=== PATIENT | female | born 1970 | race Caucasian/White ===

== ENCOUNTER 2018-10-05 09:52 | Emergency (ER) | payer MEDICARE, SELFPAY ==
[2018-10-05 10:01] VITALS: BP 143/82; PULSE 90; RESP 14; TEMP 37; O2SAT 95
--- NOTE | 2018-10-05 10:06 | W.ED.GENAD ---
Discharge Plan Disposition Patient Disposition: HOME Condition: Improving Discharge Details Chief Complaint: RespSymp Clinical Impression: Pneumonia Primary Care Provider: Wendy Fall ED Provider: Greg Meyers Home Meds and New Rx's Prescriptions: New amoxicillin-pot clavulanate 875-125 mg tablet 1 tab PO BID 10 Days Qty: 20 RF: 0 guaifenesin [Mucinex] 600 mg tablet extended release 12hr 600 mg PO Q12H PRNQty: 10 RF: 0 Continue cyanocobalamin (vitamin B-12) [Vitamin B-12] 1,000 MCG tablet 1,000 mcg PO DAILY Qty: 1 RF: 0 oxycodone 10 MG tablet 10 mg PO 8H PRN PRNRF: 0 atenolol 25 MG tablet 25 mg PO DAILY RF: 0 ipratropium-albuterol [Combivent] 200 PUFF aerosol 2 puff Inhalation QID PRN PRNRF: 0 multivitamin [Multiple Vitamins] 1 TAB tablet 1 tab PO DAILY Qty: 30 RF: 3 Discharge Instructions Instructions: Pneumonia (ED) Additional Instructions: Home to rest. Small, frequent sips of fluids to maintain hydration. Ibuprofen 800 mg every 8 hours as needed for aches, pains, fever. Albuterol inhaler as directed, as needed for shortness of breath Return to the emergency department for any acute concern. Medical Decision Making 39-year-old female smoker presents from home with days of worsening cough and congestion. She is afebrile and oxygenating normally. Diagnosis includes bronchitis, pneumonia. Patient given DuoNeb updraft and referred for chest X ray. I question retrocardiac infiltrate. Will treat with a course of Augmentin as well as patient to be provided albuterol inhaler to use during times of illness. She will continue efforts to decrease smoking. Return precautions to the ER were discussed with the patient. HPI General Mode of arrival: ambulatory. Date/Time Provider Initiated Documentation: 10/05/18 10:00. Limitations to Documentation: no limitations. Information obtained by: patient. History of Present Illness 47 year old F presents to the emergency department with the chief complaint of Cough and congestion over days time, described as moderate, Quality is described as aching, and is localized to the chest. Patient started experiencing this day(s) and it has been constant. No relieving factors improve symptom(s), No exacerbating factors reported . Patient notes cough, loss of appetite, malaise and weakness. Patient did receive the following treatments prior to arrival, none HPI Narrative: 39-year-old female presents from home with days of progressive cough, congestion, mild discomfort while coughing. She has had subjective fever and chills. No vomiting Related Data Home Medications Medication Instructions Recorded Confirmed atenolol 25 mg PO DAILY 03/28/13 10/05/18 cyanocobalamin (vitamin B-12) 1,000 mcg PO DAILY #1 04/10/14 10/05/18 [Vitamin B-12] oxycodone 10 mg PO 8H PRN PRN 04/09/16 10/05/18 multivitamin [Multiple Vitamins] 1 tab PO DAILY #30 tab 07/11/17 10/05/18 ipratropium-albuterol [Combivent] 2 puff INHALATION QID PRN PRN 06/05/18 10/05/18 amoxicillin-pot clavulanate 1 tab PO BID 10 Days #20 tab 10/05/18 guaifenesin [Mucinex] 600 mg PO Q12H PRN #10 tab 10/05/18 Previous Rx's Medication Instructions Recorded multivitamin [Multiple Vitamins] 1 tab PO DAILY #30 tab 07/11/17 amoxicillin-pot clavulanate 1 tab PO BID 10 Days #20 tab 10/05/18 guaifenesin [Mucinex] 600 mg PO Q12H PRN #10 tab 10/05/18 Allergies Allergy/AdvReac Type Severity Reaction Status Date / Time acetaminophen [From Tylenol] AdvReac Unverified 06/05/18 09:09 General Stated Complaint: RespSymp SHEA: 3 Review of Systems Review of Systems 8 systems reviewed and otherwise neg [facility] Medical History Seizure Tachycardia Social History Smoking/Tobacco Use Status: Current every day Surgical History Collapsed lung 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 Pleasant, well groomed, interactive. HEAD: Normocephalic, atraumatic ENT: Mucous membranes moist, oropharynx unremarkable, External ear exam unremarkable EYES: PERRL, EOMI NECK: Full ROM, no CAMELIA, no menigismus CHEST/RESP: Nontender, bilateral rhonchi left greater than right CARDIOVASCULAR: RRR, no murmur, rub amy. 2+ Rad pulse bilateral ABDOMEN: Soft, nontender, no mass. +Bowel sounds EXT: Full ROM, no edema, no rash Neuro: Grossly normal neurologic exam, conversant, interactive. Psych: Speech fluent, thoughts congruent, affect normal Course Vital Signs Temperature 37 C 10/05/18 10:01 Pulse 90 10/05/18 10:01 Respiratory Rate 14 10/05/18 10:01 Blood Pressure 143/82 H 10/05/18 10:01 Pulse Oximetry 95 10/05/18 10:01 Temperature 37 C 10/05/18 10:01 Temperature Source Temporal Artery Scan 10/05/18 10:01 Pulse 90 10/05/18 10:01 Respiratory Rate 14 10/05/18 10:01 Respiratory Effort 10/05/18 10:03 Blood Pressure 143/82 H 10/05/18 10:01 Blood Pressure Position Sitting 10/05/18 10:01 Pulse Oximetry 95 10/05/18 10:01 Oxygen Delivery Method Room Air 10/05/18 10:01 Oxygen Flow Rate 0 10/05/18 10:01 Pain Level 8 10/05/18 10:01
--- NOTE | 2018-10-05 10:09 | ED.GENADUL_ITS ---
Discharge Plan Disposition Patient Disposition: HOME Condition: Improving Discharge Details Chief Complaint: RespSymp Clinical Impression: Pneumonia Primary Care Provider: Wendy Fall ED Provider: Greg Meyers Home Meds and New Rx's Prescriptions: New amoxicillin-pot clavulanate 875-125 mg tablet 1 tab PO BID 10 Days Qty: 20 RF: 0 guaifenesin [Mucinex] 600 mg tablet extended release 12hr 600 mg PO Q12H PRNQty: 10 RF: 0 Continue cyanocobalamin (vitamin B-12) [Vitamin B-12] 1,000 MCG tablet 1,000 mcg PO DAILY Qty: 1 RF: 0 oxycodone 10 MG tablet 10 mg PO 8H PRN PRNRF: 0 atenolol 25 MG tablet 25 mg PO DAILY RF: 0 ipratropium-albuterol [Combivent] 200 PUFF aerosol 2 puff Inhalation QID PRN PRNRF: 0 multivitamin [Multiple Vitamins] 1 TAB tablet 1 tab PO DAILY Qty: 30 RF: 3 Discharge Instructions Instructions: Pneumonia (ED) Additional Instructions: Home to rest. Small, frequent sips of fluids to maintain hydration. Ibuprofen 800 mg every 8 hours as needed for aches, pains, fever. Albuterol inhaler as directed, as needed for shortness of breath Return to the emergency department for any acute concern. Medical Decision Making 39-year-old female smoker presents from home with days of worsening cough and congestion. She is afebrile and oxygenating normally. Diagnosis includes bronchitis, pneumonia. Patient given DuoNeb updraft and referred for chest X ray. I question retrocardiac infiltrate. Will treat with a course of Augmentin as well as patient to be provided albuterol inhaler to use during times of illness. She will continue efforts to decrease smoking. Return precautions to the ER were discussed with the patient. HPI General Mode of arrival: ambulatory . Date/Time Provider Initiated Documentation: 10/05/18 10:00 . Limitations to Documentation: no limitations . Information obtained by: patient . History of Present Illness 47 year old F presents to the emergency department with the chief complaint of Cough and congestion over days time, described as moderate, Quality is described as aching, and is localized to the chest. Patient started experiencing this day(s) and it has been constant. No relieving factors improve symptom(s), No exacerbating factors reported . Patient notes cough, loss of appetite, malaise and weakness. Patient did receive the following treatments prior to arrival, none HPI Narrative: 39-year-old female presents from home with days of progressive cough, congestion, mild discomfort while coughing. She has had subjective fever and chills. No vomiting Related Data Home Medications Medication Instructions Recorded Confirmed atenolol 25 mg PO DAILY 03/28/13 10/05/18 cyanocobalamin (vitamin B-12) 1,000 mcg PO DAILY #1 04/10/14 10/05/18 [Vitamin B-12] oxycodone 10 mg PO 8H PRN PRN 04/09/16 10/05/18 multivitamin [Multiple Vitamins] 1 tab PO DAILY #30 tab 07/11/17 10/05/18 ipratropium-albuterol [Combivent] 2 puff INHALATION QID PRN PRN 06/05/18 amoxicillin-pot clavulanate 1 tab PO BID 10 Days #20 tab 10/05/18 guaifenesin [Mucinex] 600 mg PO Q12H PRN #10 tab 10/05/18 Previous Rx's Medication Instructions Recorded multivitamin [Multiple Vitamins] 1 tab PO DAILY #30 tab 07/11/17 amoxicillin-pot clavulanate 1 tab PO BID 10 Days #20 tab 10/05/18 guaifenesin [Mucinex] 600 mg PO Q12H PRN #10 tab 10/05/18 Allergies Allergy/AdvReac Type Severity Reaction Status Date / Time acetaminophen [From Tylenol] AdvReac Unverified 06/05/18 09:09 General Stated Complaint: RespSymp SHEA: 3 Review of Systems Review of Systems 8 systems reviewed and otherwise neg [facility] Medical History Seizure Tachycardia Social History Smoking/Tobacco Use Status: Current every day Surgical History Collapsed lung 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 Pleasant, well groomed, interactive. HEAD: Normocephalic, atraumatic ENT: Mucous membranes moist, oropharynx unremarkable, External ear exam unremarkable EYES: PERRL, EOMI NECK: Full ROM, no CAMELIA, no menigismus CHEST/RESP: Nontender, bilateral rhonchi left greater than right CARDIOVASCULAR: RRR, no murmur, rub amy. 2+ Rad pulse bilateral ABDOMEN: Soft, nontender, no mass. +Bowel sounds EXT: Full ROM, no edema, no rash Neuro: Grossly normal neurologic exam, conversant, interactive. Psych: Speech fluent, thoughts congruent, affect normal Course Vital Signs Temperature 37 C 10/05/18 10:01 Pulse 90 10/05/18 10:01 Respiratory Rate 14 10/05/18 10:01 Blood Pressure 143/82 H 10/05/18 10:01 Pulse Oximetry 95 10/05/18 10:01 Temperature 37 C 10/05/18 10:01 Temperature Source Temporal Artery Scan 10/05/18 10:01 Pulse 90 10/05/18 10:01 Respiratory Rate 14 10/05/18 10:01 Respiratory Effort 10/05/18 10:03 Blood Pressure 143/82 H 10/05/18 10:01 Blood Pressure Position Sitting 10/05/18 10:01 Pulse Oximetry 95 10/05/18 10:01 Oxygen Delivery Method Room Air 10/05/18 10:01 Oxygen Flow Rate 0 10/05/18 10:01 Pain Level 8 10/05/18 10:01
[2018-10-05 10:26] VITALS: RESP 1; RESP 3
[2018-10-05] MEDS: Albuterol/Ipratropium 3 ML UPD VIAL UPD (10:26)
[2018-10-05] MEDS: Ibuprofen 800 MG TAB PO (10:26)
--- NOTE | 2018-10-05 10:50 | DI.RAD_ITS ---
SYMPTOMS/DIAGNOSIS: COUGH AND CONGESTION PA AND LATERAL CHEST: The heart is not enlarged. There is marked pulmonary hyperinflation and there appear to be diffuse changes of pulmonary scarring. No pleural effusions seen. In comparison with the previous examination of 06/05/2018, there appears to be increased streaky radiodensity in the retrocardiac portion of the left lower lobe, consistent with acute pneumonia. No other significant change seen. CONCLUSION: Findings consistent with left lower lobe pneumonia.
[2018-10-05 11:30] VITALS: BP 109/76; PULSE 92; RESP 17; TEMP 37
[2018-10-05] MEDS: Albuterol HFA 8 GM 60 PUFF INH IH (11:39)
== END 2018-10-05 11:35 | disposition home or self-care (01) ==
PROVIDERS: Emergency Provider Emergency Medicine; PCP Nurse Practitioner Family
DX: J18.9 Pneumonia, unspecified organism (principal); R07.89 Other chest pain; F17.210 Nicotine dependence, cigarettes, uncomplicated
CPT/HCPCS: 94640; 99283; 71046; J7620

== ENCOUNTER 2018-10-12 21:29 | Emergency (ER) | payer MEDICARE, SELFPAY ==
[2018-10-12 21:38] VITALS: BP 130/72; PULSE 78; RESP 18; TEMP 36.6; O2SAT 100
[2018-10-12] MEDS: Normal Saline 1,000 ML 1000 ML IV (23:20)
--- NOTE | 2018-10-12 23:30 | DI.RAD_ITS ---
SYMPTOMS/DIAGNOSIS: EPIGASTRIC PAIN, COUGH PA AND LATERAL CHEST: Pulmonary hyperinflation is demonstrated. There is an ill-defined density projected over the left lower lobe which is unchanged when compared with previous images and likely represents a region of scarring. The lungs are otherwise clear. The heart is not enlarged. The cardiovascular structures appear intact. SUMMARY: No evidence of acute cardiopulmonary disease.
--- NOTE | 2018-10-12 23:35 | DI.RAD_ITS ---
SYMPTOM/DIAGNOSIS: EPIGASTRIC PAIN FLAT AND UPRIGHT VIEWS OF THE ABDOMEN: No free air is identified. There is gas seen scattered throughout small and large bowel without evidence of obstruction. No organomegaly is seen. There is a left hip prosthesis. IMPRESSION: No acute abnormality.
[2018-10-13 00:01] LABS: Abs Immature Grans 0.03 k/cumm (0.0-0.09); Absolute Basophil Count 0.03 k/cumm (0.0-0.2); Absolute Eosinophil Count 0.01 k/cumm (0.0-0.7); Absolute Lymphocyte Count 2.18 k/cumm (1.2-3.4); Absolute Monocyte Count 0.63 k/cumm (0.11-0.7); Absolute Neutrophil Count 9.94 k/cumm (1.2-6.7); Basophils % 0.2; Eosinophils % 0.1; HCT 43.7 % (36.0-46.0); HGB 15.2 g/dL (12.0-15.5); Immature Grans % 0.2; Mean Corp. HGB Concentration 34.8 g/dL (32.0-36.0); Mean Corpuscular Volume 86.2 fL (80-95); Monocytes % 4.9; Neutrophils % 77.6; Platelet Count 145 x1000/uL (130-400); RBC 5.07 m/cumm (4.00-5.20); RBC Distribution Width 13.1 % (11.7-14.6); White Blood Cell Count 12.81 k/cumm (4.4-10.8)
--- NOTE | 2018-10-13 00:01 | W.ED.GENAD ---
Discharge Plan Disposition Patient Disposition: HOME Condition: Improving Discharge Details Chief Complaint: Abd Prob Clinical Impression: Epigastric pain, Hypomagnesemia, Diarrhea, Dehydration, Hyponatremia Primary Care Provider: Wendy Fall ED Provider: Ashok Strong Home Meds and New Rx's Prescriptions: New famotidine [Pepcid] 40 mg tablet 40 mg PO BID Qty: 10 RF: 0 Continue cyanocobalamin (vitamin B-12) [Vitamin B-12] 1,000 MCG tablet 1,000 mcg PO DAILY Qty: 1 RF: 0 oxycodone 10 MG tablet 10 mg PO 8H PRN PRNRF: 0 atenolol 25 MG tablet 25 mg PO DAILY RF: 0 ipratropium-albuterol [Combivent] 200 PUFF aerosol 2 puff Inhalation QID PRN PRNRF: 0 amoxicillin-pot clavulanate 875-125 mg tablet 1 tab PO BID 10 Days Qty: 20 RF: 0 guaifenesin [Mucinex] 600 mg tablet extended release 12hr 600 mg PO Q12H PRNQty: 10 RF: 0 multivitamin [Multiple Vitamins] 1 TAB tablet 1 tab PO DAILY Qty: 30 RF: 3 Discharge Instructions Instructions: Dehydration (ED), Acute Diarrhea (ED), Epigastric Pain (ED) Additional Instructions: Please drink plenty of fluids including Gatorade type drinks. You should be taking your magnesium. Finish your antibiotic. Pepcid to help with the epigastric discomfort. Imodium if needed for diarrhea. Avoid nonsteroidals, caffeine, alcohol. Follow-up with primary care next week as planned. Return to ED if fever, vomiting, worsening abdominal pain, bloody diarrhea, increased difficulty breathing. Referrals: Wendy Fall [Primary Care Provider] - Discharge Data Discharge Date/Time-TO BE ENTERED AT DEPARTURE: 10/13/18 01:06 Medical Decision Making <Manuel Jerez NP - Last Filed: 10/13/18 16:40> Patient presenting to the emergency department with chief complaint of abdominal discomfort. Patient also states some chest pain with cough that has been improving. Patient was seen in the emergency department approximately 1 week ago and placed on antibiotics for diagnosis of pneumonia. Patient states overall pneumonia chest discomfort are improving but over the past 2 days she has had significant abdominal discomfort, loss of appetite, and low fluid intake. Patient states that she has had diarrhea almost since beginning the antibiotic therapy it is not resolved. Patient states that this is not bloody or mucousy and does not have a foul odor but just is watery and persistent. She does state that she has taken some Imodium to try to help her symptoms. Patient denies any fever. Physical exam does show significant epigastric tenderness, along with fine crackles in the left lower lobe. Otherwise physical exam is unremarkable. Patient did state that she had an additional 24 hours of antibiotic therapy still to take but she stopped it to see if this would help with her symptoms. She does state that she has been taking 800 mg of ibuprofen to control her discomfort. I am highly suspicious of gastritis being the cause of epigastric discomfort due to antibiotic therapy along with NSAID use without food intake along with these medications. Plan to give GI cocktail along with check patient's labs for any significant electrolyte abnormalities and repeat chest x-ray to ensure improvement of pneumonia symptoms. HPI <Manuel Jerez NP - Last Filed: 10/13/18 16:40> General Mode of arrival: ambulatory. Date/Time Provider Initiated Documentation: 10/12/18 21:58. Limitations to Documentation: no limitations. Information obtained by: patient, RN notes reviewed and old records reviewed. History of Present Illness 47 year old F presents to the emergency department with the chief complaint of Abdominal Pain, described as moderate, with intensity rated at 9. Quality is described as sharp, and is localized to the abdomen. Patient reports no radiation. Patient started experiencing this day(s) (2) and it has been constant. No relieving factors improve symptom(s), Eating worsens symptoms . Patient notes no other symptoms.. Related Data Home Medications Medication Instructions Recorded Confirmed atenolol 25 mg PO DAILY 03/28/13 10/12/18 cyanocobalamin (vitamin B-12) 1,000 mcg PO DAILY #1 04/10/14 10/12/18 [Vitamin B-12] oxycodone 10 mg PO 8H PRN PRN 04/09/16 10/12/18 multivitamin [Multiple Vitamins] 1 tab PO DAILY #30 tab 07/11/17 10/12/18 ipratropium-albuterol [Combivent] 2 puff INHALATION QID PRN PRN 06/05/18 10/12/18 amoxicillin-pot clavulanate 1 tab PO BID 10 Days #20 tab 11/14/18 11/21/18 guaifenesin [Mucinex] 600 mg PO Q12H PRN #10 tab 10/05/18 10/12/18 famotidine [Pepcid] 40 mg PO BID #10 tab 10/13/18 Previous Rx's Medication Instructions Recorded multivitamin [Multiple Vitamins] 1 tab PO DAILY #30 tab 07/11/17 amoxicillin-pot clavulanate 1 tab PO BID 10 Days #20 tab 10/05/18 guaifenesin [Mucinex] 600 mg PO Q12H PRN #10 tab 10/05/18 famotidine [Pepcid] 40 mg PO BID #10 tab 10/13/18 Allergies Allergy/AdvReac Type Severity Reaction Status Date / Time acetaminophen [From Tylenol] AdvReac Unverified 10/12/18 21:42 General Stated Complaint: Abd Prob SHEA: 3 Review of Systems <Manuel Jerez NP - Last Filed: 10/13/18 16:40> Constitutional Denies chills, Denies fever(s), Denies headache(s), Reports malaise and Reports poor appetite ENT Denies headache(s) Cardiovascular Denies rapid heart rate, Denies irregular heart rhythm and Denies dyspnea Respiratory Reports chest congestion, Reports pain with cough and Denies dyspnea Gastrointestinal Reports as per HPI, Reports abdominal pain, Denies melena, Denies change in bowel habits, Denies constipation, Reports diarrhea, Reports loose stools, Reports nausea and Denies vomiting Genitourinary Denies hematuria, Denies urinary incontinence, Denies urinary hesitancy and Denies urinary urgency Integumentary/Breasts Denies rash Neurologic Denies headache(s) and Denies seizure-like activity Exam <Manuel Jerez NP - Last Filed: 10/13/18 16:40> Const General: cooperative Orientation: alert, awake and oriented x3 Resp Effort & Inspection: normal respiratory effort and able to speak in complete sentences Auscultation: crackles (fine) on the left in the lower lung rasmussen Cardio Rate: regular rate Rhythm: regular rhythm Heart Sounds: S1 normal and S2 normal GI Palpation: soft, no hepatosplenomegaly, not firm, no guarding, no masses, no pulsatile masses, not rigid, no splenomegaly and tender in the epigastrum; not at McBurney's point, not periumbilically, Cordova's sign negative and Rovsing's sign negative Auscultation: normal bowel sounds Back/Spine/Pelvis Back: no CVA tenderness Neuro General: alert, awake, oriented x3, gait normal and moves all extremities Course <Manuel Jerez NP - Last Filed: 10/13/18 16:40> Vital Signs Temperature 36.6 C 10/12/18 21:38 Pulse 78 10/12/18 21:38 Respiratory Rate 18 10/12/18 21:38 Blood Pressure 130/72 10/12/18 21:38 Pulse Oximetry 100 10/12/18 21:38 Temperature 36.6 C 10/12/18 21:38 Temperature Source Skin 10/12/18 21:38 Pulse 78 10/12/18 21:38 Respiratory Rate 18 10/12/18 21:38 Respiratory Effort Non-Labored 10/12/18 21:40 Blood Pressure 130/72 10/12/18 21:38 Pulse Oximetry 100 10/12/18 21:38 Oxygen Delivery Method Room Air 10/12/18 21:38 Oxygen Flow Rate 0 10/12/18 21:38 Pain Level 9 10/12/18 21:38 Sign Out <Manuel Jerez NP - Last Filed: 10/13/18 16:40> Sign Out Data: Sign Out Comment: Patient signed out to Dr. Strong pending radiology results and lab results, treatment and stabilization as needed, and disposition. Last updated by Manuel Jerez NP at 10/13/18 00:14 Post-Handoff Eval: Patient does report that she is feeling better. She wants to go home because she needs to get ready for Thanksgiving. She has received a liter of saline and a GI cocktail. Laboratory studies significant for white count of 13. Chemistries significant for a sodium of 129, chloride 94, magnesium 1.5. Potassium is okay at 3.5. Liver function and lipase are normal. Chest x-ray shows resolving pneumonia. Abdominal x-ray is unremarkable I went in to speak to the patient regarding giving her a another liter of fluids as well as some magnesium. She states that she does not wish to stay for that. She promises to start taking her magnesium which she has at home as well as drinking fluids. She has not having vomiting just diarrhea. I do believe the epigastric discomfort and pain is likely related to the Motrin and possibly the Augmentin. GI cocktail made that better. We will put her on Pepcid for a few days. She has follow-up with her primary care next week. Return to ED if worse.
--- NOTE | 2018-10-13 00:11 | DI.VRAD_ITS ---
EXAM: XR Chest, 2 Views EXAM DATE/TIME: 10/12/2018 10:34 PM CLINICAL HISTORY: 47 years old, female; Pain and signs and symptoms; Cough; Chest pain; Type not specified; Patient HX: Chest pain with cough, recent left lower lobe pneumonia TECHNIQUE: XR of the chest, 2 views. COMPARISON: CR XR CHEST 2V PA LATERAL 10/05/2018 10:44 AM FINDINGS: Lungs: There is increased density retrocardiac on the left which could represent a left lower lobe infiltrate. Clinical correlation is recommended. There is again elevation of the right hemidiaphragm. Pleural space: There is blunting of the costophrenic angles posteriorly on the lateral film which are suspicious for pleural effusions. Heart/Mediastinum: Unremarkable. No cardiomegaly. Bones/joints: Unremarkable. IMPRESSION: Question left lower lobe infiltrate. Clinical correlation is recommended. Suspect bilateral pleural effusions as above. Elevation of the right hemidiaphragm. Dictated and Authenticated by: Anmol Dhaliwal MD. Ordering:DEBBIE MORALES MD
--- NOTE | 2018-10-13 00:13 | DI.VRAD_ITS ---
EXAM: XR Abdomen, 2 Views EXAM DATE/TIME: 10/12/2018 10:34 PM CLINICAL HISTORY: 47 years old, female; Pain; Abdominal pain; Epigastric; Prior surgery; Surgery date: 6+ months; Surgery type: L hip; Patient HX: Epigastric pain and diarrhea for 7 days. TECHNIQUE: Frontal view of the abdomen/pelvis with upright view of the abdomen. COMPARISON: No relevant prior studies available. FINDINGS: Gastrointestinal tract: There is a nonspecific bowel gas pattern. There is small and large bowel gas. There is no free air or air-fluid levels. Intraperitoneal space: Normal. No free air. Bones/joints: The patient is status post total left hip replacement. IMPRESSION: Nonspecific bowel gas pattern. Status post total left hip replacement. Dictated and Authenticated by: Anmol Dhaliwal MD. Ordering:DEBBIE MORALES MD
[2018-10-13 00:14] LABS: Lipase 117 U/L (73-393)
[2018-10-13 00:17] LABS: ALT 22 U/L (12-78); AST 25 U/L (15-37); Albumin 2.8 g/dL (3.4-5.0); Alkaline Phosphatase 101 U/L (46-116); Anion Gap 11.8 mmol/L (3-11); BUN 1 mg/dL (7-18); Bilirubin, Total 0.4 mg/dL (0.2-1.0); CO2 23.2 mmol/L (21.0-32.0); CREATININE 0.34 mg/dL (0.55-1.02); Calcium 8.2 mg/dL (8.5-10.1); Chloride 94 mmol/L (98-107); Glucose 91 mg/dL (70-100); Magnesium 1.5 mg/dL (1.8-2.4); Potassium 3.5 mmol/L (3.5-5.1); Sodium 129 mmol/L (136-145); Total Protein 7.1 g/dL (6.4-8.2)
[2018-10-13] MEDS: Famotidine 20 MG TAB 40 MG PO (01:03)
== END 2018-10-13 01:06 | disposition home or self-care (01) ==
PROVIDERS: Nurse Practitioner Family; Emergency Provider Emergency Medicine; PCP Nurse Practitioner Family
DX: R10.13 Epigastric pain (principal); E83.42 Hypomagnesemia; R19.7 Diarrhea, unspecified; E86.0 Dehydration; E87.1 Hypo-osmolality and hyponatremia; J18.9 Pneumonia, unspecified organism
CPT/HCPCS: 36415; 80053; 83690; 96360; 99283; 71046; 74019; 83735; 85025

== ENCOUNTER 2019-03-21 20:57 | Emergency (ER) | payer MEDICARE, SELFPAY ==
[2019-03-21] VITALS (13 sets, daily range): BP systolic 108–134; BP diastolic 59–85; PULSE 103–121; RESP 22–27; TEMP 37.2–38.4; O2SAT 91–99
--- NOTE | 2019-03-21 21:03 | ED.GENADUL_ITS ---
Discharge Plan Disposition Patient Disposition: HOME Condition: Improving Discharge Details Chief Complaint: Seizure Clinical Impression: Seizure disorder, Alcohol dependence Primary Care Provider: Bria Lorenzo ED Provider: Greg Meyers Home Meds and New Rx's Prescriptions: New ondansetron HCl [Zofran] 4 mg tablet 4 mg PO QID PRN (Reason: nausea and vomiting) Qty: 10 RF: 0 guaifenesin [Mucinex] 600 mg tablet extended release 12hr 600 mg PO Q12H PRNQty: 10 RF: 0 Continued cyanocobalamin (vitamin B-12) [Vitamin B-12] 1,000 MCG tablet 1,000 mcg PO DAILY Qty: 1 RF: 0 oxycodone 10 MG tablet 10 mg PO 8H PRN PRNRF: 0 atenolol 25 MG tablet 25 mg PO DAILY RF: 0 Combivent 200 PUFF aerosol 2 puff Inhalation QID PRN PRNRF: 0 guaifenesin [Mucinex] 600 mg tablet extended release 12hr 600 mg PO Q12H PRNQty: 10 RF: 0 multivitamin [Multiple Vitamins] 1 TAB tablet 1 tab PO DAILY Qty: 30 RF: 3 Discharge Instructions Instructions: Recurrent Seizures in Adults (ED) Additional Instructions: Please consider a decreasing her daily use of alcohol. May use the provided Zofran as needed for nausea. Home to rest this evening with small, frequent sips of fluids to maintain hydration. You may liberalize the use of salt in the diet. Please follow-up Bria Lorenzo in clinic for recheck. Return if you develop a headache, persistent vomiting, or any other acute concern Medical Decision Making 48-year-old female with a history of seizure disorder, that she states frequently occurs when drinking alcohol and admits to a few beers today. She had generalized tremulous seizure while seated in her recliner at home. There is no cessation of breathing. No tongue biting. No incontinence. She has had previous head CT imaging at the onset of her seizure disorder and states that is unchanged. She has had 1 day of low-grade fever with nausea, intermittent vomiting and loose watery stools. No known sick contacts. She likely drinks more and on a daily basis then she is willing to admit. 2-3 beers today per her report. She arrives with a low-grade fever of 38.4. Unremarkable neurologic exam. She is given fluids, ketorolac. She admits to seizures related to her alcohol consumption.She endorse a cough as well and CXR obtained; nofocal infiltrate. Laboratory with mild hyponatremia, mild hypomagnesemia. Supplemented in the ED. Discussed with her that this is in part beer potomania as well as likely mild alcohol withdrawal. She is improved clinically and requests discharge home. Will offer small number of Zofran. She will follow-up with Bria Lorenzo for recheck. Lab Data Lab results reviewed: Yes I reviewed the patient's lab results. Laboratory Results - last 24 hr 03/21/19 03/21/19 21:02 21:02 WBC 18.66 H RBC 4.79 Hgb 15.2 Hct 45.3 MCV 94.6 MCH 31.7 MCHC 33.6 RDW 12.5 Plt Count 139 MPV 11.0 Immature Gran % 0.3 Neutrophils % 89.7 Lymphocytes % 5.1 Monocytes % 4.7 Eosinophils % 0.0 Basophils % 0.2 Absolute Neutrophils 16.74 H Absolute Lymphocytes 0.95 L Absolute Monocytes 0.88 H Absolute Eosinophils 0.00 Absolute Basophils 0.04 Sodium 131 L Potassium 3.7 Chloride 92 L Carbon Dioxide 19.5 L Anion Gap 19.5 H BUN 6 L Creatinine 0.75 Estimated GFR/1.73 m2 >= 60.00 Glucose 152 H Calcium 9.0 Magnesium 1.5 L Total Bilirubin 0.7 AST 44 H ALT 40 Alkaline Phosphatase 128 H Total Protein 8.7 H Albumin 3.6 Ethyl Alcohol 3.9 HPI General Mode of arrival: EMS . Date/Time Provider Initiated Documentation: 03/21/19 21:03 . Limitations to Documentation: no limitations . Information obtained by: EMS . History of Present Illness 48 year old F presents to the emergency department with the chief complaint of Seizure, similar to previous, no injury or tongue biting, described as similar to prior episodes, Patient started experiencing this minute(s) and it has been now resolved. No relieving factors improve symptom(s), No exacerbating factors reported . Patient notes no other symptoms.; denies fever/chills and headaches. Patient did receive the following treatments prior to arrival, none Related Data Home Medications Medication Instructions Recorded Confirmed atenolol 25 mg PO DAILY 03/28/13 03/21/19 cyanocobalamin (vitamin B-12) 1,000 mcg PO DAILY #1 04/10/14 03/21/19 [Vitamin B-12] oxycodone 10 mg PO 8H PRN PRN 04/09/16 03/21/19 multivitamin [Multiple Vitamins] 1 tab PO DAILY #30 tab 07/11/17 03/21/19 Combivent 2 puff INHALATION QID PRN PRN 06/05/18 03/21/19 guaifenesin [Mucinex] 600 mg PO Q12H PRN #10 tab 10/05/18 03/21/19 guaifenesin [Mucinex] 600 mg PO Q12H PRN #10 tab 03/21/19 ondansetron HCl [Zofran] 4 mg PO QID PRN #10 tab 03/21/19 Previous Rx's Medication Instructions Recorded multivitamin [Multiple Vitamins] 1 tab PO DAILY #30 tab 07/11/17 guaifenesin [Mucinex] 600 mg PO Q12H PRN #10 tab 10/05/18 guaifenesin [Mucinex] 600 mg PO Q12H PRN #10 tab 03/21/19 ondansetron HCl [Zofran] 4 mg PO QID PRN #10 tab 03/21/19 Allergies Allergy/AdvReac Type Severity Reaction Status Date / Time acetaminophen [From Tylenol] AdvReac Unverified 03/21/19 21:02 General SHEA: 3 Review of Systems Review of Systems 8 systems reviewed and otherwise negative. Denies headache, no change to bowel or bladder habits. No incontinence. No tongue biting. No fall or injury. Today with nausea, intermittent vomiting, loose stool. 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 Pleasant, well groomed, interactive. HEAD: Normocephalic, atraumatic ENT: Mucous membranes moist, oropharynx unremarkable, External ear exam unremarkable EYES: PERRL, EOMI NECK: Full ROM, no CAMELIA, no menigismus CHEST/RESP: Nontender, clear to auscultation bilateral, no wheeze/rhonchi/rales CARDIOVASCULAR: Borderline tachycardia, no murmur, rub amy. 2+ Rad pulse bilateral ABDOMEN: Soft, nontender, no mass. +Bowel sounds EXT: Full ROM, no edema, no rash Neuro: Grossly normal neurologic exam, conversant, interactive. Cranial nerves II through XII intact. Speech fluent. [id number] intact Psych: Speech fluent, thoughts congruent, affect normal
[2019-03-21] MEDS: Normal Saline 1,000 ML 1000 ML IV (21:05)
[2019-03-21] MEDS: Ketorolac 30 MG/ML VIAL IVP (21:09)
[2019-03-21 21:12] LABS: Abs Immature Grans 0.05 k/cumm (0.0-0.09); Absolute Lymphocyte Count 0.95 k/cumm (1.2-3.4); Basophils % 0.2; HCT 45.3 % (36.0-46.0); HGB 15.2 g/dL (12.0-15.5); Immature Grans % 0.3; Lymphocytes % 5.1; Mean Corp. HGB Concentration 33.6 g/dL (32.0-36.0); Mean Corpuscular Hemoglobin 31.7 pg (27.0-33.0); Mean Corpuscular Volume 94.6 fL (80-95); Monocytes % 4.7; Neutrophils % 89.7; Platelet Count 139 x1000/uL (130-400); RBC 4.79 m/cumm (4.00-5.20); RBC Distribution Width 12.5 % (11.7-14.6); White Blood Cell Count 18.66 k/cumm (4.4-10.8)
[2019-03-21 21:13] LABS: Absolute Basophil Count 0.04 k/cumm (0.0-0.2); Absolute Monocyte Count 0.88 k/cumm (0.11-0.7); Absolute Neutrophil Count 16.74 k/cumm (1.2-6.7)
[2019-03-21 21:20] LABS: ALT 40 U/L (12-78); AST 44 U/L (15-37); Albumin 3.6 g/dL (3.4-5.0); Alkaline Phosphatase 128 U/L (46-116); Anion Gap 19.5 mmol/L (3-11); BUN 6 mg/dL (7-18); Bilirubin, Total 0.7 mg/dL (0.2-1.0); CO2 19.5 mmol/L (21.0-32.0); CREATININE 0.75 mg/dL (0.55-1.02); Chloride 92 mmol/L (98-107); ETHANOL BLOOD 3.9 mg/dL (<3); Glucose 152 mg/dL (70-100); Magnesium 1.5 mg/dL (1.8-2.4); Potassium 3.7 mmol/L (3.5-5.1); Sodium 131 mmol/L (136-145); Total Protein 8.7 g/dL (6.4-8.2)
[2019-03-21] MEDS: MAGNESIUM SULFATE 1 GM/100 ML BAG IVPB (21:31)
[2019-03-21] MEDS: LORazepam 2 MG/ML VIAL 1 MG IVP (21:32)
[2019-03-21] MEDS: Ondansetron O.D.T. 4 MG TABEF PO (22:07)
--- NOTE | 2019-03-21 22:23 | DI.RAD_ITS ---
SYMPTOM/DIAGNOSIS: COUGH, FEVER AP AND LATERAL CHEST: Comparison is made with 10/12/18. Heart size and pulmonary vasculature are within normal limits. No focal consolidating infiltrates, effusions or pneumothoraces are identified. The lungs appear hyperinflated with flattened diaphragms suggesting underlying COPD. Degenerative changes are seen in the spine. IMPRESSION: No definite acute pulmonary process.
--- NOTE | 2019-03-21 22:46 | DI.VRAD_ITS ---
EXAM: XR Chest, 2 Views EXAM DATE/TIME: 03/21/2019 10:23 PM CLINICAL HISTORY: 48 years old, female; Signs and symptoms; Cough and fever; Prior surgery; Surgery date: 6+ months; Patient HX: HX of collapsed lung TECHNIQUE: Imaging protocol: XR of the chest, 2 views. COMPARISON: SC XR CHEST 2V PA LATERAL 10/12/2018 11:21 PM FINDINGS: Lungs: Unremarkable. No consolidation. Pleural space: Unremarkable. No evidence of pneumothorax. Heart/Mediastinum: Unremarkable. Heart size within normal limits for technique. Bones/joints: Unremarkable. IMPRESSION: No acute findings. Dictated and Authenticated by: Armando Salcedo MD. Ordering:SERGIO Garza MD
== END 2019-03-21 22:48 | disposition home or self-care (01) ==
PROVIDERS: Emergency Provider Emergency Medicine; PCP Nurse Practitioner Family
DX: R56.9 Unspecified convulsions (principal); F10.10 Alcohol abuse, uncomplicated; E83.42 Hypomagnesemia; E87.1 Hypo-osmolality and hyponatremia
CPT/HCPCS: 36415; 80053; 96361; 96365; 96375; 99284; 71046; 80320; 83735; 85025; J1885; J2060; J3475

== ENCOUNTER 2019-05-28 22:50 | Emergency (ER) | payer MEDICARE, SELFPAY ==
--- NOTE | 2019-05-28 00:05 | DI.CT_ITS ---
SYMPTOM/DIAGNOSIS: ALCOHOL, SEIZURE CRANIAL CT: 05/28 There is moderate generalized cerebral atrophy. There is no evidence of acute intracranial hemorrhage, mass effect or midline shift. Orbital and temporal bone structures appear intact. Mastoid air cells are well aerated. Mucoperiosteal thickening noted in right ethmoid air cells, otherwise visualized paranasal sinuses are clear. CONCLUSION: No evidence of acute intracranial process.
--- NOTE | 2019-05-28 00:05 | DI.RAD_ITS ---
SYMPTOM/DIAGNOSIS; COUGH, SPUTUM PA AND LATERAL CHEST: The heart is not enlarged. The lungs are grossly clear with some peribronchial thickening and mild chronic reticular intrapulmonary radiodensities. No focal consolidation. No pleural effusion or pneumothorax CONCLUSION: No evidence of acute disease
[2019-05-28 23:00] VITALS: BP 134/74; PULSE 96; RESP 22; TEMP 37.5; O2SAT 96
[2019-05-28 23:08] VITALS: RESP 22
--- NOTE | 2019-05-28 23:15 | W.ED.GENAD ---
Discharge Plan Disposition Patient Disposition: HOME Condition: Improving Discharge Details Chief Complaint: GenMedical Clinical Impression: Acute bronchitis, Acute ethmoidal sinusitis Primary Care Provider: Bria Lorenzo ED Provider: Greg Meyers Home Meds and New Rx's Prescriptions: New amoxicillin-pot clavulanate 875-125 mg tablet 1 tab PO BID 10 Days Qty: 20 RF: 0 Continued cyanocobalamin (vitamin B-12) [Vitamin B-12] 1,000 MCG tablet 1,000 mcg PO DAILY Qty: 1 RF: 0 oxycodone 10 MG tablet 10 mg PO 8H PRN PRNRF: 0 atenolol 25 MG tablet 25 mg PO DAILY RF: 0 Combivent 200 PUFF aerosol 2 puff Inhalation QID PRN PRNRF: 0 guaifenesin [Mucinex] 600 mg tablet extended release 12hr 600 mg PO Q12H PRNQty: 10 RF: 0 ondansetron HCl [Zofran] 4 mg tablet 4 mg PO QID PRN (Reason: nausea and vomiting) Qty: 10 RF: 0 guaifenesin [Mucinex] 600 mg tablet extended release 12hr 600 mg PO Q12H PRNQty: 10 RF: 0 multivitamin [Multiple Vitamins] 1 TAB tablet 1 tab PO DAILY Qty: 30 RF: 3 Discharge Instructions Instructions: Acute Bronchitis (ED), Sinusitis (ED) Additional Instructions: Take antibiotics as prescribed. Follow-up with Ramon Dye in clinic as planned. Continue your efforts to decrease alcohol use. Return to the emergency department for any acute concern Medical Decision Making 48-year-old female alcoholic presents from home with her . She has had a day and a half of nausea, vomiting, loose watery stool. Her states that she attempted to get out of a chair this evening, sank to the ground without harming herself and had a brief 1 to 2-minute generalized, tonic-clonic seizure. He gave her rectal Diastat with improvement. And patient was brought to the ER. She arrives afebrile, pulse in the 90s, blood pressure 134/74. IV access established, patient given fluids, antiemetic, anxiolytic. Referred for CT scan of the head, chest x-ray, laboratory testing. CT reveals question posterior right ethmoid sinusitis, no other acute intracranial findings. Chest x-ray with question bronchitis, see formal report Laboratory reveals hypomagnesemia of 1.2 which is supplemented in the emergency department. Labs otherwise note his white count of 9, hematocrit 41, platelets 82. Sodium 128, potassium 3.4, chloride 93, bicarb 25, BUN 5, creatinine 0.5. AST 50, ALT 22, total bili 1.2. Following fluids, electrolyte supplementation, parenteral medications, the patient is improving. As above, she has evidence of both acute bronchitis and sinusitis which I will treat with a course of antibiotics. She is stable, improved, appropriate for discharge to home. She voices that she will continue to work on cutting down her alcohol use. She is stable for discharge to home Lab Data Lab results reviewed: Yes I reviewed the patient's lab results. Laboratory Results - last 24 hr 05/28/19 05/28/19 23:35 23:35 WBC 9.96 RBC 4.40 Hgb 14.2 Hct 41.4 MCV 94.1 MCH 32.3 MCHC 34.3 RDW 12.8 Plt Count 82 L MPV 12.5 H Immature Gran % 0.2 Neutrophils % 88.5 Lymphocytes % 4.3 Monocytes % 6.9 Eosinophils % 0.0 Basophils % 0.1 Absolute Neutrophils 8.81 H Absolute Lymphocytes 0.43 L Absolute Monocytes 0.69 Absolute Eosinophils 0.00 Absolute Basophils 0.01 Differential Comment Plt morph reviewed RBC Morphology Normal Sodium 128 L Potassium 3.4 L Chloride 93 L Carbon Dioxide 25.2 Anion Gap 9.8 BUN 5 L Creatinine 0.58 Estimated GFR/1.73 m2 >= 60.00 Glucose 114 H Calcium 8.9 Magnesium 1.2 L Total Bilirubin 1.2 H AST 50 H ALT 22 Alkaline Phosphatase 132 H Total Protein 7.7 Albumin 3.1 L Ethyl Alcohol < 3.0 HPI General Mode of arrival: ambulatory. Date/Time Provider Initiated Documentation: 05/28/19 22:51. Limitations to Documentation: no limitations. Information obtained by: patient and family. History of Present Illness 48 year old F presents to the emergency department with the chief complaint of Nausea and vomiting. Brief seizure at home. Similar to previous, described as similar to prior episodes, Quality is described as dull, and is localized to the abdomen. Patient reports no radiation. and it has been intermittent. No relieving factors improve symptom(s), No exacerbating factors reported . Patient notes cough, fever/chills, headaches, loss of appetite and nausea/vomiting. Patient did receive the following treatments prior to arrival, other (Rectal Diastat 2.5 mg) Related Data Home Medications Medication Instructions Recorded Confirmed atenolol 25 mg PO DAILY 03/28/13 05/28/19 cyanocobalamin (vitamin B-12) 1,000 mcg PO DAILY #1 04/10/14 05/28/19 [Vitamin B-12] oxycodone 10 mg PO 8H PRN PRN 04/09/16 05/28/19 multivitamin [Multiple Vitamins] 1 tab PO DAILY #30 tab 07/11/17 05/28/19 Combivent 2 puff INHALATION QID PRN PRN 06/05/18 05/28/19 guaifenesin [Mucinex] 600 mg PO Q12H PRN #10 tab 10/05/18 05/28/19 guaifenesin [Mucinex] 600 mg PO Q12H PRN #10 tab 03/21/19 05/28/19 ondansetron HCl [Zofran] 4 mg PO QID PRN #10 tab 03/21/19 05/28/19 amoxicillin-pot clavulanate 1 tab PO BID 10 Days #20 tab 05/29/19 Previous Rx's Medication Instructions Recorded multivitamin [Multiple Vitamins] 1 tab PO DAILY #30 tab 07/11/17 guaifenesin [Mucinex] 600 mg PO Q12H PRN #10 tab 10/05/18 guaifenesin [Mucinex] 600 mg PO Q12H PRN #10 tab 03/21/19 ondansetron HCl [Zofran] 4 mg PO QID PRN #10 tab 03/21/19 amoxicillin-pot clavulanate 1 tab PO BID 10 Days #20 tab 05/29/19 Allergies Allergy/AdvReac Type Severity Reaction Status Date / Time acetaminophen [From Tylenol] AdvReac Unverified 05/28/19 23:06 General Stated Complaint: GenMedical SHEA: 3 Review of Systems Review of Systems No fever. Denies injury. States she has had ongoing daily use of alcohol, none today. Minimal yesterday. 8 systems reviewed and otherwise - [facility] Social History Smoking/Tobacco Use Status: Current every day Tobacco Type: cigarettes Alcohol Intake: current Alcohol Intake frequency: 3 or more drinks per day Alcohol type: beer Drug use: Never Substance use type: does not use Do you feel safe at home: Yes Do you feel safe in your relationship?: Yes Exam Narrative Exam Narrative: GEN: awake, alert, oriented 3. Pleasant, poor groomed, interactive, tremor. HEAD: Normocephalic, atraumatic ENT: Mucous membranes dry, oropharynx unremarkable, External ear exam unremarkable EYES: PERRL, EOMI NECK: Full ROM, no CAMELIA, no menigismus CHEST/RESP: Nontender, clear to auscultation bilateral, no wheeze/rhonchi/rales CARDIOVASCULAR: RRR, no murmur, rub amy. 2+ Rad pulse bilateral ABDOMEN: Soft, nontender, no mass. +Bowel sounds EXT: Full ROM, no edema, no rash Neuro: Grossly normal neurologic exam, conversant, interactive, tremulous. Psych: Speech fluent, thoughts congruent, affect anxious Course Vital Signs Temperature 37.5 C 05/28/19 23:00 Pulse 96 H 05/28/19 23:00 Respiratory Rate 22 05/28/19 23:00 Blood Pressure 134/74 05/28/19 23:00 Pulse Oximetry 96 05/28/19 23:00 Temperature 37.5 C 05/28/19 23:00 Temperature Source Temporal Artery Scan 05/28/19 23:00 Pulse 96 H 05/28/19 23:00 Respiratory Rate 22 05/28/19 23:08 Respiratory Effort 05/28/19 23:08 Respiratory Depth Normal 05/28/19 23:08 Respiratory Pattern Normal 05/28/19 23:08 Blood Pressure 134/74 05/28/19 23:00 Blood Pressure Position Supine 05/28/19 23:00 Pulse Oximetry 96 05/28/19 23:00 Oxygen Delivery Method Room Air 05/28/19 23:00 Oxygen Flow Rate 0 05/28/19 23:00
[2019-05-28] MEDS: Normal Saline 1,000 ML 1000 ML IV (23:35)
[2019-05-28] MEDS: Ondansetron 4 MG/2 ML VIAL IVP (23:40)
[2019-05-28] MEDS: Ketorolac 30 MG/ML VIAL IVP (23:45)
[2019-05-28] MEDS: LORazepam 2 MG/ML VIAL 1 MG IVP (23:50)
[2019-05-29 00:19] LABS: Abs Immature Grans 0.02 k/cumm (0.0-0.09); Absolute Basophil Count 0.01 k/cumm (0.0-0.2); Absolute Lymphocyte Count 0.43 k/cumm (1.2-3.4); Absolute Monocyte Count 0.69 k/cumm (0.11-0.7); Absolute Neutrophil Count 8.81 k/cumm (1.2-6.7); Basophils % 0.1; HCT 41.4 % (36.0-46.0); HGB 14.2 g/dL (12.0-15.5); Immature Grans % 0.2; Lymphocytes % 4.3; Mean Corp. HGB Concentration 34.3 g/dL (32.0-36.0); Mean Corpuscular Hemoglobin 32.3 pg (27.0-33.0); Mean Corpuscular Volume 94.1 fL (80-95); Mean Platelet Volume 12.5 fL (8.0-11.0); Monocytes % 6.9; Neutrophils % 88.5; RBC Distribution Width 12.8 % (11.7-14.6); White Blood Cell Count 9.96 k/cumm (4.4-10.8)
--- NOTE | 2019-05-29 00:26 | DI.VRAD_ITS ---
EXAM: CT Head Without Contrast EXAM DATE/TIME: 05/28/2019 11:16 PM CLINICAL HISTORY: 48 years old, female; Pain; Other: Seizures; Headache not specified; Patient HX: Seizure, headache, cough, diarrhea TECHNIQUE: Imaging protocol: Axial computed tomography images of the head without contrast. Coronal and sagittal reformatted images were created and reviewed. Radiation optimization: All CT scans at this facility use at least one of these dose optimization techniques: automated exposure control; mA and/or kV adjustment per patient size (includes targeted exams where dose is matched to clinical indication); or iterative reconstruction. COMPARISON: CT HEAD WITHOUT CONTRAST 06/05/2018 11:08 AM FINDINGS: Brain: Mild volume loss No hemorrhage. Unremarkable white matter. No mass effect. Ventricles: Normal. No ventriculomegaly. Bones/joints: Unremarkable. No acute fracture. Sinuses: Air fluid level and mucosal thickening in the posterior right ethmoid air cells Mastoid air cells: Visualized mastoid air cells are well aerated. No mastoid effusion. Soft tissues: Unremarkable. IMPRESSION: No acute intracranial hemorrhage Question posterior right ethmoid sinusitis Dictated and Authenticated by: Rajiv Melendez MD. Ordering:SERGIO Garza MD
--- NOTE | 2019-05-29 00:30 | DI.VRAD_ITS ---
EXAM: XR Chest, 2 Views EXAM DATE/TIME: 05/28/2019 11:16 PM CLINICAL HISTORY: 48 years old, female; Patient HX: Cough, sputum, headache TECHNIQUE: Imaging protocol: XR of the chest, 2 views. COMPARISON: CR XR CHEST 2V PA LATERAL 03/21/2019 10:34 PM FINDINGS: Lungs: Mild chronic interstitial prominence and mild peribronchial thickening No consolidation. Pleural space: No pleural effusion. No pneumothorax. Heart/Mediastinum: No cardiomegaly. Bones/joints: Unremarkable. IMPRESSION: Question mild peribronchial thickening. Mild bronchitis not excluded No radiographic evidence for pneumonia Dictated and Authenticated by: Rajiv Melendez MD. Ordering:SERGIO Garza MD
[2019-05-29 00:35] LABS: Diff Comment PLT Morph Reviewed; Platelet Count 82 x1000/uL (130-400); RBC Morphology Normal
[2019-05-29 00:37] LABS: ALT 22 U/L (12-78); AST 50 U/L (15-37); Albumin 3.1 g/dL (3.4-5.0); Alkaline Phosphatase 132 U/L (46-116); Anion Gap 9.8 mmol/L (3-11); BUN 5 mg/dL (7-18); Bilirubin, Total 1.2 mg/dL (0.2-1.0); CO2 25.2 mmol/L (21.0-32.0); CREATININE 0.58 mg/dL (0.55-1.02); Calcium 8.9 mg/dL (8.5-10.1); Chloride 93 mmol/L (98-107); Glucose 114 mg/dL (70-100); Magnesium 1.2 mg/dL (1.8-2.4); Potassium 3.4 mmol/L (3.5-5.1); Sodium 128 mmol/L (136-145); Total Protein 7.7 g/dL (6.4-8.2)
[2019-05-29 00:48] LABS: ETHANOL BLOOD < 3.0 mg/dL (<3)
[2019-05-29] MEDS: Magnesium Oxide 400 MG TAB 800 MG PO (00:58)
[2019-05-29] MEDS: MAGNESIUM SULFATE 1 GM/100 ML BAG IVPB (00:58)
[2019-05-29] MEDS: Amoxicillin 875/Clav. 125 TAB PO (01:31)
[2019-05-29 02:28] VITALS: BP 130/70; PULSE 90; RESP 20; O2SAT 96
== END 2019-05-29 02:10 | disposition home or self-care (01) ==
LOC: ER 05-29 02:08
PROVIDERS: Emergency Provider Emergency Medicine; PCP Nurse Practitioner Family
DX: J20.9 Acute bronchitis, unspecified (principal); J01.20 Acute ethmoidal sinusitis, unspecified; E83.42 Hypomagnesemia; R11.2 Nausea with vomiting, unspecified; R19.7 Diarrhea, unspecified; F17.210 Nicotine dependence, cigarettes, uncomplicated; F10.10 Alcohol abuse, uncomplicated
CPT/HCPCS: 36415; 80053; 96361; 96365; 96375; 99284; 70450; 71046; 80320; 83735; 85025; J1885; J2060; J2405; J3475

== ENCOUNTER 2019-06-20 15:34 | Emergency (ER) | payer MEDICARE, SELFPAY ==
[2019-06-20 15:50] VITALS: BP 118/73; PULSE 77; RESP 16; TEMP 36.8; O2SAT 95
--- NOTE | 2019-06-20 15:57 | DI.RAD_ITS ---
SYMPTOMS/DIAGNOSIS: LATERAL ANKLE PAIN AND SWELLING, LATERAL FOOT PAIN AND SWELLING, S/P FALL 2 WEEKS AGO RIGHT ANKLE: Soft tissue swelling is noted over the lateral malleolus. There appears to be a tiny cortical avulsion fracture of the tip of the distal fibula. The examination is otherwise unremarkable. RIGHT FOOT: No bony or joint abnormality is demonstrated. There is no evidence of a fracture or dislocation.
--- NOTE | 2019-06-20 16:41 | DI.VRAD_ITS ---
EXAM: XR Right Foot Complete EXAM DATE/TIME: 06/20/2019 4:25 PM CLINICAL HISTORY: 48 years old, female; Other: Lateral foot pain TECHNIQUE: Imaging protocol: XR Right foot. Views: 3 or more views. COMPARISON: CR RIGHT ANKLE COMPLETE 06/18/2016 11:00 AM FINDINGS: Bones/joints: Normal. Soft tissues: Normal. IMPRESSION: No acute findings. Dictated and Authenticated by: Ke Gonsalez MD. Ordering:DEBBIE Jackson MD
--- NOTE | 2019-06-20 16:41 | DI.VRAD_ITS ---
EXAM: XR Right Ankle EXAM DATE/TIME: 06/20/2019 3:58 PM CLINICAL HISTORY: 48 years old, female; Other: Lateral ankle pain TECHNIQUE: Imaging protocol: XR Right ankle. Views: 3 or more views. COMPARISON: CR RIGHT ANKLE COMPLETE 06/18/2016 11:00 AM FINDINGS: Bones/joints: Probable small avulsion fracture inferiorly at the lateral malleolus. Intact ankle mortise. Normal talar dome. Soft tissues: Soft tissue edema overlying the lateral malleolus. IMPRESSION: 1. Probable small avulsion fracture inferiorly at the lateral malleolus. 2. Soft tissue edema overlying the lateral malleolus. Dictated and Authenticated by: Ke Gonsalez MD. Ordering:DEBBIE Jackson MD
--- NOTE | 2019-06-20 16:47 | ED.GENADUL_ITS ---
Discharge Plan Disposition Patient Disposition: HOME Condition: Stable Discharge Details Chief Complaint: Orthopedic Clinical Impression: Avulsion fracture of lateral malleolus of right fibula Primary Care Provider: Bria Lorenzo ED Provider: Manuel Jerez Home Meds and New Rx's Prescriptions: Continued cyanocobalamin (vitamin B-12) [Vitamin B-12] 1,000 MCG tablet 1,000 mcg PO DAILY Qty: 1 RF: 0 oxycodone 10 MG tablet 10 mg PO 8H PRN PRNRF: 0 atenolol 25 MG tablet 25 mg PO DAILY RF: 0 Combivent 200 PUFF aerosol 2 puff Inhalation QID PRN PRNRF: 0 guaifenesin [Mucinex] 600 mg tablet extended release 12hr 600 mg PO Q12H PRNQty: 10 RF: 0 ondansetron HCl [Zofran] 4 mg tablet 4 mg PO QID PRN (Reason: nausea and vomiting) Qty: 10 RF: 0 guaifenesin [Mucinex] 600 mg tablet extended release 12hr 600 mg PO Q12H PRNQty: 10 RF: 0 multivitamin [Multiple Vitamins] 1 TAB tablet 1 tab PO DAILY Qty: 30 RF: 3 Discharge Instructions Instructions: Leg Fracture (ED) Additional Instructions: He may continue to take [id number] pain medication as needed for discomfort, he may continue to ice and elevate as needed. Wear walking boot at all times and until cleared by orthopedist. Referrals: Paul Roque MD [ [facility] STAFF PHYSICIAN] - (Please call the orthopedic office for arrangement of follow-up appointment in the next couple weeks ) Discharge Data Discharge Date/Time-TO BE ENTERED AT DEPARTURE: 06/20/19 17:05 Medical Decision Making Lateral malleolus swelling and tenderness after fall 10 days ago that is not improving. Physical exam does show tenderness to the lateral malleolus with significant swelling. Patient also does have tenderness to palpation of the lateral foot with ecchymosis to both. Patient is able to bear some weight but very painful gait. Patient denies any other injury or trauma. Patient denies any need for pain medication pending radiological imaging. Review of radiological imaging shows a avulsion fracture to the lateral malleolus otherwise unremarkable. Patient placed in walking boot and on orthopedic list for follow-up HPI General Mode of arrival: ambulatory . Date/Time Provider Initiated Documentation: 06/20/19 15:39 . Limitations to Documentation: no limitations . Information obtained by: patient and family . History of Present Illness 48 year old F presents to the emergency department with the chief complaint of Right ankle injury, described as moderate, Quality is described as sharp, Patient started experiencing this day(s) (10) and it has been constant. Patient notes no other symptoms.. Patient did receive the following treatments prior to arrival, cold therapy Related Data Home Medications Medication Instructions Recorded Confirmed atenolol 25 mg PO DAILY 03/28/13 05/28/19 cyanocobalamin (vitamin B-12) 1,000 mcg PO DAILY #1 04/10/14 05/28/19 [Vitamin B-12] oxycodone 10 mg PO 8H PRN PRN 04/09/16 05/28/19 multivitamin [Multiple Vitamins] 1 tab PO DAILY #30 tab 07/11/17 05/28/19 Combivent 2 puff INHALATION QID PRN PRN 06/05/18 05/28/19 guaifenesin [Mucinex] 600 mg PO Q12H PRN #10 tab 10/05/18 05/28/19 guaifenesin [Mucinex] 600 mg PO Q12H PRN #10 tab 03/21/19 05/28/19 ondansetron HCl [Zofran] 4 mg PO QID PRN #10 tab 03/21/19 05/28/19 Previous Rx's Medication Instructions Recorded multivitamin [Multiple Vitamins] 1 tab PO DAILY #30 tab 07/11/17 guaifenesin [Mucinex] 600 mg PO Q12H PRN #10 tab 10/05/18 guaifenesin [Mucinex] 600 mg PO Q12H PRN #10 tab 03/21/19 ondansetron HCl [Zofran] 4 mg PO QID PRN #10 tab 03/21/19 Allergies Allergy/AdvReac Type Severity Reaction Status Date / Time acetaminophen [From Tylenol] AdvReac Unverified 06/20/19 15:54 General Stated Complaint: Orthopedic SHEA: 4 Review of Systems Cardiovascular Denies syncope Musculoskeletal Reports as per HPI, Denies numbness and Denies tingling Integumentary/Breasts Denies rash, Denies sores and Denies wounds Neurologic Denies syncope, Denies numbness and Denies tingling PFSH Medical History Seizure Tachycardia Surgical History Collapsed lung Total replacement of hip (04/10/13) Social History Smoking/Tobacco Use Status: Current every day Tobacco Type: cigarettes Alcohol Intake: current Alcohol Intake frequency: 3 or more drinks per day Alcohol type: beer Drug use: Never Substance use type: does not use Do you feel safe at home: Yes Do you feel safe in your relationship?: Yes Exam Const General: cooperative and no acute distress Orientation: alert, awake and oriented x3 Resp Effort & Inspection: normal respiratory effort and able to speak in complete sentences Cardio Rate: regular rate Rhythm: regular rhythm Extrem Right lower extremity: ankle Details: tenderness Location: of the lateral malleolus, swelling Details: laterally, abnormal ROM Details: pain with active ROM Details: with inversion and with eversion and ecchymosis lateral and foot Details: normal capillary refill, tenderness Location: of the lateral foot, toes with normal ROM, no edema, ecchymosis dorsal lateral proximal , vascular exam Details: dorsalis pedis pulse present, posterior tibial pulse present and normal capillary refill and motor-sensory exam Details: two point discrimination normal and light-touch normal Course Vital Signs Temperature 36.8 C 06/20/19 15:50 Pulse 77 06/20/19 15:50 Respiratory Rate 16 06/20/19 15:50 Blood Pressure 118/73 06/20/19 15:50 Pulse Oximetry 95 06/20/19 15:50 Temperature 36.8 C 06/20/19 15:50 Temperature Source Temporal Artery Scan 06/20/19 15:50 Pulse 77 06/20/19 15:50 Respiratory Rate 16 06/20/19 15:50 Respiratory Effort Non-Labored 06/20/19 15:52 Blood Pressure 118/73 06/20/19 15:50 Blood Pressure Position Sitting 06/20/19 15:50 Pulse Oximetry 95 06/20/19 15:50 Oxygen Delivery Method Room Air 06/20/19 15:50 Oxygen Flow Rate 0 06/20/19 15:50 Pain Level 7 06/20/19 15:53
== END 2019-06-20 17:05 | disposition home or self-care (01) ==
PROVIDERS: Emergency Provider Nurse Practitioner Family; PCP Nurse Practitioner Family
DX: S82.61XA Displaced fracture of lateral malleolus of right fibula, initial encounter for closed fracture (principal); W01.0XXA Fall on same level from slipping, tripping and stumbling without subsequent striking against object, initial encounter
CPT/HCPCS: 27786; 73610; 73630; L4361

== ENCOUNTER 2019-07-05 11:18 | Outpatient (CLI) | payer MEDICARE, SELFPAY ==
--- NOTE | 2019-07-05 10:30 | DI.RAD_ITS ---
SYMPTOMS/DIAGNOSIS: F/U FRACTURE RIGHT ANKLE: Comparison is made with May,. There has been no change in the fracture at the tip of the lateral malleolus. The distal tibia and ankle mortise appear intact.
== END 2019-07-05 11:38 ==
PROVIDERS: PCP Nurse Practitioner Family; Referring Provider Nurse Practitioner Family; Visit Provider Student in an Organized Health Care Education/Training Program
DX: S82.64XA Nondisplaced fracture of lateral malleolus of right fibula, initial encounter for closed fracture (principal); X50.9XXA Other and unspecified overexertion or strenuous movements or postures, initial encounter
CPT/HCPCS: 99203; 99214; 73610

== ENCOUNTER 2019-07-13 13:45 | Outpatient (CLI) | payer MEDICARE, SELFPAY ==
[2019-07-13 17:16] LABS: Vitamin B12 1378 pg/mL (193-986)
[2019-07-18 08:46] LABS: Methylmalonic Acid 0.05 nmol/mL (<=0.40)
== END 2019-07-13 14:05 ==
PROVIDERS: PCP Nurse Practitioner Family; Visit Provider Psychiatry & Neurology Neurology
DX: G24.3 Spasmodic torticollis (principal)
CPT/HCPCS: 36415; 80186; 82607

== ENCOUNTER 2019-07-22 15:48 | Emergency (ER) | payer MEDICARE, SELFPAY ==
[2019-07-22] VITALS (29 sets, daily range): BP systolic 116–129; BP diastolic 65–88; PULSE 69–97; RESP 16–26; TEMP 36.8; O2SAT 97
[2019-07-22 16:42] LABS: Abs Immature Grans 0.02 k/cumm (0.0-0.09); Absolute Basophil Count 0.03 k/cumm (0.0-0.2); Absolute Eosinophil Count 0.03 k/cumm (0.0-0.7); Absolute Monocyte Count 0.52 k/cumm (0.11-0.7); Absolute Neutrophil Count 5.75 k/cumm (1.2-6.7); Basophils % 0.4; Eosinophils % 0.4; HCT 51.2 % (36.0-46.0); HGB 17.2 g/dL (12.0-15.5); Immature Grans % 0.3; Lymphocytes % 12.4; Mean Corp. HGB Concentration 33.6 g/dL (32.0-36.0); Mean Corpuscular Hemoglobin 32.8 pg (27.0-33.0); Mean Corpuscular Volume 97.5 fL (80-95); Mean Platelet Volume 10.7 fL (8.0-11.0); Monocytes % 7.2; Neutrophils % 79.3; Platelet Count 154 x1000/uL (130-400); RBC 5.25 m/cumm (4.00-5.20); RBC Distribution Width 13.2 % (11.7-14.6); White Blood Cell Count 7.25 k/cumm (4.4-10.8)
[2019-07-22] MEDS: THIAMINE 100 MG in Normal Saline 100 ML 200 MG IVPB (16:47)
[2019-07-22 17:07] LABS: ALT 42 U/L (14-59); AST 93 U/L (15-37); Albumin 3.9 g/dL (3.4-5.0); Alkaline Phosphatase 138 U/L (46-116); Anion Gap 13.5 mmol/L (3-11); BUN 2 mg/dL (7-18); Bilirubin, Total 0.9 mg/dL (0.2-1.0); CO2 27.5 mmol/L (21.0-32.0); Calcium 9.4 mg/dL (8.5-10.1); Chloride 95 mmol/L (98-107); Glucose 104 mg/dL (70-100); Magnesium 1.7 mg/dL (1.8-2.4); Potassium 3.8 mmol/L (3.5-5.1); Sodium 136 mmol/L (136-145); TSH (W/Ref FT4) 4.02 uIU/mL (0.36-3.74); Total Protein 9.4 g/dL (6.4-8.2)
[2019-07-22 17:16] LABS: ETHANOL BLOOD < 3.0 mg/dL (<3)
[2019-07-22 17:33] LABS: FREE T4 1.01 ng/dL (0.76-1.46)
--- NOTE | 2019-07-22 17:53 | NUR.NOTE ---
Nursing Note: pt resting in stretcher, no signs of distress. facial expression and body language relaxed. requesting update. MD mariscal notified.
--- NOTE | 2019-07-22 18:11 | W.ED.GENAD ---
Discharge Plan Disposition Patient Disposition: HOME Condition: Serious Discharge Details Chief Complaint: Seizure Clinical Impression: Seizure Primary Care Provider: Ramon Dye ED Provider: Carlos Murcia Home Meds and New Rx's Prescriptions: New levetiracetam [Keppra] 500 mg tablet 500 mg PO BID Qty: 60 RF: 0 thiamine HCl (vitamin B1) 100 mg tablet 100 mg PO DAILY Qty: 60 RF: 0 Continued cyanocobalamin (vitamin B-12) [Vitamin B-12] 1,000 MCG tablet 1,000 mcg PO DAILY Qty: 1 RF: 0 oxycodone 10 MG tablet 10 mg PO 8H PRN PRNRF: 0 atenolol 25 MG tablet 25 mg PO DAILY RF: 0 Combivent 200 PUFF aerosol 2 puff Inhalation QID PRN PRNRF: 0 guaifenesin [Mucinex] 600 mg tablet extended release 12hr 600 mg PO Q12H PRNQty: 10 RF: 0 multivitamin [Multiple Vitamins] 1 TAB tablet 1 tab PO DAILY Qty: 30 RF: 3 Discharge Instructions Instructions: Recurrent Seizures in Adults (ED) Additional Instructions: Taper alcohol use slowly. DO not stop abruply. NO DRIVING OR OPERATING HEAVY MACHINERY UNTIL CLEARED BY YOUR PROVIDER. Please start taking Keppra. Follow-up with a neurologist as soon as possible. Please contact your primary care physician to arrange follow-up. Return to the ER for any worsening or new concerning symptoms. Referrals: Ramon Dye NP [Primary Care Provider] - Elisa Lees MD [ [facility] STAFF PHYSICIAN] - Discharge Data Discharge Date/Time-TO BE ENTERED AT DEPARTURE: 07/22/19 18:46 Medical Decision Making 48yo f with history of alcohol dependence and abuse, alcohol-related seizures, here after generalized tonic-clonic seizure. I reviewed past medical record. Patient had a CT of the head on 05/28/19 interpreted by radiology: There is moderate generalized cerebral atrophy. There is no evidence of acute intracranial hemorrhage, mass effect or midline shift. Orbital and temporal bone structures appear intact. Mastoid air cells are well aerated. Mucoperiosteal thickening noted in right ethmoid air cells, otherwise visualized paranasal sinuses are clear. CONCLUSION: No evidence of acute intracranial process. Patient reassessed: she is now neurologically intact and without altered mentation. I suggested admission for further treatment - reviewed potential benefits of admission versus potential risk of delayed treatment as outpatient. Patient provided informed refusal of admission. She plans to see here PCP and will contact neurology for follow-up. She understands the importance of timely followup and that she may return return to the ER at any time for further treatment. She was agreeable to initiating anti-epileptic - plan to start keppra. She was instructed to not drive or operate heavy machinery until cleared to do so. The patient was stable and requested discharge. Prior to discharge, my usual and customary return precautions regarding seizure disorder and alcoholism were reviewed with the patient - this included follow-up instructions and reason to return to the emergency department if condition worsens, does not improve as expected, or other new concerns arise. HPI General Mode of arrival: ambulatory. Date/Time Provider Initiated Documentation: 07/22/19 16:03. Limitations to Documentation: no limitations. Information obtained by: patient and family. HPI Narrative: 48-year-old female with history of alcoholism, seizure disorder, presents with chief complaint of seizure. Patient notes she had a generalized tonic-clonic seizure prior to arrival. Seizure lasted a few minutes and resolved. notes that she has had some odd behavior today prior to seizure activity with intermittent confusion. She attributes this to lack of sleep and notes that she had trouble sleeping the past few nights. Patient notes that she is trying to wean herself off alcohol. She still consuming about 5 beers a day and did have a beer earlier today. Seizure occurred today while she was seated in a chair. No head injury. Related Data Home Medications Medication Instructions Recorded Confirmed atenolol 25 mg PO DAILY 03/28/13 07/22/19 cyanocobalamin (vitamin B-12) 1,000 mcg PO DAILY #1 04/10/14 07/22/19 [Vitamin B-12] oxycodone 10 mg PO 8H PRN PRN 04/09/16 07/22/19 multivitamin [Multiple Vitamins] 1 tab PO DAILY #30 tab 07/11/17 07/22/19 Combivent 2 puff INHALATION QID PRN PRN 06/05/18 07/22/19 guaifenesin [Mucinex] 600 mg PO Q12H PRN #10 tab 10/05/18 07/22/19 levetiracetam [Keppra] 500 mg PO BID #60 tab 07/22/19 thiamine HCl (vitamin B1) 100 mg PO DAILY #60 tab 07/22/19 Previous Rx's Medication Instructions Recorded multivitamin [Multiple Vitamins] 1 tab PO DAILY #30 tab 07/11/17 guaifenesin [Mucinex] 600 mg PO Q12H PRN #10 tab 10/05/18 levetiracetam [Keppra] 500 mg PO BID #60 tab 07/22/19 thiamine HCl (vitamin B1) 100 mg PO DAILY #60 tab 07/22/19 Allergies Allergy/AdvReac Type Severity Reaction Status Date / Time acetaminophen [From Tylenol] AdvReac Unverified 07/05/19 10:17 General Stated Complaint: Seizure SHEA: 2 Review of Systems Review of Systems All systems reviewed & are unremarkable except as noted in HPI and below Constitutional Denies headache(s) Eyes Denies blurry vision and Denies loss of vision ENT Denies dizziness and Denies headache(s) Cardiovascular Denies syncope Musculoskeletal Denies numbness Neurologic Reports as per HPI, Reports confusion, Denies dizziness, Denies syncope, Denies headache(s), Denies loss of vision, Denies numbness and Reports seizure-like activity Psychiatric Reports confusion PFSH Social History Smoking/Tobacco Use Status: Current every day Tobacco Type: cigarettes Alcohol Intake: current Alcohol Intake frequency: 3 or more drinks per day Alcohol type: beer Drug use: Never Substance use type: does not use Do you feel safe at home: Yes Do you feel safe in your relationship?: Yes Exam Const General: cooperative and no acute distress [facility] Head: normocephalic and atraumatic Mouth: moist mucous membranes Eyes Conjunctivae: normal conjunctivae Sclera: normal sclerae EOM: EOM intact bilaterally and nystagmus (lateral nystagmus) Neck Neck: trachea midline and supple Resp Auscultation: clear to auscultation bilaterally, no rales, no rhonchi and no wheezes Cardio Jugular venous pressure: no JVD Rate: regular rate and not tachycardic Rhythm: regular rhythm GI Palpation: soft, not firm, no guarding, no masses, not rigid and nontender Skin General skin exam: no rashes or lesions noted Neuro General: alert, awake, oriented x3 and tone normal Cranial Nerves: CN's II-XI intact bilaterally and nystagmus (lateral nystagmus) Cognition: normal cognition Speech: speech normal Motor: muscle tone normal throughout and strength 5/5 throughout Sensory Exam: no sensory deficits noted Coordination: [id number] test normal Extrem General: no edema Psych Appearance: grossly normal Mental Status: mental status grossly normal Speech and Movement: speech and movement normal Course Vital Signs Respiratory Rate 24 07/22/19 15:50 Temperature 36.8 C 07/22/19 15:57 Temperature Source Skin 07/22/19 15:57 Pulse 78 07/22/19 17:30 Pulse 81 07/22/19 17:40 Respiratory Rate 22 07/22/19 17:40 Respiratory Effort Non-Labored 07/22/19 16:30 Blood Pressure 122/78 07/22/19 17:30 Blood Pressure Mean 88 07/22/19 17:30 Blood Pressure Position Supine 07/22/19 15:57 Pulse Oximetry 97 07/22/19 15:57 Oxygen Delivery Method Room Air 07/22/19 15:57 Oxygen Flow Rate 0 07/22/19 15:57 Lab/Test Results Lab/Test Results: Laboratory Tests Range/Units 07/22/19 07/22/19 16:20 16:20 WBC (4.4-10.8) k/cumm 7.25 RBC (4.00-5.20) m/cumm 5.25 H Hgb (12.0-15.5) g/dL 17.2 H Hct (36.0-46.0) % 51.2 H MCV (80-95) fL 97.5 H MCH (27.0-33.0) pg 32.8 MCHC (32.0-36.0) g/dL 33.6 RDW (11.7-14.6) % 13.2 Plt Count (130-400) x1000/uL 154 MPV (8.0-11.0) fL 10.7 Immature Gran % 0.3 Neutrophils % 79.3 Lymphocytes % 12.4 Monocytes % 7.2 Eosinophils % 0.4 Basophils % 0.4 Absolute Neutrophils (1.2-6.7) k/cumm 5.75 Absolute Lymphocytes (1.2-3.4) k/cumm 0.90 L Absolute Monocytes (0.11-0.7) k/cumm 0.52 Absolute Eosinophils (0.0-0.7) k/cumm 0.03 Absolute Basophils (0.0-0.2) k/cumm 0.03 Sodium (136-145) mmol/L 136 Potassium (3.5-5.1) mmol/L 3.8 Chloride (98-107) mmol/L 95 L Carbon Dioxide (21.0-32.0) mmol/L 27.5 Anion Gap (3-11) mmol/L 13.5 H BUN (7-18) mg/dL 2 L Creatinine (0.55-1.02) mg/dL 0.70 Estimated GFR/1.73 m2 (mL/min/1.73m2) >= 60.00 Glucose (70-100) mg/dL 104 H Calcium (8.5-10.1) mg/dL 9.4 Magnesium (1.8-2.4) mg/dL 1.7 L Total Bilirubin (0.2-1.0) mg/dL 0.9 AST (15-37) U/L 93 H ALT (14-59) U/L 42 Alkaline Phosphatase (46-116) U/L 138 H Total Protein (6.4-8.2) g/dL 9.4 H Albumin (3.4-5.0) g/dL 3.9 TSH (0.36-3.74) uIU/mL 4.02 H Free T4 (0.76-1.46) ng/dL 1.01 Ethyl Alcohol (<3) mg/dL < 3.0
[2019-07-22] MEDS: levETIRAcetam 250 MG TAB 500 MG PO (18:40)
--- NOTE | 2019-07-22 18:40 | NUR.NOTE ---
Nursing Note: patient c/o nausea prior to discharge. Zofran given per MD Murcia
[2019-07-22] MEDS: Ondansetron O.D.T. 4 MG TABEF (18:45)
== END 2019-07-22 18:46 | disposition home or self-care (01) ==
PROVIDERS: Emergency Provider Student in an Organized Health Care Education/Training Program; PCP Nurse Practitioner Family
DX: G40.909 Epilepsy, unspecified, not intractable, without status epilepticus (principal); F10.239 Alcohol dependence with withdrawal, unspecified; G40.509 Epileptic seizures related to external causes, not intractable, without status epilepticus; J44.9 Chronic obstructive pulmonary disease, unspecified; F17.210 Nicotine dependence, cigarettes, uncomplicated; I10 Essential (primary) hypertension
CPT/HCPCS: 36415; 80053; 93005; 96365; 99284; 80320; 83735; 84439; 84443; 85025; 93010; 99285

== ENCOUNTER 2020-02-01 15:15 | Emergency (ER) | payer MEDICARE, SELFPAY ==
[2020-02-01 15:11] VITALS: BP 140/93; PULSE 90; RESP 16; TEMP 37.4; O2SAT 98
--- NOTE | 2020-02-01 15:24 | ED.GENADUL_ITS ---
Discharge Plan Disposition Patient Disposition: HOME Condition: Improving Discharge Details Chief Complaint: Seizure Clinical Impression: Seizure disorder Primary Care Provider: Ramon Dye ED Provider: Greg Meyers Home Meds and New Rx's Prescriptions: Continued cyanocobalamin (vitamin B-12) [Vitamin B-12] 1,000 MCG tablet 1,000 mcg PO DAILY Qty: 1 RF: 0 oxycodone 10 MG tablet 10 mg PO 8H PRN PRNRF: 0 atenolol 25 MG tablet 25 mg PO DAILY RF: 0 Combivent 200 PUFF aerosol 2 puff Inhalation QID PRN PRNRF: 0 guaifenesin [Mucinex] 600 mg tablet extended release 12hr 600 mg PO Q12H PRNQty: 10 RF: 0 levetiracetam [Keppra] 500 mg tablet 500 mg PO BID Qty: 60 RF: 0 multivitamin [Multiple Vitamins] 1 TAB tablet 1 tab PO DAILY Qty: 30 RF: 3 No Action thiamine HCl (vitamin B1) 100 mg tablet 100 mg PO DAILY Qty: 60 RF: 0 gabapentin 300 mg Capsule 300 mg TID RF: 0 Discharge Instructions Instructions: Recurrent Seizures in Adults (ED) Additional Instructions: You deferred work-up in the ER today. Return at any time for reevaluation Continue your prescribed medications. Please follow-up with Ramon Dye in clinic next week for recheck. Medical Decision Making 49-year-old female states she was sitting recliner when she was noted to have some seizure type activity, similar to previous. She denies significant injury. She denied of a headache. She denies neck/chest/back pain. States she has recently been well. She continues to drink most days a few beers. She arrives to the emergency department via EMS with a blood pressure 140/93, pulse 90, respirations 16, afebrile with normal oxygenation. Her exam is reassuring and without deficits. She is engaged and interactive. Discussed with patient further work-up which she declines at this time. She is clinically sober and do not feel there is any indication to keep her in the ED against her wishes. She is to continue her regular medications. HPI General Mode of arrival: EMS . Limitations to Documentation: no limitations . Information obtained by: patient and EMS . History of Present Illness 49 year old F presents to the emergency department with the chief complaint of Seizure, recurrent, now improved, no complaints, described as mild, and it has been now resolved. No relieving factors improve symptom(s), No exacerbating factors reported . Patient notes no other symptoms.; denies chest pain, cough, fever/chills and headaches. Patient did receive the following treatments prior to arrival, none Related Data Home Medications Medication Instructions Recorded Confirmed atenolol 25 mg PO DAILY 03/28/13 02/01/20 cyanocobalamin (vitamin B-12) 1,000 mcg PO DAILY #1 04/10/14 02/01/20 [Vitamin B-12] oxycodone 10 mg PO 8H PRN PRN 04/09/16 02/01/20 multivitamin [Multiple Vitamins] 1 tab PO DAILY #30 tab 07/11/17 02/01/20 Combivent 2 puff INHALATION QID PRN PRN 06/05/18 02/01/20 guaifenesin [Mucinex] 600 mg PO Q12H PRN #10 tab 10/05/18 02/01/20 levetiracetam [Keppra] 500 mg PO BID #60 tab 07/22/19 thiamine HCl (vitamin B1) 100 mg PO DAILY #60 tab 07/22/19 02/01/20 gabapentin 300 mg TID 02/01/20 02/01/20 Previous Rx's Medication Instructions Recorded multivitamin [Multiple Vitamins] 1 tab PO DAILY #30 tab 07/11/17 guaifenesin [Mucinex] 600 mg PO Q12H PRN #10 tab 10/05/18 levetiracetam [Keppra] 500 mg PO BID #60 tab 07/22/19 thiamine HCl (vitamin B1) 100 mg PO DAILY #60 tab 07/22/19 Allergies Allergy/AdvReac Type Severity Reaction Status Date / Time acetaminophen [From Tylenol] AdvReac Unverified 02/01/20 15:23 General Stated Complaint: Seizure SHEA: 3 Review of Systems Narrative: States she drinks most days, denies any concern at this time. No headache. No chest pain. No neck pain, no back pain. Declines further evaluation. [facility] Medical History Alcohol abuse (Chronic 11/06/14) a. has been drinking since teenage years until now approxmately 750 cc every 4-5 days of rum mixed with coke Alcohol related seizure (Acute 02/07/15) COPD (chronic obstructive pulmonary disease) (Chronic) Hypertension (Chronic) Seizure Tachycardia Social History Smoking/Tobacco Use Status: Current every day Tobacco Type: cigarettes Alcohol Intake: current Alcohol Intake frequency: 3 or more drinks per day Alcohol type: beer Drug use: Never Substance use type: does not use Do you feel safe at home: Yes Do you feel safe in your relationship?: Yes Exam Narrative Exam Narrative: GEN: awake, alert, oriented 3. Pleasant, well groomed, interactive. HEAD: Normocephalic, atraumatic ENT: Superficial abrasion left cheek. mucous membranes moist, oropharynx unremarkable, External ear exam unremarkable EYES: PERRL, EOMI NECK: Full ROM, no CAMELIA, no menigismus CHEST/RESP: Nontender, clear to auscultation bilateral, no wheeze/rhonchi/rales CARDIOVASCULAR: RRR, no murmur, rub amy. 2+ Rad pulse bilateral ABDOMEN: Soft, nontender, no mass. +Bowel sounds EXT: Full ROM, no edema, no rash Neuro: Grossly normal neurologic exam, conversant, interactive. Psych: Speech fluent, thoughts congruent, affect normal Course Vital Signs Vital signs: Vital Signs Temperature 37.4 C 02/01/20 15:11 Pulse 90 02/01/20 15:11 Respiratory Rate 16 02/01/20 15:11 Blood Pressure 140/93 H 02/01/20 15:11 Pulse Oximetry 98 02/01/20 15:11 Temperature 37.4 C 02/01/20 15:11 Temperature Source Tympanic 02/01/20 15:11 Pulse 90 02/01/20 15:11 Respiratory Rate 16 02/01/20 15:11 Respiratory Effort Non-Labored 02/01/20 15:21 Blood Pressure 140/93 H 02/01/20 15:11 Pulse Oximetry 98 02/01/20 15:11 Oxygen Delivery Method Room Air 02/01/20 15:11 Oxygen Flow Rate 0 02/01/20 15:11 Pain Level 0 02/01/20 15:11
[2020-02-01 15:52] VITALS: BP 130/81; PULSE 79; RESP 16; TEMP 36.8; O2SAT 97
== END 2020-02-01 16:00 | disposition home or self-care (01) ==
LOC: ER 16:10
PROVIDERS: Emergency Provider Emergency Medicine; PCP Nurse Practitioner Family
DX: G40.89 Other seizures (principal); F10.10 Alcohol abuse, uncomplicated; I10 Essential (primary) hypertension; J44.9 Chronic obstructive pulmonary disease, unspecified; F17.210 Nicotine dependence, cigarettes, uncomplicated
CPT/HCPCS: 99283

== ENCOUNTER 2020-03-29 11:00 | Outpatient (CLI) | payer MEDICARE, SELFPAY ==
--- NOTE | 2020-03-29 11:20 | DI.RAD_ITS ---
EXAM: XR HIP LT COMPLETE AP PELVIS INDICATION: LT HIP JOINT LINE PAIN, M25.552,TROUBLE WALKING. TECHNIQUE: 2D digital imaging was performed. Standing views were performed. FINDINGS: There has been no change in the left total hip prosthesis or surrounding bone. The right hip joint space is well maintained. There appears to be a mild leg length discrepancy with the right iliac cre st projecting higher than the left. The SI joints are unremarkable. IMPRESSION: Stable appearance of left hip prosthesis. DATA REPOSITORY: RADIATION DOSE DELIVERED:
== END 2020-03-29 11:20 ==
PROVIDERS: PCP Nurse Practitioner Family; Visit Provider Nurse Practitioner Family
DX: M25.552 Pain in left hip (principal); Z96.642 Presence of left artificial hip joint; R26.2 Difficulty in walking, not elsewhere classified; M21.70 Unequal limb length (acquired), unspecified site
CPT/HCPCS: 73502

== ENCOUNTER 2020-04-12 01:50 | Inpatient (IN) | payer MEDICARE, SELFPAY ==
[2020-04-12] VITALS (55 sets, daily range): BP systolic 89–132; BP diastolic 71–90; PULSE 67–108; RESP 14–34; TEMP 36.7–38.8; O2SAT 94–99
--- NOTE | 2020-04-12 02:04 | ED.GENADUL_ITS ---
Discharge Plan Disposition Patient Disposition: [facility] INPATIENT Condition: Poor Discharge Details Chief Complaint: Seizure Clinical Impression: Alcohol withdrawal delirium, Alcohol withdrawal seizure Primary Care Provider: Ramon Dye ED Provider: Ashok Strong [place] Meds and New Rx's Prescriptions: No Action cyanocobalamin (vitamin B-12) [Vitamin B-12] 1,000 MCG tablet 1,000 mcg PO DAILY Qty: 1 RF: 0 oxycodone 10 MG tablet 10 mg PO 8H PRN PRNRF: 0 atenolol 25 MG tablet 25 mg PO DAILY RF: 0 guaifenesin [Mucinex] 600 mg tablet extended release 12hr 600 mg PO Q12H PRNQty: 10 RF: 0 thiamine HCl (vitamin B1) 100 mg tablet 100 mg PO DAILY Qty: 60 RF: 0 gabapentin 300 mg Capsule 300 mg TID RF: 0 multivitamin [Multiple Vitamins] 1 TAB tablet 1 tab PO DAILY Qty: 30 RF: 3 magnesium 250 mg Tablet 250 mg PO DAILY RF: 0 mirtazapine 15 mg Tablet 15 mg PO QHS RF: 0 cholecalciferol (vitamin D3) [Vitamin D3] 25 mcg (1,000 unit) Capsule 50 mcg PO DAILY RF: 0 budesonide-formoterol [Symbicort] 160-4.5 mcg/actuation Hfa Aerosol Inhaler 2 puff INHALATION BID RF: 0 Medical Decision Making Patient brought in with report of 3 seizures today. She is tremulous, tachycardic, mildly confused with history of alcohol withdrawal and alcohol withdrawal seizures. While she has been drinking it is reportedly less than normal. Is quite likely this is alcohol withdrawal. She did receive Diastat at home. IV established. Ativan and LR given. Laboratory studies and EKG obtained. 03:15 - I spoke to the directly over the phone. He reports that his wi fe had her first seizure this morning at about 10:30. She had a second seizure about 5:30 in the afternoon and he found her behind the couch when he came home from getting dinner. Third seizure was around 1 AM and was prolonged which is why he gave her the Diastat. He reports that prior to onset of seizure she was not acting right and hallucinating. He reports that she has not been sleeping for the last couple of weeks. She has also not been eating very much. She has has not been herself. Laboratory studies show that her alcohol level is 0. Platelets are low at 77. Hemoglobin normal. Sodium is a little low at 130. Potassium normal. Magnesium 1.5. Liver function is okay. Given patient being found by on the second seizure I am going to scan her head. Vital signs are better with fluids and Ativan. Case discussed with hospitalist. Patient will be admitted to the ICU for alcohol withdrawal delirium and alcohol withdrawal seizures. Medical Records Medical records reviewed: Yes I reviewed the patient's medical records. Lab Data Lab results reviewed: Yes I reviewed the patient's lab results. ECG Data Attestation: I personally reviewed and interpreted this ECG (s) as follows: Prior ECG tracings: not available for review Interpretation: Sinus tachycardia at 101. Normal axis and intervals. No acute ST changes. HPI General Mode of arrival: wheelchair . Date/Time Provider Initiated Documentation: 04/12/20 02:03 . Limitations to Documentation: altered mental status . Information obtained by: patient, family, RN notes reviewed and old records reviewed . HPI Narrative: Patient brought in by for evaluation of frequent seizures. She apparently has history of seizures as well as alcohol withdrawal seizures. She has now had 3 seizures in the last 24 hours. Most recent one was about 1 hour ago. gave her Diastat at that time. By report she has been drinking but not as much as usual. He also feels that she is not acting normal. He does not describe it as being postictal but describes it as being delusional. This was all reported to me by the nurse, who had gone out to get the patient and received the history from the . Patient herself has no complaints of. She does admit to the seizures. She does appear to be mildly confused. She denies having pain anywhere. She denies any fever or cough. She denies injury with seizures. Related Data Home Medications Medication Instructions Recorded Confirmed atenolol 25 mg PO DAILY 03/28/13 04/12/20 cyanocobalamin (vitamin B-12) 1,000 mcg PO DAILY #1 04/10/14 04/12/20 [Vitamin B-12] oxycodone 10 mg PO 8H PRN PRN 04/09/16 02/01/20 multivitamin [Multiple Vitamins] 1 tab PO DAILY #30 tab 07/11/17 04/12/20 guaifenesin [Mucinex] 600 mg PO Q12H PRN #10 tab 10/05/18 04/12/20 thiamine HCl (vitamin B1) 100 mg PO DAILY #60 tab 07/22/19 04/12/20 gabapentin 300 mg TID 02/01/20 04/12/20 budesonide-formoterol [Symbicort] 2 puff INHALATION BID 04/12/20 04/12/20 cholecalciferol (vitamin D3) 50 mcg PO DAILY 04/12/20 04/12/20 [Vitamin D3] magnesium 250 mg PO DAILY 04/12/20 04/12/20 mirtazapine 15 mg PO QHS 04/12/20 04/12/20 Previous Rx's Medication Instructions Recorded multivitamin [Multiple Vitamins] 1 tab PO DAILY #30 tab 07/11/17 guaifenesin [Mucinex] 600 mg PO Q12H PRN #10 tab 10/05/18 thiamine HCl (vitamin B1) 100 mg PO DAILY #60 tab 07/22/19 Allergies Allergy/AdvReac Type Severity Reaction Status Date / Time acetaminophen [From Tylenol] AdvReac Unverified 04/12/20 02:33 General SHEA: 3 Review of Systems Narrative: Review of systems not obtained as patient seems unreliable and somewhat confused. [facility] Medical History Alcohol abuse (Chronic 11/06/14) a. 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 Decreased intake from usual on 04/11/20. Strong hx of ETOH withdrawal seizures. Do you feel safe at home: Yes Do you feel safe in your relationship?: Yes Exam Narrative Exam Narrative: Vitals: Afebrile. Tachycardic. Normal blood pressure and normal room air saturations. Const: WDWN female in NAD. HEENT: NC/AT. Normal facial exam. Superficial lateral tongue laceration /bruising. Eyes: Normal conjunctiva and sclera. Neck: Supple. Trachea midline. Lungs: Normal respiratory effort. Cor: Good radial pulses. GI: Soft. NT/ND. No guarding or rebound. Neuro: Alert and oriented. Does seem mildly confused. Normal speech. Cranial nerves II - XII grossly intact. No gross motor or sensory deficit. Ext: No C/C/E. Skin: Warm and dry without rash. Critical Care Time Critical Care Time Critical Care Time: Yes Total Critical Care Time: 45 Attestation: Upon my evaluation, this patient had a high probability of imminent or life- threatening deterioration, which required my direct attention, intervention, and personal management. I have personally provided minutes of critical care time exclusive of time spent on separately billable procedures. Time includes review of laboratory data, radiology results, discussion with consultants, and monitoring for potential decompensation.
[2020-04-12 02:35] LABS: ETHANOL BLOOD < 3.0 mg/dL (<3); Lipase 100 U/L (73-393)
[2020-04-12 02:40] LABS: ALT 44 U/L (14-59); AST 67 U/L (15-37); Albumin 3.8 g/dL (3.4-5.0); Alkaline Phosphatase 117 U/L (46-116); Anion Gap 13.2 mmol/L (3-11); BUN 3 mg/dL (7-18); Bilirubin, Total 1.2 mg/dL (0.2-1.0); CO2 24.8 mmol/L (21.0-32.0); CREATININE 0.89 mg/dL (0.55-1.02); Calcium 9.3 mg/dL (8.5-10.1); Chloride 92 mmol/L (98-107); Glucose 129 mg/dL (74-106); Magnesium 1.5 mg/dL (1.8-2.4); Potassium 3.5 mmol/L (3.5-5.1); Sodium 130 mmol/L (136-145); Total Protein 8.8 g/dL (6.4-8.2)
[2020-04-12] MEDS: Lactated Ringers 1,000 ML 1000 ML IV (02:41)
[2020-04-12] MEDS: LORazepam 2 MG/ML VIAL 1 MG IVP (02:41)
[2020-04-12 02:45] LABS: Abs Immature Grans 0.01 k/cumm (0.0-0.09); Absolute Basophil Count 0.02 k/cumm (0.0-0.2); Absolute Eosinophil Count 0.01 k/cumm (0.0-0.7); Absolute Lymphocyte Count 1.53 k/cumm (1.2-3.4); Absolute Monocyte Count 0.68 k/cumm (0.11-0.7); Absolute Neutrophil Count 5.63 k/cumm (1.2-6.7); Basophils % 0.3; Eosinophils % 0.1; HCT 43.3 % (36.0-46.0); Immature Grans % 0.1 %; Lymphocytes % 19.4; Mean Corp. HGB Concentration 34.6 g/dL (32.0-36.0); Mean Corpuscular Hemoglobin 32.9 pg (27.0-33.0); Mean Platelet Volume 12.6 fL (8.0-11.0); Monocytes % 8.6; Neutrophils % 71.5; RBC 4.56 m/cumm (4.00-5.20); RBC Distribution Width 12.6 % (11.7-14.6); White Blood Cell Count 7.88 k/cumm (4.4-10.8)
[2020-04-12 02:55] LABS: Platelet Count 77 x1000/uL (130-400)
[2020-04-12 02:57] LABS: Diff Comment Diff Reviewed; RBC Morphology Normal
[2020-04-12] MEDS: MAGNESIUM SULFATE 2 GM/50 ML BAG IVPB ×2 (02:59→05:44)
--- NOTE | 2020-04-12 03:24 | DI.CT_ITS ---
EXAM: CT HEAD WO CLINICAL HISTORY: three seizures today. TECHNIQUE: Imaging Protocol: Axial computed tomography images with coronal and sagittal reformatted images were created and reviewed COMPARISON: CT CT HEAD WO from 05/28/2019 FINDINGS: Ventricles and Extra axial spaces: There is unchanged mild prominence of the ventricles and sulci. T his is consistent with mild cerebral atrophy. Hemorrhage: None. Cerebral parenchyma: Normal. No acute territorial infarct is noted. Midline shift: None. Brainstem/Cerebellum: Normal. Calvarium: Normal. Visualized Paranasal sinuses/Mastoids: Clear. Soft Tissues: Unremarkable. IMPRESSION: No acute intracranial process. RADIATION DOSE DELIVERED: 693.18mGy.cm Total DLP DATA REPOSITORY: All CT scans at this facility are submitted to the National Radiology Data Registry (NRDR) Dose Index Registry (DIR) with the [employer] (A[employer]). RADIATION OPTIMIZATION: All CT scans at this facility use at least one of these dose optimization te chniques: automated exposure control; mA and/or kV adjustment per patient size (includes targeted exa ms where dose is matched to clinical indication); or iterative reconstruction.
--- NOTE | 2020-04-12 03:44 | DI.VRAD_ITS ---
PROCEDURE INFORMATION: Exam: CT Head Without Contrast Exam date and time: 04/12/2020 3:24 AM Age: 49 years old Clinical indication: Other: Seizures; Additional info: 3 seizures today TECHNIQUE: Imaging protocol: Computed tomography of the head without contrast. Radiation optimization: All CT scans at this facility use at least one of these dose optimization techniques: automated exposure control; mA and/or kV adjustment per patient size (includes targeted exams where dose is matched to clinical indication); or iterative reconstruction. COMPARISON: CT HEAD WO 05/28/2019 11:44 PM FINDINGS: Brain: There is no evidence of acute intracranial hemorrhage demonstrated on the examination. No evidence of acute cerebral ischemia. Normal camilo-white matter differentiation. Mild parenchymal cerebral and cerebellar tissue loss. The cortical sulci and subarachnoid cisterns are somewhat prominent. Overall appearance is unchanged. Ventricles: Ventricles somewhat prominent. Bones/joints: Unremarkable. No acute calvarial fracture. Sinuses: Visualized sinuses are unremarkable. No fluid levels. Mastoid air cells: Visualized mastoid air cells are well aerated. Soft tissues: Unremarkable. IMPRESSION: 1. No acute intracranial hemorrhage or ischemia. 2. Mild parenchymal atrophy. Dictated and Authenticated by: Dagoberto Carmen MD. Ordering:JAMIN Pulido MD
--- NOTE | 2020-04-12 04:19 | HPE_ITS ---
Date of service: 04/12/20 Time of Service: 04:19 Assessment and Plan Assessment and plan (1) Alcohol withdrawal seizure: Status: Acute Assessment and plan: Seizure most likely due to alcohol withdrawal. This has occurred in the past. She is not on any chronic anticonvulsant (gabapentin for neuropathy). Brain imaging does not show large ischemic stroke or bleed. Metabolic problems mild and not likely to cause a seizure. Nonfocal neurologic exam. No history of recent trauma or infection. History points towards alcohol withdrawal seizure as the most likely cause. I am placing her on scheduled oxazepam with PRN lorazepam based on withdrawal symptoms. Monitor for recurrent seizure. (2) Alcohol withdrawal delirium: Status: Acute Assessment and plan: History from by secondhand report suggest that she has already entered some alcohol withdrawal delirium with hallucination s. She does not endorse this although history is not reliable at this time. Management as above with scheduled and PRN benzodiazepine. Vitamin supplements. (3) Hypertension: Status: Chronic Assessment and plan: Outpatient blood pressures low normal historically. May have some elevated blood pressures because of alcohol withdrawal. Continue outpatient dose of atenolol with low threshold to discontinue this if blood pressure is low. (4) COPD (chronic obstructive pulmonary disease): Status: Chronic Assessment and plan: Still smoking, does not endorse any desire to quit. Benign exam now. We will offered nicotine patch and continue with Symbicort scheduled. PRN albuterol. (5) Alcohol abuse: Status: Chronic Assessment and plan: Chronic. Does not express any desire to be involved in any form of individual or group counseling. Expresses a little bit of intere st in possible medication assisted therapy after discharge. I briefly discussed with her naltrexone and acamprosate as possible options. (6) Hypomagnesemia: Status: Chronic Assessment and plan: Likely related to her alcohol use plus minus poor nutrition. We will supplement IV and recheck magnesium level. Oral magnesium on hold temporarily. (7) Hyponatremia: Status: Chronic Assessment and plan: Mild and not likely to be causing symptoms. IV fluids and monitor sodium level. (8) Tobacco dependence syndrome: Status: Chronic Assessment and plan: Offer nicotine replacement. (9) Neuropathy: Status: Chronic Assessment and plan: Continue outpatient gabapentin dose. (10) Anorexia: Status: Acute Assessment and plan: Cause not clear. May have some alcohol induced gastritis? Biochemically no indication of pancreatitis or significant liver injury. Unclear if mood disorder playing a role. Monitor oral intake. 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 Intermittently she has had low platelet counts in the past. Does not show other abnormalities of other cell lines. Monitor platelet count. History of Present Illness History of Present Illness Chief Complaint: Seizures x3, delirium Narrative: 49-year-old woman with chronic alcohol abuse and past history of alcohol withdrawal seizures brought to the emergency room by her because of hallucinations, confusion and her third seizure in less than 24 hours. Last drink uncertain?according to a few days ago, according to patient yesterday morning. Her gave her Diastat at home after the third seizure and received lorazepam in the emergency room because of tremulousness but not because of another seizure. She reports feeling generally unwell for the past several days with poor appetite but no fever cough or congestion. Denies nausea or vomiting. Denies seeing blood in stool or coffee-ground emesis. Denies any recent head trauma or falls. Had been drinking up to 12 beers a day, less so in the past 24 hours. On presentation to the ER she was a little lethargic from the Diastat given at home but did not have any focal neurologic findings. She had some moderate tremor. CT scan of the head without contrast showed atrophy atypical for age but no bleed or large stroke. Alcohol level below the level of detection. Metabolic work-up with a sodium of 130, blood sugar slightly high at 129 and magnesium 1.5 with minimal elevation of AST and alk phos. Lipase was normal. Hemoglobin and hematocrit normal, white count normal but platelet count low at 77,000. She is being admitted for treatment of alcohol withdrawal, recurrent alcohol withdrawal seizures and monitoring for other complications related to her chronic alcohol abuse. She has had no recent travel. She has COPD for which she is using a Symbicort inhaler daily and denies any increased shortness of breath. She has had no known exposure to anyone with COVID-19 or other respiratory illnesses. She had COVID-19 testing performed out of abundance of caution. Review of Systems Narrative: As per HPI. No double vision. No trouble swallowing. Does not feel short of breath now. No chest or abdominal pain. No dysuria. Has not seen any blood in stool. No diarrhea. Has chronic paresthesias in the lower extremities. No bruises or bleeding. [facility] Medical History Alcohol abuse (Chronic 11/06/14) a. 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 Decreased intake from usual on 04/11/20. Strong hx of ETOH withdrawal seizures. Do you feel safe at home: Yes Do you feel safe in your relationship?: Yes Meds Home Medications and Allergies Home Medications Medication Instructions Recorded Confirmed Type atenolol 25 mg PO DAILY 03/28/13 04/12/20 History cyanocobalamin (vitamin B-12) 1,000 mcg PO DAILY #1 04/10/14 04/12/20 History [Vitamin B-12] oxycodone 10 mg PO 8H PRN PRN 04/09/16 02/01/20 History multivitamin [Multiple Vitamins] 1 tab PO DAILY #30 tab 07/11/17 04/12/20 Rx guaifenesin [Mucinex] 600 mg PO Q12H PRN #10 tab 10/05/18 04/12/20 Rx thiamine HCl (vitamin B1) 100 mg PO DAILY #60 tab 07/22/19 04/12/20 Rx gabapentin 300 mg TID 02/01/20 04/12/20 History budesonide-formoterol [Symbicort] 2 puff INHALATION BID 04/12/20 04/12/20 History cholecalciferol (vitamin D3) 50 mcg PO DAILY 04/12/20 04/12/20 History [Vitamin D3] magnesium 250 mg PO DAILY 04/12/20 04/12/20 History mirtazapine 15 mg PO QHS 04/12/20 04/12/20 History Allergies Allergy/AdvReac Type Severity Reaction Status Date / Time acetaminophen [From Tylenol] AdvReac Unverified 04/12/20 02:33 Exam Narrative Exam Narrative: Initially sedated but then arousable, alert, knows she is in the hospital and why. Knows the date. Looks at the clock for the time. No facial asymmetry. Pupils 2 mm equal and reactive. No nystagmus. Sclera clear. No tongue laceration or fasciculations. Pharynx clear. No JVD cervical adenopathy or bruits. Initially some coarse expiratory wheezing in the upper lung rasmussen but then sitting upright with deep breaths lungs clear throughout. Regular heart rhythm without S3-S4 or murmur. Bowel sounds quite active. Abdomen is not distended, no tenderness to palpation. I do not appreciate liver edge. Rectal and pelvic exams were not done. Extremities warm with 1-2+ pulses at the feet 2+ at the wrists. She has some mild tremor (exam performed after she received lorazepam). Symmetric movement of all extremities with antigravity power present throughout. Reflexes a little bit brisk at the knees, normal at the elbows. No bruising seen on extremities face or scalp. Results Noncontrast head CT without evidence of mass bleed or large ischemic stroke Labs Result diagrams: 04/12/20 02:18 04/12/20 02:18 Labs: Laboratory Results - last 24 hr 04/12/20 04/12/20 04/12/20 02:18 02:18 02:18 WBC 7.88 RBC 4.56 Hgb 15.0 Hct 43.3 MCV 95.0 MCH 32.9 MCHC 34.6 RDW 12.6 Plt Count 77 L MPV 12.6 H Immature Gran % 0.1 Neutrophils % 71.5 Lymphocytes % 19.4 Monocytes % 8.6 Eosinophils % 0.1 Basophils % 0.3 Absolute Neutrophils 5.63 Absolute Lymphocytes 1.53 Absolute Monocytes 0.68 Absolute Eosinophils 0.01 Absolute Basophils 0.02 Differential Comment Diff reviewed RBC Morphology Normal Sodium 130 L Potassium 3.5 Chloride 92 L Carbon Dioxide 24.8 Anion Gap 13.2 H BUN 3 L Creatinine 0.89 Estimated GFR/1.73 m2 >= 60.00 Glucose 129 H Calcium 9.3 Magnesium 1.5 L Total Bilirubin 1.2 H AST 67 H ALT 44 Alkaline Phosphatase 117 H Total Protein 8.8 H Albumin 3.8 Lipase 100 Ethyl Alcohol < 3.0 Last Vital Signs Temp 37.6 C H 04/12/20 02:03 Pulse 86 04/12/20 03:01 Resp 23 04/12/20 03:01 BP 132/80 04/12/20 03:01 Pulse Ox 99 04/12/20 03:01 COVID-19 Screening In the past 14 days, have you traveled outside of [place] or [place]?: NO Had IN PERSON contact w/suspected or confirmed C-19 person: No
[2020-04-12] MEDS: Thiamine 100 MG TAB PO (05:44)
[2020-04-12] MEDS: DEXTROSE 5%-LACTATED RINGERS 1,000 ML 100 ML IV (06:05)
[2020-04-12] MEDS: LORazepam 1 MG TAB PO/SL (06:19)
--- NOTE | 2020-04-12 06:46 | DI.RAD_ITS ---
EXAM: XR PORTABLE CHEST AP CLINICAL HISTORY: Febrile TECHNIQUE: 2D digital imaging was performed. COMPARISON: No exams were available for comparison FINDINGS: MEDIASTINUM: Normal. HEART: Normal. PULMONARY VASCULATURE: Normal. LUNGS: Clear. PLEURAL SPACE: No pleural effusion or pneumothorax. BONE:Normal. OTHER FINDINGS:Normal. IMPRESSION: No acute pulmonary findings. DATA REPOSITORY: RADIATION DOSE DELIVERED:
--- NOTE | 2020-04-12 07:15 | DI.VRAD_ITS ---
PROCEDURE INFORMATION: Exam: XR Chest, 1 View Exam date and time: 04/12/2020 6:46 AM Age: 49 years old Clinical indication: Fever TECHNIQUE: Imaging protocol: XR of the chest Views: 1 view. COMPARISON: CR XR CHEST 2V PA LATERAL 05/29/2019 12:13 AM FINDINGS: Lungs: Unremarkable. No consolidation. Pleural space: Unremarkable. No pleural effusion. No pneumothorax. Heart/Mediastinum: Unremarkable. No cardiomegaly. Bones/joints: Unremarkable. IMPRESSION: No acute findings. Dictated and Authenticated by: Saad Aguilera MD. Ordering:EDNA Roberts MD
[2020-04-12 08:01] LABS: Bilirubin Negative (Negative); Blood Small (Negative); Clarity Sl Cloudy (Clear); Glucose Negative (Negative); Ketones Negative (Negative); Leukocyte Esterase Negative (Negative); Nitrite Positive (Negative); Specific Gravity 1.015 (1.005-1.025); Urobilinogen 0.2 EU/dL (Up TO 0.2); pH 7.5 (5-8)
[2020-04-12 08:13] LABS: Bacteria Many HPF (Negative); Casts Negative LPF (Negative); Crystals Negative HPF (Negative); Epithelial Cells Few HPF (Negative); Mucus Negative (Negative); RBC 0-2 HPF (0-2)
[2020-04-12 08:15] LABS: C & S Indicated? Yes
--- NOTE | 2020-04-12 08:38 | PGE_ITS ---
Date of Service Date of service: 04/12/20 Time of Service: 08:38 Assessment and Plan Assessment and plan (1) Alcohol withdrawal seizure: Status: Acute Assessment and plan: Program doses of Serax 10 mg every 6 hours while awake has been ordered. This will be withheld while she is somnolent. But given her severity of her acute alcohol withdrawal which is been complicated by seizures and delirium I think program doses of benzodiazepines would be appropriate as long as she is awake enough to tolerate this. Otherwise we will continue giving her short acting parenteral benzodiazepines on a as needed basis according to her CIWA scores. We will continue with IV fluid hydration vitamin replacement clean thiamine and folic acid. For now she will receive a banana bag since she is too somnolent to take pills. I do not think she needs antiepileptic drugs at this point. Once she is gotten through the acute withdrawal stages will offer her a maintenance program to prevent recidivism. Qualifiers: Complication of substance-induced condition: with delirium Qualified Code(s): F10.231 - Alcohol dependence with withdrawal delirium (2) Alcohol withdrawal delirium: Status: Acute Assessment and plan: As above (3) Hypokalemia: Status: Acute Assessment and plan: Continue parenteral replacement. I have ordered an increase in her IV fluids to D5 LR and have added potassium supplementation of 20 mEq IV x2 doses. Patient is already received 4 g of magnesium. I recheck her electrolytes this afternoon and treat her appropriately. (4) Hypomagnesemia: Status: Chronic Assessment and plan: As above Subjective Subjective Interval history since last seen: No further seizures since admission. Patient has been medicated with a total of 3 mg of Ativan including 1 mg IV given while in the emergency room around 2:40 AM and another 2 mg IV given at 6:19 AM. I was asked by nursing staff to evaluate her because of her somnolence. She reportedly was non-arousable. However I was able to arouse her with sternal rub. Patient open her eyes and cursed at me. She has no focal neurologic deficits other than being somnolent. She did spike a fever this morning of 38.8 at 5:[address] Trinh, segmental paving supervisor, was notified and ordered chest x-ray and blood cultures and urine for urinalysis and culture. Chest x-ray showed no acute pulmonary abnormalities. Blood cultures are pending at this time but have been drawn. Urinalysis was finally obtained as the patient voided on her own and appears to be suspicious for UTI as a UA is positive for nitrite small amount of blood and many bacteria although interestingly the leukocyte Estrace w as negative. She has no flank pain on exam and no abdominal pain. Her lungs are clear. I started on Rocephin 1 g IV every 24 hours pending the blood culture results. I have ordered a blood lactate and procalcitonin level. She is tachycardic in sinus rhythm in the low 100s BP is stable and oxygenation is stable. Exam Narrative Exam Narrative: Thin middle-aged female lying in bed in semi-almazan position who is asleep but is easily awakened and becomes very irritable cursing at me. She is not really oriented to place time or circumstance. She had to be told that she is in the hospital. She is asked that I leave her alone. HEENT is remarkable for dry mucous membranes no exudate in her mouth. Neck is supple without JVD no meningeal signs. Lungs are clear to auscultation although diminished. No wheezes rales or rhonchi. Heart is tachycardic but regular without appreciable murmur rub or gallop. Abdomen is soft and nontender nondistended. Costovertebral angle is without tenderness to palpation. Extremities no peripheral edema or cyanosis. Right great toe there is a bruise at the inner phalangeal joint. Objective Objective Clinical Data: Abnormal lab results 04/12/20 04/12/20 04/12/20 Range/Units 02:18 02:18 07:40 Plt Count 77 L (130-400) x1000/uL MPV 12.6 H (8.0-11.0) fL Sodium 130 L (136-145) mmol/L Chloride 92 L (98-107) mmol/L Anion Gap 13.2 H (3-11) mmol/L BUN 3 L (7-18) mg/dL Glucose 129 H (74-106) mg/dL Magnesium 1.5 L (1.8-2.4) mg/dL Total Bilirubin 1.2 H (0.2-1.0) mg/dL AST 67 H (15-37) U/L Alkaline Phosphatase 117 H (46-116) U/L Total Protein 8.8 H (6.4-8.2) g/dL Urine Blood Small H (Negative) Urine Nitrite Positive H (Negative) Vital Signs Temperature 38.7 C H 04/12/20 08:15 Temperature Source Temporal Artery Scan 04/12/20 08:15 Pulse 90 04/12/20 07:00 Pulse 90 04/12/20 07:00 Respiratory Rate 19 04/12/20 07:00 Respiratory Effort Non-Labored 04/12/20 05:10 Respiratory Depth Normal 04/12/20 05:10 Respiratory Pattern Normal 04/12/20 05:10 Blood Pressure 123/75 04/12/20 07:00 Blood Pressure Mean 86 04/12/20 07:00 Blood Pressure Position Supine 04/12/20 02:03 Pulse Oximetry 95 04/12/20 07:00 Oxygen Delivery Method Room Air 04/12/20 05:10 Oxygen Flow Rate 0 04/12/20 05:10 Pain Level 0 04/12/20 05:11 Intake & Output 04/11/20 04/11/20 04/12/20 11:59 23:59 11:59 Intake Total 1060 / 1060 Output Total 700 / 700 Balance 360 / 360 Weight 56.9 kg Intake: IV 1000 / 1000 Oral 60 / 60 Output: Urine 700 / 700 Other: Urine Color Yellow Light Romina Urine Appearance Clear Urine Odor Normal Comment Will send a urine sample sent to the lab for U/A at this time. Voiding Methods Bedside Commode Laboratory Results WBC 7.88 k/cumm (4.4-10.8) 04/12/20 02:18 RBC 4.56 m/cumm (4.00-5.20) 04/12/20 02:18 Hgb 15.0 g/dL (12.0-15.5) 04/12/20 02:18 Hct 43.3 % (36.0-46.0) 04/12/20 02:18 MCV 95.0 fL (80-95) 04/12/20 02:18 MCH 32.9 pg (27.0-33.0) 04/12/20 02:18 MCHC 34.6 g/dL (32.0-36.0) 04/12/20 02:18 RDW 12.6 % (11.7-14.6) 04/12/20 02:18 Plt Count 77 x1000/uL (130-400) L 04/12/20 02:18 MPV 12.6 fL (8.0-11.0) H 04/12/20 02:18 Immature Gran % 0.1 % 04/12/20 02:18 Neutrophils % 71.5 04/12/20 02:18 Lymphocytes % 19.4 04/12/20 02:18 Monocytes % 8.6 04/12/20 02:18 Eosinophils % 0.1 04/12/20 02:18 Basophils % 0.3 04/12/20 02:18 Absolute Neutrophils 5.63 k/cumm (1.2-6.7) 04/12/20 02:18 Absolute Lymphocytes 1.53 k/cumm (1.2-3.4) 04/12/20 02:18 Absolute Monocytes 0.68 k/cumm (0.11-0.7) 04/12/20 02:18 Absolute Eosinophils 0.01 k/cumm (0.0-0.7) 04/12/20 02:18 Absolute Basophils 0.02 k/cumm (0.0-0.2) 04/12/20 02:18 Differential Comment Diff reviewed 04/12/20 02:18 RBC Morphology Normal 04/12/20 02:18 Sodium 130 mmol/L (136-145) L 04/12/20 02:18 Potassium 3.5 mmol/L (3.5-5.1) 04/12/20 02:18 Chloride 92 mmol/L (98-107) L 04/12/20 02:18 Carbon Dioxide 24.8 mmol/L (21.0-32.0) 04/12/20 02:18 Anion Gap 13.2 mmol/L (3-11) H 04/12/20 02:18 BUN 3 mg/dL (7-18) L 04/12/20 02:18 Creatinine 0.89 mg/dL (0.55-1.02) 04/12/20 02:18 Estimated GFR/1.73 m2 >= 60.00 (mL/min/1.73m2) 04/12/20 02:18 Glucose 129 mg/dL (74-106) H 04/12/20 02:18 Lactate 1.0 mmol/L (0.6-1.4) 04/12/20 08:14 Calcium 9.3 mg/dL (8.5-10.1) 04/12/20 02:18 Magnesium 1.5 mg/dL (1.8-2.4) L 04/12/20 02:18 Total Bilirubin 1.2 mg/dL (0.2-1.0) H 04/12/20 02:18 AST 67 U/L (15-37) H 04/12/20 02:18 ALT 44 U/L (14-59) 04/12/20 02:18 Alkaline Phosphatase 117 U/L (46-116) H 04/12/20 02:18 Total Protein 8.8 g/dL (6.4-8.2) H 04/12/20 02:18 Albumin 3.8 g/dL (3.4-5.0) 04/12/20 02:18 Lipase 100 U/L (73-393) 04/12/20 02:18 Urine Color Yellow (Yellow) 04/12/20 07:40 Urine Clarity Sl cloudy (Clear) 04/12/20 07:40 Urine pH 7.5 (5-8) 04/12/20 07:40 Ur Specific [place] 1.015 (1.005-1.025) 04/12/20 07:40 Urine Protein Negative mg/dL (Negative) 04/12/20 07:40 Urine Ketones Negative mg/dL (Negative) 04/12/20 07:40 Urine Blood Small (Negative) H 04/12/20 07:40 Urine Nitrite Positive (Negative) H 04/12/20 07:40 Urine Bilirubin Negative (Negative) 04/12/20 07:40 Urine Urobilinogen 0.2 EU/dL (Up TO 0.2) 04/12/20 07:40 Ur Leukocyte Esterase Negative (Negative) 04/12/20 07:40 Urine RBC 0-2 HPF (0-2) 04/12/20 07:40 Urine WBC 3-5 HPF (0-5) 04/12/20 07:40 Ur Epithelial Cells Few HPF (Negative) 04/12/20 07:40 Urine Crystals Negative HPF (Negative) 04/12/20 07:40 Urine Bacteria Many HPF (Negative) 04/12/20 07:40 Urine Casts Negative LPF (Negative) 04/12/20 07:40 Urine Mucus Negative (Negative) 04/12/20 07:40 Ur Culture Indicated? Yes 04/12/20 07:40 Urine Glucose Negative mg/dL (Negative) 04/12/20 07:40 Ethyl Alcohol < 3.0 mg/dL (<3) 04/12/20 02:18
[2020-04-12 08:45] LABS: BUN 3 mg/dL (7-18); CREATININE 0.44 mg/dL (0.55-1.02); Calcium 8.5 mg/dL (8.5-10.1); Chloride 97 mmol/L (98-107); Glucose 115 mg/dL (74-106); Sodium 133 mmol/L (136-145)
[2020-04-12 08:50] LABS: Potassium 2.8 mmol/L (3.5-5.1)
[2020-04-12] MEDS: POTASSIUM CHLORIDE 20 MEQ/100 ML BAG 50 MEQ IVPB ×2 (09:40→12:01)
--- NOTE | 2020-04-12 09:57 | INITIAL_ITS ---
- If Service Date Differs Date of service: 04/12/20 Time of Service: 09:58 Care Management Initial Assess REASON FOR HOSPITALIZATION:: Alcohol withdrawal seizure PAST MEDICAL HISTORY/PAST SURGICAL HISTORY:: Medical History: Alcohol abuse (Chronic 11/06/14). a. has been drinking since teenage years until now approxmately 750 cc every 4-5 days of rum mixed with coke. Alcohol related seizure (Acute 02/07/15). COPD (chronic obstructive pulmonary disease) (Chronic). Hypertension (Chronic). Seizure. Tachycardia. Surgical History: Collapsed lung. Total replacement of hip (04/10/13) PREVIOUS FUNCTIONAL STATUS/SOCIAL/FAMILY SUPPORTS:: Sharri lives in a single family home in [facility] with her , Sumit. She has two adult children from a previous relationship who live locally. She also has a 4 year old granddaughter that she is close to. Sharri worked at varying jobs over her lifetime, but is now deisabled . She is independent with ADLs and transportation. CURRENT FUNCTIONAL STATUS:: Sharri was lying in bed when CM met with her. She was groggy but was agreeable to a brief conversation. 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 ADVANCE DIRECTIVES:: None on file Has patient been provided with information about the portal?: Yes Did the patient sign up for the portal?: No CODE STATUS:: Full Code INSURANCE COVERAGE / FINANCIAL ISSUES:: Medicare. Financial Assist 100 CURRENT HOME/COMMUNITY SERVICES/EQUIPMENT:: patient states she does not have any services PRIMARY CARE PHYSICIAN:: Ramon Dye POTENTIAL DISCHARGE NEEDS:: Follow up with PCP and discharge plan of care PATIENT/FAMILY EDUCATION NEEDS:: Discharge plan, limitations, follow up plan, Ask me Three. TRANSPORTATION:: via private vehicle with family PLAN:: Sharri will likely be discharged home with no new services.She will follow up with her PCP and discharge plan of care. CM will continue to provide support to patient, family and discharge planning concerns.
[2020-04-12] MEDS: cefTRIAXone 1 GM/50 ML BAG IVPB (10:07)
--- NOTE | 2020-04-12 10:12 | PHA.REVIEW ---
Pharmacy Admission Review - Admission Clinical Review (Last Reviewed 04/12/20 @ 02:05 by Ashok Strong MD) Hypokalemia (Acute) Anorexia (Acute) Alcohol withdrawal delirium (Acute) Alcohol withdrawal seizure (Acute) acetaminophen [From Tylenol] Adverse Reaction (Unverified 04/12/20 02:33) Height 5 ft 9 in Weight 56.9 kg - Comments Comments/Follow Ups: Patient had alcoholic seizure in ER, On Oxazepam now, Fevet/UTI - on Rocphin awaiting pending blood and Urine cultures. COVID-19 test pending: currently has no respiratory symptoms - Renal Dosing Renal Dosing: BUN 3 mg/dL (7-18) L 04/12/20 08:14 Creatinine 0.44 mg/dL (0.55-1.02) L D 04/12/20 08:14 Medications needing adjustments: Reviewed (est CrCl~ 75.5 mL/min,, Meds -OK) - Anticoagulation Anticoagulation: Hgb 15.0 g/dL (12.0-15.5) 04/12/20 02:18 Hct 43.3 % (36.0-46.0) 04/12/20 02:18 Plt Count 77 x1000/uL (130-400) L 04/12/20 02:18 Creatinine 0.44 mg/dL (0.55-1.02) L D 04/12/20 08:14 DVT Prohphylaxis: Reviewed (no DVT Proph at this time as patient is Thrombocytopenic, (Plts-77)) - Opiate Usage Evaluate Pain Scale/Pains Meds: N/A Scheduled Bowel Reg ordered if on Opiates?: No - Relevant Labs Sodium 133 mmol/L (136-145) L 04/12/20 08:14 Potassium 2.8 mmol/L (3.5-5.1) L* 04/12/20 08:14 Chloride 97 mmol/L (98-107) L 04/12/20 08:14 Magnesium 1.5 mg/dL (1.8-2.4) L 04/12/20 02:18 Electrolytes, C-Reactive P, ESR: Reviewed (Has Banana Bag with Magnesium, bolus doses of Potassium Chloride) - DM Control DM Control: Glucose 115 mg/dL (74-106) H 04/12/20 08:14 Insulin Dosing: N/A - Heart Failure/LA EF%, GUERRERO's, B-Blockers, Diuretics: Reviewed (On Atenolol) - BP Control BP Control: Blood Pressure 117/76 Blood Pressure 125/83 Blood Pressure 123/75 Blood Pressure 117/72 Blood Pressure 128/73 Blood Pressure 125/72 Blood Pressure 119/75 Blood Pressure 119/73 Blood Pressure 119/73 Blood Pressure 115/90 Blood Pressure 130/75 Blood Pressure 132/80 Blood Pressure 115/84 Blood Pressure 129/74 Blood Pressure 120/81 Blood Pressure 121/77 Blood Pressure 121/77 If elevated: Reviewed (Low dose Atenolol 25mg daily) - Qtc Review If Elevated: Reviewed (QTc-461 (on Mirtazapine-home med)) - IV to PO Switch IV Medications: Reviewed (Ceftriaxone IV statrted 04/12) - Home Meds Home Med List reviewed: Reviewed (Oxyodone and Mucinx not ordered) - Current meds Current Medication Order Review: Reviewed (Meds-OK)
[2020-04-12] MEDS: MAGNESIUM SULFATE 8.12 MEQ, MULTIVITAMIN 10 ML, THIAMINE 100 MG, FOLIC ACID 1 MG in Nor... 168.867 MG IV (10:59)
[2020-04-12] MEDS: Oxazepam 10 MG CAP PO ×2 (12:33→19:25)
[2020-04-12] MEDS: Gabapentin 300 MG CAP PO ×2 (13:36→19:25)
[2020-04-12] MEDS: Ibuprofen 400 MG TAB PO (13:36)
--- NOTE | 2020-04-12 14:33 | W.NUTCONSULT ---
Date of service: 04/12/20 Time of Service: 14:36 Nutritional Consult ASSESSMENT: 49 year old female admitted to ICU with UTI, hypokalemia, hypomagnesiumemia, alcohol withdrawl, delerium. Hx of ETOH abuse, tobacco abuse, HTN. BMI indicates underweight status, however weight has been stable per medical chart x 12 months. Meds include MVI, thiamin, folic acid, IV hydration. Currently not eating due to unresponsive. At high nutritional risk on for nutritional decline. Appears to have moderate malnutrition due to chronic ETOH abuse, inadequate PO intake. Estimated Needs: 1680 kcal, 67 g protein, 1700 ml. NUTRITIONAL DIAGNOSIS: Moderate malnutrition due to chronic alcohol abuse, inadequate po intake INTERVENTION: advance diet as able, supplement with ensure clear as accepted MONITORING AND EVALUATION: weight, po intake, labs Time Spent in Nutritional Counseling and Treatment: 0 time face to face
[2020-04-12 18:17] LABS: Anion Gap 7.9 mmol/L (3-11); BUN 2 mg/dL (7-18); CO2 26.1 mmol/L (21.0-32.0); CREATININE 0.47 mg/dL (0.55-1.02); Calcium 8.2 mg/dL (8.5-10.1); Chloride 106 mmol/L (98-107); Glucose 101 mg/dL (74-106); Magnesium 2.3 mg/dL (1.8-2.4); Sodium 140 mmol/L (136-145)
[2020-04-12 18:22] LABS: Potassium 2.9 mmol/L (3.5-5.1)
[2020-04-12] MEDS: Potassium Chloride 20 MEQ TABCR PO (19:25)
[2020-04-12] MEDS: Magnesium Oxide 400 MG TAB PO (19:25)
[2020-04-12] MEDS: Budesonide/Formoterol 160/4.5 6 GM 60 PUFF INH IH (19:26)
[2020-04-12 20:12] LABS: COVID-19 RT-PCR UVMMC Result Negative (Negative)
[2020-04-12] MEDS: POTASSIUM CHLORIDE 10 MEQ/100 ML BAG 100 MEQ IVPB (20:45)
[2020-04-12] MEDS: POTASSIUM CHLORIDE/0.9% NACL 1,000 ML 100 MEQ IV (20:46)
[2020-04-12] MEDS: Mirtazapine 15 MG TAB PO (22:00)
[2020-04-12] MEDS: oxyCODONE 5 MG TAB PO (23:42)
[2020-04-13] VITALS (34 sets, daily range): BP systolic 105–151; BP diastolic 62–89; PULSE 64–104; RESP 13–34; TEMP 36.6–36.8; O2SAT 93–98
--- NOTE | 2020-04-13 | DI.RAD_ITS ---
EXAM: XR FOOT RT COMPLETE CLINICAL HISTORY: R great toe trauma TECHNIQUE: 2D digital imaging was performed. COMPARISON: CR XR foot RT complete from 06/20/2019 FINDINGS: There is a fracture of the distal aspect of the proximal phalanx of the great toe. There is dorsal d isplacement. The fracture appears to extend to the articular surface. No additional fractures are s een. There are mild degenerative changes of 1st MTP joint. IMPRESSION: Intra-articular fracture of the distal aspect of the proximal phalanx of the great toe.
[2020-04-13] MEDS: Oxazepam 10 MG CAP PO ×4 (01:13→17:11)
[2020-04-13] MEDS: LORazepam 1 MG TAB PO/SL ×8 (03:33→21:10)
[2020-04-13] MEDS: Normal Saline Flush 10 ML SYR IVP ×10 (05:35→23:56)
[2020-04-13] MEDS: Ibuprofen 400 MG TAB PO ×2 (06:29→10:57)
[2020-04-13] MEDS: oxyCODONE 5 MG TAB PO (07:23)
[2020-04-13 07:28] LABS: HCT 39.9 % (36.0-46.0); HGB 13.2 g/dL (12.0-15.5); Mean Corp. HGB Concentration 33.1 g/dL (32.0-36.0); Mean Corpuscular Hemoglobin 32.8 pg (27.0-33.0); Mean Corpuscular Volume 99.3 fL (80-95); RBC 4.02 m/cumm (4.00-5.20); RBC Distribution Width 12.8 % (11.7-14.6); White Blood Cell Count 7.14 k/cumm (4.4-10.8)
[2020-04-13 07:38] LABS: Anion Gap 8.1 mmol/L (3-11); BUN 3 mg/dL (7-18); CO2 23.9 mmol/L (21.0-32.0); CREATININE 0.48 mg/dL (0.55-1.02); Calcium 8.3 mg/dL (8.5-10.1); Chloride 104 mmol/L (98-107); Glucose 84 mg/dL (74-106); Potassium 4.1 mmol/L (3.5-5.1); Sodium 136 mmol/L (136-145)
[2020-04-13] MEDS: Budesonide/Formoterol 160/4.5 6 GM 60 PUFF INH IH ×2 (07:46→21:11)
--- NOTE | 2020-04-13 08:17 | W.PM.PROGNOT ---
Date of Service Date of service: 04/13/20 Time of Service: 11:03 Assessment and Plan Assessment and plan (1) Sepsis: Status: Acute Assessment and plan: Due to UTI, POA. Urine C&S with GNR>100,000 CFU. Blood cultrures still pending. Given the super elevated procalcitonin, I think that discharging the patient home at this time would be a bad idea. Continue to await blood culture, urine C&S results. Continue empiric ceftriaxone. I do not think she requires any more IVF at this time. (2) UTI (urinary tract infection): Status: Acute Assessment and plan: Present on admission, due to GNR>100,000 CFU. As above. Continue empiric ceftriaxone. (3) Alcohol withdrawal seizure: Status: Acute Assessment and plan: No recurrences. Would continue to monitor in the ICU with CIWA, serax, prn ativan, scheduled gabapentin. Keep in ICU Qualifiers: Complication of substance-induced condition: with delirium Qualified Code(s): F10.231 - Alcohol dependence with withdrawal delirium (4) Alcohol withdrawal delirium: Status: Acute Assessment and plan: As above (5) Hypokalemia: Status: Resolved Assessment and plan: Resolved - recheck in am (6) Hypomagnesemia: Status: Resolved Assessment and plan: Resolved - recheck in am (7) Thrombocytopenia: Status: Chronic Assessment and plan: Chronic, in setting of alcohol abuse. Would benefit from outpatient ultrasound of the abdomen looking at the liver/spleen - cirrhosis/splenomegaly? Would not pack changer at this point. Monitor for bleeding. 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 Chemical DVT ppx contraindicated due to thrombocytopenia (11) Discharge planning issues: Status: Acute Assessment and plan: Full code. Keep in ICU Subjective Subjective Interval history since last seen: Afebrile. Awake, A&Ox3 today. Didn't sleep all night. Requests something for sleep. Requests something to help for nicotine withdrawal since she cannot go outside to smoke. Complains of neck pain - just like what she gets with her regular neck pain - she missed an appointment with [facility] neurology for botox injection yesterday for her chronic cervical dystonia. Chronic pain meds are not touching it, per nursing. The patient is able to touch chin to chest, able to turn her head to the right and to the left. She denies headache this morning, though reports it for the past 2 weeks at home. She denies photophobia and phonophobia. CIWA of 5 - serax, ativan given. About to receive valium. Asks to go home, verbalizes understanding of why she can't. Had diarrhea. Heme neg. Drinking lots of water. COVID-19 negative. Per nursing, R great toe is bruised. Exam Narrative Exam Narrative: General: Tremulous pleasant middle aged female, A&Ox3, mildly anxious HEENT: EOMI, MMM, excellent cervical ROM, no meningismus Heart: RRR, no m/r/g Lungs: CTAB Abdomen: nondistended Extremities: no edema BLE's Objective Objective Clinical Data: Abnormal lab results 04/12/20 04/12/20 04/13/20 Range/Units 08:14 17:58 06:45 MCV (80-95) fL Sodium 133 L (136-145) mmol/L Potassium 2.8 L* 2.9 L* (3.5-5.1) mmol/L Chloride 97 L (98-107) mmol/L BUN 3 L 2 L 3 L (7-18) mg/dL Creatinine 0.44 L D 0.47 L 0.48 L (0.55-1.02) mg/dL Glucose 115 H (74-106) mg/dL Calcium 8.2 L 8.3 L (8.5-10.1) mg/dL 04/13/20 Range/Units 06:45 MCV 99.3 H (80-95) fL Sodium (136-145) mmol/L Potassium (3.5-5.1) mmol/L Chloride (98-107) mmol/L BUN (7-18) mg/dL Creatinine (0.55-1.02) mg/dL Glucose (74-106) mg/dL Calcium (8.5-10.1) mg/dL Vital Signs Temperature 36.6 C 04/13/20 03:30 Temperature Source Temporal Artery Scan 04/13/20 03:30 Pulse 81 04/13/20 05:01 Pulse 82 04/13/20 05:01 Respiratory Rate 31 H 04/13/20 05:01 Respiratory Effort 04/13/20 03:30 Respiratory Depth Shallow 04/13/20 03:30 Respiratory Pattern Normal 04/13/20 03:30 Blood Pressure 128/75 04/13/20 05:01 Blood Pressure Mean 89 04/13/20 05:01 Blood Pressure Position Supine 04/12/20 02:03 Pulse Oximetry 98 04/13/20 05:01 Oxygen Delivery Method Room Air 04/13/20 03:30 Oxygen Flow Rate 0 04/13/20 03:30 Pain Level 5 04/13/20 03:30 Intake & Output 04/12/20 04/12/20 04/13/20 11:59 23:59 11:59 Intake Total 1600 / 4193.033 2593.033 / 4193.033 2260 / 2260 Output Total 2350 / 5550 3200 / 5550 1200 / 1200 Balance -750 / -1356.967 -606.967 / -6346.383 2709 / 1060 Weight 56.9 kg 59.3 kg Intake: IV 1540 / 3309.033 1769.033 / 3309.033 Oral 60 / 884 824 / 884 2260 / 2260 Output: Urine 2350 / 5550 3200 / 5550 950 / 950 Stool 250 / 250 Other: Urine Color Yellow Yellow Pale [place] Urine Appearance Clear Clear Clear Urine Odor Normal Normal None Comment Will send a urine sample sent to the lab for U/A at this time. mixed with diarrhea voids to commode Stool Occult Blood Negative Stool Size Small Small Stool Characteristics Brown Liquid Voiding Methods Bedside Commode Bedside Commode Bedside Commode Laboratory Results WBC 7.14 k/cumm (4.4-10.8) 04/13/20 06:45 RBC 4.02 m/cumm (4.00-5.20) 04/13/20 06:45 Hgb 13.2 g/dL (12.0-15.5) 04/13/20 06:45 Hct 39.9 % (36.0-46.0) 04/13/20 06:45 MCV 99.3 fL (80-95) H 04/13/20 06:45 MCH 32.8 pg (27.0-33.0) 04/13/20 06:45 MCHC 33.1 g/dL (32.0-36.0) 04/13/20 06:45 RDW 12.8 % (11.7-14.6) 04/13/20 06:45 Plt Count x1000/uL (130-400) 04/13/20 06:45 MPV fL (8.0-11.0) 04/13/20 06:45 Immature Gran % 0.1 % 04/12/20 02:18 Neutrophils % 71.5 04/12/20 02:18 Lymphocytes % 19.4 04/12/20 02:18 Monocytes % 8.6 04/12/20 02:18 Eosinophils % 0.1 04/12/20 02:18 Basophils % 0.3 04/12/20 02:18 Absolute Neutrophils 5.63 k/cumm (1.2-6.7) 04/12/20 02:18 Absolute Lymphocytes 1.53 k/cumm (1.2-3.4) 04/12/20 02:18 Absolute Monocytes 0.68 k/cumm (0.11-0.7) 04/12/20 02:18 Absolute Eosinophils 0.01 k/cumm (0.0-0.7) 04/12/20 02:18 Absolute Basophils 0.02 k/cumm (0.0-0.2) 04/12/20 02:18 Differential Comment Diff reviewed 04/12/20 02:18 RBC Morphology Normal 04/12/20 02:18 Sodium 136 mmol/L (136-145) 04/13/20 06:45 Potassium 4.1 mmol/L (3.5-5.1) D 04/13/20 06:45 Chloride 104 mmol/L (98-107) 04/13/20 06:45 Carbon Dioxide 23.9 mmol/L (21.0-32.0) 04/13/20 06:45 Anion Gap 8.1 mmol/L (3-11) 04/13/20 06:45 BUN 3 mg/dL (7-18) L 04/13/20 06:45 Creatinine 0.48 mg/dL (0.55-1.02) L 04/13/20 06:45 Estimated GFR/1.73 m2 >= 60.00 (mL/min/1.73m2) 04/13/20 06:45 Glucose 84 mg/dL (74-106) 04/13/20 06:45 Lactate 1.0 mmol/L (0.6-1.4) 04/12/20 08:14 Calcium 8.3 mg/dL (8.5-10.1) L 04/13/20 06:45 Phosphorus 3.0 mg/dL (2.6-4.7) 04/13/20 06:45 Magnesium 2.0 mg/dL (1.8-2.4) 04/13/20 06:45 Total Bilirubin 1.2 mg/dL (0.2-1.0) H 04/12/20 02:18 AST 67 U/L (15-37) H 04/12/20 02:18 ALT 44 U/L (14-59) 04/12/20 02:18 Alkaline Phosphatase 117 U/L (46-116) H 04/12/20 02:18 Total Protein 8.8 g/dL (6.4-8.2) H 04/12/20 02:18 Albumin 3.8 g/dL (3.4-5.0) 04/12/20 02:18 Lipase 100 U/L (73-393) 04/12/20 02:18 Procalcitonin 18.0 ng/mL 04/12/20 08:14 Urine Color Yellow (Yellow) 04/12/20 07:40 Urine Clarity Sl cloudy (Clear) 04/12/20 07:40 Urine pH 7.5 (5-8) 04/12/20 07:40 Ur Specific [place] 1.015 (1.005-1.025) 04/12/20 07:40 Urine Protein Negative mg/dL (Negative) 04/12/20 07:40 Urine Ketones Negative mg/dL (Negative) 04/12/20 07:40 Urine Blood Small (Negative) H 04/12/20 07:40 Urine Nitrite Positive (Negative) H 04/12/20 07:40 Urine Bilirubin Negative (Negative) 04/12/20 07:40 Urine Urobilinogen 0.2 EU/dL (Up TO 0.2) 04/12/20 07:40 Ur Leukocyte Esterase Negative (Negative) 04/12/20 07:40 Urine RBC 0-2 HPF (0-2) 04/12/20 07:40 Urine WBC 3-5 HPF (0-5) 04/12/20 07:40 Ur Epithelial Cells Few HPF (Negative) 04/12/20 07:40 Urine Crystals Negative HPF (Negative) 04/12/20 07:40 Urine Bacteria Many HPF (Negative) 04/12/20 07:40 Urine Casts Negative LPF (Negative) 04/12/20 07:40 Urine Mucus Negative (Negative) 04/12/20 07:40 Ur Culture Indicated? Yes 04/12/20 07:40 Urine Glucose Negative mg/dL (Negative) 04/12/20 07:40 Ethyl Alcohol < 3.0 mg/dL (<3) 04/12/20 02:18 COVID-19 PCR Negative (Negative) 04/12/20 03:07 Nasopharyn COVID-19 PCR Not Applicable 04/12/20 03:07 Ref Test [facility] 04/12/20 03:07
[2020-04-13 08:41] LABS: Abs Immature Grans 0.01 k/cumm (0.0-0.09); Absolute Basophil Count 0.02 k/cumm (0.0-0.2); Absolute Eosinophil Count 0.17 k/cumm (0.0-0.7); Absolute Lymphocyte Count 2.18 k/cumm (1.2-3.4); Absolute Monocyte Count 0.64 k/cumm (0.11-0.7); Absolute Neutrophil Count 5.51 k/cumm (1.2-6.7); Basophils % 0.2; HCT 43.2 % (36.0-46.0); HGB 14.1 g/dL (12.0-15.5); Immature Grans % 0.1 %; Lymphocytes % 25.6; Mean Corp. HGB Concentration 32.6 g/dL (32.0-36.0); Mean Corpuscular Hemoglobin 32.2 pg (27.0-33.0); Mean Corpuscular Volume 98.6 fL (80-95); Mean Platelet Volume 12.8 fL (8.0-11.0); Monocytes % 7.5; Neutrophils % 64.6; RBC 4.38 m/cumm (4.00-5.20); RBC Distribution Width 12.9 % (11.7-14.6); White Blood Cell Count 8.53 k/cumm (4.4-10.8)
[2020-04-13] MEDS: Atenolol 25 MG TAB PO (08:49)
[2020-04-13] MEDS: Folic Acid 1 MG TAB PO (08:49)
[2020-04-13] MEDS: Gabapentin 300 MG CAP PO ×2 (08:49→14:01)
[2020-04-13] MEDS: Magnesium Oxide 400 MG TAB PO ×2 (08:49→21:09)
[2020-04-13] MEDS: Thiamine 100 MG TAB PO (08:49)
[2020-04-13] MEDS: Cholecalciferol (Vitamin D3) 1,000 UNIT TAB 2000 UNITS PO (08:49)
[2020-04-13] MEDS: Multivitamin TAB 1 TAB PO (08:49)
[2020-04-13] MEDS: Cyanocobalamin 500 MCG TAB 1000 MCG PO (08:49)
[2020-04-13 08:52] LABS: Diff Comment Diff Reviewed; Platelet Count 67 x1000/uL (130-400); RBC Morphology Normal
[2020-04-13] MEDS: cefTRIAXone 1 GM/50 ML BAG IVPB ×2 (10:59→15:56)
--- NOTE | 2020-04-13 13:26 | DI.VRAD_ITS ---
PROCEDURE INFORMATION: Exam: XR Right Foot Complete Exam date and time: 04/13/2020 12:58 PM Age: 49 years old Clinical indication: Injury or trauma; Injury history: Unknown trauma; Initial encounter; Blunt trauma; Toes; Right TECHNIQUE: Imaging protocol: XR Right foot. Views: 3 or more views. COMPARISON: CR XR foot RT complete 06/20/2019 4:19 PM FINDINGS: Bones/joints: Sclerosis and lucency and contour abnormality in the distal aspect of the proximal phalanx of the great toe consistent with acute or subacute fracture. Soft tissues: Soft tissue swelling of the great toe IMPRESSION: Sclerosis and lucency and contour abnormality in the distal aspect of the proximal phalanx of the great toe consistent with acute or subacute fracture. Dictated and Authenticated by: Ida Villela MD. Ordering:GUY Monaco MD
--- NOTE | 2020-04-13 13:35 | CMPROGNOTE_ITS ---
- If Service Date Differs Date of service: 04/13/20 Time of Service: 13:35 Care Management Progress Note S/O: CM met with Sharri at the bedside, she continues to receive care in the ICU and close monitoring. She is receiving treatment for acute alcohol withdrawal. Sharri is not interested in substance abuse services, CM reviewed [facility], [facility], and polo coach she declines. She states that she has tried to stop drinking alcohol in the past however she states her spouse and daughter will encourage her to drink a beer so that she does not withdrawal and have a seizure. Sharri has been able to keep in touch with her spouse Sumit over the phone and keep him updated. She is not ready for discharge today, continue to monitor her in the ICU. A: Sharri is a 49 year old women with a long history of alcohol dependency, admitted for alcohol withdrawal related delirium. P: Sharri will be discharged home when medically ready, she declines any additional services at time of discharge. CM will continue to assess for services and provide support throughout hospitalization. Spouse will transport home at time of discharge.
[2020-04-13] MEDS: oxyCODONE 5 MG TAB 10 MG PO ×2 (14:54→15:07)
[2020-04-13] MEDS: LORazepam 1 MG TAB PO (15:04)
[2020-04-13] MEDS: diazePAM 10 MG/2 ML SYR IVP ×14 (17:14→23:54)
[2020-04-13] MEDS: LORazepam 2 MG/ML VIAL 1 MG IVP ×3 (17:30→19:05)
[2020-04-13] MEDS: chlordiazePOXIDE 25 MG CAP 50 MG PO (18:15)
[2020-04-13] MEDS: LORazepam 2 MG/ML VIAL IVP ×7 (18:32→21:34)
[2020-04-13] MEDS: LORazepam 2 MG/ML VIAL 4 MG IVP (18:55)
[2020-04-13] MEDS: Gabapentin 300 MG CAP 600 MG PO (21:09)
[2020-04-13] MEDS: Melatonin 3 MG TAB PO (21:10)
[2020-04-13] MEDS: Mirtazapine 15 MG TAB PO (21:10)
[2020-04-14] VITALS (25 sets, daily range): BP systolic 100–148; BP diastolic 61–89; PULSE 20–129; RESP 11–27; TEMP 36–36.8; O2SAT 87–99
[2020-04-14] MEDS: diazePAM 10 MG/2 ML SYR IVP ×8 (00:48→18:59)
[2020-04-14] MEDS: LORazepam 1 MG TAB PO/SL (00:49)
[2020-04-14] MEDS: LORazepam 2 MG/ML VIAL IVP ×10 (02:03→20:05)
[2020-04-14 05:43] LABS: Abs Immature Grans 0.01 k/cumm (0.0-0.09); Absolute Basophil Count 0.03 k/cumm (0.0-0.2); Absolute Eosinophil Count 0.23 k/cumm (0.0-0.7); Absolute Lymphocyte Count 1.43 k/cumm (1.2-3.4); Absolute Monocyte Count 0.67 k/cumm (0.11-0.7); Absolute Neutrophil Count 4.04 k/cumm (1.2-6.7); Basophils % 0.5; Eosinophils % 3.6; HCT 41.5 % (36.0-46.0); HGB 13.6 g/dL (12.0-15.5); Immature Grans % 0.2 %; Lymphocytes % 22.3; Mean Corp. HGB Concentration 32.8 g/dL (32.0-36.0); Mean Corpuscular Hemoglobin 32.3 pg (27.0-33.0); Mean Corpuscular Volume 98.6 fL (80-95); Mean Platelet Volume 12.8 fL (8.0-11.0); Monocytes % 10.5; Neutrophils % 62.9; RBC 4.21 m/cumm (4.00-5.20); RBC Distribution Width 12.7 % (11.7-14.6); White Blood Cell Count 6.41 k/cumm (4.4-10.8)
[2020-04-14 05:56] LABS: Anion Gap 9.8 mmol/L (3-11); BUN 4 mg/dL (7-18); C-Reactive Protein 1.38 mg/dL (0.0-0.3); CO2 25.2 mmol/L (21.0-32.0); CREATININE 0.68 mg/dL (0.55-1.02); Calcium 8.8 mg/dL (8.5-10.1); Chloride 107 mmol/L (98-107); Glucose 97 mg/dL (74-106); Magnesium 1.9 mg/dL (1.8-2.4); Potassium 3.5 mmol/L (3.5-5.1); Sodium 142 mmol/L (136-145)
[2020-04-14] MEDS: chlordiazePOXIDE 25 MG CAP 50 MG PO (05:58)
[2020-04-14 06:03] LABS: Diff Comment PLT Morph Reviewed; Platelet Count 80 x1000/uL (130-400)
[2020-04-14] MEDS: Pantoprazole 40 MG TABCR PO (07:58)
[2020-04-14] MEDS: Folic Acid 1 MG TAB PO (07:59)
[2020-04-14] MEDS: Atenolol 25 MG TAB PO (07:59)
[2020-04-14] MEDS: Ibuprofen 400 MG TAB PO (07:59)
[2020-04-14] MEDS: Magnesium Oxide 400 MG TAB PO ×2 (07:59→19:06)
[2020-04-14] MEDS: Gabapentin 300 MG CAP 600 MG PO ×3 (07:59→19:06)
[2020-04-14] MEDS: Cyanocobalamin 500 MCG TAB 1000 MCG PO (07:59)
[2020-04-14] MEDS: Cholecalciferol (Vitamin D3) 1,000 UNIT TAB 2000 UNITS PO (08:00)
[2020-04-14] MEDS: Multivitamin TAB 1 TAB PO (08:00)
[2020-04-14] MEDS: Thiamine 100 MG TAB PO (08:00)
[2020-04-14] MEDS: oxyCODONE 5 MG TAB 10 MG PO ×2 (08:01→20:03)
[2020-04-14] MEDS: Normal Saline Flush 10 ML SYR 20 ML IVP ×2 (08:01→19:07)
[2020-04-14] MEDS: Budesonide/Formoterol 160/4.5 6 GM 60 PUFF INH IH ×2 (08:20→20:12)
[2020-04-14 08:40] LABS: Procalcitonin 9.6 ng/mL
[2020-04-14] MEDS: Normal Saline Flush 10 ML SYR IVP ×2 (09:33→20:04)
[2020-04-14] MEDS: Normal Saline 500 ML 15 ML IV (10:30)
--- NOTE | 2020-04-14 11:45 | PDOC.CMPRO ---
- If Service Date Differs Date of service: 04/14/20 Time of Service: 11:45 Care Management Progress Note S/O: Sharri remains ICU level of care. She continues to withdrawal from alcohol and now requiring an ativan drip to manage her symptoms, as well as a one on one. Sharri has not been welcoming of substance abuse services, CM will continue to assess and offer resources while she remains in the hospital. A: Sharri is a 49 year old women with a long history of alcohol dependency, admitted for alcohol withdrawal related delirium. P: Sharri will be discharged home when medically ready, she declines any additional services at time of discharge. CM will continue to assess for services and provide support throughout hospitalization. Spouse will transport home at time of discharge.
--- NOTE | 2020-04-14 12:02 | PGE_ITS ---
Date of Service Date of service: 04/14/20 Time of Service: 12:02 Assessment and Plan Assessment and plan (1) Alcohol withdrawal delirium: Status: Acute Assessment and plan: Worse today, though thankfully no recurrences of seizure. Will increase scheduled librium and titrate ativan drip to effect. I do not feel the patient warrants intubation at this time, but close monitoring is indicated. (2) Alcohol withdrawal seizure: Status: Acute Assessment and plan: As above Qualifiers: Complication of substance-induced condition: with delirium Qualified Code(s): F10.231 - Alcohol dependence with withdrawal delirium (3) Sepsis: Status: Acute Assessment and plan: Due to E. coli UTI, POA. Sensitive to ceftriaxone (day 3) - will continue. Technically, no longer meeting sepsis criteria. Blood cultures NGTD. Procalcitonin better. (4) UTI (urinary tract infection): Status: Acute Assessment and plan: As above (5) Hypokalemia: Status: Resolved Assessment and plan: Resolved - recheck in am (6) Hypomagnesemia: Status: Resolved Assessment and plan: Resolved - recheck in am (7) Thrombocytopenia: Status: Chronic Assessment and plan: Chronic, stable, in setting of alcohol abuse. Would benefit from outpatient ultrasound of the abdomen looking at the liver/spleen - cirrhosis/splenomegaly? Would not change release manager at this point. Monitor for bleeding. (8) Fracture of right great toe: Status: Acute Assessment and plan: Circumstances of this are mysterious. Consulting podiatry. 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 Chemical DVT ppx contraindicated due to thrombocytopenia (11) Discharge planning issues: Status: Acute Assessment and plan: Full code. Keep in ICU Total Critical Care Time 45 minutes. Subjective Subjective Interval history since last seen: Ms Snyder required 190 mg of valium overnight as well as 22 mg of IV ativan. She was transitioned to ativan drip this am and is peacefully resting now without any evidence of respiratory depression. Right now her ativan drip rate is 1 mg/hr (she had received 10 mg of valium in the preceding hour, however). She is not able to answer questions at the time of my exam due to being sedated. Nursing notes that the patient voided 1050 cc and has had multiple episodes of incontinence. Exam Narrative Exam Narrative: General: middle-aged female, peacefully resting. HEENT: eyes closed, MMM Heart: RRR, no m/r/g Lungs: CTAB, no evidence of depressed respiratory drive Abdomen: soft, nontender, nondistended Extremities: no e/c/c BLE's Objective Objective Clinical Data: Abnormal lab results 04/12/20 04/14/20 04/14/20 Range/Units 07:40 05:30 05:30 MCV 98.6 H (80-95) fL Plt Count 80 L (130-400) x1000/uL MPV 12.8 H (8.0-11.0) fL BUN 4 L (7-18) mg/dL C-Reactive Protein 1.38 H (0.0-0.3) mg/dL Urine Blood Small H (Negative) Urine Nitrite Positive H (Negative) Vital Signs Temperature 36.6 C 04/14/20 08:24 Temperature Source Temporal Artery Scan 04/14/20 08:24 Pulse 67 04/14/20 10:36 Pulse 68 04/14/20 10:36 Respiratory Rate 16 04/14/20 10:36 Respiratory Effort 04/14/20 08:24 Respiratory Depth Normal 04/14/20 08:24 Respiratory Pattern Normal 04/14/20 08:24 Blood Pressure 111/70 04/14/20 10:36 Blood Pressure Mean 80 04/14/20 10:36 Blood Pressure Position Sitting 04/14/20 08:24 Pulse Oximetry 96 04/14/20 10:36 Oxygen Delivery Method Room Air 04/14/20 08:25 Oxygen Flow Rate 0 04/14/20 08:25 Pain Level 7 04/14/20 08:24 Intake & Output 04/13/20 04/14/20 04/14/20 23:59 11:59 23:59 Intake Total 1500 / 5010 230 / 230 Output Total 1650 / 3250 1025 / 1025 Balance -150 / 1760 -795 / -795 Intake: IV 350 / 1360 30 / 30 Oral 1150 / 3650 200 / 200 Output: Urine 1650 / 3000 1025 / 1025 Other: Urine Color Yellow Yellow Urine Appearance Clear Clear Urine Odor Normal Strong Comment mixed with stool large incontinence of urine prior void 1050ml Stool Occult Blood Negative Stool Size Smear Stool Characteristics Liquid Voiding Methods Bedside Commode Bedside Commode Laboratory Results WBC 6.41 k/cumm (4.4-10.8) 04/14/20 05:30 RBC 4.21 m/cumm (4.00-5.20) 04/14/20 05:30 Hgb 13.6 g/dL (12.0-15.5) 04/14/20 05:30 Hct 41.5 % (36.0-46.0) 04/14/20 05:30 MCV 98.6 fL (80-95) H 04/14/20 05:30 MCH 32.3 pg (27.0-33.0) 04/14/20 05:30 MCHC 32.8 g/dL (32.0-36.0) 04/14/20 05:30 RDW 12.7 % (11.7-14.6) 04/14/20 05:30 Plt Count 80 x1000/uL (130-400) L 04/14/20 05:30 MPV 12.8 fL (8.0-11.0) H 04/14/20 05:30 Immature Gran % 0.2 % 04/14/20 05:30 Neutrophils % 62.9 04/14/20 05:30 Lymphocytes % 22.3 04/14/20 05:30 Monocytes % 10.5 04/14/20 05:30 Eosinophils % 3.6 04/14/20 05:30 Basophils % 0.5 04/14/20 05:30 Absolute Neutrophils 4.04 k/cumm (1.2-6.7) 04/14/20 05:30 Absolute Lymphocytes 1.43 k/cumm (1.2-3.4) 04/14/20 05:30 Absolute Monocytes 0.67 k/cumm (0.11-0.7) 04/14/20 05:30 Absolute Eosinophils 0.23 k/cumm (0.0-0.7) 04/14/20 05:30 Absolute Basophils 0.03 k/cumm (0.0-0.2) 04/14/20 05:30 Differential Comment Plt morph reviewed 04/14/20 05:30 RBC Morphology Normal 04/13/20 08:30 Sodium 142 mmol/L (136-145) 04/14/20 05:30 Potassium 3.5 mmol/L (3.5-5.1) 04/14/20 05:30 Chloride 107 mmol/L (98-107) 04/14/20 05:30 Carbon Dioxide 25.2 mmol/L (21.0-32.0) 04/14/20 05:30 Anion Gap 9.8 mmol/L (3-11) 04/14/20 05:30 BUN 4 mg/dL (7-18) L 04/14/20 05:30 Creatinine 0.68 mg/dL (0.55-1.02) 04/14/20 05:30 Estimated GFR/1.73 m2 >= 60.00 (mL/min/1.73m2) 04/14/20 05:30 Glucose 97 mg/dL (74-106) 04/14/20 05:30 Lactate 1.0 mmol/L (0.6-1.4) 04/12/20 08:14 Calcium 8.8 mg/dL (8.5-10.1) 04/14/20 05:30 Phosphorus 3.0 mg/dL (2.6-4.7) 04/13/20 06:45 Magnesium 1.9 mg/dL (1.8-2.4) 04/14/20 05:30 Total Bilirubin 1.2 mg/dL (0.2-1.0) H 04/12/20 02:18 AST 67 U/L (15-37) H 04/12/20 02:18 ALT 44 U/L (14-59) 04/12/20 02:18 Alkaline Phosphatase 117 U/L (46-116) H 04/12/20 02:18 C-Reactive Protein 1.38 mg/dL (0.0-0.3) H 04/14/20 05:30 Total Protein 8.8 g/dL (6.4-8.2) H 04/12/20 02:18 Albumin 3.8 g/dL (3.4-5.0) 04/12/20 02:18 Lipase 100 U/L (73-393) 04/12/20 02:18 Procalcitonin 9.6 ng/mL 04/14/20 05:30 Urine Color Yellow (Yellow) 04/12/20 07:40 Urine Clarity Sl cloudy (Clear) 04/12/20 07:40 Urine pH 7.5 (5-8) 04/12/20 07:40 Ur Specific [place] 1.015 (1.005-1.025) 04/12/20 07:40 Urine Protein Negative mg/dL (Negative) 04/12/20 07:40 Urine Ketones Negative mg/dL (Negative) 04/12/20 07:40 Urine Blood Small (Negative) H 04/12/20 07:40 Urine Nitrite Positive (Negative) H 04/12/20 07:40 Urine Bilirubin Negative (Negative) 04/12/20 07:40 Urine Urobilinogen 0.2 EU/dL (Up TO 0.2) 04/12/20 07:40 Ur Leukocyte Esterase Negative (Negative) 04/12/20 07:40 Urine RBC 0-2 HPF (0-2) 04/12/20 07:40 Urine WBC 3-5 HPF (0-5) 04/12/20 07:40 Ur Epithelial Cells Few HPF (Negative) 04/12/20 07:40 Urine Crystals Negative HPF (Negative) 04/12/20 07:40 Urine Bacteria Many HPF (Negative) 04/12/20 07:40 Urine Casts Negative LPF (Negative) 04/12/20 07:40 Urine Mucus Negative (Negative) 04/12/20 07:40 Ur Culture Indicated? Yes 04/12/20 07:40 Urine Glucose Negative mg/dL (Negative) 04/12/20 07:40 Ethyl Alcohol < 3.0 mg/dL (<3) 04/12/20 02:18 COVID-19 PCR Negative (Negative) 04/12/20 03:07 Nasopharyn COVID-19 PCR Not Applicable 04/12/20 03:07 Ref Test Perform Site [facility] lab 04/12/20 03:07
[2020-04-14] MEDS: chlordiazePOXIDE 25 MG CAP 75 MG PO ×3 (12:34→23:15)
[2020-04-14] MEDS: cefTRIAXone 1 GM/50 ML BAG IVPB (17:11)
[2020-04-14] MEDS: Melatonin 3 MG TAB PO (20:04)
[2020-04-14] MEDS: Mirtazapine 15 MG TAB PO (20:04)
[2020-04-15] VITALS (45 sets, daily range): BP systolic 88–154; BP diastolic 59–104; PULSE 66–97; RESP 13–49; TEMP 36.4–38.7; O2SAT 94–100
[2020-04-15] MEDS: diazePAM 10 MG/2 ML SYR IVP ×13 (00:29→06:03)
[2020-04-15] MEDS: LORazepam 2 MG/ML VIAL IVP ×6 (02:12→18:56)
[2020-04-15] MEDS: oxyCODONE 5 MG TAB 10 MG PO ×2 (03:16→21:15)
[2020-04-15] MEDS: Normal Saline Flush 10 ML SYR IVP ×2 (04:12→20:11)
[2020-04-15] MEDS: chlordiazePOXIDE 25 MG CAP 75 MG PO ×3 (05:40→17:43)
--- NOTE | 2020-04-15 05:55 | NUR.NOTE ---
Nursing Note: pt continues to hallucinate and remained agitated, unresponsive to medications PRN at this time, will continue to administer until intended effect is achieved.
[2020-04-15] MEDS: Magnesium Oxide 400 MG TAB PO ×2 (07:26→20:09)
[2020-04-15] MEDS: Cholecalciferol (Vitamin D3) 1,000 UNIT TAB 2000 UNITS PO (07:27)
[2020-04-15] MEDS: Pantoprazole 40 MG TABCR PO (07:28)
[2020-04-15] MEDS: Gabapentin 300 MG CAP 600 MG PO ×2 (07:28→20:10)
[2020-04-15] MEDS: Folic Acid 1 MG TAB PO (07:28)
[2020-04-15] MEDS: Cyanocobalamin 500 MCG TAB 1000 MCG PO (07:28)
[2020-04-15] MEDS: Atenolol 25 MG TAB PO (07:29)
[2020-04-15] MEDS: Multivitamin TAB 1 TAB PO (07:29)
[2020-04-15] MEDS: Thiamine 100 MG TAB PO (07:29)
[2020-04-15 07:47] LABS: Abs Immature Grans 0.01 k/cumm (0.0-0.09); Absolute Basophil Count 0.02 k/cumm (0.0-0.2); Absolute Eosinophil Count 0.31 k/cumm (0.0-0.7); Absolute Lymphocyte Count 2.06 k/cumm (1.2-3.4); Absolute Monocyte Count 0.92 k/cumm (0.11-0.7); Absolute Neutrophil Count 3.36 k/cumm (1.2-6.7); Basophils % 0.3; Eosinophils % 4.6; HCT 41.8 % (36.0-46.0); HGB 13.5 g/dL (12.0-15.5); Immature Grans % 0.1 %; Lymphocytes % 30.8; Mean Corp. HGB Concentration 32.3 g/dL (32.0-36.0); Mean Corpuscular Hemoglobin 32.5 pg (27.0-33.0); Mean Corpuscular Volume 100.5 fL (80-95); Mean Platelet Volume 12.8 fL (8.0-11.0); Monocytes % 13.8; Neutrophils % 50.4; Platelet Count 101 x1000/uL (130-400); RBC 4.16 m/cumm (4.00-5.20); RBC Distribution Width 12.9 % (11.7-14.6); White Blood Cell Count 6.68 k/cumm (4.4-10.8)
[2020-04-15 07:58] LABS: BUN 4 mg/dL (7-18); C-Reactive Protein 1.16 mg/dL (0.0-0.3); CREATININE 0.75 mg/dL (0.55-1.02); Calcium 8.5 mg/dL (8.5-10.1); Chloride 108 mmol/L (98-107); Glucose 81 mg/dL (74-106); Magnesium 1.9 mg/dL (1.8-2.4); Potassium 3.4 mmol/L (3.5-5.1); Sodium 143 mmol/L (136-145)
[2020-04-15] MEDS: Budesonide/Formoterol 160/4.5 6 GM 60 PUFF INH IH (08:08)
[2020-04-15] MEDS: Normal Saline 500 ML 15 ML IV (09:03)
--- NOTE | 2020-04-15 09:16 | CMPROGNOTE_ITS ---
- If Service Date Differs Date of service: 04/15/20 Time of Service: 09:16 Care Management Progress Note S/O: Sharri was reviewed at interdisciplinary rounds. Per provider, she is requiring 10mg Ativan IV to manage her symptoms. She continues to score 10/11 CIWA. She continues to be closely monitored at ICU level of care. Per provider, intubation is not required at this time, but close monitoring is indicated. She did have hallucinations today, per report. CM will continue to follow. A: Sharri is a 49 year old women with a long history of alcohol dependency, admitted for alcohol withdrawal related delirium. P: Sharri will be discharged home when medically ready, she declines any additiona l services at time of discharge. CM will continue to assess for services and provide support throughout hospitalization. Spouse will transport home at time of discharge.
[2020-04-15] MEDS: Nicotine 14 MG/24 HR PATCH TD (09:26)
--- NOTE | 2020-04-15 10:26 | POCOE_ITS ---
Date of service: 04/15/20 Time of Service: 10:26 History of Present Illness History of Present Illness Chief Complaint: Fractured right great toe Narrative: 49-year-old white female seen in the ICU who is being managed for acute alcohol withdrawal delirium, alcohol withdrawal seizure, UTI who has a contusion of her right great toe with radiologic evidence of fracture. The injury is not recalled by Sharri the timing is unclear. FORMERLY [facility], [facility] Medical History Alcohol abuse (Chronic 11/06/14) a. 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 Decreased intake from usual on 04/11/20. Strong hx of ETOH withdrawal seizures. Do you feel safe at home: Yes Do you feel safe in your relationship?: Yes Exam Narrative Exam Narrative: 49-year-old white female seen in the ICU at bedside looking much older than her stated age. She is communicative but she is unable to relate the timing or injury that occurred to her right foot. Objective: Peripheral pulses are manually palpable at the ankles 2/4 bilaterally. CFT is under 3 seconds to all toes. LEVAR hose are on. Ecchymosis is noted affecting the right great toe extending into the distal foot and spreading laterally to the third intermetatarsal space. A dry scab is noted dorsally over the IPJ of the hallux without active signs of infection. Muscle groups appeared to be 5/5 bilaterally although deconditioned with decreased bulk. Skeletal exam is remarkable for a transverse fracture of the neck proximal phalanx of the right great toe. Mild dorsal displacement is appreciated of the fracture fragment radiologically. On exam, the hallux appears rectus, and I was able to plantar and dorsiflex the digit slightly with minimal discomfort. Remainder skeletal exam on the right foot was otherwise grossly benign. 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 I do recommend ambulation and a surgical shoe which will facilitate more comfortable weightbearing and allow the fracture fragment to consolidate. I will be happy to follow her up after discharge for fracture care. Thank you for this consultation. Results Last Vital Signs Temp 36.4 C L 04/15/20 07:45 Pulse 93 H 04/15/20 08:58 Resp 17 04/15/20 08:58 BP 101/81 04/15/20 08:58 Pulse Ox 96 04/15/20 06:17 Labs Result diagrams: 04/15/20 06:20 04/15/20 06:20 Labs: Laboratory Results - last 24 hr 04/15/20 04/15/20 06:20 06:20 WBC 6.68 RBC 4.16 Hgb 13.5 Hct 41.8 MCV 100.5 H MCH 32.5 MCHC 32.3 RDW 12.9 Plt Count 101 L MPV 12.8 H Immature Gran % 0.1 Neutrophils % 50.4 Lymphocytes % 30.8 Monocytes % 13.8 Eosinophils % 4.6 Basophils % 0.3 Absolute Neutrophils 3.36 Absolute Lymphocytes 2.06 Absolute Monocytes 0.92 H Absolute Eosinophils 0.31 Absolute Basophils 0.02 Sodium 143 Potassium 3.4 L Chloride 108 H Carbon Dioxide 25.0 Anion Gap 10.0 BUN 4 L Creatinine 0.75 Estimated GFR/1.73 m2 >= 60.00 Glucose 81 Calcium 8.5 Magnesium 1.9 C-Reactive Protein 1.16 H
--- NOTE | 2020-04-15 11:08 | PGE_ITS ---
Date of Service Date of service: 04/15/20 Time of Service: 11:08 Assessment and Plan Assessment and plan (1) Alcohol withdrawal delirium: Status: Acute Assessment and plan: Stable on high dose ativan gtt, not requiring intubation. No recurrences of seizure. Continue ativan gtt, scheduled librium at current dose, scheduled gabapentin, with prn ativan per CIWA. I do not feel the patient warrants intubation at this time, but close monitoring is indicated. (2) Alcohol withdrawal seizure: Status: Acute Assessment and plan: As above Qualifiers: Complication of substance-induced condition: with delirium Qualified Code(s): F10.231 - Alcohol dependence with withdrawal delirium (3) Sepsis: Status: Acute Assessment and plan: Due to E. coli UTI, POA. Sensitive to ceftriaxone (day 4) - continue. Technically, no longer meeting sepsis criteria. Ensure no urinary retention. Blood cultures NGTD. (4) UTI (urinary tract infection): Status: Acute Assessment and plan: As above (5) Hypokalemia: Status: Resolved Assessment and plan: Resolved - recheck in am (6) Hypomagnesemia: Status: Resolved Assessment and plan: Resolved - recheck in am (7) Thrombocytopenia: Status: Chronic Assessment and plan: Chronic, stable, in setting of alcohol abuse. Would benefit from outpatient ultrasound of the abdomen looking at the liver/spleen - cirrhosis/splenomegaly? Would not change control manager at this point. Monitor for bleeding. (8) Fracture of right great toe: Status: Acute Assessment and plan: Circumstances of this are mysterious. No surgical intervention indicated, per podiatry - will procure boot. 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 Chemical DVT ppx contraindicated due to thrombocytopenia (11) Discharge planning issues: Status: Acute Assessment and plan: Full code. Keep in ICU Total Critical Care Time 30 minutes. Subjective Subjective Interval history since last seen: Ms Snyder remains on ativan gtt (9 mg/hr), scheduled librium, still requiring prn ativan and diazepam (received 130 mg of valium overnight). She is awake, no signs of resp. depression. She started to hallucinate again, ordering lunch for a friend in her room. She denies headache, dizziness, chest pain, shortness of breath, nausea. She was evaluated by Dr Lema - no surgical intervention necessary for her R great toe fracture, but will require a boot. Exam Narrative Exam Narrative: General: middle-aged female, Awake, A&Ox2, sitting up at the edge of the bed, no signs of resp. depression HEENT: eyes closed, MMM Heart: RRR, no m/r/g Lungs: diminished breath sounds B, nonlabored breathing, no apnea Abdomen: soft, nontender, nondistended Extremities: no edema BLE's, wearing TEDs Objective Objective Clinical Data: Abnormal lab results 04/15/20 04/15/20 Range/Units 06:20 06:20 MCV 100.5 H (80-95) fL Plt Count 101 L (130-400) x1000/uL MPV 12.8 H (8.0-11.0) fL Absolute Monocytes 0.92 H (0.11-0.7) k/cumm Potassium 3.4 L (3.5-5.1) mmol/L Chloride 108 H (98-107) mmol/L BUN 4 L (7-18) mg/dL C-Reactive Protein 1.16 H (0.0-0.3) mg/dL Vital Signs Temperature 36.4 C L 04/15/20 07:45 Temperature Source Temporal Artery Scan 04/15/20 07:45 Pulse 93 H 04/15/20 08:58 Pulse 89 04/15/20 08:58 Respiratory Rate 17 04/15/20 08:58 Respiratory Effort Non-Labored 04/15/20 07:45 Respiratory Depth Normal 04/15/20 07:45 Respiratory Pattern Normal 04/15/20 07:45 Blood Pressure 101/81 04/15/20 08:58 Blood Pressure Mean 86 04/15/20 08:58 Blood Pressure Position Supine 04/15/20 03:31 Pulse Oximetry 96 04/15/20 06:17 Oxygen Delivery Method Room Air 04/15/20 07:45 Oxygen Flow Rate 0 04/15/20 07:45 Pain Level 0 04/15/20 07:45 Intake & Output 04/14/20 04/14/20 04/15/20 11:59 23:59 11:59 Intake Total 240 / 1571.50 1331.50 / 1571.50 1082.100 / 1082.100 Output Total 1025 / 1450 425 / 1450 500 / 500 Balance -785 / 121.50 906.50 / 121.50 582.100 / 582.100 Intake: IV 40 / 381.50 341.50 / 381.50 652.100 / 652.100 Oral 200 / 1190 990 / 1190 430 / 430 Output: Urine 1025 / 1450 425 / 1450 500 / 500 Other: Urine Color Yellow Light Romina Light Romina Urine Appearance Clear Clear Clear Urine Odor Strong Strong Normal Comment large incontinence of urine voiding small amounts to commode. Independent Void 250cc in commode. Voiding Methods Bedside Commode Bedside Commode Bedside Commode Laboratory Results WBC 6.68 k/cumm (4.4-10.8) 04/15/20 06:20 RBC 4.16 m/cumm (4.00-5.20) 04/15/20 06:20 Hgb 13.5 g/dL (12.0-15.5) 04/15/20 06:20 Hct 41.8 % (36.0-46.0) 04/15/20 06:20 MCV 100.5 fL (80-95) H 04/15/20 06:20 MCH 32.5 pg (27.0-33.0) 04/15/20 06:20 MCHC 32.3 g/dL (32.0-36.0) 04/15/20 06:20 RDW 12.9 % (11.7-14.6) 04/15/20 06:20 Plt Count 101 x1000/uL (130-400) L 04/15/20 06:20 MPV 12.8 fL (8.0-11.0) H 04/15/20 06:20 Immature Gran % 0.1 % 04/15/20 06:20 Neutrophils % 50.4 04/15/20 06:20 Lymphocytes % 30.8 04/15/20 06:20 Monocytes % 13.8 04/15/20 06:20 Eosinophils % 4.6 04/15/20 06:20 Basophils % 0.3 04/15/20 06:20 Absolute Neutrophils 3.36 k/cumm (1.2-6.7) 04/15/20 06:20 Absolute Lymphocytes 2.06 k/cumm (1.2-3.4) 04/15/20 06:20 Absolute Monocytes 0.92 k/cumm (0.11-0.7) H 04/15/20 06:20 Absolute Eosinophils 0.31 k/cumm (0.0-0.7) 04/15/20 06:20 Absolute Basophils 0.02 k/cumm (0.0-0.2) 04/15/20 06:20 Differential Comment Plt morph reviewed 04/14/20 05:30 RBC Morphology Normal 04/13/20 08:30 Sodium 143 mmol/L (136-145) 04/15/20 06:20 Potassium 3.4 mmol/L (3.5-5.1) L 04/15/20 06:20 Chloride 108 mmol/L (98-107) H 04/15/20 06:20 Carbon Dioxide 25.0 mmol/L (21.0-32.0) 04/15/20 06:20 Anion Gap 10.0 mmol/L (3-11) 04/15/20 06:20 BUN 4 mg/dL (7-18) L 04/15/20 06:20 Creatinine 0.75 mg/dL (0.55-1.02) 04/15/20 06:20 Estimated GFR/1.73 m2 >= 60.00 (mL/min/1.73m2) 04/15/20 06:20 Glucose 81 mg/dL (74-106) 04/15/20 06:20 Lactate 1.0 mmol/L (0.6-1.4) 04/12/20 08:14 Calcium 8.5 mg/dL (8.5-10.1) 04/15/20 06:20 Phosphorus 3.0 mg/dL (2.6-4.7) 04/13/20 06:45 Magnesium 1.9 mg/dL (1.8-2.4) 04/15/20 06:20 Total Bilirubin 1.2 mg/dL (0.2-1.0) H 04/12/20 02:18 AST 67 U/L (15-37) H 04/12/20 02:18 ALT 44 U/L (14-59) 04/12/20 02:18 Alkaline Phosphatase 117 U/L (46-116) H 04/12/20 02:18 C-Reactive Protein 1.16 mg/dL (0.0-0.3) H 04/15/20 06:20 Total Protein 8.8 g/dL (6.4-8.2) H 04/12/20 02:18 Albumin 3.8 g/dL (3.4-5.0) 04/12/20 02:18 Lipase 100 U/L (73-393) 04/12/20 02:18 Procalcitonin 9.6 ng/mL 04/14/20 05:30 Urine Color Yellow (Yellow) 04/12/20 07:40 Urine Clarity Sl cloudy (Clear) 04/12/20 07:40 Urine pH 7.5 (5-8) 04/12/20 07:40 Ur Specific [place] 1.015 (1.005-1.025) 04/12/20 07:40 Urine Protein Negative mg/dL (Negative) 04/12/20 07:40 Urine Ketones Negative mg/dL (Negative) 04/12/20 07:40 Urine Blood Small (Negative) H 04/12/20 07:40 Urine Nitrite Positive (Negative) H 04/12/20 07:40 Urine Bilirubin Negative (Negative) 04/12/20 07:40 Urine Urobilinogen 0.2 EU/dL (Up TO 0.2) 04/12/20 07:40 Ur Leukocyte Esterase Negative (Negative) 04/12/20 07:40 Urine RBC 0-2 HPF (0-2) 04/12/20 07:40 Urine WBC 3-5 HPF (0-5) 04/12/20 07:40 Ur Epithelial Cells Few HPF (Negative) 04/12/20 07:40 Urine Crystals Negative HPF (Negative) 04/12/20 07:40 Urine Bacteria Many HPF (Negative) 04/12/20 07:40 Urine Casts Negative LPF (Negative) 04/12/20 07:40 Urine Mucus Negative (Negative) 04/12/20 07:40 Ur Culture Indicated? Yes 04/12/20 07:40 Urine Glucose Negative mg/dL (Negative) 04/12/20 07:40 Ethyl Alcohol < 3.0 mg/dL (<3) 04/12/20 02:18 COVID-19 PCR Negative (Negative) 04/12/20 03:07 Nasopharyn COVID-19 PCR Not Applicable 04/12/20 03:07 Ref Test Perform Site [facility] lab 04/12/20 03:07
[2020-04-15] MEDS: Potassium Chloride 20 MEQ TABCR 40 MEQ PO (12:14)
[2020-04-15] MEDS: cefTRIAXone 1 GM/50 ML BAG IVPB (16:13)
[2020-04-15] MEDS: Normal Saline Flush 10 ML SYR 20 ML IVP (18:55)
[2020-04-15] MEDS: Melatonin 3 MG TAB PO (21:16)
[2020-04-15] MEDS: Mirtazapine 15 MG TAB PO (21:16)
[2020-04-16] VITALS (63 sets, daily range): BP systolic 84–128; BP diastolic 58–84; PULSE 71–933; RESP 12–42; TEMP 36.1–36.8; O2SAT 92–99
--- NOTE | 2020-04-16 | DI.US_ITS ---
EXAM: US ABDOMEN CLINICAL HISTORY: EtOH abuse, question of cirrhosis, ?nephrolithiasi TECHNIQUE: Ultrasound performed using standard protocol. COMPARISON: CT CHEST WITH CONTRAST from 09/04/2013 US ABDOMEN ULTRASOUND (P) from 08/09/2017 CR XR abdomen flat upright from 10/12/2018 FINDINGS: Liver is mildly shows increased echogenicity, consistent with fatty infiltration. No focal masses a re seen. The common bile duct appears dilated for the patient's age, measuring 6 millimeters. No co mmon duct stone is seen. There is a 7 by 9 by 6 millimeter cyst with a peripheral calcification in t he head of the pancreas. This was not noted on previous exams. The gallbladder somewhat contracted but otherwise unremarkable, without evidence of stones or wall thickening. The kidneys, spleen and a john appear normal. There is no ascites. IMPRESSION: 1. 9 millimeter cyst with peripheral calcification in the head of the pancreas. A follow-up ultrasou nd could be considered in 6 months. 2. Mild dilatation of the common bile duct. Mild hepatic steat osis. 3. No ultrasound evidence of nephrolithiasis. DATA REPOSITORY:
--- NOTE | 2020-04-16 00:33 | NUR.NOTE ---
Nursing Note:PT is currently in bed, resting quietly. Ativan gtt @ 17mg/hr, no PRN medications required at this time. She is easy to arouse with voice and touch but quickly falls back to sleep. Vital signs stable at this time RR 20, o2 97%, Hr 81, BP 98/66, MAP 72. Pt seems to be resting very comfortably at the moment, this nurse will continue to monitor.
[2020-04-16] MEDS: chlordiazePOXIDE 25 MG CAP 75 MG PO ×2 (05:37→14:26)
[2020-04-16 06:58] LABS: Abs Immature Grans 0.02 k/cumm (0.0-0.09); Absolute Basophil Count 0.02 k/cumm (0.0-0.2); Absolute Eosinophil Count 0.23 k/cumm (0.0-0.7); Absolute Lymphocyte Count 2.49 k/cumm (1.2-3.4); Absolute Monocyte Count 1.16 k/cumm (0.11-0.7); Absolute Neutrophil Count 3.05 k/cumm (1.2-6.7); Basophils % 0.3; Eosinophils % 3.3; HCT 41.4 % (36.0-46.0); HGB 13.2 g/dL (12.0-15.5); Immature Grans % 0.3 %; Lymphocytes % 35.7; Mean Corp. HGB Concentration 31.9 g/dL (32.0-36.0); Mean Corpuscular Hemoglobin 32.3 pg (27.0-33.0); Mean Corpuscular Volume 101.2 fL (80-95); Monocytes % 16.6; Neutrophils % 43.8; Platelet Count 121 x1000/uL (130-400); RBC 4.09 m/cumm (4.00-5.20); White Blood Cell Count 6.97 k/cumm (4.4-10.8)
[2020-04-16 07:00] LABS: Anion Gap 9.2 mmol/L (3-11); BUN 4 mg/dL (7-18); C-Reactive Protein 1.15 mg/dL (0.0-0.3); CO2 25.8 mmol/L (21.0-32.0); CREATININE 0.72 mg/dL (0.55-1.02); Calcium 8.6 mg/dL (8.5-10.1); Chloride 106 mmol/L (98-107); Glucose 89 mg/dL (74-106); Magnesium 1.9 mg/dL (1.8-2.4); Potassium 3.6 mmol/L (3.5-5.1); Sodium 141 mmol/L (136-145)
[2020-04-16 07:26] LABS: Procalcitonin 2.6 ng/mL
[2020-04-16] MEDS: Budesonide/Formoterol 160/4.5 6 GM 60 PUFF INH IH ×2 (08:04→20:28)
[2020-04-16] MEDS: Atenolol 25 MG TAB PO (08:32)
[2020-04-16] MEDS: Gabapentin 300 MG CAP 600 MG PO ×3 (08:33→20:28)
[2020-04-16] MEDS: Folic Acid 1 MG TAB PO (08:33)
[2020-04-16] MEDS: Cholecalciferol (Vitamin D3) 1,000 UNIT TAB 2000 UNITS PO (08:33)
[2020-04-16] MEDS: Cyanocobalamin 500 MCG TAB 1000 MCG PO (08:33)
[2020-04-16] MEDS: Multivitamin TAB 1 TAB PO (08:34)
[2020-04-16] MEDS: Magnesium Oxide 400 MG TAB PO ×2 (08:34→20:28)
[2020-04-16] MEDS: Normal Saline Flush 10 ML SYR 20 ML IVP ×2 (08:34→20:29)
[2020-04-16] MEDS: Pantoprazole 40 MG TABCR PO (08:37)
[2020-04-16] MEDS: Thiamine 100 MG TAB PO (08:38)
[2020-04-16] MEDS: Nicotine 14 MG/24 HR PATCH TD (08:38)
--- NOTE | 2020-04-16 10:33 | PDOC.CMPRO ---
- If Service Date Differs Date of service: 04/16/20 Time of Service: 10:33 Care Management Progress Note S/O: Sharri was lying in bed when CM met with her. She was pleasant but very sleepy during the visit. During the night she was placed on an Ativan drip at 17 mg/hr for high CIWA scores. She is doing better today and the drip has been decreased to 8mg/hr. Sharri stated that she is feeling pretty good and does not foresee needing any services at this time. A: Sharri is a 49 year old women with a long history of alcohol dependency, admitted for alcohol withdrawal related delirium. P: Sharri will be discharged home when medically ready. She declinesthe need for any additional services at time of discharge. CM will continue to assess for services and provide support throughout hospitalization. Spouse will transport home at time of discharge.
--- NOTE | 2020-04-16 10:37 | PGE_ITS ---
Date of Service Date of service: 04/16/20 Time of Service: 10:37 Assessment and Plan Assessment and plan (1) Alcohol withdrawal delirium: Status: Acute Assessment and plan: I think Ms Snyder is turning the corner. We will cautiously wean ativan gtt while monitoring CIWA/for seizures. Not requiring intubation. No recurrences of seizure. Continue scheduled librium at current dose, scheduled gabapentin, vitamins. Continue to monitor respiratory status. (2) Alcohol withdrawal seizure: Status: Acute Assessment and plan: As above Qualifiers: Complication of substance-induced condition: with delirium Qualified Code(s): F10.231 - Alcohol dependence with withdrawal delirium (3) Sepsis: Status: Acute Assessment and plan: Due to E. coli UTI, POA. Sensitive to ceftriaxone (day 5) - continue. No longer meeting sepsis criteria. No urinary retention so far. Blood cultures NGTD. Check US kidneys to ensure no nephrolithiasis. (4) UTI (urinary tract infection): Status: Acute Assessment and plan: As above Check US abdomen/kidneys to ensure no nephrolithiasis. (5) Hypokalemia: Status: Resolved Assessment and plan: Resolved - recheck in am (6) Hypomagnesemia: Status: Resolved Assessment and plan: Resolved - recheck in am (7) Thrombocytopenia: Status: Chronic Assessment and plan: Chronic, stable, in setting of alcohol abuse. As required a US of kidneys today anyway, we will also obtain US of the remainder of the abdomen to check for cirrhosis/splenomegaly. (8) Fracture of right great toe: Status: Acute Assessment and plan: Circumstances of this are mysterious. No surgical intervention indicated, per podiatry - Continue boot. 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 Chemical DVT ppx contraindicated due to thrombocytopenia (11) Discharge planning issues: Status: Acute Assessment and plan: Full code. Keep in ICU Total Critical Care Time 30 minutes. Subjective Subjective Interval history since last seen: Ms Snyder was on 17 mg of ativan/hr overnight and not requiring any PRN medications. She is now weaned down to 8 mg of ativan/hr. She was hallucinating this morning, but is not now. Thirsty. BP's borderline (in the 90's). Denies dizziness, chest pain, shortness of breath, nausea. States neck hurts when turned a certain way in the exact same way that always hurts before she gets her botox injections. Was able to ambulate in the hallway. Had an episode of incontinence of stool. Exam Narrative Exam Narrative: General: middle-aged female, Awake, A&Ox2, sitting in a chair, slurring words mildly, otherwise interactive, appropriate HEENT: eyes closed, MMM Heart: RRR, no m/r/g Lungs: diminished breath sounds B, nonlabored breathing, no apnea Abdomen: soft, nontender, nondistended Extremities: no edema BLE's, wearing TEDs and a surgical boot on R foot Objective Objective Clinical Data: Abnormal lab results 04/16/20 04/16/20 Range/Units 06:03 06:03 MCV 101.2 H (80-95) fL MCHC 31.9 L (32.0-36.0) g/dL Plt Count 121 L (130-400) x1000/uL MPV 12.0 H (8.0-11.0) fL Absolute Monocytes 1.16 H (0.11-0.7) k/cumm BUN 4 L (7-18) mg/dL C-Reactive Protein 1.15 H (0.0-0.3) mg/dL Vital Signs Temperature 36.4 C L 04/16/20 09:25 Temperature Source Temporal Artery Scan 04/16/20 09:25 Pulse 93 H 04/16/20 09:25 Pulse 96 H 04/16/20 09:20 Respiratory Rate 18 04/16/20 09:25 Respiratory Effort Non-Labored 04/16/20 07:52 Respiratory Depth Normal 04/16/20 07:52 Respiratory Pattern Normal 04/16/20 07:52 Blood Pressure 96/71 L 04/16/20 09:25 Blood Pressure Mean 76 04/16/20 09:20 Blood Pressure Position Sitting 04/16/20 07:52 Pulse Oximetry 97 04/16/20 09:25 Oxygen Delivery Method Room Air 04/16/20 09:25 Oxygen Flow Rate 0 04/16/20 09:25 Pain Level 4 04/16/20 09:25 Intake & Output 04/15/20 04/15/20 04/16/20 11:59 23:59 11:59 Intake Total 1086.100 / 2341.233 1255.133 / 2341.233 261.65 / 261.65 Output Total 500 / 3850 3350 / 3850 500 / 500 Balance 586.100 / -1508.767 -2094.867 / -1508.767 -238.35 / -238.35 Intake: IV 656.100 / 851.233 195.133 / 851.233 141.65 / 141.65 Oral 430 / 1490 1060 / 1490 120 / 120 Output: Urine 500 / 3850 3350 / 3850 500 / 500 Other: Urine Color Light Romina Yellow Yellow Urine Appearance Clear Clear Cloudy Urine Odor Normal Strong None Comment Independent Void 250cc in commode. Independent void 550cc on commode. Stool Occult Blood Negative Stool Size Moderate Stool Characteristics Soft Formed Brown Voiding Methods Bedside Commode Bedside Commode Toilet Laboratory Results WBC 6.97 k/cumm (4.4-10.8) 04/16/20 06:03 RBC 4.09 m/cumm (4.00-5.20) 04/16/20 06:03 Hgb 13.2 g/dL (12.0-15.5) 04/16/20 06:03 Hct 41.4 % (36.0-46.0) 04/16/20 06:03 MCV 101.2 fL (80-95) H 04/16/20 06:03 MCH 32.3 pg (27.0-33.0) 04/16/20 06:03 MCHC 31.9 g/dL (32.0-36.0) L 04/16/20 06:03 RDW 13.0 % (11.7-14.6) 04/16/20 06:03 Plt Count 121 x1000/uL (130-400) L 04/16/20 06:03 MPV 12.0 fL (8.0-11.0) H 04/16/20 06:03 Immature Gran % 0.3 % 04/16/20 06:03 Neutrophils % 43.8 04/16/20 06:03 Lymphocytes % 35.7 04/16/20 06:03 Monocytes % 16.6 04/16/20 06:03 Eosinophils % 3.3 04/16/20 06:03 Basophils % 0.3 04/16/20 06:03 Absolute Neutrophils 3.05 k/cumm (1.2-6.7) 04/16/20 06:03 Absolute Lymphocytes 2.49 k/cumm (1.2-3.4) 04/16/20 06:03 Absolute Monocytes 1.16 k/cumm (0.11-0.7) H 04/16/20 06:03 Absolute Eosinophils 0.23 k/cumm (0.0-0.7) 04/16/20 06:03 Absolute Basophils 0.02 k/cumm (0.0-0.2) 04/16/20 06:03 Differential Comment Plt morph reviewed 04/14/20 05:30 RBC Morphology Normal 04/13/20 08:30 Sodium 141 mmol/L (136-145) 04/16/20 06:03 Potassium 3.6 mmol/L (3.5-5.1) 04/16/20 06:03 Chloride 106 mmol/L (98-107) 04/16/20 06:03 Carbon Dioxide 25.8 mmol/L (21.0-32.0) 04/16/20 06:03 Anion Gap 9.2 mmol/L (3-11) 04/16/20 06:03 BUN 4 mg/dL (7-18) L 04/16/20 06:03 Creatinine 0.72 mg/dL (0.55-1.02) 04/16/20 06:03 Estimated GFR/1.73 m2 >= 60.00 (mL/min/1.73m2) 04/16/20 06:03 Glucose 89 mg/dL (74-106) 04/16/20 06:03 Lactate 1.0 mmol/L (0.6-1.4) 04/12/20 08:14 Calcium 8.6 mg/dL (8.5-10.1) 04/16/20 06:03 Phosphorus 3.0 mg/dL (2.6-4.7) 04/13/20 06:45 Magnesium 1.9 mg/dL (1.8-2.4) 04/16/20 06:03 Total Bilirubin 1.2 mg/dL (0.2-1.0) H 04/12/20 02:18 AST 67 U/L (15-37) H 04/12/20 02:18 ALT 44 U/L (14-59) 04/12/20 02:18 Alkaline Phosphatase 117 U/L (46-116) H 04/12/20 02:18 C-Reactive Protein 1.15 mg/dL (0.0-0.3) H 04/16/20 06:03 Total Protein 8.8 g/dL (6.4-8.2) H 04/12/20 02:18 Albumin 3.8 g/dL (3.4-5.0) 04/12/20 02:18 Lipase 100 U/L (73-393) 04/12/20 02:18 Procalcitonin 2.6 ng/mL 04/16/20 06:03 Urine Color Yellow (Yellow) 04/12/20 07:40 Urine Clarity Sl cloudy (Clear) 04/12/20 07:40 Urine pH 7.5 (5-8) 04/12/20 07:40 Ur Specific [place] 1.015 (1.005-1.025) 04/12/20 07:40 Urine Protein Negative mg/dL (Negative) 04/12/20 07:40 Urine Ketones Negative mg/dL (Negative) 04/12/20 07:40 Urine Blood Small (Negative) H 04/12/20 07:40 Urine Nitrite Positive (Negative) H 04/12/20 07:40 Urine Bilirubin Negative (Negative) 04/12/20 07:40 Urine Urobilinogen 0.2 EU/dL (Up TO 0.2) 04/12/20 07:40 Ur Leukocyte Esterase Negative (Negative) 04/12/20 07:40 Urine RBC 0-2 HPF (0-2) 04/12/20 07:40 Urine WBC 3-5 HPF (0-5) 04/12/20 07:40 Ur Epithelial Cells Few HPF (Negative) 04/12/20 07:40 Urine Crystals Negative HPF (Negative) 04/12/20 07:40 Urine Bacteria Many HPF (Negative) 04/12/20 07:40 Urine Casts Negative LPF (Negative) 04/12/20 07:40 Urine Mucus Negative (Negative) 04/12/20 07:40 Ur Culture Indicated? Yes 04/12/20 07:40 Urine Glucose Negative mg/dL (Negative) 04/12/20 07:40 Ethyl Alcohol < 3.0 mg/dL (<3) 04/12/20 02:18 COVID-19 PCR Negative (Negative) 04/12/20 03:07 Nasopharyn COVID-19 PCR Not Applicable 04/12/20 03:07 Ref Test Perform Site [facility] lab 04/12/20 03:07
[2020-04-16] MEDS: Normal Saline 1,000 ML 100 ML IV ×2 (10:46→20:37)
--- NOTE | 2020-04-16 13:32 | W.NUTRFU ---
Date of service: 04/16/20 Time of Service: 13:32 Nutritional Follow up NOTE: Sharri has been advanced to regular diet over weekend with approx. 50% intake of meal. Estimated needs: 1680 kcal, 67 g protein. Currently meeting 50% of calorie/protein needs. Nursing reports she enjoys glucerna, will provide glucerna or ensure BID. At high risk for nutritional decline in view of low BMI, hx of poor intake, long standing history of ETOH abuse. Meds include remerson, MVI, thiamin and folic acid. Awaiting updated weight. Will monitor po intake, labs and weight daily and make warranted recommendations. Time Spent in Nutritional Counseling and Treatment: 0 time spent face to face, sleeping at time of visit
[2020-04-16] MEDS: cefTRIAXone 1 GM/50 ML BAG IVPB (16:13)
[2020-04-16] MEDS: chlordiazePOXIDE 25 MG CAP 50 MG PO (20:28)
[2020-04-16] MEDS: oxyCODONE 5 MG TAB 10 MG PO (20:41)
[2020-04-16] MEDS: Mirtazapine 15 MG TAB PO (21:22)
[2020-04-16] MEDS: Melatonin 3 MG TAB PO (21:22)
[2020-04-17] VITALS (48 sets, daily range): BP systolic 97–134; BP diastolic 59–88; PULSE 74–102; RESP 13–211; TEMP 36.1–36.9; O2SAT 94–99
[2020-04-17] MEDS: Ibuprofen 400 MG TAB PO ×2 (02:36→09:00)
[2020-04-17] MEDS: chlordiazePOXIDE 25 MG CAP 50 MG PO ×3 (02:36→16:14)
[2020-04-17 07:37] LABS: Anion Gap 5.4 mmol/L (3-11); BUN 9 mg/dL (7-18); C-Reactive Protein 0.95 mg/dL (0.0-0.3); CO2 29.6 mmol/L (21.0-32.0); CREATININE 0.74 mg/dL (0.55-1.02); Chloride 107 mmol/L (98-107); Glucose 87 mg/dL (74-106); Magnesium 1.9 mg/dL (1.8-2.4); Sodium 142 mmol/L (136-145)
[2020-04-17] MEDS: Atenolol 25 MG TAB PO (08:58)
[2020-04-17] MEDS: Cholecalciferol (Vitamin D3) 1,000 UNIT TAB 2000 UNITS PO (08:59)
[2020-04-17] MEDS: Folic Acid 1 MG TAB PO (09:00)
[2020-04-17] MEDS: Cyanocobalamin 500 MCG TAB 1000 MCG PO (09:00)
[2020-04-17] MEDS: Gabapentin 300 MG CAP 600 MG PO (09:00)
[2020-04-17] MEDS: Multivitamin TAB 1 TAB PO (09:01)
[2020-04-17] MEDS: Magnesium Oxide 400 MG TAB PO ×2 (09:01→19:45)
[2020-04-17] MEDS: Normal Saline Flush 10 ML SYR 20 ML IVP ×2 (09:02→19:46)
[2020-04-17] MEDS: Pantoprazole 40 MG TABCR PO (09:02)
[2020-04-17] MEDS: Thiamine 100 MG TAB PO (09:04)
[2020-04-17] MEDS: Budesonide/Formoterol 160/4.5 6 GM 60 PUFF INH IH (09:13)
--- NOTE | 2020-04-17 10:21 | CMPROGNOTE_ITS ---
- If Service Date Differs Date of service: 04/17/20 Time of Service: 10:21 Care Management Progress Note S/O: Sharri was sitting up in bed when CM met with her. She was much more awake and engaged than yesterday. Sharri talked a bit about her children and 4 year old twin grandchildren. She shared that her father was an alcoholic and that all 6 of her siblings drink as well. Sharri was very clear that she does not want to go to rehab or to be in a formal program but is willing to work with a Career And Technology Education Teacher. [facility] and made a referral for Sharri. A: Sharri is a 49 year old women with a long history of alcohol dependency, admitted for alcohol withdrawal related delirium. P: Sharri will be discharged home when medically ready. She declines the need for any additional services at time of discharge, however has agreed to speak with a Career And Technology Education Teacher. The referral was made by CM today. CM will continue to assess for services and provide support throughout hospitalization. Spouse will transport home at time of discharge.
[2020-04-17] MEDS: LORazepam 1 MG TAB PO (11:32)
[2020-04-17] MEDS: Normal Saline 1,000 ML 100 ML IV (11:56)
[2020-04-17] MEDS: oxyCODONE 5 MG TAB 10 MG PO (12:32)
[2020-04-17] MEDS: LORazepam 2 MG/ML VIAL IVP (13:37)
[2020-04-17] MEDS: Gabapentin 400 MG CAP PO ×2 (13:43→19:46)
--- NOTE | 2020-04-17 13:49 | W.PM.PROGNOT ---
Date of Service Date of service: 04/17/20 Time of Service: 13:49 Assessment and Plan Assessment and plan (1) Alcohol withdrawal delirium: Status: Acute Assessment and plan: Better. Off ativan gtt, tapering librium today. No more seizures since hospital day 1. Continue to monitor in the ICU with prn PO/IV ativan, decreased dose of scheduled gabapentin. (2) Alcohol withdrawal seizure: Status: Acute Assessment and plan: As above Qualifiers: Complication of substance-induced condition: with delirium Qualified Code(s): F10.231 - Alcohol dependence with withdrawal delirium (3) Sepsis: Status: Acute Assessment and plan: Due to E. coli UTI, POA. Sensitive to ceftriaxone (day 6) - continue, recheck procalcitonin tomorrow. No longer meeting sepsis criteria. No urinary retention so far. Blood cultures NGTD. No nephrolithiasis seen on US. (4) UTI (urinary tract infection): Status: Acute Assessment and plan: As above (5) Hypokalemia: Status: Resolved Assessment and plan: Resolved - recheck in am (6) Hypomagnesemia: Status: Resolved Assessment and plan: Resolved - recheck in am (7) Thrombocytopenia: Status: Chronic Assessment and plan: Chronic, stable, in setting of alcohol abuse. Fatty infiltration of the liver seen on US, and spleen appears normal. Likely due to EtOH. (8) Fracture of right great toe: Status: Acute Assessment and plan: Circumstances of this are mysterious. No surgical intervention indicated, per podiatry - Continue boot. 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 Chemical DVT ppx contraindicated due to thrombocytopenia (11) Discharge planning issues: Status: Acute Assessment and plan: Full code. Keep in ICU Total Critical Care Time 30 minutes. Subjective Subjective Interval history since last seen: Ms Snyder is off ativan gtt since yesterday afternoon. CIWA 2 this am. Able to ambulate this am. No hallucinations reported. Anxious, asking when she can go home. Endorses feeling dizzy while sitting down. Denies chest pain, shortness of breath, nausea, vomiting. No acute events overnight. Exam Narrative Exam Narrative: General: middle-aged female, Awake, A&Ox3, sitting in a chair, looks more alert than yesterday and makes more sense than yesterday. HEENT: EOMI, MMM Heart: RRR, no m/r/g Lungs: diminished breath sounds B Abdomen: soft, nontender, nondistended Extremities: no edema BLE's, wearing TEDs and a surgical boot on R foot Objective Objective Clinical Data: Abnormal lab results 04/17/20 Range/Units 07:15 C-Reactive Protein 0.95 H (0.0-0.3) mg/dL Vital Signs Temperature 36.1 C L 04/17/20 13:37 Temperature Source Temporal Artery Scan 04/17/20 10:49 Pulse 85 04/17/20 10:49 Pulse 89 04/17/20 04:01 Respiratory Rate 23 04/17/20 10:49 Respiratory Effort 04/17/20 07:30 Respiratory Depth Normal 04/17/20 07:30 Respiratory Pattern Normal 04/17/20 07:30 Blood Pressure 101/82 04/17/20 10:49 Blood Pressure Mean 76 04/17/20 07:30 Blood Pressure Position Sitting 04/17/20 07:30 Pulse Oximetry 96 04/17/20 10:49 Oxygen Delivery Method Room Air 04/17/20 07:30 Oxygen Flow Rate 0 04/17/20 07:30 Pain Level 2 04/17/20 13:37 Comment 04/17/20 10:49 Intake & Output 04/16/20 04/17/20 04/17/20 23:59 11:59 23:59 Intake Total 2017.983 / 0.633 2105 / 2105 Output Total 550 / 1050 1400 / 1400 Balance 1468.983 / 1290.633 705 / 705 Intake: IV 2017.983 / 2220.633 1984 Oral 0 / 120 120 / 120 Output: Urine 550 / 1050 1400 / 1400 Other: Urine Color Yellow Dark Stefani Urine Appearance Clear Cloudy Urine Odor Strong Strong Comment Strong odorous medium stefani urine. Voided overnight in large portion. Voiding Methods Bedside Commode Bedside Commode Laboratory Results WBC 6.97 k/cumm (4.4-10.8) 04/16/20 06:03 RBC 4.09 m/cumm (4.00-5.20) 04/16/20 06:03 Hgb 13.2 g/dL (12.0-15.5) 04/16/20 06:03 Hct 41.4 % (36.0-46.0) 04/16/20 06:03 MCV 101.2 fL (80-95) H 04/16/20 06:03 MCH 32.3 pg (27.0-33.0) 04/16/20 06:03 MCHC 31.9 g/dL (32.0-36.0) L 04/16/20 06:03 RDW 13.0 % (11.7-14.6) 04/16/20 06:03 Plt Count 121 x1000/uL (130-400) L 04/16/20 06:03 MPV 12.0 fL (8.0-11.0) H 04/16/20 06:03 Immature Gran % 0.3 % 04/16/20 06:03 Neutrophils % 43.8 04/16/20 06:03 Lymphocytes % 35.7 04/16/20 06:03 Monocytes % 16.6 04/16/20 06:03 Eosinophils % 3.3 04/16/20 06:03 Basophils % 0.3 04/16/20 06:03 Absolute Neutrophils 3.05 k/cumm (1.2-6.7) 04/16/20 06:03 Absolute Lymphocytes 2.49 k/cumm (1.2-3.4) 04/16/20 06:03 Absolute Monocytes 1.16 k/cumm (0.11-0.7) H 04/16/20 06:03 Absolute Eosinophils 0.23 k/cumm (0.0-0.7) 04/16/20 06:03 Absolute Basophils 0.02 k/cumm (0.0-0.2) 04/16/20 06:03 Differential Comment Plt morph reviewed 04/14/20 05:30 RBC Morphology Normal 04/13/20 08:30 Sodium 142 mmol/L (136-145) 04/17/20 07:15 Potassium 4.0 mmol/L (3.5-5.1) 04/17/20 07:15 Chloride 107 mmol/L (98-107) 04/17/20 07:15 Carbon Dioxide 29.6 mmol/L (21.0-32.0) 04/17/20 07:15 Anion Gap 5.4 mmol/L (3-11) 04/17/20 07:15 BUN 9 mg/dL (7-18) 04/17/20 07:15 Creatinine 0.74 mg/dL (0.55-1.02) 04/17/20 07:15 Estimated GFR/1.73 m2 >= 60.00 (mL/min/1.73m2) 04/17/20 07:15 Glucose 87 mg/dL (74-106) 04/17/20 07:15 Lactate 1.0 mmol/L (0.6-1.4) 04/12/20 08:14 Calcium 9.0 mg/dL (8.5-10.1) 04/17/20 07:15 Phosphorus 3.0 mg/dL (2.6-4.7) 04/13/20 06:45 Magnesium 1.9 mg/dL (1.8-2.4) 04/17/20 07:15 Total Bilirubin 1.2 mg/dL (0.2-1.0) H 04/12/20 02:18 AST 67 U/L (15-37) H 04/12/20 02:18 ALT 44 U/L (14-59) 04/12/20 02:18 Alkaline Phosphatase 117 U/L (46-116) H 04/12/20 02:18 C-Reactive Protein 0.95 mg/dL (0.0-0.3) H 04/17/20 07:15 Total Protein 8.8 g/dL (6.4-8.2) H 04/12/20 02:18 Albumin 3.8 g/dL (3.4-5.0) 04/12/20 02:18 Lipase 100 U/L (73-393) 04/12/20 02:18 Procalcitonin 2.6 ng/mL 04/16/20 06:03 Urine Color Yellow (Yellow) 04/12/20 07:40 Urine Clarity Sl cloudy (Clear) 04/12/20 07:40 Urine pH 7.5 (5-8) 04/12/20 07:40 Ur Specific [place] 1.015 (1.005-1.025) 04/12/20 07:40 Urine Protein Negative mg/dL (Negative) 04/12/20 07:40 Urine Ketones Negative mg/dL (Negative) 04/12/20 07:40 Urine Blood Small (Negative) H 04/12/20 07:40 Urine Nitrite Positive (Negative) H 04/12/20 07:40 Urine Bilirubin Negative (Negative) 04/12/20 07:40 Urine Urobilinogen 0.2 EU/dL (Up TO 0.2) 04/12/20 07:40 Ur Leukocyte Esterase Negative (Negative) 04/12/20 07:40 Urine RBC 0-2 HPF (0-2) 04/12/20 07:40 Urine WBC 3-5 HPF (0-5) 04/12/20 07:40 Ur Epithelial Cells Few HPF (Negative) 04/12/20 07:40 Urine Crystals Negative HPF (Negative) 04/12/20 07:40 Urine Bacteria Many HPF (Negative) 04/12/20 07:40 Urine Casts Negative LPF (Negative) 04/12/20 07:40 Urine Mucus Negative (Negative) 04/12/20 07:40 Ur Culture Indicated? Yes 04/12/20 07:40 Urine Glucose Negative mg/dL (Negative) 04/12/20 07:40 Ethyl Alcohol < 3.0 mg/dL (<3) 04/12/20 02:18 COVID-19 PCR Negative (Negative) 04/12/20 03:07 Nasopharyn COVID-19 PCR Not Applicable 04/12/20 03:07 [facility] 03:07 US abdomen: 1. 9 millimeter cyst with peripheral calcification in the head of the pancreas. A follow-up ultrasound could be considered in 6 months. 2. Mild dilatation of the common bile duct. Mild hepatic steatosis. 3. No ultrasound evidence of nephrolithiasis.
[2020-04-17] MEDS: cefTRIAXone 1 GM/50 ML BAG IVPB (16:13)
[2020-04-17] MEDS: LORazepam 1 MG TAB PO/SL (19:46)
[2020-04-17] MEDS: Mirtazapine 15 MG TAB PO (21:12)
[2020-04-17] MEDS: Melatonin 3 MG TAB PO (21:12)
[2020-04-18] VITALS (20 sets, daily range): BP systolic 106–139; BP diastolic 69–92; PULSE 67–96; RESP 16–33; TEMP 36–36.9; O2SAT 98
[2020-04-18] MEDS: Normal Saline 1,000 ML 100 ML IV (03:32)
[2020-04-18] MEDS: LORazepam 1 MG TAB PO/SL ×3 (05:40→16:11)
[2020-04-18] MEDS: Normal Saline Flush 10 ML SYR IVP ×3 (06:46→15:38)
[2020-04-18 07:14] LABS: Abs Immature Grans 0.02 k/cumm (0.0-0.09); Absolute Basophil Count 0.02 k/cumm (0.0-0.2); Absolute Eosinophil Count 0.19 k/cumm (0.0-0.7); Absolute Lymphocyte Count 1.63 k/cumm (1.2-3.4); Absolute Neutrophil Count 5.71 k/cumm (1.2-6.7); Basophils % 0.2; Eosinophils % 2.1; HCT 40.2 % (36.0-46.0); HGB 12.8 g/dL (12.0-15.5); Immature Grans % 0.2 %; Lymphocytes % 18.2; Mean Corp. HGB Concentration 31.8 g/dL (32.0-36.0); Mean Corpuscular Hemoglobin 32.1 pg (27.0-33.0); Mean Corpuscular Volume 100.8 fL (80-95); Mean Platelet Volume 11.7 fL (8.0-11.0); Monocytes % 15.6; Neutrophils % 63.7; Platelet Count 189 x1000/uL (130-400); RBC 3.99 m/cumm (4.00-5.20); RBC Distribution Width 12.8 % (11.7-14.6); White Blood Cell Count 8.97 k/cumm (4.4-10.8)
[2020-04-18 07:31] LABS: Anion Gap 7.1 mmol/L (3-11); BUN 6 mg/dL (7-18); CO2 28.9 mmol/L (21.0-32.0); Calcium 9.1 mg/dL (8.5-10.1); Chloride 107 mmol/L (98-107); Glucose 101 mg/dL (74-106); Potassium 3.7 mmol/L (3.5-5.1); Sodium 143 mmol/L (136-145)
[2020-04-18] MEDS: Budesonide/Formoterol 160/4.5 6 GM 60 PUFF INH IH ×2 (08:24→21:12)
[2020-04-18] MEDS: Gabapentin 400 MG CAP PO ×3 (08:31→21:15)
[2020-04-18] MEDS: chlordiazePOXIDE 25 MG CAP 50 MG PO ×2 (08:31→21:14)
[2020-04-18] MEDS: Cholecalciferol (Vitamin D3) 1,000 UNIT TAB 2000 UNITS PO (08:31)
[2020-04-18] MEDS: Pantoprazole 40 MG TABCR PO (08:31)
[2020-04-18] MEDS: Magnesium Oxide 400 MG TAB PO ×2 (08:31→21:14)
[2020-04-18] MEDS: Folic Acid 1 MG TAB PO (08:32)
[2020-04-18] MEDS: Multivitamin TAB 1 TAB PO (08:32)
[2020-04-18] MEDS: Thiamine 100 MG TAB PO (08:32)
[2020-04-18] MEDS: Atenolol 25 MG TAB PO (08:32)
[2020-04-18] MEDS: Ibuprofen 400 MG TAB PO ×2 (08:33→15:37)
[2020-04-18] MEDS: Normal Saline Flush 10 ML SYR 20 ML IVP ×2 (08:40→21:15)
[2020-04-18] MEDS: Cyanocobalamin 500 MCG TAB 1000 MCG PO (08:42)
--- NOTE | 2020-04-18 11:59 | W.PM.PROGNOT ---
Date of Service Date of service: 04/18/20 Time of Service: 11:59 Assessment and Plan Assessment and plan (1) Alcohol withdrawal delirium: Status: Acute Assessment and plan: Better. Off ativan gtt, not requiring prn IV/PO ativan overnight. Will trial weaning librium further. Continue to monitor on CIWA PO/SL, but d/c IV ativan and transfer to [facility] floor. No more seizures since hospital day 1. (2) Alcohol withdrawal seizure: Status: Acute Assessment and plan: As above Qualifiers: Complication of substance-induced condition: with delirium Qualified Code(s): F10.231 - Alcohol dependence with withdrawal delirium (3) Sepsis: Status: Acute Assessment and plan: Due to E. coli UTI, POA. Sensitive to ceftriaxone (day 05/28) - recheck procalcitonin - may be able to d/c. No longer meeting sepsis criteria. No urinary retention so far. Blood cultures NGTD. No nephrolithiasis seen on US. (4) UTI (urinary tract infection): Status: Acute Assessment and plan: As above (5) Hypokalemia: Status: Resolved Assessment and plan: Resolved - recheck in am (6) Hypomagnesemia: Status: Resolved Assessment and plan: Resolved - recheck in am (7) Thrombocytopenia: Status: Chronic Assessment and plan: Chronic, stable, in setting of alcohol abuse. Fatty infiltration of the liver seen on US, and spleen appears normal. Likely due to EtOH. (8) Fracture of right great toe: Status: Acute Assessment and plan: Circumstances of this are mysterious. No surgical intervention indicated, per podiatry - Continue boot. 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 Chemical DVT ppx contraindicated due to thrombocytopenia (11) Discharge planning issues: Status: Acute Assessment and plan: Full code. Transfer out of ICU to [facility] with tele. Subjective Subjective Interval history since last seen: Ms Snyder did not require any additional ativan last night and is scoring 7 on CIWA. Denies dizziness, chest pain, shortness of breath, nausea, vomiting. States she is interested in talking to a track coach. States she would be compliant with librium taper at home and would not drink on it. Exam Narrative Exam Narrative: General: middle-aged female, Awake, A&Ox3, sitting at the edge of the bed, looks much better, more alert and interactive, not tremulous HEENT: EOMI, MMM Heart: RRR, no m/r/g Lungs: diminished breath sounds B Abdomen: soft, nontender, nondistended Extremities: no edema BLE's, wearing TEDs and a surgical boot on R foot Objective Objective Clinical Data: Abnormal lab results 04/18/20 04/18/20 Range/Units 06:52 06:52 RBC 3.99 L (4.00-5.20) m/cumm MCV 100.8 H (80-95) fL MCHC 31.8 L (32.0-36.0) g/dL MPV 11.7 H (8.0-11.0) fL Absolute Monocytes 1.40 H (0.11-0.7) k/cumm BUN 6 L (7-18) mg/dL Vital Signs Temperature 36.9 C 04/18/20 05:03 Temperature Source Temporal Artery Scan 04/18/20 05:03 Pulse 96 H 04/18/20 10:01 Pulse 84 04/18/20 09:00 Respiratory Rate 18 04/18/20 09:00 Respiratory Effort Non-Labored 04/18/20 05:03 Respiratory Depth Normal 04/18/20 05:03 Respiratory Pattern Normal 04/18/20 05:03 Blood Pressure 116/69 04/18/20 10:01 Blood Pressure Mean 82 04/18/20 10:01 Blood Pressure Position Supine 04/18/20 05:03 Pulse Oximetry 98 04/18/20 05:03 Oxygen Delivery Method Room Air 04/18/20 05:03 Oxygen Flow Rate 0 04/18/20 05:03 Pain Level 3 04/18/20 08:33 Comment 04/17/20 10:49 Intake & Output 04/17/20 04/17/20 04/18/20 11:59 23:59 11:59 Intake Total 2105 / 3321.667 1216.667 / 3321.667 1343.333 / 1343.333 Output Total 1550 / 2740 1190 / 2740 Balance 555 / 581.667 26.667 / 661.873 2918.333 / 1343.333 Intake: IV 1984 2641.667 656.667 / 2641.667 1343.333 / 1343.333 Oral 120 / 680 560 / 680 Output: Urine 1550 / 2740 1190 / 2740 Other: Urine Color Yellow Yellow Urine Appearance Clear Clear Urine Odor Normal Normal Comment Voided overnight in large portion. Voiding Methods Bedside Commode Bedside Commode Laboratory Results WBC 8.97 k/cumm (4.4-10.8) 04/18/20 06:52 RBC 3.99 m/cumm (4.00-5.20) L 04/18/20 06:52 Hgb 12.8 g/dL (12.0-15.5) 04/18/20 06:52 Hct 40.2 % (36.0-46.0) 04/18/20 06:52 MCV 100.8 fL (80-95) H 04/18/20 06:52 MCH 32.1 pg (27.0-33.0) 04/18/20 06:52 MCHC 31.8 g/dL (32.0-36.0) L 04/18/20 06:52 RDW 12.8 % (11.7-14.6) 04/18/20 06:52 Plt Count 189 x1000/uL (130-400) 04/18/20 06:52 MPV 11.7 fL (8.0-11.0) H 04/18/20 06:52 Immature Gran % 0.2 % 04/18/20 06:52 Neutrophils % 63.7 04/18/20 06:52 Lymphocytes % 18.2 04/18/20 06:52 Monocytes % 15.6 04/18/20 06:52 Eosinophils % 2.1 04/18/20 06:52 Basophils % 0.2 04/18/20 06:52 Absolute Neutrophils 5.71 k/cumm (1.2-6.7) 04/18/20 06:52 Absolute Lymphocytes 1.63 k/cumm (1.2-3.4) 04/18/20 06:52 Absolute Monocytes 1.40 k/cumm (0.11-0.7) H 04/18/20 06:52 Absolute Eosinophils 0.19 k/cumm (0.0-0.7) 04/18/20 06:52 Absolute Basophils 0.02 k/cumm (0.0-0.2) 04/18/20 06:52 Differential Comment Plt morph reviewed 04/14/20 05:30 RBC Morphology Normal 04/13/20 08:30 Sodium 143 mmol/L (136-145) 04/18/20 06:52 Potassium 3.7 mmol/L (3.5-5.1) 04/18/20 06:52 Chloride 107 mmol/L (98-107) 04/18/20 06:52 Carbon Dioxide 28.9 mmol/L (21.0-32.0) 04/18/20 06:52 Anion Gap 7.1 mmol/L (3-11) 04/18/20 06:52 BUN 6 mg/dL (7-18) L 04/18/20 06:52 Creatinine 0.60 mg/dL (0.55-1.02) 04/18/20 06:52 Estimated GFR/1.73 m2 >= 60.00 (mL/min/1.73m2) 04/18/20 06:52 Glucose 101 mg/dL (74-106) 04/18/20 06:52 Lactate 1.0 mmol/L (0.6-1.4) 04/12/20 08:14 Calcium 9.1 mg/dL (8.5-10.1) 04/18/20 06:52 Phosphorus 3.0 mg/dL (2.6-4.7) 04/13/20 06:45 Magnesium 2.0 mg/dL (1.8-2.4) 04/18/20 06:52 Total Bilirubin 1.2 mg/dL (0.2-1.0) H 04/12/20 02:18 AST 67 U/L (15-37) H 04/12/20 02:18 ALT 44 U/L (14-59) 04/12/20 02:18 Alkaline Phosphatase 117 U/L (46-116) H 04/12/20 02:18 C-Reactive Protein 0.95 mg/dL (0.0-0.3) H 04/17/20 07:15 Total Protein 8.8 g/dL (6.4-8.2) H 04/12/20 02:18 Albumin 3.8 g/dL (3.4-5.0) 04/12/20 02:18 Lipase 100 U/L (73-393) 04/12/20 02:18 Procalcitonin 2.6 ng/mL 04/16/20 06:03 Urine Color Yellow (Yellow) 04/12/20 07:40 Urine Clarity Sl cloudy (Clear) 04/12/20 07:40 Urine pH 7.5 (5-8) 04/12/20 07:40 Ur Specific [place] 1.015 (1.005-1.025) 04/12/20 07:40 Urine Protein Negative mg/dL (Negative) 04/12/20 07:40 Urine Ketones Negative mg/dL (Negative) 04/12/20 07:40 Urine Blood Small (Negative) H 04/12/20 07:40 Urine Nitrite Positive (Negative) H 04/12/20 07:40 Urine Bilirubin Negative (Negative) 04/12/20 07:40 Urine Urobilinogen 0.2 EU/dL (Up TO 0.2) 04/12/20 07:40 Ur Leukocyte Esterase Negative (Negative) 04/12/20 07:40 Urine RBC 0-2 HPF (0-2) 04/12/20 07:40 Urine WBC 3-5 HPF (0-5) 04/12/20 07:40 Ur Epithelial Cells Few HPF (Negative) 04/12/20 07:40 Urine Crystals Negative HPF (Negative) 04/12/20 07:40 Urine Bacteria Many HPF (Negative) 04/12/20 07:40 Urine Casts Negative LPF (Negative) 04/12/20 07:40 Urine Mucus Negative (Negative) 04/12/20 07:40 Ur Culture Indicated? Yes 04/12/20 07:40 Urine Glucose Negative mg/dL (Negative) 04/12/20 07:40 Ethyl Alcohol < 3.0 mg/dL (<3) 04/12/20 02:18 COVID-19 PCR Negative (Negative) 04/12/20 03:07 Nasopharyn COVID-19 PCR Not Applicable 04/12/20 03:07 Ref Test Perform Site [facility] lab 04/12/20 03:07
[2020-04-18 13:59] LABS: Procalcitonin 0.6 ng/mL
--- NOTE | 2020-04-18 14:14 | W.NUTRFU ---
Date of service: 04/18/20 Time of Service: 14:14 Nutritional Follow up NOTE: Met with Sharri today. She reports current weight typical for her and has had no recent weight loss. Medical record confirms this. PO Intake > 50% of meals, taking ensure daily. Currently meeting 100% nutrient/fluid needs at this time. Labs reviewed. Will continue to follow. Time Spent in Nutritional Counseling and Treatment: 10 min spent face to face
[2020-04-18] MEDS: cefTRIAXone 1 GM/50 ML BAG IVPB (15:37)
--- NOTE | 2020-04-18 16:59 | PDOC.CMPRO ---
- If Service Date Differs Date of service: 04/18/20 Time of Service: 16:59 Care Management Progress Note S/O: Sharri was sitting up in bed when CM met with her. She was pleasant and much more interactive today. Sharri states she is feeling pretty good. Her medications are being tapered down and she is less groggy. Sharri talked as bit about her drinking and stated that she really does want to stop. She shared that she has an appointment with a substance abuse counselor next week and that he is very good. She has worked with him in the past and is looking forward to working with him again.She is also expecting a call from the Director Of Cardiology Service Line this afternoon. Sharri status has been downgraded and she will transfer to Med-Surg when bed available. A: Sharri is a 49 year old women with a long history of alcohol dependency, admitted for alcohol withdrawal related delirium. P: Sharri will be discharged home when medically ready. She declines the need for any additional services at time of discharge, however has agreed to speak with a Director Of Cardiology Service Line. She also has an appointment scheduled with a substance abuse counselor next week.CM will continue to provide support throughout hospitalization. Spouse will transport home at time of discharge.
[2020-04-18] MEDS: Mirtazapine 15 MG TAB PO (21:16)
[2020-04-18] MEDS: Melatonin 3 MG TAB PO (21:16)
[2020-04-19] VITALS (18 sets, daily range): BP systolic 91–137; BP diastolic 62–94; PULSE 65–97; RESP 13–37; TEMP 36.3–36.7; O2SAT 96–99
[2020-04-19] MEDS: LORazepam 1 MG TAB PO/SL (00:04)
[2020-04-19] MEDS: oxyCODONE 5 MG TAB 10 MG PO ×2 (02:58→09:25)
[2020-04-19] MEDS: LORazepam 1 MG TAB PO (02:58)
[2020-04-19 07:25] LABS: Abs Immature Grans 0.02 k/cumm (0.0-0.09); Absolute Basophil Count 0.03 k/cumm (0.0-0.2); Absolute Eosinophil Count 0.18 k/cumm (0.0-0.7); Absolute Monocyte Count 1.26 k/cumm (0.11-0.7); Absolute Neutrophil Count 4.08 k/cumm (1.2-6.7); Basophils % 0.4; Eosinophils % 2.5; HCT 40.4 % (36.0-46.0); HGB 13.1 g/dL (12.0-15.5); Immature Grans % 0.3 %; Lymphocytes % 22.3; Mean Corp. HGB Concentration 32.4 g/dL (32.0-36.0); Mean Corpuscular Hemoglobin 32.7 pg (27.0-33.0); Mean Corpuscular Volume 100.7 fL (80-95); Mean Platelet Volume 11.5 fL (8.0-11.0); Monocytes % 17.6; Neutrophils % 56.9; Platelet Count 228 x1000/uL (130-400); RBC 4.01 m/cumm (4.00-5.20); RBC Distribution Width 12.5 % (11.7-14.6); White Blood Cell Count 7.17 k/cumm (4.4-10.8)
[2020-04-19] MEDS: Budesonide/Formoterol 160/4.5 6 GM 60 PUFF INH IH ×2 (07:48→20:31)
[2020-04-19 08:03] LABS: Anion Gap 3.7 mmol/L (3-11); BUN 7 mg/dL (7-18); CO2 30.3 mmol/L (21.0-32.0); CREATININE 0.68 mg/dL (0.55-1.02); Chloride 108 mmol/L (98-107); Folate 17.7 ng/mL (8.6-20.0); Glucose 95 mg/dL (74-106); Magnesium 2.1 mg/dL (1.8-2.4); Potassium 4.2 mmol/L (3.5-5.1); Sodium 142 mmol/L (136-145); Vitamin B12 945 pg/mL (193-986)
--- NOTE | 2020-04-19 08:34 | PDOC.CMPRO ---
- If Service Date Differs Date of service: 04/19/20 Time of Service: 08:34 Care Management Progress Note S/O: Sharri was sitting up in bed when CM met with her. She was pleasant and cooperative and stated that she is feeling ok. Sharri was concerned that she might have an appointment with her neurologist at [facility] today but when CM assisted her with tracking the appointment, learned that it had been for last Wednesday04/12/20. She shared that she gets botox injections monthly for a neck injury. Sharri also stated that she has not yet heard from the Celluloid Trimmer so CM made a second referral. A: Sharri is a 49 year old women with a long history of alcohol dependency, admitted for alcohol withdrawal related delirium. P: Sharri will be discharged home when medically ready. She declines the need for any additional services at time of discharge, however has agreed to speak with a Celluloid Trimmer. She also has an appointment scheduled with a substance abuse counselor next week.CM will continue to provide support throughout hospitalization. Spouse will transport home at time of discharge.
[2020-04-19] MEDS: Ibuprofen 400 MG TAB PO (09:08)
[2020-04-19] MEDS: Atenolol 25 MG TAB PO (09:08)
[2020-04-19] MEDS: Cholecalciferol (Vitamin D3) 1,000 UNIT TAB 2000 UNITS PO (09:09)
[2020-04-19] MEDS: Pantoprazole 40 MG TABCR PO (09:09)
[2020-04-19] MEDS: Magnesium Oxide 400 MG TAB PO ×2 (09:09→22:02)
[2020-04-19] MEDS: chlordiazePOXIDE 25 MG CAP 50 MG PO (09:09)
[2020-04-19] MEDS: Cyanocobalamin 500 MCG TAB 1000 MCG PO (09:09)
[2020-04-19] MEDS: Gabapentin 400 MG CAP PO ×3 (09:09→20:34)
[2020-04-19] MEDS: Normal Saline Flush 10 ML SYR 20 ML IVP ×2 (09:10→20:35)
[2020-04-19] MEDS: Cefpodoxime 200 MG TAB 400 MG PO ×2 (09:52→20:34)
--- NOTE | 2020-04-19 11:12 | PGE_ITS ---
Date of Service Date of service: 04/19/20 Time of Service: 11:12 Assessment and Plan Assessment and plan (1) Alcohol withdrawal delirium: Status: Acute Assessment and plan: Improving. Continue to taper librium. Gabapentin can be switched to home dose on discharge. Continue to monitor on CIWA PO/SL. Suspect the patient will be able to be discharged home over the weekend. No more seizures since hospital day 1. (2) Alcohol withdrawal seizure: Status: Acute Assessment and plan: As above Qualifiers: Complication of substance-induced condition: with delirium Qualified Code(s): F10.231 - Alcohol dependence with withdrawal delirium (3) Sepsis: Status: Acute Assessment and plan: Due to E. coli UTI, POA. No longer meeting sepsis criteria. S/p 7 days of ceftriaxone, but procalcitonin is still slightly elevated. Switch to PO cefpoxodime to complete a 2 week course of abx. No urinary retention. Blood cultures NGTD. No nephrolithiasis seen on US. (4) UTI (urinary tract infection): Status: Acute Assessment and plan: As above (5) Hypokalemia: Status: Resolved Assessment and plan: Resolved - recheck in am (6) Hypomagnesemia: Status: Resolved Assessment and plan: Resolved - recheck in am (7) Thrombocytopenia: Status: Chronic Assessment and plan: Chronic, stable, in setting of alcohol abuse. Fatty infiltration of the liver seen on US, and spleen appears normal. Likely due to EtOH. (8) Fracture of right great toe: Status: Acute Assessment and plan: Circumstances of this are mysterious. No surgical intervention indicated, per podiatry - Continue boot. 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 Chemical DVT ppx contraindicated due to thrombocytopenia (11) Discharge planning issues: Status: Acute Assessment and plan: Full code. PT consulted. Anticipate discharge home over the weekend. Subjective Subjective Interval history since last seen: Ms Snyder states she feels a little dizzy sitting in bed. Has been asking to see PT because she feels a little unsteady on her feet. States she has numbness and burning in her feet from neuropathy. Denies chest pain, shortness of breath, nausea. Exam Narrative Exam Narrative: General: middle-aged female, Awake, A&Ox3, sitting comfortably in bed HEENT: EOMI, MMM Heart: RRR, no m/r/g Lungs: diminished breath sounds B Abdomen: soft, nontender, nondistended Extremities: no edema BLE's, wearing TEDs and a surgical boot on R foot Objective Objective Clinical Data: Abnormal lab results 04/19/20 04/19/20 Range/Units 06:08 06:08 MCV 100.7 H (80-95) fL MPV 11.5 H (8.0-11.0) fL Absolute Monocytes 1.26 H (0.11-0.7) k/cumm Chloride 108 H (98-107) mmol/L Vital Signs Temperature 36.3 C L 04/19/20 09:15 Temperature Source Temporal Artery Scan 04/19/20 09:15 Pulse 97 H 04/19/20 09:01 Pulse Rhythm Regular 04/19/20 09:15 Pulse 75 04/19/20 09:01 Respiratory Rate 18 04/19/20 09:15 Respiratory Effort Non-Labored 04/19/20 09:15 Respiratory Depth Normal 04/19/20 09:15 Respiratory Pattern Normal 04/19/20 09:15 Blood Pressure 120/87 04/19/20 09:01 Blood Pressure Mean 95 04/19/20 09:01 Blood Pressure Position Supine 04/18/20 23:23 Pulse Oximetry 99 04/19/20 09:15 Oxygen Delivery Method Room Air 04/19/20 09:15 Oxygen Flow Rate 0 04/19/20 09:15 Pain Level 3 04/19/20 09:08 Comment 04/17/20 10:49 Intake & Output 04/18/20 04/18/20 04/19/20 11:59 23:59 11:59 Intake Total 2080.000 / 2490.000 410 / 2490.000 100 / 100 Output Total 1250 / 1250 450 / 450 Balance 2080.000 / 1240.000 -840 / 1240.000 -350 / -350 Intake: IV 1840.000 / 1890.000 50 / 1890.000 Oral 240 / 600 360 / 600 100 / 100 Output: Urine 1250 / 1250 450 / 450 Other: Urine Color Yellow Yellow Urine Appearance Clear Clear Urine Odor None Strong Comment mixed with stool Stool Size Small Stool Characteristics Soft Voiding Methods Bedside Commode Bedside Commode Laboratory Results WBC 7.17 k/cumm (4.4-10.8) 04/19/20 06:08 RBC 4.01 m/cumm (4.00-5.20) 04/19/20 06:08 Hgb 13.1 g/dL (12.0-15.5) 04/19/20 06:08 Hct 40.4 % (36.0-46.0) 04/19/20 06:08 MCV 100.7 fL (80-95) H 04/19/20 06:08 MCH 32.7 pg (27.0-33.0) 04/19/20 06:08 MCHC 32.4 g/dL (32.0-36.0) 04/19/20 06:08 RDW 12.5 % (11.7-14.6) 04/19/20 06:08 Plt Count 228 x1000/uL (130-400) 04/19/20 06:08 MPV 11.5 fL (8.0-11.0) H 04/19/20 06:08 Immature Gran % 0.3 % 04/19/20 06:08 Neutrophils % 56.9 04/19/20 06:08 Lymphocytes % 22.3 04/19/20 06:08 Monocytes % 17.6 04/19/20 06:08 Eosinophils % 2.5 04/19/20 06:08 Basophils % 0.4 04/19/20 06:08 Absolute Neutrophils 4.08 k/cumm (1.2-6.7) 04/19/20 06:08 Absolute Lymphocytes 1.60 k/cumm (1.2-3.4) 04/19/20 06:08 Absolute Monocytes 1.26 k/cumm (0.11-0.7) H 04/19/20 06:08 Absolute Eosinophils 0.18 k/cumm (0.0-0.7) 04/19/20 06:08 Absolute Basophils 0.03 k/cumm (0.0-0.2) 04/19/20 06:08 Differential Comment Plt morph reviewed 04/14/20 05:30 RBC Morphology Normal 04/13/20 08:30 Sodium 142 mmol/L (136-145) 04/19/20 06:08 Potassium 4.2 mmol/L (3.5-5.1) 04/19/20 06:08 Chloride 108 mmol/L (98-107) H 04/19/20 06:08 Carbon Dioxide 30.3 mmol/L (21.0-32.0) 04/19/20 06:08 Anion Gap 3.7 mmol/L (3-11) 04/19/20 06:08 BUN 7 mg/dL (7-18) 04/19/20 06:08 Creatinine 0.68 mg/dL (0.55-1.02) 04/19/20 06:08 Estimated GFR/1.73 m2 >= 60.00 (mL/min/1.73m2) 04/19/20 06:08 Glucose 95 mg/dL (74-106) 04/19/20 06:08 Lactate 1.0 mmol/L (0.6-1.4) 04/12/20 08:14 Calcium 9.0 mg/dL (8.5-10.1) 04/19/20 06:08 Phosphorus 3.0 mg/dL (2.6-4.7) 04/13/20 06:45 Magnesium 2.1 mg/dL (1.8-2.4) 04/19/20 06:08 Total Bilirubin 1.2 mg/dL (0.2-1.0) H 04/12/20 02:18 AST 67 U/L (15-37) H 04/12/20 02:18 ALT 44 U/L (14-59) 04/12/20 02:18 Alkaline Phosphatase 117 U/L (46-116) H 04/12/20 02:18 C-Reactive Protein 0.95 mg/dL (0.0-0.3) H 04/17/20 07:15 Total Protein 8.8 g/dL (6.4-8.2) H 04/12/20 02:18 Albumin 3.8 g/dL (3.4-5.0) 04/12/20 02:18 Lipase 100 U/L (73-393) 04/12/20 02:18 Vitamin B12 945 pg/mL (193-986) 04/19/20 06:08 Folate 17.7 ng/mL (8.6-20.0) 04/19/20 06:08 Procalcitonin 0.6 ng/mL 04/18/20 13:17 Urine Color Yellow (Yellow) 04/12/20 07:40 Urine Clarity Sl cloudy (Clear) 04/12/20 07:40 Urine pH 7.5 (5-8) 04/12/20 07:40 Ur Specific [place] 1.015 (1.005-1.025) 04/12/20 07:40 Urine Protein Negative mg/dL (Negative) 04/12/20 07:40 Urine Ketones Negative mg/dL (Negative) 04/12/20 07:40 Urine Blood Small (Negative) H 04/12/20 07:40 Urine Nitrite Positive (Negative) H 04/12/20 07:40 Urine Bilirubin Negative (Negative) 04/12/20 07:40 Urine Urobilinogen 0.2 EU/dL (Up TO 0.2) 04/12/20 07:40 Ur Leukocyte Esterase Negative (Negative) 04/12/20 07:40 Urine RBC 0-2 HPF (0-2) 04/12/20 07:40 Urine WBC 3-5 HPF (0-5) 04/12/20 07:40 Ur Epithelial Cells Few HPF (Negative) 04/12/20 07:40 Urine Crystals Negative HPF (Negative) 04/12/20 07:40 Urine Bacteria Many HPF (Negative) 04/12/20 07:40 Urine Casts Negative LPF (Negative) 04/12/20 07:40 Urine Mucus Negative (Negative) 04/12/20 07:40 Ur Culture Indicated? Yes 04/12/20 07:40 Urine Glucose Negative mg/dL (Negative) 04/12/20 07:40 Ethyl Alcohol < 3.0 mg/dL (<3) 04/12/20 02:18 COVID-19 PCR Negative (Negative) 04/12/20 03:07 Nasopharyn COVID-19 PCR Not Applicable 04/12/20 03:07 Ref Test Perform Site [facility] lab 04/12/20 03:07
--- NOTE | 2020-04-19 13:25 | IN_ITS ---
Date of service: 04/19/20 Time of Service: 13:25 PT Notes Visit Reasons: ALCOHOL WITHDRAWAL DELIRIUM;ALCOHOL WITHDRAWAL SZ Physical Therapy Inpatient Initial Evaluation Date: 04/19/2020 Referring Doctor: Jacinda Noe MD PT Orders: PT CONSULT: Limited ability Precautions: Fall. Standard. Seizure-prone. Activity as tolerated. Postop shoe on R foot when OOB. Patient Profile/Admitting Diagnosis: Sharri is a 49-year-old female who presented to the ED on 04/12/2020 with due to 3 previous seizures, tremulousness, and mild confusion. Patient is diagnosed to have alcohol withdrawal delirium, alcohol withdrawal with seizure, sepsis, urinary tract infection, and fracture of right great toe. Patient tested negative for COVID-19 as of 04/12/2020. Referral to physical therapy services was sent in today for recommendations for discharge planning scheduled tentatively to be over this weekend. PMHX: Medical History Alcohol abuse (Chronic 11/06/14) a. 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 They have another flight of steps to the second floor of the house with one rail. Patient states that she is independent with all mobility ADL performance without the need for an assistive ambulatory device nor an adaptive equipment although she emphasized that she used a front wheeled walker when she broke her left hip. She states that her is her main support. She indicates that she has had 5 falls in the past year including the recent 3 falls that she has had leading to this current hospital admission. 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 Equipment Owned/DME: Front wheeled walker Subjective: Sharri voices that she is tired and that she did not sleep well the previous night. She states that she likes to eat Zest crackers and wanted 6 more packets. She hopes to go back home as soon as she is safe to do so. She goes on to say that she has peripheral neuropathy on both her extremities which limit her ability to feel both feet and legs. Objective: General Observation: Telemetry monitoring in place. Asthenic. Postop shoe on the right foot, regular slipper on the left to balance leg height out. Increased tremors seen especially with movement. Mental Status: Patient is able to follow simple step commands and responds dhiraj ropriately to questions 90% of the time. Instructions needed to be repeated twice or 3 times so she could execute commands. Short-term memory loss from chronic alcoholism observed. Pain: None reported on right foot even with weight bearing ROM: Right Upper Extremity: Shoulder Flexion WFL. Shoulder abduction WFL. Elbow flexion WFL. Wrist flexion WFL. Opening and closing of hand WFL. Left Upper Extremity: Shoulder Flexion WFL. Shoulder abduction WFL. Elbow flexion WFL. Wrist flexion WFL. Opening and closing of hand WFL. Right Lower Extremity: Hip flexion WFL. Hip abduction WFL. Knee flexion WFL. Ankle dorsiflexion WFL. Ankle plantarflexion WFL. Left Lower Extremity: Hip flexion WFL. Hip abduction WFL. Knee flexion WFL. Ankle dorsiflexion WFL. Ankle plantarflexion WFL. Strength: Right Upper Extremity: Shoulder flexors 4/5. Shoulder abductors 4/5. Elbow flexors 4/5. Elbow extensors 4/5. Box Strapper strong. Left Upper Extremity:Shoulder flexors 4/5. Shoulder abductors 4/5. Elbow flexors 4/5. Elbow extensors 4/5. Box Strapper strong. Right Lower Extremity: Hip flexors 4-/5. Hip abductors 4-/5. Knee flexors 4-/5. Knee extensors 4-/5. Ankle dorsiflexors 4/5. Ankle plantarflexors 4/5. Left Lower Extremity: Hip flexors 4-/5. Hip abductors 4-/5. Knee flexors 4-/5. Knee extensors 4-/5. Ankle dorsiflexors 4/5. Ankle plantarflexors 4/5. Sensation: Intact as to pain and pressure on bilateral lower extremities. Bed Mobility/Transfers: Rolling contact-guard assist Supine to sit contact-guard assist with HOB at 30 degrees, verbal cueing needed for hand placement Sit to supine contact-guard assist with HOB at 30 degrees, verbal cueing needed for hand placement Sit to stand contact-guard assist with HOB at 30 degrees, verbal cueing needed for hand placement, requires use of front wheeled walker Stand to sit contact-guard assist with HOB at 30 degrees, verbal cueing needed for hand placement Bed to chair contact-guard assist with HOB at 30 degrees, verbal cueing needed for hand placement, requires use of front wheeled walker Chair to bed contact-guard assist with HOB at 30 degrees, verbal cueing needed for hand placement, requires use of front wheeled walker Gait: Patient tolerated short distance ambulation of 50 feet using front wheeled walker with full weight bearing needing contact-guard assist. Steps are unsteady. Step length decrease. Cues provided to manage front wheeled walker at Wednesday at a good distance from it. Patient reported being mildly dizzy. Balance: Static Sitting: Normal Dynamic Sitting: Good Static Standing: Fair Dynamic Standing: Poor Special Tests: Mobility Limitations Standardized Measure [facility]-P[facility] 6 clicks Basic Mobility Inpatient Short Form: Raw Score: 18 CMS Score: 47% deficit 4 stage balance test: Patient only was able to maintain feet together for 10 seconds but appeared significantly unsteady with semi-tandem and full-tandem positions. One- legged stance not attempted. Patient appears to be at high risk for falls at this time and may benefit from the use of a front wheeled walker for discharge to home Informed Consent/Education: Patient instructed in purpose of PT consult and plan of care. Assessment: Patient demonstrates need for front wheeled walker for all mobility ADL performance, at risk for falls, impairment in balance, and generalized weakness resulting from admitting diagnoses. Sharri is a 49-year-old female who presented to the ED on 04/12/2020 with due to 3 previous seizures, tremulousness, and mild confusion. Patient is diagnosed to have alcohol withdrawal delirium, alcohol withdrawal with seizure, sepsis, urinary tract infection, and fracture of right great toe. Patient tested negative for COVID- 19 as of 04/12/2020. Referral to physical therapy services was sent in today for recommendations for discharge planning scheduled tentatively to be over this weekend. Patient presents with clinical signs and symptoms consistent with current/admitting diagnoses that have resulted to mobility limitations, gait instability, generalized weakness, and impairment of motor control as demonstrated by the following impairment level findings: 1. Decreased strength to B LE major muscle groups 2. Impaired standing balance 3. Impaired activity tolerance 4. Fracture of great toe on the right Impairments are contributing to the following functional limitations: 1. Dependent bed mobility skills 2. Increased dependence with transfers 3. Inability to safely ambulate without assistive device and physical assistance 4. Increase completion time for mobility ADL performance 5. Increased fall risk 6. Inability to negotiate steps alone safely Patient is assessed as a 95052 moderate complexity based on the following: History: 49-year-old female with impairment level findings, functional limitations, and past medical history as listed above Examination: Demonstrable impairment in strength, balance, and mobility level with underlying impairments and functional limitations as documented above Presentation: Evolving Decision Makin moderate complexity Goals: Goals X3 days 1. Supine-Sit supervision 2. Sit-Supine supervision 3. Sit-Stand supervision 4. Stand-Sit supervision 5. Bed-Chair supervision 6. Chair-Bed supervision 7. Supervision gait on level surface with use of least restrictive device for at least 300 feet without report of pain nor dyspnea 8. Supervision stair negotiation while holding onto bilateral rails for at least 10 steps without report of pain nor dyspnea 9. Supervision with home exercise program 10. Good static and dynamic standing balance/tolerance Plan of Care/Treatment Plan: 1-2x/day, 7 days/week x 1 week. Plan of care has been reviewed with the GYMNASTICS COACH OR INSTRUCTOR providing the service under Physical Therapy direction. Initiate Physical Therapy intervention for strengthening, bed mobility, transfers, gait, stairs, balance training, use of assistive device. DISCHARGE RECOMMENDATIONS: Will need front wheeled walker to reduce fall risk at home. Patient will benefit from home health PT services in order to progress mobility level using least restrictive assistive ambulatory device, assess home safety, identify additional equipment needs, and establish a functional maintenance program that will increase ability of patient to remain at home. TREATMENT CODE/TIME: 31323 x 25 minutes, 21920 x 16 minutes beginning at 13:25 PM. Thank you very much for this referral. Abimbola Ball PT, DPT, CLT [facility] [place], [place]
[2020-04-19] MEDS: Heparin 5,000 UNITS/ML VIAL 5000 UNITS SC (14:57)
[2020-04-19] MEDS: chlordiazePOXIDE 25 MG CAP PO ×2 (14:58→20:34)
[2020-04-19] MEDS: Mirtazapine 15 MG TAB PO (22:02)
[2020-04-19] MEDS: Melatonin 3 MG TAB PO (22:02)
[2020-04-20] MEDS: Heparin 5,000 UNITS/ML VIAL 5000 UNITS SC ×2 (01:24→14:05)
[2020-04-20] MEDS: oxyCODONE 5 MG TAB 10 MG PO (02:44)
[2020-04-20 03:15] VITALS: BP 105/72; PULSE 84; RESP 17; TEMP 37.4; O2SAT 96
[2020-04-20 07:45] VITALS: BP 93/63; PULSE 96; RESP 18; TEMP 37; O2SAT 94
[2020-04-20] MEDS: Budesonide/Formoterol 160/4.5 6 GM 60 PUFF INH IH ×2 (07:56→20:05)
[2020-04-20 08:42] LABS: Anion Gap 7.5 mmol/L (3-11); BUN 8 mg/dL (7-18); CO2 27.5 mmol/L (21.0-32.0); CREATININE 0.59 mg/dL (0.55-1.02); Calcium 8.8 mg/dL (8.5-10.1); Chloride 107 mmol/L (98-107); Glucose 101 mg/dL (74-106); Magnesium 1.8 mg/dL (1.8-2.4); Potassium 3.5 mmol/L (3.5-5.1); Sodium 142 mmol/L (136-145)
[2020-04-20] MEDS: Cyanocobalamin 500 MCG TAB 1000 MCG PO (09:04)
[2020-04-20] MEDS: Atenolol 25 MG TAB PO (09:04)
[2020-04-20] MEDS: Cefpodoxime 200 MG TAB 400 MG PO ×2 (09:04→20:05)
[2020-04-20] MEDS: Pantoprazole 40 MG TABCR PO (09:04)
[2020-04-20] MEDS: Ibuprofen 400 MG TAB PO (09:05)
[2020-04-20] MEDS: Cholecalciferol (Vitamin D3) 1,000 UNIT TAB 2000 UNITS PO (09:05)
[2020-04-20] MEDS: Gabapentin 400 MG CAP PO ×3 (09:05→20:05)
[2020-04-20] MEDS: chlordiazePOXIDE 25 MG CAP PO ×2 (09:05→20:05)
[2020-04-20] MEDS: Normal Saline Flush 10 ML SYR 20 ML IVP ×2 (09:06→20:05)
--- NOTE | 2020-04-20 11:12 | PT.INTREAT ---
Date of service: 04/20/20 Time of Service: 10:40 PT Notes Visit Reasons: ALCOHOL WITHDRAWAL DELIRIUM;ALCOHOL WITHDRAWAL SZ Precautions: Fall. Standard. Seizure-prone. Activity as tolerated. Postop shoe on R foot when OOB. Subjective: Anxious to go home. I live with my who lives near alone all day. There is a 4-year-old running around. I doubt anyone is doing any of the housework while I am gone. I usually ambulate without a walker. Objective: Treatment time: 30 minutes, beginning at 10:40 AM Transfers: Contact-guard assist from sit to stand, and stand to sit Charge: 9753 0?1, 9711 0?1 Gait: Ambulates 200 feet with contact-guard assist, FWW. Ambulates 20 feet with contact-guard no FWW. She has a wheelchair follow throughout. Therapeutic procedures: See flow sheet, patient requiring contact-guard skill instruction throughout for proper performance of exercise. Exercises include standing hip abduction x20, standing static balance with eyes closed, standing static balance with perturbation, and standing alternate arm flexion for balance challenge. Assessment: Patient appears much more steady than she did yesterday, however she continues to require use of walker to maintain her stability with dynamic gait. She required a contact-guard throughout, particularly with change of direction. I do not feel that she is safe to ambulate or function independently, and is dependent on walker. She has not returned to her premorbid level of function. It does not sound like she has good family support, so return home may not be appropriate at this time. Plan: Continue 1-2 times per day, for gait training, therapeutic procedures, neuro rehab, and therapeutic activities. Documented with [employer] voice recognition software.
[2020-04-20 11:16] VITALS: BP 109/80; PULSE 83; RESP 18; TEMP 36.5; O2SAT 92
[2020-04-20] MEDS: Magnesium Oxide 400 MG TAB PO ×2 (12:16→20:05)
[2020-04-20] MEDS: Nicotine 14 MG/24 HR PATCH TD (14:05)
[2020-04-20] MEDS: LORazepam 1 MG TAB PO (14:05)
--- NOTE | 2020-04-20 14:27 | W.PM.PROGNOT ---
Date of Service Date of service: 04/20/20 Time of Service: 14:28 Assessment and Plan Assessment and plan (1) Alcohol withdrawal seizure: Status: Acute Assessment and plan: No seizures observed. Acute alcohol withdrawal appears to be resolved. She is having no hallucinations. We will taper her off her Librium. IV benzodiazepines have been discontinued. She still has a PRN dose of Ativan orally if needed for severe agitation. Plan will be to discharge her home tomorrow.. Qualifiers: Complication of substance-induced condition: with delirium Qualified Code(s): F10.231 - Alcohol dependence with withdrawal delirium (2) Alcohol withdrawal delirium: Status: Acute Assessment and plan: As above (3) Hypokalemia: Status: Resolved Assessment and plan: Resolved (4) Hypomagnesemia: Status: Resolved Assessment and plan: Resolved (5) UTI (urinary tract infection): Status: Acute Assessment and plan: E. coli UTI currently being treated with Cefpodoxime 4 mg p.o. twice daily. Currently on day 2 of a 5-day course. Qualifiers: Urinary tract infection type: acute cystitis (6) Discharge planning issues: Status: Acute Assessment and plan: Discharge home in the morning. Subjective Subjective Interval history since last seen: Patient continues to improve. She is no longer requiring IV Ativan. She is currently on Librium 25 mg p.o. 3 times daily. Again decrease her dose to twice a day. Unfortunately that nursing is still scoring according to CIWA protocol as high as a 6 secondary to agitation and complains of peripheral paresthesias. According to the patient she has chronic paresthesias in her feet due to neuropathy. Earlier this morning she was scoring as low as a 3 on her see was protocol. Highest level in the last 24 hours was a 9. At this point I think we can discontinue doing CIWA scoring she is now 8 days out from acute admission for alcohol withdrawal. We will watch her overnight and plan for discharge in the morning. Subjectively the patient complains of generalized weakness however she does ambulate with use of a walker and her nurse indicated that she would walk her couple more times this afternoon. Exam Narrative Exam Narrative: Middle-age female who is alert and oriented person place time and circumstance. She was able to state the correct month as well as year as well as the name of the hospital and she got the day of the month correct. Lungs are clear to auscultation Heart regular rate and rhythm Neurologic exam is grossly intact no focal motor deficits sensation is intact to light touch. She has no overt tremors and does not appear to be acutely agitated. Objective Objective Clinical Data: Vital Signs Temperature 36.5 C 04/20/20 11:16 Temperature Source Tympanic 04/20/20 11:16 Pulse 83 04/20/20 11:16 Pulse Rhythm Regular 04/19/20 23:50 Pulse 84 04/19/20 11:01 Respiratory Rate 18 04/20/20 11:16 Respiratory Effort 04/19/20 23:50 Respiratory Depth Normal 04/19/20 23:50 Respiratory Pattern Normal 04/19/20 23:50 Blood Pressure 109/80 04/20/20 11:16 Blood Pressure Mean 81 04/19/20 12:01 Blood Pressure Position Supine 04/18/20 23:23 Pulse Oximetry 92 L 04/20/20 11:16 Oxygen Delivery Method Room Air 04/20/20 11:16 Oxygen Flow Rate 0 04/20/20 11:16 Pain Level 3 04/20/20 03:15 Comment 04/17/20 10:49 Intake & Output 04/19/20 04/20/20 04/20/20 23:59 11:59 23:59 Intake Total 240 / 540 680 / 940 260 / 940 Output Total 1200 / 1650 Balance -960 / -1110 680 / 940 260 / 940 Intake: IV Oral 240 / 540 680 / 920 240 / 920 Output: Urine 1200 / 1650 Other: Urine Color Yellow Yellow Urine Appearance Clear Clear Urine Odor Normal Comment small amount Voiding Methods Toilet Toilet Laboratory Results WBC 7.17 k/cumm (4.4-10.8) 04/19/20 06:08 RBC 4.01 m/cumm (4.00-5.20) 04/19/20 06:08 Hgb 13.1 g/dL (12.0-15.5) 04/19/20 06:08 Hct 40.4 % (36.0-46.0) 04/19/20 06:08 MCV 100.7 fL (80-95) H 04/19/20 06:08 MCH 32.7 pg (27.0-33.0) 04/19/20 06:08 MCHC 32.4 g/dL (32.0-36.0) 04/19/20 06:08 RDW 12.5 % (11.7-14.6) 04/19/20 06:08 Plt Count 228 x1000/uL (130-400) 04/19/20 06:08 MPV 11.5 fL (8.0-11.0) H 04/19/20 06:08 Immature Gran % 0.3 % 04/19/20 06:08 Neutrophils % 56.9 04/19/20 06:08 Lymphocytes % 22.3 04/19/20 06:08 Monocytes % 17.6 04/19/20 06:08 Eosinophils % 2.5 04/19/20 06:08 Basophils % 0.4 04/19/20 06:08 Absolute Neutrophils 4.08 k/cumm (1.2-6.7) 04/19/20 06:08 Absolute Lymphocytes 1.60 k/cumm (1.2-3.4) 04/19/20 06:08 Absolute Monocytes 1.26 k/cumm (0.11-0.7) H 04/19/20 06:08 Absolute Eosinophils 0.18 k/cumm (0.0-0.7) 04/19/20 06:08 Absolute Basophils 0.03 k/cumm (0.0-0.2) 04/19/20 06:08 Differential Comment Plt morph reviewed 04/14/20 05:30 RBC Morphology Normal 04/13/20 08:30 Sodium 142 mmol/L (136-145) 04/20/20 07:42 Potassium 3.5 mmol/L (3.5-5.1) 04/20/20 07:42 Chloride 107 mmol/L (98-107) 04/20/20 07:42 Carbon Dioxide 27.5 mmol/L (21.0-32.0) 04/20/20 07:42 Anion Gap 7.5 mmol/L (3-11) 04/20/20 07:42 BUN 8 mg/dL (7-18) 04/20/20 07:42 Creatinine 0.59 mg/dL (0.55-1.02) 04/20/20 07:42 Estimated GFR/1.73 m2 >= 60.00 (mL/min/1.73m2) 04/20/20 07:42 Glucose 101 mg/dL (74-106) 04/20/20 07:42 Lactate 1.0 mmol/L (0.6-1.4) 04/12/20 08:14 Calcium 8.8 mg/dL (8.5-10.1) 04/20/20 07:42 Phosphorus 3.0 mg/dL (2.6-4.7) 04/13/20 06:45 Magnesium 1.8 mg/dL (1.8-2.4) 04/20/20 07:42 Total Bilirubin 1.2 mg/dL (0.2-1.0) H 04/12/20 02:18 AST 67 U/L (15-37) H 04/12/20 02:18 ALT 44 U/L (14-59) 04/12/20 02:18 Alkaline Phosphatase 117 U/L (46-116) H 04/12/20 02:18 C-Reactive Protein 0.95 mg/dL (0.0-0.3) H 04/17/20 07:15 Total Protein 8.8 g/dL (6.4-8.2) H 04/12/20 02:18 Albumin 3.8 g/dL (3.4-5.0) 04/12/20 02:18 Lipase 100 U/L (73-393) 04/12/20 02:18 Vitamin B12 945 pg/mL (193-986) 04/19/20 06:08 Folate 17.7 ng/mL (8.6-20.0) 04/19/20 06:08 Procalcitonin 0.6 ng/mL 04/18/20 13:17 Urine Color Yellow (Yellow) 04/12/20 07:40 Urine Clarity Sl cloudy (Clear) 04/12/20 07:40 Urine pH 7.5 (5-8) 04/12/20 07:40 Ur Specific [place] 1.015 (1.005-1.025) 04/12/20 07:40 Urine Protein Negative mg/dL (Negative) 04/12/20 07:40 Urine Ketones Negative mg/dL (Negative) 04/12/20 07:40 Urine Blood Small (Negative) H 04/12/20 07:40 Urine Nitrite Positive (Negative) H 04/12/20 07:40 Urine Bilirubin Negative (Negative) 04/12/20 07:40 Urine Urobilinogen 0.2 EU/dL (Up TO 0.2) 04/12/20 07:40 Ur Leukocyte Esterase Negative (Negative) 04/12/20 07:40 Urine RBC 0-2 HPF (0-2) 04/12/20 07:40 Urine WBC 3-5 HPF (0-5) 04/12/20 07:40 Ur Epithelial Cells Few HPF (Negative) 04/12/20 07:40 Urine Crystals Negative HPF (Negative) 04/12/20 07:40 Urine Bacteria Many HPF (Negative) 04/12/20 07:40 Urine Casts Negative LPF (Negative) 04/12/20 07:40 Urine Mucus Negative (Negative) 04/12/20 07:40 Ur Culture Indicated? Yes 04/12/20 07:40 Urine Glucose Negative mg/dL (Negative) 04/12/20 07:40 Ethyl Alcohol < 3.0 mg/dL (<3) 04/12/20 02:18 COVID-19 PCR Negative (Negative) 04/12/20 03:07 Nasopharyn COVID-19 PCR Not Applicable 04/12/20 03:07 Ref Test Perform Site [place] [facility] lab 04/12/20 03:07
[2020-04-20 15:19] VITALS: BP 133/91; PULSE 80; RESP 17; TEMP 36.9; O2SAT 95
[2020-04-20 16:29] VITALS: BP 133/91; PULSE 80; RESP 17; TEMP 36.9; O2SAT 95
--- NOTE | 2020-04-20 17:45 | PDOC.CMPRO ---
Care Management Progress Note S/O: Sharri continues to be closely monitored. Per MD, lithium dosages are being titrated, and Sharri is making gains toward discharge. CM continues to follow. A: Sharri is a 49 year old women with a long history of alcohol dependency, admitted for alcohol withdrawal related delirium. P: Sharri will be discharged home when medically ready. She declines the need for any additional services at time of discharge, however has agreed to speak with a Product Marketing Engineer. She also has an appointment scheduled with a substance use counselor next week. CM will continue to provide support throughout hospitalization. Spouse will transport home at time of discharge.
[2020-04-20] MEDS: Mirtazapine 15 MG TAB PO (20:04)
[2020-04-20] MEDS: Sertraline 25 MG TAB PO (21:32)
[2020-04-20] MEDS: Melatonin 3 MG TAB 9 MG PO (21:32)
[2020-04-20 23:50] VITALS: BP 106/71; PULSE 92; RESP 17; TEMP 36.9; O2SAT 96
[2020-04-21] MEDS: Heparin 5,000 UNITS/ML VIAL 5000 UNITS SC (02:09)
[2020-04-21 07:15] VITALS: BP 113/80; PULSE 78; RESP 17; TEMP 37.3; O2SAT 97
[2020-04-21] MEDS: Budesonide/Formoterol 160/4.5 6 GM 60 PUFF INH IH (08:01)
[2020-04-21] MEDS: Cefpodoxime 200 MG TAB 400 MG PO (08:18)
[2020-04-21] MEDS: Atenolol 25 MG TAB PO (08:18)
[2020-04-21] MEDS: chlordiazePOXIDE 25 MG CAP PO (08:19)
[2020-04-21] MEDS: Cyanocobalamin 500 MCG TAB 1000 MCG PO (08:19)
[2020-04-21] MEDS: Gabapentin 400 MG CAP PO (08:19)
[2020-04-21] MEDS: Ibuprofen 400 MG TAB PO (08:19)
[2020-04-21] MEDS: Pantoprazole 40 MG TABCR PO (08:19)
[2020-04-21] MEDS: Cholecalciferol (Vitamin D3) 1,000 UNIT TAB 2000 UNITS PO (08:20)
[2020-04-21] MEDS: Nicotine 14 MG/24 HR PATCH TD (08:20)
[2020-04-21] MEDS: Normal Saline Flush 10 ML SYR 20 ML IVP (08:20)
--- NOTE | 2020-04-21 09:44 | CMDISCH_ITS ---
LACE Index Scoring Tool - Questions: Length of Stay (in days): 7 - 13 Acuity (Admit via E.D.?): Yes Comorbidities: Chronic Pulmonary Disease E.D. Visits: 5 - Answers: Total Score: 14 Risk of Readmission: High Risk Care Management Discharge Reason for Hospitalization: Alcohol withdrawal seizure Discharge Plan: Sharri will be discharged home when medically ready. She declines the need for any additional services at time of discharge, however has agreed to speak with a Associate Technician, Leann. She also has an appointment scheduled with a substance use counselor, Carlos Manuel Leary next week. CM provided FWW at MD request. Sharri will transport home via private vehicle with her . Patient/Family Education Needs: Review discharge instructions, discuss [employer] Me [employer]. Reviewed community based supports, substance use counseling, online health and fitness coach. Services Needed at Discharge: DME Agency
[2020-04-21] MEDS: Magnesium Oxide 400 MG TAB PO (10:46)
[2020-04-21] MEDS: Bacitracin 1 PACKET (10:47)
--- NOTE | 2020-04-21 10:47 | W.PM.DS.N ---
Date of service: 04/21/20 Time of Service: 10:47 DS: Diagnosis Discharge Diagnosis (1) Alcohol withdrawal seizure: Status: Resolved Asessment and Plan: gabapentin dose was increased to 400 mg tid. patient needs to refrain from further alcohol use in order to avoid seizures. No further seizure occurred during this hospitalization. (2) Alcohol withdrawal delirium: Status: Resolved Asessment and Plan: her acute delirium resolved after aggressive treatment w/ both iv and po benzodiazepines including an Ativan drip to control her acute withdrawal. She did not require intubation during the time she was in the ICU on the lorazepam drip. (3) Sepsis: Status: Resolved Asessment and Plan: see plan under UTI (4) UTI (urinary tract infection): Status: Resolved Asessment and Plan: because she presented w/ sepsis, she was treated w/ Rocephin 1 gm iv daily for 7 days and then switched to Cefpodoxime 400 mg bid and will continue this for another 3 days post discharge. This will complete 11 days of therapy. Repeat UA is recommended upon completion of her antibiotics. (5) Hypokalemia: Status: Resolved Asessment and Plan: she required both iv and oral potassium supplementation. Her electrolytes have been corrected and remain within normal levels. (6) Hypomagnesemia: Status: Resolved Asessment and Plan: corrected w/ both iv and oral supplementation. (7) Fracture of right great toe: Status: Acute Asessment and Plan: patient to wear firm shoe or post op shoe for supportive care and use walker to offload the weight on her right great toe. Follow up with Dr. Lema as needed. (8) Discharge planning issues: Status: Resolved Asessment and Plan: patient is dc home. No home health care needs were identified. She should make and keep a follow up with her alcohol recovery counselor. She was dc home w/ a walker to help maintain her balance. Discharge Plan Disposition Patient Disposition: HOME Condition: Good Discharge Details Chief Complaint: Seizure Clinical Impression: Alcohol withdrawal delirium, Alcohol withdrawal seizure Reason For Visit: ALCOHOL WITHDRAWAL DELIRIUM;ALCOHOL WITHDRAWAL SZ Admit Date/Time: 04/12/20 03:04 Admit Provider: Armando Trinh Attending Provider: Armando Trinh Primary Care Provider: Ramon Dye ED Provider: Ashok Strong [facility] Hospital Course Hospital Course: 49-year-old female with history of chronic alcohol abuse and previous alcohol withdrawal seizures, essential hypertension, COPD present emergency department after having had her third seizure at home. reports he been having increased confusion and hallucinations. Patient was treated at home by her for the seizures w/ diazepam and she was also given ativan in the ER. She was admitted to ICU for treatment of acute alcohol withdrawal seizures. Initial workup included CT of her head which showed no acute intracranial process but mild atrophy and CXR that showed no acute pulmonary findings. Labs included CBC (unremarkable except for thrombocytopenia of 77,000). CMP remarkable for low sodium 130, potassium 3.5 which dropped to 2.8, mildly elevated transaminase AST 67 and alkaline phosphataes 117 and normal lipase. Magnesium was low at 1.5. Lactated was normal at 1. MARISSA <3.0 and UA +nitrites, many bacteria. Urine culture eventually grew E. coli. Procalcitonin was high at 18 suggestive of sepsis although the patient never became hypotensive. patient was intially treated w/ Rocephin and then changed to Cefpodoxime. Her procalcitonin levels declined progressively to 0.6 and her CRP which was 1.38 declined to 0.95. B12 and folate levels were checked and were normal. Initially the patient was fairly sedated during the first 24hr d/t her benzodiazepines and her post ictal state and sepsis. She was treated w/ iv fluids, Rocephin and put on CIWA monitoring w/ symptom triggered dosing of benzodiazepines however, on her 3rd hospital day she became more agitated and required ativan drip in place of her symptom triggered prn dosing of her lorazepam and she was placed on scheduled dosing of librium. Her hypokalemia and hypomagnesemia were corrected w/ oral and iv replacements. From the admission she was placed on parenteral vitamin replacement w/ folic acid, MVS and thiamine which was switched to oral supplements once she became alert enough to take oral meds. A contusion noted on her right great toe prompted an xray of her right foot and demonstrated intra-articular fracture of the distal aspect of her proximal phalanx of her right great toe. Dr. Lema was consulted who felt that treatment w/ post op shoe for comfort was adequate and no surgical intervention was needed. The patient's home dose of gabapentin 300 mg tid was increased to 400 mg tid. No further seziures occurred during her hospitalization. The lorazepam drip was weaned on 04/16 and her librium dose was started to wean on 04/17. She was transferred out of ICU to med/surg on 04/18. P.T. was consulted to evaluate and treat the patient for gait instability and generalized weakness. Her Rocephin was changed to Cefpodoxime 400 mg bid on 04/19. She continued to do well with her Librium taper and she continued to work w/ nursing and P.T. On the day of discharge she was ambulating w/ use of walker w/ only SBA and had no loss of balance. Referral for inpatient alcohol recovery was suggested to her but she declines to go to any inpatient treatment program. She prefers to follow up w/ her substance abuse counselor, Carlos Manuel Leary in [place], [place]. Home Meds and New Rx's Prescriptions: New cefpodoxime 200 mg Tablet 400 mg PO BID 3 Days Qty: 6 RF: 0 magnesium oxide 400 mg (241.3 mg magnesium) Tablet 400 mg PO BID@1000,2200 Qty: 60 RF: 0 sertraline 25 mg Tablet 25 mg PO HS 30 Days Qty: 30 RF: 0 thiamine HCl (vitamin B1) 100 mg tablet 100 mg PO DAILY Qty: 30 RF: 0 gabapentin [Neurontin] 400 mg Capsule 400 mg PO TID Qty: 90 RF: 0 Continued cyanocobalamin (vitamin B-12) [Vitamin B-12] 1,000 MCG tablet 1,000 mcg PO DAILY Qty: 1 RF: 0 oxycodone 10 MG tablet 10 mg PO 8H PRN PRNRF: 0 atenolol 25 MG tablet 25 mg PO DAILY RF: 0 guaifenesin [Mucinex] 600 mg tablet extended release 12hr 600 mg PO Q12H PRNQty: 10 RF: 0 thiamine HCl (vitamin B1) 100 mg tablet 100 mg PO DAILY Qty: 60 RF: 0 multivitamin [Multiple Vitamins] 1 TAB tablet 1 tab PO DAILY Qty: 30 RF: 3 magnesium 250 mg Tablet 250 mg PO DAILY RF: 0 mirtazapine 15 mg Tablet 15 mg PO QHS RF: 0 cholecalciferol (vitamin D3) [Vitamin D3] 25 mcg (1,000 unit) Capsule 50 mcg PO DAILY RF: 0 budesonide-formoterol [Symbicort] 160-4.5 mcg/actuation Hfa Aerosol Inhaler 2 puff INHALATION BID RF: 0 Discontinued gabapentin 300 mg Capsule 300 mg TID RF: 0 Discharge Instructions Instructions: Alcohol Withdrawal (DC), Alcohol Dependence (DC) Additional Instructions: follow up with your alcohol/addiction counselor, Carlos Manuel Leary, next week. [address] [place] [id number]; Stand Alone Forms: Nursing Discharge Form Referrals: Ramon Dye NP [Primary Care Provider] - (call the office tomorrow for follow up appointment) Naveed Lema DPM [[facility] STAFF PHYSICIAN] - (call Dr. Lema's office for follow up as needed regarding the fracture to your right great toe) Activity:: Activity as Tolerated Equipment/Supplies:: Walker Diet:: Normal Diet Discharge Orders Discharge Orders: Discharge Order (Routine); Ordered 04/21/20 Ordered By: Jeyson Ivy DS: Summary Status at Discharge Functional status at discharge: uses cane/walker Overall status at discharge: patient is progressing back to baseline Mental Status: mental status grossly normal Speech and Movement: speech and movement normal Mood: congruent mood Affect: normal affect Time Spent with Patient providing and/or coordinating discharge services: Greater than 30 minutes Exam Narrative Exam Narrative: Patient is seen this morning sitting up in a chair completing her breakfast. I provided standby assistance while she ambulated with the use of a front wheeled walker around the nursing station over to the ICU and back to the medical/surgical nursing station. She returned to her room under her own power with no loss of balance. She had no tremulousness with eating her breakfast or using her walker. From a mental and cognitive standpoint she seems to be back to her baseline. Lungs are clear to auscultation. Heart is regular rate and rhythm. Abdomen soft and nontender Extremities without peripheral cyanosis or edema Psych Mental Status: mental status grossly normal Speech and Movement: speech and movement normal Mood: congruent mood Affect: normal affect DS: Data Vitals/I&O Vitals and I&O: Vital Signs Temperature 37.3 C 04/21/20 07:15 Temperature Source Tympanic 04/21/20 07:15 Pulse 78 04/21/20 07:15 Pulse Rhythm Regular 04/21/20 09:55 Pulse 84 04/19/20 11:01 Respiratory Rate 17 04/21/20 07:15 Respiratory Effort Non-Labored 04/21/20 09:55 Respiratory Depth Normal 04/21/20 09:55 Respiratory Pattern Normal 04/21/20 09:55 Blood Pressure 113/80 04/21/20 07:15 Blood Pressure Mean 81 04/19/20 12:01 Blood Pressure Position Supine 04/18/20 23:23 Pulse Oximetry 97 04/21/20 07:15 Oxygen Delivery Method Room Air 04/21/20 07:15 Oxygen Flow Rate 0 04/21/20 07:15 Pain Level 5 04/21/20 08:19 Comment 04/17/20 10:49 Intake & Output 04/20/20 04/20/20 04/21/20 11:59 23:59 11:59 Intake Total 680 / 1340 660 / 1340 790 / 790 Balance 680 / 1340 660 / 1340 790 / 790 Weight 51.2 kg Intake: IV 40 / 40 Oral 680 / 1320 640 / 1320 750 / 750 Other: Urine Color Yellow Yellow Yellow Urine Appearance Clear Clear Clear Urine Odor Normal Normal Comment Unmeasured. Stool Size Moderate Stool Characteristics Soft Formed Brown Voiding Methods Toilet Toilet Toilet [facility] Medical History Alcohol abuse (Chronic 11/06/14) a. 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 Decreased intake from usual on 04/11/20. Strong hx of ETOH withdrawal seizures. Do you feel safe at home: Yes Do you feel safe in your relationship?: Yes
--- NOTE | 2020-04-22 08:27 | INDS_ITS ---
Date of service: 04/22/20 PT Notes Visit Reasons: ALCOHOL WITHDRAWAL DELIRIUM;ALCOHOL WITHDRAWAL SZ Inpatient Physical Therapy Discharge Summary Dates: 04/22/2020 Dates of Service: 04/19/2020 and 04/20/2020 This is a clinical summary of care provided on the duration of dates listed above. No charge was made in the completion of this documentation. Referring Doctor: Jacinda Noe MD PT Orders: PT CONSULT: Limited ability Precautions: Fall. Standard. Seizure-prone. Activity as tolerated. Postop shoe on R foot when OOB. Patient Profile/Admitting Diagnosis: Sharri is a 49-year-old female who presented to the ED on 04/12/2020 with due to 3 previous seizures, tremulousness, and mild confusion. Patient is diagnosed to have alcohol withdrawal delirium, alcohol withdrawal with seizure, sepsis, urinary tract infection, and fracture of right great toe. Patient tested negative for COVID-19 as of 04/12/2020. Referral to physical therapy services was sent in today for recommendations for discharge planning scheduled tentatively to be over this weekend. PMHX: Medical History Alcohol abuse (Chronic 11/06/14) a. 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 They have another flight of steps to the second floor of the house with one rail. Patient states that she is independent with all mobility ADL performance without the need for an assistive ambulatory device nor an adaptive equipment although she emphasized that she used a front wheeled walker when she broke her left hip. She states that her is her main support. She indicates that she has had 5 falls in the past year including the recent 3 falls that she has had leading to this current hospital admission. 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 Equipment Owned/DME: Front wheeled walker Subjective:NT Objective: General Observation: NT Mental Status: NT Pain: NT ROM: Right Upper Extremity: Shoulder Flexion WFL. Shoulder abduction WFL. Elbow flexion WFL. Wrist flexion WFL. Opening and closing of hand WFL. Left Upper Extremity: Shoulder Flexion WFL. Shoulder abduction WFL. Elbow flexion WFL. Wrist flexion WFL. Opening and closing of hand WFL. Right Lower Extremity: Hip flexion WFL. Hip abduction WFL. Knee flexion WFL. Ankle dorsiflexion WFL. Ankle plantarflexion WFL. Left Lower Extremity: Hip flexion WFL. Hip abduction WFL. Knee flexion WFL. Ankle dorsiflexion WFL. Ankle plantarflexion WFL. Strength: Right Upper Extremity: Shoulder flexors 4/5. Shoulder abductors 4/5. Elbow flexors 4/5. Elbow extensors 4/5. Data Communications Engineer strong. Left Upper Extremity:Shoulder flexors 4/5. Shoulder abductors 4/5. Elbow flexors 4/5. Elbow extensors 4/5. Data Communications Engineer strong. Right Lower Extremity: Hip flexors 4-/5. Hip abductors 4-/5. Knee flexors 4-/5. Knee extensors 4-/5. Ankle dorsiflexors 4/5. Ankle plantarflexors 4/5. Left Lower Extremity: Hip flexors 4-/5. Hip abductors 4-/5. Knee flexors 4-/5. Knee extensors 4-/5. Ankle dorsiflexors 4/5. Ankle plantarflexors 4/5. Sensation: Intact as to pain and pressure on bilateral lower extremities. Bed Mobility/Transfers: Rolling contact-guard assist Supine to sit contact-guard assist with HOB at 30 degrees, verbal cueing needed for hand placement Sit to supine contact-guard assist with HOB at 30 degrees, verbal cueing needed for hand placement Sit to stand contact-guard assist with HOB at 30 degrees, verbal cueing needed for hand placement, requires use of front wheeled walker Stand to sit contact-guard assist with HOB at 30 degrees, verbal cueing needed for hand placement Bed to chair contact-guard assist with HOB at 30 degrees, verbal cueing needed for hand placement, requires use of front wheeled walker Chair to bed contact-guard assist with HOB at 30 degrees, verbal cueing needed for hand placement, requires use of front wheeled walker Gait: Patient tolerated short distance ambulation of 200 feet using front wheeled walker and 20 feet with CGA without AD with full weight bearing needing contact-guard assist. Steps are unsteady. Step length decreased. Cues provided to manage front wheeled walker. Balance: Static Sitting: Normal Dynamic Sitting: Good Static Standing: Fair Dynamic Standing: Poor Assessment: Patient demonstrates need for front wheeled walker for all mobility ADL performance, at risk for falls, impairment in balance, and generalized weakness resulting from admitting diagnoses. Sharri is a 49-year-old female who presented to the ED on 04/12/2020 with due to 3 previous seizures, tremulousness, and mild confusion. Patient is diagnosed to have alcohol withdrawal delirium, alcohol withdrawal with seizure, sepsis, urinary tract infection, and fracture of right great toe. Patient tested negative for COVID- 19 as of 04/12/2020. Referral to physical therapy services was sent in today for recommendations for discharge planning scheduled tentatively to be over this weekend. Patient presents with clinical signs and symptoms consistent with current/admitting diagnoses that have resulted to mobility limitations, gait instability, generalized weakness, and impairment of motor control as demonstrated by the following impairment level findings: 1. Decreased strength to B LE major muscle groups 2. Impaired standing balance 3. Impaired activity tolerance 4. Fracture of great toe on the right Impairments are contributing to the following functional limitations: 1. Dependent bed mobility skills 2. Increased dependence with transfers 3. Inability to safely ambulate without assistive device and physical assistance 4. Increase completion time for mobility ADL performance 5. Increased fall risk 6. Inability to negotiate steps alone safely Goals: Goals X3 days 1. Supine-Sit supervision NOT MET 2. Sit-Supine supervision NOT MET 3. Sit-Stand supervision NOT MET 4. Stand-Sit supervision NOT MET 5. Bed-Chair supervision NOT MET 6. Chair-Bed supervision NOT MET 7. Supervision gait on level surface with use of least restrictive device for at least 300 feet without report of pain nor dyspnea NOT MET 8. Supervision stair negotiation while holding onto bilateral rails for at least 10 steps without report of pain nor dyspnea NOT MET 9. Supervision with home exercise program NOT MET 10. Good static and dynamic standing balance/tolerance NOT MET DISCHARGE RECOMMENDATIONS: Will need front wheeled walker to reduce fall risk at home. Patient will benefit from home health PT services in order to progress mobility level using least restrictive assistive ambulatory device, assess home safety, identify additional equipment needs, and establish a functional maintenance program that will increase ability of patient to remain at home. TREATMENT CODE/TIME: NC. Thank you very much for this referral. Abimbola Ball PT, DPT, CLT [facility] [place], [place]
== END 2020-04-21 11:20 | disposition home or self-care (01) | DRG 100 ==
LOC: ER 03:36 → ICU 04:53 → MS 04-19 13:49 → ICU 04-22 10:08 → MS 04-22 10:08
PROVIDERS: Internal Medicine; Admitting Provider Internal Medicine; Emergency Provider Emergency Medicine; PCP Nurse Practitioner Family; Visit Provider Internal Medicine
DX: G40.89 Other seizures (principal); A41.9 Sepsis, unspecified organism; F10.231 Alcohol dependence with withdrawal delirium; F10.239 Alcohol dependence with withdrawal, unspecified; N39.0 Urinary tract infection, site not specified; E87.1 Hypo-osmolality and hyponatremia; Z68.1 Body mass index [BMI] 19.9 or less, adult; Z16.23 Resistance to quinolones and fluoroquinolones; E87.6 Hypokalemia; E83.42 Hypomagnesemia; S92.411A Displaced fracture of proximal phalanx of right great toe, initial encounter for closed fracture; X58.XXXA Exposure to other specified factors, initial encounter; I10 Essential (primary) hypertension; J44.9 Chronic obstructive pulmonary disease, unspecified; B96.20 Unspecified Escherichia coli [E. coli] as the cause of diseases classified elsewhere; F17.210 Nicotine dependence, cigarettes, uncomplicated; G62.9 Polyneuropathy, unspecified; R63.0 Anorexia; D69.6 Thrombocytopenia, unspecified; Z03.818 Encounter for observation for suspected exposure to other biological agents ruled out; R40.0 Somnolence; R19.7 Diarrhea, unspecified
CPT/HCPCS: 36410; 36415; 80048; 80053; 83690; 84145; 85027; 87040; 87077; 93005; 94640; 96361; 96365; 96366; 96375; 97110; 97162; 97530; 99223; 99232; 99239; 99291; 99356; U0003; 70450; 71045; 73630; 76700; 80320; 81003; 81015; 82607; 82746; 83605; 83735; 84100; 85025; 86140; 87086; 87186; 93010; 99233; J0696; J1644; J2060; J3360; J3480; J3490

== ENCOUNTER 2020-09-05 16:53 | Inpatient (IN) | payer MEDICARE, SELFPAY ==
[2020-09-05] VITALS (87 sets, daily range): BP systolic 105–127; BP diastolic 73–89; PULSE 96–113; RESP 13–46; TEMP 36.6–36.8; O2SAT 93–98
--- NOTE | 2020-09-05 17:15 | RT.EKG_ITS ---
APPROVED REPORT Exam: Resting ECG Patient Location: E HR:100 bpm ECG Measurements Heart Rate 100 AXIS MI 183 P 71 QRSd 95 QRS 63 QT 356 T 41 QTc 460 Conclusion Sinus tachycardia...rate> 99 Probable left atrial enlargement...P >50mS, <-0.10mV V1
--- NOTE | 2020-09-05 18:08 | ED.GENADUL_ITS ---
Discharge Plan Disposition Patient Disposition: [facility] INPATIENT Condition: Serious Discharge Details Chief Complaint: ETOHWithdr Clinical Impression: Wernicke's encephalopathy, Acute hypokalemia, Hallucinations, Alcohol withdrawal seizure, Alcohol abuse Admit Date/Time: 09/05/20 19:28 Admit Provider: Montrell Ruiz Attending Provider: Montrell Ruiz Primary Care Provider: Ramon Dye ED Provider: Carlos Murcia Medical Decision Making 49-year-old female with history of chronic alcohol abuse, here with generalized weakness, fatigue, poor appetite and worsening mentation with intermittent hallucinations over the past 2 weeks, also with intermittent generalized tonic- clonic seizures. Patient has wide-based gait and ataxia. Screening ECG was reviewed and interpreted by me: Please see report, sinus tachycardia 100 bpm. Plan for acute electrolyte abnormalities. Labs reviewed and hypokalemia noted. We will give potassium IV 20 mEq as well as orally 40 mEq. Patient has no abdominal pain or tenderness but has had nausea. Her lipase is elevated at 1800. CT of the head was obtained to assess for acute intracranial hemorrhage or abnormality given recent seizure seizures and confusion. CT was interpreted by radiology: No evidence for acute transcortical infarct, acute intracranial hemorrhage, or mass-effect. I suspect patient has Warnicke Korsakoff syndrome. We will give thiamine 100 mg IV. I called and spoke with Dr. Ruiz who will admit the patient to the ICU. HPI General Mode of arrival: ambulatory . Date/Time Provider Initiated Documentation: 09/05/20 17:17 . Limitations to Documentation: no limitations . Information obtained by: patient and family . HPI Narrative: 49-year-old female with history of chronic alcohol abuse and prior alcohol withdrawal seizures presents with altered mental status. History limited secondary to altered mental status. Additional history obtained from patient who notes that over the past 2 weeks she has been feeling generally ill, not eating or drinking as much as usual, has also cut back on her alcohol intake. He notes that she has had multiple generalized seizures over the past week and has had intermittent episodes of hallucinations, sometimes severe. The other night she apparently attempted to jump out of the window as result of hallucination. No modifiers to symptoms. is concerned that she is currently unsafe to be at home and that he can control her behavior and ensure safety. Patient denies pain. Related Data Home Medications Medication Instructions Recorded Confirmed atenolol 25 mg PO DAILY 03/28/13 09/05/20 cyanocobalamin (vitamin B-12) 1,000 mcg PO DAILY #1 04/10/14 09/05/20 [Vitamin B-12] oxycodone 10 mg PO 8H PRN PRN 04/09/16 09/05/20 multivitamin [Multiple Vitamins] 1 tab PO DAILY #30 tab 07/11/17 09/05/20 guaifenesin [Mucinex] 600 mg PO Q12H PRN #10 tab 10/05/18 09/05/20 thiamine HCl (vitamin B1) 100 mg PO DAILY #60 tab 07/22/19 09/05/20 budesonide-formoterol [Symbicort] 2 puff INHALATION BID 04/12/20 09/05/20 cholecalciferol (vitamin D3) 50 mcg PO DAILY 04/12/20 09/05/20 [Vitamin D3] magnesium 250 mg PO DAILY 04/12/20 09/05/20 mirtazapine 15 mg PO QHS 04/12/20 09/05/20 gabapentin [Neurontin] 400 mg PO TID #90 cap 04/21/20 09/05/20 magnesium oxide 400 mg PO BID@1000,2200 #60 tab 04/21/20 09/05/20 thiamine HCl (vitamin B1) 100 mg PO DAILY #30 tab 04/21/20 09/05/20 Previous Rx's Medication Instructions Recorded multivitamin [Multiple Vitamins] 1 tab PO DAILY #30 tab 07/11/17 guaifenesin [Mucinex] 600 mg PO Q12H PRN #10 tab 10/05/18 thiamine HCl (vitamin B1) 100 mg PO DAILY #60 tab 07/22/19 gabapentin [Neurontin] 400 mg PO TID #90 cap 04/21/20 magnesium oxide 400 mg PO BID@1000,2200 #60 tab 04/21/20 thiamine HCl (vitamin B1) 100 mg PO DAILY #30 tab 04/21/20 Allergies Allergy/AdvReac Type Severity Reaction Status Date / Time acetaminophen [From Tylenol] AdvReac Unverified 09/05/20 17:17 General Stated Complaint: ETOHWithdr SHEA: 2 Review of Systems All systems reviewed & are unremarkable except as noted in HPI and below Constitutional Constitutional: Reports daytime sleepiness, Reports fatigue, Denies fever(s), Denies headache(s), Reports lethargy and Reports poor appetite ENT Ears, Nose, Mouth, and Throat: Denies headache(s) Gastrointestinal Gastrointestinal: Denies abdominal pain, Reports nausea and Denies vomiting Musculoskeletal Musculoskeletal: Reports abnormal gait Neurologic Neurologic: Reports as per HPI, Reports abnormal gait, Reports behavioral changes, Reports confusion and Denies headache(s) Psychiatric Psychiatric: Reports behavioral changes and Reports confusion Endocrine Endocrine: Reports fatigue [facility] Medical History (Updated 09/05/20 @ 20:35 by Carlos Murcia MD) Alcohol abuse (11/06/14) a. 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 Decreased intake from usual on 04/11/20. Strong hx of ETOH withdrawal seizures. Do you feel safe at home: Yes Do you feel safe in your relationship?: Yes Exam Const General: cooperative and no acute distress Nutritional Appearance: thin Orientation: alert and awake [facility] Head: normocephalic and atraumatic Mouth: moist mucous membranes Eyes Conjunctivae: normal conjunctivae Sclera: normal sclerae EOM: EOM intact bilaterally Neck Neck: trachea midline and supple Resp Auscultation: clear to auscultation bilaterally, no rales, no rhonchi and no wheezes Cardio Jugular venous pressure: no JVD Rhythm: regular rhythm GI Palpation: soft, not firm, no guarding, no masses, not rigid and nontender Skin General skin exam: no rashes or lesions noted Neuro General: patient alert, patient awake, oriented (Knows it is August but thinks it is 2021 and unclear of day of the week) Patient Orientation: Person, Place and Confused and tone normal Gait: ataxic and wide-based Motor: other (No focal deficits) Sensory Exam: no sensory deficits noted Other: No tremor Extrem General: no edema Psych Appearance: grossly normal Speech and Movement: slurred speech Other: Inappropriate laughing at times Course Vital Signs Vital signs: Vital Signs Temperature 36.6 C 09/05/20 17:05 Pulse 100 H 09/05/20 17:05 Blood Pressure 127/89 09/05/20 17:05 Pulse Oximetry 96 09/05/20 17:05 Temperature 36.6 C 09/05/20 17:05 Temperature Source Skin 09/05/20 17:05 Pulse 100 H 09/05/20 17:05 Respiratory Effort Non-Labored 09/05/20 17:11 Respiratory Pattern Tachypnea 09/05/20 17:42 Blood Pressure 127/89 09/05/20 17:05 Blood Pressure Position Supine 09/05/20 17:05 Pulse Oximetry 96 09/05/20 17:05 Oxygen Delivery Method Room Air 09/05/20 17:05 Oxygen Flow Rate 0 09/05/20 17:05
[2020-09-05 18:32] LABS: Abs Immature Grans 0.02 10^3/uL (0.0-0.06); Absolute Basophil Count 0.02 10^3/uL (0.0-0.2); Absolute Eosinophil Count 0.02 10^3/uL (0.0-0.7); Absolute Lymphocyte Count 2.42 10^3/uL (1.2-3.4); Absolute Monocyte Count 0.66 10^3/uL (0.1-0.8); Basophils % 0.3; Eosinophils % 0.3; HCT 47.5 % (36.0-46.0); HGB 16.5 g/dL (11.2-15.7); Immature Grans % 0.3; Lymphocytes % 31.7; MCH 31.3 pg (27.0-33.0); MCHC 34.7 % (32.0-36.0); MPV 11.2 fL (8.0-11.0); Monocytes % 8.6; Neutrophils % 58.8; Nucleated RBC 0 %; Platelet Count 96 10^3/uL (130-400); RBC 5.28 10^6/uL (3.93-5.22); RDW 13.4 % (11.7-14.6); RDW-SD 44.3 fL; WBC 7.64 10^3/uL (4.4-10.8)
[2020-09-05] MEDS: THIAMINE 100 MG in Normal Saline 100 ML 200 MG IVPB (18:39)
--- NOTE | 2020-09-05 18:40 | DI.CT_ITS ---
EXAM: CT HEAD WO CLINICAL HISTORY: seizure, altered mental status. TECHNIQUE: Imaging Protocol: Axial computed tomography images with coronal and sagittal reformatted images were created and reviewed COMPARISON: CT CT HEAD WO from 04/12/2020 FINDINGS: Ventricles and Extra axial spaces: Normal in size and morphology for the patient's age. Hemorrhage: None. Cerebral parenchyma: Normal. Midline shift: None. Brainstem/Cerebellum: Normal. Calvarium: Normal. Visualized Paranasal sinuses/Mastoids: Clear. Soft Tissues: Unremarkable. IMPRESSION: No acute intracranial process. RADIATION DOSE DELIVERED: 661.28mGy.cm Total DLP DATA REPOSITORY: All CT scans at this facility are submitted to the National Radiology Data Registry (NRDR) Dose Index Registry (DIR) with the [employer] (ACR). RADIATION OPTIMIZATION: All CT scans at this facility use at least one of these dose optimization te chniques: automated exposure control; mA and/or kV adjustment per patient size (includes targeted exa ms where dose is matched to clinical indication); or iterative reconstruction.
[2020-09-05 18:41] LABS: INR 1.1 (0.9-1.1); Prothrombin Time 11.3 sec (9.3-11.0)
--- NOTE | 2020-09-05 18:56 | DI.VRAD_ITS ---
PROCEDURE INFORMATION: Exam: CT Head Without Contrast Exam date and time: 09/05/2020 5:46 PM Age: 49 years old Clinical indication: Altered mental status/memory loss; Other: Hallucinations. TECHNIQUE: Imaging protocol: Computed tomography of the head without contrast. Radiation optimization: All CT scans at this facility use at least one of these dose optimization techniques: automated exposure control; mA and/or kV adjustment per patient size (includes targeted exams where dose is matched to clinical indication); or iterative reconstruction. COMPARISON: CT HEAD WO 04/12/2020 3:16 AM FINDINGS: Brain: No evidence for acute transcortical infarct. No mass effect or midline shift. No extra-axial collection. No acute intracranial hemorrhage. Basal cisterns are patent. Cerebral ventricles: No ventriculomegaly. Bones/joints: Unremarkable. No acute fracture. Paranasal sinuses: Visualized sinuses are unremarkable. No fluid levels. Mastoid air cells: Visualized mastoid air cells are well aerated. Soft tissues: Unremarkable. IMPRESSION: No evidence for acute transcortical infarct, acute intracranial hemorrhage, or mass effect. Dictated and Authenticated by: Vadim Hernandes MD. Ordering:ISAC Gonzalez MD
[2020-09-05 19:00] LABS: ALT 59 U/L (14-59); AST 138 U/L (15-37); Albumin 3.8 g/dL (3.4-5.0); Alkaline Phosphatase 153 U/L (46-116); Anion Gap 13.3 mmol/L (3-11); BUN 3 mg/dL (7-18); Bilirubin, Total 0.8 mg/dL (0.2-1.0); CO2 28.7 mmol/L (21.0-32.0); CREATININE 0.64 mg/dL (0.55-1.02); Calcium 8.4 mg/dL (8.5-10.1); Chloride 97 mmol/L (98-107); Glucose 102 mg/dL (74-106); Magnesium 1.9 mg/dL (1.8-2.4); Sodium 139 mmol/L (136-145); Total Protein 8.4 g/dL (6.4-8.2)
[2020-09-05 19:07] LABS: ETHANOL BLOOD > 300.0 mg/dL (<3); Lipase 1844 U/L (73-393)
[2020-09-05 19:08] LABS: Potassium 2.7 mmol/L (3.5-5.1)
[2020-09-05] MEDS: Potassium Chloride 20 MEQ TABCR 40 MEQ PO (20:05)
[2020-09-05] MEDS: POTASSIUM CHLORIDE 20 MEQ/100 ML BAG 50 MEQ IVPB (20:05)
--- NOTE | 2020-09-05 21:40 | W.PM.HP.N ---
Date of service: 09/05/20 Time of Service: 21:42 Assessment and Plan Assessment and plan (1) Wernicke's encephalopathy: Status: Acute Assessment and plan: Secondary to longstanding, significant alcohol abuse. High dose thiamine: 500mg IV Q8 hours for 6 doses then 500mg IV daily for 3 days. (2) Acute hypokalemia: Status: Acute Assessment and plan: IV and po K+ given in ED D5 .45% saline with 20 meq K+ at 75ml/hr. Recheck level in AM (3) Alcohol withdrawal seizure: Status: Acute Assessment and plan: Several seizures this past week per . She had a loss of appetite and nausea and was drinking less than her normal Etoh; however, her Etoh level on admission was > 300. Gave a dose of 260mg IV Phenobarbitol. PRN phenobarbitol for sign/symptoms of withdrawal. RASS monitoring. Pt is also on Gabapentine that should offer some protectio from a withdrawal seizure. Thiamine, folate and MVI supplementation. (4) Alcohol abuse: Status: Chronic Assessment and plan: She has been admitted as recently as March of this year for alcohol withdrawal. She has a counsellor she reports and states she would like to stop alcohol. (5) Thrombocytopenia: Status: Chronic Assessment and plan: Platelets of 96. Monitor SCD's for VTE prophylaxis rather than heparin/Lovenox. (6) COPD (chronic obstructive pulmonary disease): Status: Chronic Assessment and plan: No acute exacerbation. Cont her home Symbicort Duonebs TID PRN albuterol nebs. (7) Hypertension: Status: Chronic Assessment and plan: Is not on an antihypertensive. Monitor. Qualifiers: Hypertension type: essential hypertension Qualified Code(s): I10 - Essential (primary) hypertension (8) Tobacco dependence syndrome: Status: Chronic Assessment and plan: Offering prn nicoderm patch. History of Present Illness History of Present Illness Chief Complaint: confusion Narrative: This is a 49 yo female with a long history of alcohol abuse with withdrawal seizures, Wernicke's encephalopathy, HTN, COPD, tobacco abuse syndrome. History was obtained by ED staff from . endorsed that for appx 2 weeks the patient has not been feeling well; eating and drinking less and cutting back on her alcohol intake. + hallucinations. She has had several seizures over the last week. While hallucinating, she recently tried to jump out of a windown. She has c/o nausea w/o emesis. No F/C, respiratory distress/SOA/cough with sputum. CT head in the ED was negative for any acute findings. RA saturation of 96%. Normotensive and afebrile. WBC count 7.64, Hgb 16.5, platelets 96, INR 1.1, Bilirubin normal, AST 138, ALT 59, AP 153, Na 139, K+ 2.7, BUN 3, Cr 0.64, Mg 1.9. She was given IV and po K+ in the ED. Admitted to the ICU for alcohol withdrawal precautions, seizure precautions. Review of Systems All systems reviewed & are unremarkable except as noted in HPI and below [facility] Medical History (Updated 09/05/20 @ 22:02 by Montrell Ruiz MD) Alcohol abuse (11/06/14) a. 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 Decreased intake from usual on 04/11/20. Strong hx of ETOH withdrawal seizures. Do you feel safe at home: Yes Do you feel safe in your relationship?: Yes Meds Home Medications and Allergies Home Medications Medication Instructions Recorded Confirmed Type atenolol 25 mg PO DAILY 03/28/13 09/05/20 History cyanocobalamin (vitamin B-12) 1,000 mcg PO DAILY #1 04/10/14 09/05/20 History [Vitamin B-12] oxycodone 10 mg PO 8H PRN PRN 04/09/16 09/05/20 History multivitamin [Multiple Vitamins] 1 tab PO DAILY #30 tab 07/11/17 09/05/20 Rx guaifenesin [Mucinex] 600 mg PO Q12H PRN #10 tab 10/05/18 09/05/20 Rx thiamine HCl (vitamin B1) 100 mg PO DAILY #60 tab 07/22/19 09/05/20 Rx budesonide-formoterol [Symbicort] 2 puff INHALATION BID 04/12/20 09/05/20 History cholecalciferol (vitamin D3) 50 mcg PO DAILY 04/12/20 09/05/20 History [Vitamin D3] magnesium 250 mg PO DAILY 04/12/20 09/05/20 History mirtazapine 15 mg PO QHS 04/12/20 09/05/20 History gabapentin [Neurontin] 400 mg PO TID #90 cap 04/21/20 09/05/20 Rx magnesium oxide 400 mg PO BID@1000,2200 #60 tab 04/21/20 09/05/20 Rx thiamine HCl (vitamin B1) 100 mg PO DAILY #30 tab 04/21/20 09/05/20 Rx Allergies Allergy/AdvReac Type Severity Reaction Status Date / Time acetaminophen [From Tylenol] AdvReac Unverified 09/05/20 17:17 Exam Const General: cooperative and no acute distress Nutritional Appearance: underweight Orientation: alert, awake and oriented to person [facility] Head: normocephalic and atraumatic Eyes Sclera: sclerae normal Pupils: PERRL EOM: EOM intact bilaterally Neck Neck: normal visual inspection and tender (left posterior neck) Resp Effort & Inspection: normal respiratory effort Auscultation: clear to auscultation bilaterally Cardio Jugular venous pressure: no JVD Rate: tachycardic Rhythm: regular rhythm Heart Sounds: S1 normal and S2 normal GI Inspection: normal to inspection Palpation: soft and nontender Auscultation: normal bowel sounds Skin General skin exam: no rashes or lesions noted Neuro General: patient alert and patient awake Cranial Nerves: PERRL and tongue midline Speech: speech normal Motor: muscle tone normal throughout Extrem General: no pedal edema and no calf tenderness Psych Speech and Movement: speech and movement normal Affect: normal affect Attitude: cooperative Thought Process: impoverished Thought Content: no hallucinations, no homicidality and suicidality Insight: poor Results Labs Result diagrams: 09/05/20 18:24 09/05/20 18:24 Labs: Laboratory Results - last 24 hr 09/05/20 09/05/20 09/05/20 18:24 18:24 18:24 WBC 7.64 RBC 5.28 H Hgb 16.5 H Hct 47.5 H MCV 90.0 MCH 31.3 MCHC 34.7 RDW 13.4 Plt Count 96 L MPV 11.2 H Immature Gran % 0.3 Neutrophils % 58.8 Lymphocytes % 31.7 Monocytes % 8.6 Eosinophils % 0.3 Basophils % 0.3 Nucleated RBC % 0 Absolute Neutrophils 4.50 Absolute Lymphocytes 2.42 Absolute Monocytes 0.66 Absolute Eosinophils 0.02 Absolute Basophils 0.02 PT 11.3 H INR 1.1 Sodium 139 Potassium 2.7 L* Chloride 97 L Carbon Dioxide 28.7 Anion Gap 13.3 H BUN 3 L Creatinine 0.64 Estimated GFR/1.73 m2 >= 60.00 Glucose 102 Calcium 8.4 L Magnesium 1.9 Total Bilirubin 0.8 AST 138 H ALT 59 Alkaline Phosphatase 153 H Total Protein 8.4 H Albumin 3.8 Lipase 1844 H Ethyl Alcohol > 300.0 Last Vital Signs Temp 36.8 C 09/05/20 20:47 Pulse 107 H 09/05/20 20:15 Resp 25 H 09/05/20 21:15 BP 114/81 09/05/20 20:15 Pulse Ox 95 09/05/20 21:15 COVID-19 Screening Have you,or household,traveled outside [place] in last 14 days?: No Had IN PERSON contact w/suspected or confirmed C-19 person: No
[2020-09-05] MEDS: fentaNYL 100 MCG/2 ML VIAL IVP (22:21)
[2020-09-05] MEDS: PHENobarbital 130 MG/ML VIAL 260 MG IVP (22:23)
[2020-09-05] MEDS: Mirtazapine 15 MG TAB PO (22:24)
[2020-09-05] MEDS: Magnesium Oxide 400 MG TAB PO (22:24)
[2020-09-05] MEDS: THIAMINE 500 MG in Normal Saline 100 ML 200 MG IVPB (22:25)
[2020-09-05] MEDS: Pantoprazole 40 MG VIAL IVP (22:27)
[2020-09-05] MEDS: POTASSIUM CHLORIDE/D5-0.45NACL 1,000 ML 75 MEQ IV (22:47)
[2020-09-05] MEDS: Normal Saline Flush 10 ML SYR IVP (22:55)
[2020-09-06] VITALS (27 sets, daily range): BP systolic 109–131; BP diastolic 63–104; PULSE 78–107; RESP 5–31; TEMP 36.4–37.8; O2SAT 95–100
[2020-09-06] MEDS: fentaNYL 100 MCG/2 ML VIAL IVP ×2 (02:26→20:16)
[2020-09-06] MEDS: Nicotine 14 MG/24 HR PATCH TD (02:26)
[2020-09-06] MEDS: PHENobarbital 130 MG/ML VIAL IVP (02:26)
[2020-09-06 07:13] LABS: Abs Immature Grans 0.02 10^3/uL (0.0-0.06); Absolute Basophil Count 0.05 10^3/uL (0.0-0.2); Absolute Eosinophil Count 0.04 10^3/uL (0.0-0.7); Absolute Lymphocyte Count 2.17 10^3/uL (1.2-3.4); Absolute Monocyte Count 0.75 10^3/uL (0.1-0.8); Absolute Neutrophil Count 5.31 10^3/uL (1.2-6.7); Basophils % 0.6; Eosinophils % 0.5; HCT 42.1 % (36.0-46.0); HGB 14.6 g/dL (11.2-15.7); Immature Grans % 0.2; MCH 31.7 pg (27.0-33.0); MCHC 34.7 % (32.0-36.0); MCV 91.5 fL (80-95); MPV 11.6 fL (8.0-11.0); Neutrophils % 63.7; Nucleated RBC 0 %; RDW 13.7 % (11.7-14.6); RDW-SD 46.3 fL; WBC 8.34 10^3/uL (4.4-10.8)
[2020-09-06 07:28] LABS: ALT 50 U/L (14-59); AST 133 U/L (15-37); Albumin 3.1 g/dL (3.4-5.0); Alkaline Phosphatase 122 U/L (46-116); Anion Gap 11.8 mmol/L (3-11); BUN 3 mg/dL (7-18); CO2 26.2 mmol/L (21.0-32.0); CREATININE 0.61 mg/dL (0.55-1.02); Calcium 7.8 mg/dL (8.5-10.1); Chloride 104 mmol/L (98-107); Glucose 94 mg/dL (74-106); Magnesium 1.6 mg/dL (1.8-2.4); Sodium 142 mmol/L (136-145); Total Protein 7.2 g/dL (6.4-8.2)
[2020-09-06] MEDS: Budesonide/Formoterol 160/4.5 6 GM 60 PUFF INH IH ×2 (07:41→20:17)
[2020-09-06] MEDS: Albuterol/Ipratropium 3 ML UPD VIAL UPD ×2 (07:44→14:59)
[2020-09-06 07:47] LABS: Diff Comment PLT Morph Reviewed; Platelet Count 84 10^3/uL (130-400); Potassium 2.6 mmol/L (3.5-5.1); RBC Morphology Normal
[2020-09-06 07:48] LABS: Lipase 2335 U/L (73-393)
--- NOTE | 2020-09-06 08:15 | W.PM.PROGNOT ---
Date of Service Date of service: 09/06/20 Time of Service: 12:17 Assessment and Plan Assessment and plan (1) Alcohol withdrawal seizure: Status: Acute Assessment and plan: Alcohol withdrawal delirium appears to be responding very well to prn phenobarbital. I would like to keep the patient in the ICU. Continue Gabapentin. Continue IVF. Continue high dose Thiamine, continue folate and MVI supplementation. (2) Wernicke's encephalopathy: Status: Suspected Assessment and plan: Secondary to longstanding, significant alcohol abuse. Continue high dose thiamine. (3) Acute pancreatitis: Status: Resolved Assessment and plan: Seems to have resolved. Tolerated clears. Advance diet to bland/low fat. (4) Acute hypokalemia: Status: Acute Assessment and plan: I have written for 80 MEQ of potassium IV which should be finished infusing late this afternoon. Recheck BMP at 6 pm. (5) Hypomagnesemia: Status: Acute Assessment and plan: Replete, recheck in am (6) Alcohol abuse: Status: Chronic Assessment and plan: Care management is meeting with patient at this time to discuss goals on discharge. (7) Thrombocytopenia: Status: Chronic Assessment and plan: Platelets are 84 today. I am checking B12 level, but this is likely due to EtOH abuse + potential splenic sequestration. Continue to monitor. Agree with SCD's rather than chemical DVT ppx. (8) COPD (chronic obstructive pulmonary disease): Status: Chronic Assessment and plan: Not in acute exacerbation. Continue home regimen. (9) Hypertension: Status: Chronic Assessment and plan: Not requiring antihypertensives at this time. Continue to monitor. Qualifiers: Hypertension type: essential hypertension Qualified Code(s): I10 - Essential (primary) hypertension (10) Neuropathy: Status: Chronic Assessment and plan: Likely alcoholic. Check B12 level. (11) Tobacco dependence syndrome: Status: Chronic Assessment and plan: prn nicoderm patch. (12) DVT prophylaxis: Status: Acute Assessment and plan: SCDs. (13) Discharge planning issues: Status: Acute Assessment and plan: Full code. Keep in ICU. Total Critical Care Time 40 minutes. Subjective Subjective Interval history since last seen: A&Ox2 this am (does not know the year), CIWA score 4. Phenobarb x 2 overnight, last time at 2:30 this am. Highest CIWA 16 yesterday at around 9 pm. No phenobarb required today. The patient states she is doing well today. Denies dizziness, headache, chest pain, shortness of breath, nausea. No abdominal pain or nausea. Expressed interest in food. Tolerated clears so far today. SR, 120/80. HR 115 OOB, unsteady on feet. Afebrile. C/o B foot pain, but this got better with gabapentin. Exam Narrative Exam Narrative: General: pleasant, cooperative middle-aged female, A&Ox2, very minimal tremor noted in B hands HEENT: EOMI, MMM Heart: RRR, no m/r/g Lungs: CTAB Abdomen: soft, nontender, nondistended Extremities: no e/c/c BLEs Objective Last Vital Signs Temp 37.2 C 09/06/20 07:45 Pulse 103 H 09/06/20 08:09 Resp 15 09/06/20 08:09 BP 131/87 09/06/20 07:43 Pulse Ox 100 09/06/20 08:09 Laboratory Results - last 24 hr 09/05/20 09/05/20 09/05/20 18:24 18:24 18:24 WBC 7.64 RBC 5.28 H Hgb 16.5 H Hct 47.5 H MCV 90.0 MCH 31.3 MCHC 34.7 RDW 13.4 Plt Count 96 L MPV 11.2 H Immature Gran % 0.3 Neutrophils % 58.8 Lymphocytes % 31.7 Monocytes % 8.6 Eosinophils % 0.3 Basophils % 0.3 Nucleated RBC % 0 Absolute Neutrophils 4.50 Absolute Lymphocytes 2.42 Absolute Monocytes 0.66 Absolute Eosinophils 0.02 Absolute Basophils 0.02 RBC Morphology PT 11.3 H INR 1.1 Sodium 139 Potassium 2.7 L* Chloride 97 L Carbon Dioxide 28.7 Anion Gap 13.3 H BUN 3 L Creatinine 0.64 Estimated GFR/1.73 m2 >= 60.00 Glucose 102 Calcium 8.4 L Magnesium 1.9 Total Bilirubin 0.8 AST 138 H ALT 59 Alkaline Phosphatase 153 H Total Protein 8.4 H Albumin 3.8 Lipase 1844 H Ethyl Alcohol > 300.0 09/06/20 09/06/20 06:25 06:25 WBC 8.34 RBC 4.60 Hgb 14.6 Hct 42.1 MCV 91.5 MCH 31.7 MCHC 34.7 RDW 13.7 Plt Count 84 L MPV 11.6 H Immature Gran % 0.2 Neutrophils % 63.7 Lymphocytes % 26.0 Monocytes % 9.0 Eosinophils % 0.5 Basophils % 0.6 Nucleated RBC % 0 Absolute Neutrophils 5.31 Absolute Lymphocytes 2.17 Absolute Monocytes 0.75 Absolute Eosinophils 0.04 Absolute Basophils 0.05 RBC Morphology Normal PT INR Sodium 142 Potassium 2.6 L* Chloride 104 Carbon Dioxide 26.2 Anion Gap 11.8 H BUN 3 L Creatinine 0.61 Estimated GFR/1.73 m2 >= 60.00 Glucose 94 Calcium 7.8 L Magnesium 1.6 L Total Bilirubin 1.0 AST 133 H ALT 50 Alkaline Phosphatase 122 H Total Protein 7.2 Albumin 3.1 L Lipase 2335 H Ethyl Alcohol
[2020-09-06] MEDS: THIAMINE 500 MG in Normal Saline 100 ML 200 MG IVPB ×3 (08:33→21:25)
[2020-09-06] MEDS: Cholecalciferol (Vitamin D3) 1,000 UNIT TAB 2000 UNITS PO (08:34)
[2020-09-06] MEDS: Atenolol 25 MG TAB PO (08:34)
[2020-09-06] MEDS: Multivitamin TAB 1 TAB PO (08:34)
[2020-09-06] MEDS: Folic Acid 1 MG TAB PO (08:34)
[2020-09-06] MEDS: POTASSIUM CHLORIDE 20 MEQ/100 ML BAG 50 MEQ IVPB ×4 (08:34→15:49)
[2020-09-06] MEDS: Gabapentin 400 MG CAP PO ×3 (08:35→20:15)
[2020-09-06] MEDS: Cyanocobalamin 500 MCG TAB 1000 MCG PO (08:35)
[2020-09-06] MEDS: MAGNESIUM SULFATE 4 GM/100 ML BAG IVPB (08:41)
--- NOTE | 2020-09-06 08:50 | INITIAL_ITS ---
- If Service Date Differs Date of service: 09/06/20 Time of Service: 16:19 Care Management Initial Assess REASON FOR HOSPITALIZATION:: AMS; Hx of alcohol seizure PAST MEDICAL HISTORY/PAST SURGICAL HISTORY:: Medical History: Alcohol abuse (Chronic 11/06/14). a. has been drinking since teenage years until now approxmately 750 cc every 4-5 days of rum mixed with coke. Alcohol related seizure (Acute 02/07/15). COPD (chronic obstructive pulmonary disease) (Chronic). Hypertension (Chronic). Seizure. Tachycardia. Surgical History: Collapsed lung. 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 She has two adult children from a previous relationship who live locally. She also has a 4 year old granddaughter that she is close to. Sharri was employed at varying jobs over her lifetime, but is now disabled. She is independent with ADLs and transportation. CURRENT FUNCTIONAL STATUS:: Sharri is sleeping when CM attempts to meet with her. She is actively being treated for ETOH withdrawal. ADVANCE DIRECTIVES:: None on file Has patient been provided with info about the portal/API?: Yes Did the patient sign up for the portal?: No CODE STATUS:: Full Code INSURANCE COVERAGE / FINANCIAL ISSUES:: Medicare. Financial Assist 100 PRIMARY CARE PHYSICIAN:: Ramon Dye POTENTIAL DISCHARGE NEEDS:: Follow up with PCP and discharge plan of care. PATIENT/FAMILY EDUCATION NEEDS:: Discharge plan, limitations, follow up plan, Ask me Three. ANTICIPATED BARRIERS TO DISCHARGE:: Sharri has a history of acute alcohol withdrawal at [facility]. TRANSPORTATION:: Via private vehicle with family. PLAN:: Sharri will likely be discharged home with no new services. 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 She will follow up with her PCP and discharge plan of care.
[2020-09-06 10:09] LABS: Vitamin B12 1045 pg/mL (193-986)
[2020-09-06] MEDS: Magnesium Oxide 400 MG TAB PO ×2 (11:01→21:25)
[2020-09-06 13:21] LABS: COVID-19 RT-PCR UVMMC Result Negative (Negative)
--- NOTE | 2020-09-06 14:58 | W.NUTCONSULT ---
Date of service: 09/06/20 Time of Service: 14:58 Nutritional Consult ASSESSMENT: 49 year old female admitted with Wernicke's encephalopathy with acute hypokalemia. In ICU for detox. Medical chart indicates loss of 9 lbs in last 6 months (-9% wt loss). BMI 15.9, low BMI and weight loss indicating severe protein calorie malnutrition. Diet advanced to low fat bland. Poor po as yet. Estimated Needs: 1396-5815 kcal, 50-60 g protein, 1500 ml fluid. At high risk for nutritional decline. Will start ensure clear BID with meals to supplement po intake. Unable to meet with Sharri today, too sleepy. Will follow up and discuss when able. NUTRITIONAL DIAGNOSIS: severe malnutrition in context of chronic and acute illness and due to excessive intake of alcohol, inadequate nutrients. INTERVENTION: [place], low fat diet ensure clear BID encourage intake at meals MONITORING AND EVALUATION: weight, po intake and labs Time Spent in Nutritional Counseling and Treatment: 0 time spent face to face
[2020-09-06] MEDS: POTASSIUM CHLORIDE/D5-0.45NACL 1,000 ML 75 MEQ IV (16:12)
[2020-09-06 18:58] LABS: Anion Gap 7.2 mmol/L (3-11); BUN 4 mg/dL (7-18); CO2 24.8 mmol/L (21.0-32.0); CREATININE 0.65 mg/dL (0.55-1.02); Calcium 8.3 mg/dL (8.5-10.1); Chloride 102 mmol/L (98-107); Creatine Kinase 82 U/L (26-192); Glucose 134 mg/dL (74-106); Potassium 3.5 mmol/L (3.5-5.1); Sodium 134 mmol/L (136-145)
[2020-09-06] MEDS: Normal Saline Flush 10 ML SYR IVP ×2 (20:15→21:24)
[2020-09-06] MEDS: Pantoprazole 40 MG VIAL IVP (21:25)
[2020-09-06] MEDS: Mirtazapine 15 MG TAB PO (21:25)
[2020-09-06 22:54] LABS: C Diff PCR Positive (Negative)
[2020-09-07] VITALS (17 sets, daily range): BP systolic 111–146; BP diastolic 71–86; PULSE 76–106; RESP 1–27; TEMP 36.8–38.1; O2SAT 96–99
[2020-09-07] MEDS: metroNIDAZOLE 500 MG TAB 250 MG PO ×2 (00:22→06:02)
[2020-09-07] MEDS: Nicotine 14 MG/24 HR PATCH TD (04:16)
[2020-09-07] MEDS: fentaNYL 100 MCG/2 ML VIAL IVP (04:16)
[2020-09-07] MEDS: THIAMINE 500 MG in Normal Saline 100 ML 200 MG IVPB ×2 (06:03→14:10)
[2020-09-07 06:55] LABS: Abs Immature Grans 0.05 10^3/uL (0.0-0.06); Absolute Basophil Count 0.06 10^3/uL (0.0-0.2); Absolute Eosinophil Count 0.06 10^3/uL (0.0-0.7); Absolute Lymphocyte Count 1.55 10^3/uL (1.2-3.4); Absolute Monocyte Count 0.79 10^3/uL (0.1-0.8); Absolute Neutrophil Count 7.84 10^3/uL (1.2-6.7); Basophils % 0.6; Eosinophils % 0.6; HCT 43.1 % (36.0-46.0); HGB 14.3 g/dL (11.2-15.7); Immature Grans % 0.5; MCH 31.4 pg (27.0-33.0); MCHC 33.2 % (32.0-36.0); MCV 94.7 fL (80-95); MPV 11.6 fL (8.0-11.0); Monocytes % 7.6; Neutrophils % 75.7; Nucleated RBC 0 %; RBC 4.55 10^6/uL (3.93-5.22); RDW 14.5 % (11.7-14.6); RDW-SD 50.2 fL; WBC 10.35 10^3/uL (4.4-10.8)
[2020-09-07 07:10] LABS: ALT 34 U/L (14-59); AST 57 U/L (15-37); Albumin 2.8 g/dL (3.4-5.0); Alkaline Phosphatase 129 U/L (46-116); BUN 4 mg/dL (7-18); Bilirubin, Direct 0.42 mg/dL (0.00-0.20); Bilirubin, Total 1.4 mg/dL (0.2-1.0); CREATININE 0.58 mg/dL (0.55-1.02); Calcium 8.3 mg/dL (8.5-10.1); Chloride 103 mmol/L (98-107); Glucose 119 mg/dL (74-106); Magnesium 2.1 mg/dL (1.8-2.4); Potassium 3.7 mmol/L (3.5-5.1); Sodium 136 mmol/L (136-145); Total Protein 6.7 g/dL (6.4-8.2)
[2020-09-07 07:14] LABS: Lipase 1530 U/L (73-393)
[2020-09-07 07:27] LABS: Platelet Count 90 10^3/uL (130-400)
[2020-09-07 07:28] LABS: Diff Comment PLT Morph Reviewed; RBC Morphology Normal
[2020-09-07] MEDS: Albuterol/Ipratropium 3 ML UPD VIAL UPD (08:08)
[2020-09-07] MEDS: Budesonide/Formoterol 160/4.5 6 GM 60 PUFF INH IH ×2 (08:09→19:40)
--- NOTE | 2020-09-07 08:35 | PDOC.CMPRO ---
Care Management Progress Note S/O: Sharri continues to be closely monitored and treated for alcohol withdrawal, per MD she is improving and was transitioned to the M/S floor this evening. CM continues to follow. A: 49 year old female admitted to [facility] 09/07/20 for AMS P: Sharri will likely be discharged home with no new services. CM to discuss MICHELLE supports including aircraft launch and recovery technician options. She will follow up with her PCP and discharge plan of care.
[2020-09-07] MEDS: POTASSIUM CHLORIDE/D5-0.45NACL 1,000 ML 75 MEQ IV (08:38)
[2020-09-07] MEDS: Cholecalciferol (Vitamin D3) 1,000 UNIT TAB 2000 UNITS PO (08:38)
[2020-09-07] MEDS: Cyanocobalamin 500 MCG TAB 1000 MCG PO (08:38)
[2020-09-07] MEDS: Multivitamin TAB 1 TAB PO (08:38)
[2020-09-07] MEDS: Atenolol 25 MG TAB PO (08:39)
[2020-09-07] MEDS: Gabapentin 400 MG CAP PO ×3 (08:39→19:40)
[2020-09-07] MEDS: Folic Acid 1 MG TAB PO (08:39)
[2020-09-07] MEDS: Magnesium Oxide 400 MG TAB PO ×2 (10:30→21:16)
[2020-09-07] MEDS: metroNIDAZOLE 250 MG TAB PO (11:16)
--- NOTE | 2020-09-07 12:40 | W.PM.PROGNOT ---
Date of Service Date of service: 09/07/20 Time of Service: 12:41 Assessment and Plan Assessment and plan (1) Alcohol withdrawal seizure: Status: Acute Assessment and plan: Continue thiamine folic acid and multivitamin supplementation. Present time patient has not required IV phenobarbital in 36 hours. Patient to be transferred out to the medical/surgical floor and probably discharged home tomorrow. Qualifiers: Complication of substance-induced condition: uncomplicated Qualified Code(s): F10.230 - Alcohol dependence with withdrawal, uncomplicated; R56.9 - Unspecified convulsions (2) Wernicke's encephalopathy: Status: Suspected Assessment and plan: Secondary to longstanding, significant alcohol abuse. Continue high dose thiamine. (3) Acute pancreatitis: Status: Resolved Assessment and plan: Resolved. Continue low-fat bland diet. Qualifiers: Pancreatitis type: alcohol induced (4) Acute hypokalemia: Status: Acute Assessment and plan: Appears to resolved with IV and oral supplementation. Given that she is still having diarrhea I would keep her on some oral supplementation. Think we can DC her IV fluids at this time. (5) Hypomagnesemia: Status: Acute Assessment and plan: Resolved with IV and oral supplementation. Continue on oral supplementation (6) Alcohol abuse: Status: Chronic Assessment and plan: Care management is meeting with patient at this time to discuss goals on discharge. (7) Thrombocytopenia: Status: Chronic Assessment and plan: Platelets are 90,000 today. Normal B12 level but this is likely due to EtOH abuse + potential splenic sequestration. Continue to monitor. Agree with SCD's rather than chemical DVT ppx. (8) COPD (chronic obstructive pulmonary disease): Status: Chronic Assessment and plan: Not in acute exacerbation. Continue home regimen. (9) Hypertension: Status: Chronic Assessment and plan: Not requiring antihypertensives at this time. Continue to monitor. Qualifiers: Hypertension type: essential hypertension Qualified Code(s): I10 - Essential (primary) hypertension (10) Neuropathy: Status: Chronic Assessment and plan: Likely alcoholic. (11) Tobacco dependence syndrome: Status: Chronic Assessment and plan: prn nicoderm patch. (12) DVT prophylaxis: Status: Acute Assessment and plan: SCDs. (13) Discharge planning issues: Status: Acute Assessment and plan: Full code. Keep in ICU. Total Critical Care Time 40 minutes. Subjective Subjective Interval history since last seen: Patient remains calm she is alert and oriented person place time circumstance. She denies any hallucinations. Her CIWA score has been between 1 and 4. She does admit to some diarrhea. Her stools positive for C. difficile PCR. Dr. Ram started on Flagyl last night however given the fact that she is an alcoholic and came in with acute alcohol withdrawal seizures I do not feel that metronidazole is the best medication to treat her C. difficile diarrhea. I switch over to oral vancomycin. She is not required any medication to treat her withdrawal symptoms since 2 AM on September 06, 2020. At this point I think she can be transferred out to the medical/surgical floor and if she has no further withdrawal symptoms she can be discharged home tomorrow. She seems to be eating well with no nausea no vomiting and no abdominal pain. Patient remains on gabapentin I am not sure where this was prescribed because of the seizure or because of her peripheral neuropathy. I suspect the latter. Exam Narrative Exam Narrative: Middle-age female sitting up in the bed alert and oriented person place time circumstance. Skin is dry. No tremors in her hands. HEENT is unremarkable. Lungs are clear to auscultation Heart is regular rate and rhythm Abdomen soft and nontender NABS no palpable masses. Neurologic exam grossly intact no focal motor deficits. I did not test sensory exam in her feet. Hands are without tremors. Objective Last Vital Signs Temp 36.8 C 09/07/20 09:47 Pulse 99 H 09/07/20 09:47 Resp 21 09/07/20 09:47 BP 115/71 09/07/20 08:00 Pulse Ox 98 09/07/20 09:47 Laboratory Results - last 24 hr 09/05/20 09/06/20 09/06/20 20:19 18:31 20:47 WBC RBC Hgb Hct MCV MCH MCHC RDW Plt Count MPV Immature Gran % Neutrophils % Lymphocytes % Monocytes % Eosinophils % Basophils % Nucleated RBC % Absolute Neutrophils Absolute Lymphocytes Absolute Monocytes Absolute Eosinophils Absolute Basophils RBC Morphology Sodium 134 L Potassium 3.5 Chloride 102 Carbon Dioxide 24.8 Anion Gap 7.2 BUN 4 L Creatinine 0.65 Estimated GFR/1.73 m2 >= 60.00 Glucose 134 H Calcium 8.3 L Magnesium Total Bilirubin Conjugated Bilirubin AST ALT Alkaline Phosphatase Creatine Kinase 82 Total Protein Albumin Lipase Stl C.difficile Tox PCR Positive A COVID-19 PCR Negative Nasopharyn COVID-19 PCR Not Applicable Ref Test Perform Site [facility] 09/07/20 09/07/20 06:05 06:05 WBC 10.35 RBC 4.55 Hgb 14.3 Hct 43.1 MCV 94.7 D MCH 31.4 MCHC 33.2 RDW 14.5 Plt Count 90 L MPV 11.6 H Immature Gran % 0.5 Neutrophils % 75.7 Lymphocytes % 15.0 Monocytes % 7.6 Eosinophils % 0.6 Basophils % 0.6 Nucleated RBC % 0 Absolute Neutrophils 7.84 H Absolute Lymphocytes 1.55 Absolute Monocytes 0.79 Absolute Eosinophils 0.06 Absolute Basophils 0.06 RBC Morphology Normal Sodium 136 Potassium 3.7 Chloride 103 Carbon Dioxide 26.0 Anion Gap 7.0 BUN 4 L Creatinine 0.58 Estimated GFR/1.73 m2 >= 60.00 Glucose 119 H Calcium 8.3 L Magnesium 2.1 Total Bilirubin 1.4 H Conjugated Bilirubin 0.42 H AST 57 H ALT 34 Alkaline Phosphatase 129 H Creatine Kinase Total Protein 6.7 Albumin 2.8 L Lipase 1530 H Stl C.difficile Tox PCR COVID-19 PCR Nasopharyn COVID-19 PCR Ref Test Perform Site
--- NOTE | 2020-09-07 12:55 | PHA.REVIEW ---
Pharmacy Admission Review - Admission Clinical Review (Last Reviewed 09/05/20 @ 21:50 by Montrell Ruiz MD) Hypomagnesemia (Acute) Discharge planning issues (Acute) DVT prophylaxis (Acute) Acute hypokalemia (Acute) Hallucinations (Acute) Alcohol withdrawal seizure (Acute) acetaminophen [From Tylenol] Adverse Reaction (Unverified 09/05/20 17:17) Height 5 ft 10 in Weight 52.9 kg ALTERED MENTAL STATUS, SEIZURE, C.DIFF POSITIVE, ?Wernicke's encephalopathy - Comments Comments/Follow Ups: High dose IV Thiamine Q8h x 6 doses, then IV 500mg once daily, watch platelets. Will transfer to /S, Probiotic added, oral Vanco for C.Diff (Metronidazole dc'd), CIWA: 4 - Renal Dosing Renal Dosing: BUN 4 mg/dL (7-18) L 09/07/20 06:05 Creatinine 0.58 mg/dL (0.55-1.02) 09/07/20 06:05 Medications needing adjustments: Reviewed (CrCl~70ml/min) - Anticoagulation Anticoagulation: Hgb 14.3 g/dL (11.2-15.7) 09/07/20 06:05 Hct 43.1 % (36.0-46.0) 09/07/20 06:05 Plt Count 90 10^3/uL (130-400) L 09/07/20 06:05 INR 1.1 (0.9-1.1) 09/05/20 18:24 Creatinine 0.58 mg/dL (0.55-1.02) 09/07/20 06:05 DVT Prohphylaxis: Reviewed (only SCD's due to low Platelets) - Opiate Usage Evaluate Pain Scale/Pains Meds: Reviewed (Fentanyl IVP prn for pain 03/31) Scheduled Bowel Reg ordered if on Opiates?: No (liquid stools (C.Diff)) - Relevant Labs Sodium 136 mmol/L (136-145) 09/07/20 06:05 Potassium 3.7 mmol/L (3.5-5.1) 09/07/20 06:05 Chloride 103 mmol/L (98-107) 09/07/20 06:05 Magnesium 2.1 mg/dL (1.8-2.4) 09/07/20 06:05 Electrolytes, C-Reactive P, ESR: Reviewed (K+ in IVF's, oral MagOx, Platelets low <100, LFT's elevated) - DM Control DM Control: Glucose 119 mg/dL (74-106) H 09/07/20 06:05 Insulin Dosing: N/A - Heart Failure/LA EF%, GUERRERO's, B-Blockers, Diuretics: Reviewed (Atenolol) - BP Control BP Control: Blood Pressure 115/71 Blood Pressure 119/75 Blood Pressure 116/75 Blood Pressure 112/77 If elevated: N/A - Qtc Review If Elevated: Reviewed (QTC 460-is on Mirtazapine, Ondansetron) - IV to PO Switch IV Medications: Reviewed (IV Protonix, Fentanyl, Ondansetron, Thiamine) - Home Meds Home Med List reviewed: Reviewed (ordered) Antibiotic Activity - Pharmacy Antibiotic Review Pharmacy Antibiotic Activity: C/S review (C.Diff positive 09/06/20-oral Vanco) - Antibiotic Information Antibiotic Review Info: C.Diff positive 09/06/20-oral Vancomycin
[2020-09-07] MEDS: Lactobacillus Acidophilus CAP 1 CAP PO ×2 (13:31→19:40)
[2020-09-07] MEDS: Normal Saline Flush 10 ML SYR IVP ×3 (15:16→21:16)
[2020-09-07] MEDS: Vancomycin 125 MG CAP PO ×2 (15:16→19:40)
[2020-09-07] MEDS: Potassium Chloride 20 MEQ TABCR PO (15:16)
[2020-09-07] MEDS: Pantoprazole 40 MG VIAL IVP (21:16)
[2020-09-07] MEDS: Mirtazapine 15 MG TAB PO (21:17)
[2020-09-08 03:42] VITALS: BP 129/76; PULSE 90; RESP 18; TEMP 37; O2SAT 99
[2020-09-08 07:38] LABS: ALT 27 U/L (14-59); AST 29 U/L (15-37); Alkaline Phosphatase 154 U/L (46-116); Anion Gap 6.9 mmol/L (3-11); BUN 6 mg/dL (7-18); Bilirubin, Total 0.8 mg/dL (0.2-1.0); CO2 25.1 mmol/L (21.0-32.0); CREATININE 0.63 mg/dL (0.55-1.02); Calcium 8.6 mg/dL (8.5-10.1); Chloride 104 mmol/L (98-107); Glucose 121 mg/dL (74-106); Potassium 4.2 mmol/L (3.5-5.1); Sodium 136 mmol/L (136-145); Total Protein 7.2 g/dL (6.4-8.2)
[2020-09-08 07:44] VITALS: BP 112/76; PULSE 105; RESP 19; TEMP 37.5; O2SAT 98
[2020-09-08 07:48] LABS: Lipase 1898 U/L (73-393)
[2020-09-08] MEDS: Budesonide/Formoterol 160/4.5 6 GM 60 PUFF INH IH (08:29)
[2020-09-08] MEDS: THIAMINE 500 MG in Normal Saline 100 ML 200 MG IVPB (09:01)
[2020-09-08] MEDS: Multivitamin TAB 1 TAB PO (09:01)
[2020-09-08] MEDS: Vancomycin 125 MG CAP PO ×2 (09:01→12:26)
[2020-09-08] MEDS: Cyanocobalamin 500 MCG TAB 1000 MCG PO (09:01)
[2020-09-08] MEDS: Gabapentin 400 MG CAP PO (09:01)
[2020-09-08] MEDS: Folic Acid 1 MG TAB PO (09:01)
[2020-09-08] MEDS: Atenolol 25 MG TAB PO (09:01)
[2020-09-08] MEDS: Cholecalciferol (Vitamin D3) 1,000 UNIT TAB 2000 UNITS PO (09:02)
[2020-09-08] MEDS: Lactobacillus Acidophilus CAP 1 CAP PO (09:02)
[2020-09-08] MEDS: Potassium Chloride 20 MEQ TABCR PO (09:02)
[2020-09-08] MEDS: Magnesium Oxide 400 MG TAB PO (10:02)
[2020-09-08 10:43] LABS: *AMPHETAMINES SCREEN URINE Negative (Negative); *BARBITURATES SCREEN URINE POSITIVE (Negative); *BENZODIAZEPINES SCREEN URINE Negative (Negative); Cannabinoids THC Negative (Negative); Cocaine Screen,Urine Negative (Negative); METHADONE URINE SCREEN Negative (Negative); OPIATES URINE SCREEN Negative (Negative)
[2020-09-08 10:45] LABS: Tricyclic Antidepressants Negative (Negative)
[2020-09-08 11:28] VITALS: BP 124/81; PULSE 81; RESP 17; TEMP 36.5; O2SAT 100
--- NOTE | 2020-09-08 12:14 | DSE_ITS ---
Date of service: 09/08/20 Time of Service: 12:14 DS: Diagnosis Discharge Diagnosis (1) Alcohol withdrawal seizure: Start date: 09/08/20 Start time: 12:14 Status: Acute Asessment and Plan: Seizures prior to admission. This is normal for her when going through alcohol withdrawal. ETOH level on admission greater than 300 Her highest CIWA score was 16 on 09/05. She was admitted to ICU with IV thiamine, and phenobarbitol 260 mg. She was tx to m/s when stable, will continue thiamine, folic acid and multivitamin She is ready to go home and wants to follow up with her own therapist. She is not interested in a addictions recovery specialist. She has a long history of alcohol abuse. (2) Wernicke's encephalopathy: Start date: 09/08/20 Start time: 12:22 Status: Chronic Asessment and Plan: Chronic due to long standing alcohol abuse (3) Acute pancreatitis: Start date: 09/08/20 Start time: 12:22 Status: Resolved Asessment and Plan: Found on admission. Lipase corrected, abdominal pain improved and tolerating soft bland diet. (4) Acute hypokalemia: Start date: 09/08/20 Start time: 12:24 Status: Resolved Asessment and Plan: Repleted with po and IV potassium normalized at 4.2 today (5) Hypomagnesemia: Start date: 09/08/20 Start time: 12:25 Status: Resolved Asessment and Plan: Supplemented with IV mag. Normalized at 2.1 (6) Alcohol abuse: Start date: 09/08/20 Start time: 12:25 Status: Chronic Asessment and Plan: She has been drinking since she was a teenager, admittedly to 750 ml rum and coke in 4 days. (7) Thrombocytopenia: Start date: 09/08/20 Start time: 12:25 Status: Chronic Asessment and Plan: Alcohol abuse contributing factor. Stable at 90 (8) COPD (chronic obstructive pulmonary disease): Start date: 09/08/20 Start time: 12:28 Status: Chronic Asessment and Plan: Not exacerbated. (9) Hypertension: Start date: 09/08/20 Start time: 12:27 Status: Chronic Asessment and Plan: Did not require while in the hospital (10) Neuropathy: Start date: 09/08/20 Start time: 12:27 Status: Chronic Asessment and Plan: likely alcoholic (11) Clostridial infection: Start date: 09/08/20 Start time: 12:45 Status: Acute Asessment and Plan: Positive antigen. Will finish treatment with vancomycin po qid (12) Tobacco dependence syndrome: Start date: 09/08/20 Start time: 12:27 Status: Chronic Asessment and Plan: Continues to smoke without readiness to quit. Above case discussed with Dr. Ivy who is in agreement. Discharge Plan Disposition Patient Disposition: HOME Condition: Improving Discharge Details Reason For Visit: ALTERED MENTAL STATUS Admit Date/Time: 09/05/20 19:28 Admit Provider: Montrell Ruiz Attending Provider: Montrell Ruiz Primary Care Provider: Ramon Dye Hospital Course Hospital Course: 49 y.o female with PMH severe alcohol dependence, alcohol withdrawal, wenickes encephalopathy, COPD, Thrombocytopenia admitted to [facility] ICU after presenting to the ED with weeks of fatigue, nausea, vomiting and seizures. She was found to have hypokalemia, hypomagnesium, with confusion. She was placed in ICU on phenobarb IV for withdrawal. Electrolytes were repleted. Overnight of admission she was scoring 16 and remained in the ICU until she was stable. Upon stablization of her withdrawal she transferred to /s. On admission her lipase was 1844, peaking at 2335, however she is able to tolerate a soft diet without pain, nausea or vomiting. Today she is feeling well. She would like to be discharged home. When asked her plan she states her is her support and a therapist. At this time she declines a addictions recovery specialist and states she will follow up with her PCP and discuss further. Home Meds and New Rx's Prescriptions: New vancomycin 125 mg Capsule 125 mg PO QID Qty: 28 RF: 0 Continued cyanocobalamin (vitamin B-12) [Vitamin B-12] 1,000 MCG tablet 1,000 mcg PO DAILY Qty: 1 RF: 0 atenolol 25 MG tablet 25 mg PO DAILY RF: 0 guaifenesin [Mucinex] 600 mg tablet extended release 12hr 600 mg PO Q12H PRNQty: 10 RF: 0 thiamine HCl (vitamin B1) 100 mg tablet 100 mg PO DAILY Qty: 60 RF: 0 multivitamin [Multiple Vitamins] 1 TAB tablet 1 tab PO DAILY Qty: 30 RF: 3 magnesium 250 mg Tablet 250 mg PO DAILY RF: 0 mirtazapine 15 mg Tablet 15 mg PO QHS RF: 0 cholecalciferol (vitamin D3) [Vitamin D3] 25 mcg (1,000 unit) Capsule 50 mcg PO DAILY RF: 0 budesonide-formoterol [Symbicort] 160-4.5 mcg/actuation Hfa Aerosol Inhaler 2 puff INHALATION BID RF: 0 magnesium oxide 400 mg (241.3 mg magnesium) Tablet 400 mg PO BID@1000,2200 Qty: 60 RF: 0 gabapentin [Neurontin] 400 mg Capsule 400 mg PO TID Qty: 90 RF: 0 Discontinued oxycodone 10 MG tablet 10 mg PO 8H PRN PRNRF: 0 No Action thiamine HCl (vitamin B1) 100 mg tablet 100 mg PO DAILY Qty: 30 RF: 0 Discharge Instructions Instructions: Pancreatitis (JAD), Abuse of Alcohol (JAD), Acute Delirium (JAD) Referrals: Shelby Reyes MD, JAD [[facility]ICAL STAFF] - 09/12/20 9:20 am Activity:: Activity as Tolerated Equipment/Supplies:: No Equipment Needed Diet:: soft low fat Discharge Orders Discharge Orders: Discharge Order (Routine); Ordered 09/08/20 Ordered By: Cony Toledo DS: Summary Status at Discharge Functional status at discharge: independent ambulation Overall status at discharge: patient is progressing back to baseline Mental Status: mental status grossly normal Speech and Movement: speech and movement normal Mood: congruent mood Affect: normal affect Exam Narrative Exam Narrative: Middle-age female sitting up in the bed alert and oriented person place time circumstance. Skin is dry. No tremors in her hands. HEENT is unremarkable. Lungs are clear to auscultation Heart is regular rate and rhythm Abdomen soft and nontender NABS no palpable masses. Neurologic exam grossly intact no focal motor deficits. I did not test sensory exam in her feet. Hands are without tremors. Psych Mental Status: mental status grossly normal Speech and Movement: speech and movement normal Mood: congruent mood Affect: normal affect DS: Data Vitals/I&O Vitals and I&O: Vital Signs Temperature 36.5 C 09/08/20 11:28 Temperature Source Temporal Artery Scan 09/08/20 11:28 Pulse 81 09/08/20 11:28 Pulse Rhythm Regular 09/08/20 11:03 Pulse 95 H 09/07/20 15:29 Respiratory Rate 17 09/08/20 11:28 Respiratory Effort Non-Labored 09/08/20 11:03 Respiratory Depth Normal 09/08/20 11:03 Respiratory Pattern Normal 09/08/20 11:03 Blood Pressure 124/81 09/08/20 11:28 Blood Pressure Mean 97 09/07/20 15:28 Blood Pressure Position Supine 09/07/20 09:47 Pulse Oximetry 100 09/08/20 11:28 Oxygen Delivery Method Room Air 09/08/20 11:28 Oxygen Flow Rate 0 09/08/20 11:28 Pain Level 5 09/08/20 11:28 Intake & Output 09/07/20 09/08/20 09/08/20 23:59 11:59 23:59 Intake Total 1532.5 / 3377.5 Output Total 1250 / 3025 Balance 282.5 / 352.5 Weight 51.4 kg Intake: IV 632.5 / 1737.5 Oral 900 / 1640 Output: Urine 1250 / 3025 Other: Urine Color Pale Urine Appearance Clear Clear Urine Odor None Voiding Methods Toilet Data Completed and Pending Completed studies during hospitalization [Text1]: Exam(s) a CT:CT head wo EXAM: CT HEAD WO CLINICAL HISTORY: seizure, altered mental status. TECHNIQUE: Imaging Protocol: Axial computed tomography images with coronal and sagittal reformatted images were created and reviewed COMPARISON: CT CT HEAD WO from 04/12/2020 FINDINGS: Ventricles and Extra axial spaces: Normal in size and morphology for the patient's age. Hemorrhage: None. Cerebral parenchyma: Normal. Midline shift: None. Brainstem/Cerebellum: Normal. Calvarium: Normal. Visualized Paranasal sinuses/Mastoids: Clear. Soft Tissues: Unremarkable. IMPRESSION: No acute intracranial process. Labs on day of discharge: Labs from last 24 hours 09/08/20 09/08/20 09/06/20 10:15 06:45 18:50 Sodium 136 Potassium 4.2 Chloride 104 Carbon Dioxide 25.1 Anion Gap 6.9 BUN 6 L Creatinine 0.63 Estimated GFR/1.73 m2 >= 60.00 Glucose 121 H Calcium 8.6 Total Bilirubin 0.8 AST 29 ALT 27 Alkaline Phosphatase 154 H Total Protein 7.2 Albumin 3.0 L Lipase 1898 H Stl C.difficile Tox PCR Positive A Urine Opiates Screen Negative Urine Methadone Screen Negative Ur Barbiturates Screen Positive A Ur Tricyclics Screen Negative Ur Amphetamines Screen Negative U Benzodiazepines Scrn Negative Urine Cocaine Screen Negative Ur THC Screen Negative PFS Medical History (Updated 09/08/20 @ 12:45 by Cony Toledo NP) Alcohol abuse (11/06/14) a. 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 Decreased intake from usual on 04/11/20. Strong hx of ETOH withdrawal seizures. Do you feel safe at home: Yes Do you feel safe in your relationship?: Yes
--- NOTE | 2020-09-08 14:53 | PDOC.CMDIS ---
LACE Index Scoring Tool - Questions: Length of Stay (in days): 3 Acuity (Admit via E.D.?): Yes Comorbidities: Chronic Pulmonary Disease E.D. Visits: 3 - Answers: Total Score: 11 Risk of Readmission: High Risk Care Management Discharge Reason for Hospitalization: AMS; Hx of alcohol seizure Discharge Plan: Sharri will discharge home with no new services; she refused offer of tissue recovery technician stating her was her support and therapist. She will have new prescription for oral vancomycin to treat Cdiff infection. She will follow up with her PCP and discharge plan of care, and transport via private vehicle with her . Patient/Family Education Needs: Review of MICHELLE resources, discharge instructions, discuss Ask Me Three.
[2020-09-10 22:05] LABS: 25-Hydroxy D Total 58 ng/mL; 25-Hydroxy D2 <4.0 ng/mL; 25-Hydroxy D3 58 ng/mL
== END 2020-09-08 13:24 | disposition home or self-care (01) | DRG 896 ==
LOC: ER 19:52 → ICU 20:30 → MS 09-07 17:29
PROVIDERS: Internal Medicine; Admitting Provider Family Medicine; Emergency Provider Student in an Organized Health Care Education/Training Program; PCP Nurse Practitioner Family; Visit Provider Family Medicine
DX: F10.239 Alcohol dependence with withdrawal, unspecified (principal); K85.90 Acute pancreatitis without necrosis or infection, unspecified; E51.2 Wernicke's encephalopathy; A04.72 Enterocolitis due to Clostridium difficile, not specified as recurrent; Z68.1 Body mass index [BMI] 19.9 or less, adult; F10.229 Alcohol dependence with intoxication, unspecified; R56.9 Unspecified convulsions; E87.6 Hypokalemia; E83.42 Hypomagnesemia; D69.6 Thrombocytopenia, unspecified; J44.9 Chronic obstructive pulmonary disease, unspecified; I10 Essential (primary) hypertension; G62.1 Alcoholic polyneuropathy; F17.210 Nicotine dependence, cigarettes, uncomplicated; Y90.8 Blood alcohol level of 240 mg/100 ml or more; G89.29 Other chronic pain; M54.2 Cervicalgia; R63.6 Underweight
CPT/HCPCS: 36415; 80048; 80053; 80076; 80307; 82306; 82550; 83690; 87493; 90686; 93005; 94640; 96365; 96375; 99223; 99232; 99239; 99285; 99291; U0003; 70450; 80320; 82607; 83735; 85025; 85610; 93010; J2560; J3010; J3475; J3480; J7620

== ENCOUNTER 2020-12-02 16:25 | Outpatient (REF) | payer OTHER, SELFPAY ==
[2020-12-03 21:48] LABS: COVID-19 RT-PCR Result NEGATIVE (Negative)
== END 2020-12-02 16:45 ==
LOC: NCHCN 16:25
PROVIDERS: PCP Nurse Practitioner Family; Visit Provider Nurse Practitioner Family
DX: Z11.59 Encounter for screening for other viral diseases (principal)
CPT/HCPCS: U0003

== ENCOUNTER 2021-04-11 19:58 | Inpatient (IN) | payer OTHER, SELFPAY ==
[2021-04-11] VITALS (32 sets, daily range): BP systolic 83–110; BP diastolic 52–78; PULSE 74–93; RESP 14–23; TEMP 36.5; O2SAT 92–99
--- NOTE | 2021-04-11 20:19 | ED.GENADUL_ITS ---
Discharge Plan Disposition Patient Disposition: [facility] INPATIENT Condition: Stable Discharge Details Clinical Impression: Alcohol abuse, Vomiting Primary Care Provider: Floyd Feng ED Provider: Cristy Amaya Home Meds and New Rx's Prescriptions: No Action cyanocobalamin (vitamin B-12) [Vitamin B-12] 1,000 MCG tablet 1,000 mcg PO DAILY Qty: 1 RF: 0 atenolol 25 MG tablet 25 mg PO DAILY RF: 0 guaifenesin [Mucinex] 600 mg tablet extended release 12hr 600 mg PO Q12H PRNQty: 10 RF: 0 thiamine HCl (vitamin B1) 100 mg tablet 100 mg PO DAILY Qty: 60 RF: 0 multivitamin [Multiple Vitamins] 1 TAB tablet 1 tab PO DAILY Qty: 30 RF: 3 magnesium 250 mg Tablet 250 mg PO DAILY RF: 0 mirtazapine 15 mg Tablet 15 mg PO QHS RF: 0 cholecalciferol (vitamin D3) [Vitamin D3] 25 mcg (1,000 unit) Capsule 50 mcg PO DAILY RF: 0 budesonide-formoterol [Symbicort] 160-4.5 mcg/actuation Hfa Aerosol Inhaler 2 puff INHALATION BID RF: 0 magnesium oxide 400 mg (241.3 mg magnesium) Tablet 400 mg PO BID@1000,2200 Qty: 60 RF: 0 gabapentin [Neurontin] 400 mg Capsule 400 mg PO TID Qty: 90 RF: 0 Medical Decision Making 50-year-old female presents to the ER chief complaint of nausea vomiting diarrhea unable to keep any thing down on and off for the last 2 weeks. Patient is an alcoholic and has been trying to detox stop drinking at home. She does have a past medical history of Warnicke's encephalopathy, alcohol withdrawal seizures. She last drink some hard liquor prior to arrival. She has been unable to keep down her normal daily medications for the last 3 to 4 days. CBC is largely unremarkable, platelet count 116, PT 11.4 INR 1.1 sodium 141 potassium 2.9, chloride 100 CO2 is 32.1 anion gap 8.9, BUN is 3 creatinine 0.5 GFR greater than the magnesium is 1.7, AST 119 ALT 42 alk phos 133, albumin is 3.2 ethyl alcohol at this time is 355.5. Patient has not given us a urinalysis yet. Urine drug screen is pending at this time. At this time on patient reevaluation she is sleeping her blood pressure is somewhat soft remained in the 90s systolic she is side lying at this time however. She does awaken to verbal stimuli. She is currently having a banana bag infusing, Pepcid, potassium 10 mEq IV piggyback ordered. An additional normal saline 500 mg bolus ordered. 2303: Spoke with hospitalist on-call Dr. Meade regarding patient case and details he agrees to accept patient for admission for rehydration and alcoholism with withdrawal will place patient on a [facility] protocol. Call made to patient's to inform him of the plan of care, he verbalizes understanding at this time and is in agreement with the plan. Patient remained hemodynamically stable at the time of this dictation. Blood pressure is somewhat soft at 94/62 however due to body habitus this may be at baseline for patient. At this time patient is being monitored in the ER by staff attorney is awaiting transfer up to the floor and bed assignment and placement. HPI General Date/Time Provider Initiated Documentation: 04/11/21 20:00 . Limitations to Documentation: no limitations . Information obtained by: patient and family . HPI Narrative: 50-year-old female presents to the ER chief complaint of nausea vomiting diarrhea unable to keep any thing down on and off for the last 2 weeks. Patient is an alcoholic and has been trying to detox stop drinking at home. She does have a past medical history of Warnicke's encephalopathy, alcohol withdrawal seizures. She last drink some hard liquor prior to arrival. She has been unable to keep down her normal daily medications for the last 3 to 4 days. Related Data Home Medications Medication Instructions Recorded Confirmed atenolol 25 mg PO DAILY 03/28/13 04/11/21 cyanocobalamin (vitamin B-12) 1,000 mcg PO DAILY #1 04/10/14 04/11/21 [Vitamin B-12] multivitamin [Multiple Vitamins] 1 tab PO DAILY #30 tab 07/11/17 04/11/21 guaifenesin [Mucinex] 600 mg PO Q12H PRN #10 tab 10/05/18 09/05/20 thiamine HCl (vitamin B1) 100 mg PO DAILY #60 tab 07/22/19 04/11/21 budesonide-formoterol [Symbicort] 2 puff INHALATION BID 04/12/20 04/11/21 cholecalciferol (vitamin D3) 50 mcg PO DAILY 04/12/20 04/11/21 [Vitamin D3] magnesium 250 mg PO DAILY 04/12/20 09/05/20 mirtazapine 15 mg PO QHS 04/12/20 04/11/21 gabapentin [Neurontin] 400 mg PO TID #90 cap 04/21/20 04/11/21 magnesium oxide 400 mg PO BID@1000,2200 #60 tab 04/21/20 04/11/21 Previous Rx's Medication Instructions Recorded multivitamin [Multiple Vitamins] 1 tab PO DAILY #30 tab 07/11/17 guaifenesin [Mucinex] 600 mg PO Q12H PRN #10 tab 10/05/18 thiamine HCl (vitamin B1) 100 mg PO DAILY #60 tab 07/22/19 gabapentin [Neurontin] 400 mg PO TID #90 cap 04/21/20 magnesium oxide 400 mg PO BID@1000,2200 #60 tab 04/21/20 Allergies Allergy/AdvReac Type Severity Reaction Status Date / Time acetaminophen [From Tylenol] AdvReac Unverified 04/11/21 20:25 General SHEA: 2 Review of Systems Narrative: Constitutional: Positive weight loss, decreased appetite, positive generalized weakness, patient is very thin appearing, possibly intoxicated. HEENT: Denies recent trauma, nasal discharge, sore throat, trouble swallowing. Does endorse mild headaches none currently, denies seeing any floaters or having visual hallucinations Chest: Denies chest pain, palpitations, irregular rhythm, hypertension. Respiratory: Denies Shortness of breath, cough, hemoptysis. GI: Denies constipation. Positive nausea vomiting decreased urine output, unable to keep anything down for the last 3 to 4 days. : Denies dysuria, hematuria, flank pain, rectal bleeding. Does endorse decreased urinary output Neuro: Denies blurry vision, weakness, syncope, headache or facial numbness. Hematologic: Denies intolerance to heat or cold, hair loss. Patient review of systems and history is somewhat limited by patient condition peer most history is supplied by . [facility] Medical History (Updated 04/11/21 @ 23:21 by Sam Meade) Alcohol abuse (11/06/14) a. 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 Decreased intake from usual on 04/11/20. Strong hx of ETOH withdrawal seizures. Do you feel safe at home: Yes Do you feel safe in your relationship?: Yes Exam Narrative Exam Narrative: Constitutional: Alert and oriented. Appears stated age. Very thin body habitus. Head: Normocephalic, no trauma. Eyes: Pupils PERRLA, sluggish, Red reflex noted, EOM's intact. Positive nystagmus, eyelids symmetrical without lesions, discharge, or swelling. ENT: Bilateral TM's WNL, External ear normal to inspection, no mastoid TTP, swelling, or erythema, Nasal turbinates WNL, no nasal discharge. Normal dentiti on, Posterior pharynx WNL, no exudate. Chest: RRR, Normal S1, S2, distal pulses intact. Resp: Lungs clear to auscultation bilaterally, no wheezes, rales, or rhonchi. ABD: Soft, nontender to palpation. Musculoskeletal: Generalized weakness, mild tremor to upper extremities, none to lower. Skin: No suspicious rashes or lesions. Capillary refill less than 2 sec. Neurologic: Alert and oriented, patient appears intoxicated is not currently in active withdrawal other than the nausea vomiting positive nystagmus and headache. Patient is not hypertensive not tachycardic at this time Hematologic/Lymphatic: No ecchymosis, no lymphadenopathy.
[2021-04-11 21:11] LABS: Absolute Basophil Count 0.06 10^3/uL (0.0-0.2); Absolute Eosinophil Count 0.03 10^3/uL (0.0-0.7); Absolute Lymphocyte Count 2.02 10^3/uL (1.2-3.4); Absolute Monocyte Count 0.55 10^3/uL (0.1-0.8); Absolute Neutrophil Count 2.45 10^3/uL (1.2-6.7); Basophils % 1.2; Eosinophils % 0.6; HCT 42.7 % (36.0-46.0); HGB 14.7 g/dL (11.2-15.7); Lymphocytes % 39.5; MCH 32.5 pg (27.0-33.0); MCHC 34.4 % (32.0-36.0); MCV 94.3 fL (80-95); MPV 11.1 fL (8.0-11.0); Monocytes % 10.8; Neutrophils % 47.9; Nucleated RBC 0 %; Platelet Count 116 10^3/uL (130-400); RBC 4.53 10^6/uL (3.93-5.22); RDW-SD 41.6 fL; WBC 5.11 10^3/uL (4.4-10.8)
[2021-04-11 21:21] LABS: INR 1.1 (0.9-1.1); Prothrombin Time 11.4 sec (9.3-11.0)
[2021-04-11] MEDS: LORazepam 2 MG/ML VIAL 0.5 MG IVP (21:23)
[2021-04-11] MEDS: Ondansetron 4 MG/2 ML VIAL IVP (21:24)
[2021-04-11] MEDS: MAGNESIUM SULFATE 8.12 MEQ, MULTIVITAMIN 10 ML, THIAMINE 100 MG, FOLIC ACID 1 MG in Nor... 168.867 MG IV (21:25)
[2021-04-11] MEDS: FAMOTIDINE 20 MG/50 ML BAG 200 MG IVPB (21:25)
[2021-04-11 21:49] LABS: ALT 42 U/L (14-59); AST 119 U/L (15-37); Albumin 3.2 g/dL (3.4-5.0); Alkaline Phosphatase 133 U/L (46-116); Anion Gap 8.9 mmol/L (3-11); BUN 3 mg/dL (7-18); Bilirubin, Total 0.5 mg/dL (0.2-1.0); CO2 32.1 mmol/L (21.0-32.0); CREATININE 0.5 mg/dL (0.55-1.02); Calcium 8.6 mg/dL (8.5-10.1); Chloride 100 mmol/L (98-107); Glucose 98 mg/dL (74-106); Sodium 141 mmol/L (136-145); Total Protein 8.1 g/dL (6.4-8.2)
[2021-04-11 21:51] LABS: Magnesium 1.7 mg/dL (1.8-2.4)
[2021-04-11 21:51] LABS: Potassium 2.9 mmol/L (3.5-5.1)
[2021-04-11 21:55] LABS: ETHANOL BLOOD 355.5 mg/dL (<3)
[2021-04-11 23:00] LABS: Source Nasal/Nares
[2021-04-11] MEDS: Normal Saline 500 ML IV (23:02)
[2021-04-11] MEDS: POTASSIUM CHLORIDE 10 MEQ/100 ML BAG 100 MEQ IVPB (23:02)
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
[2021-04-12] VITALS (18 sets, daily range): BP systolic 90–132; BP diastolic 53–82; PULSE 66–97; RESP 16–24; TEMP 36.6–37.6; O2SAT 91–98
[2021-04-12 01:42] LABS: Bilirubin Negative (Negative); Blood Negative (Negative); Clarity Sl Cloudy (Clear); Glucose Negative (Negative); Ketones Negative (Negative); Leukocyte Esterase Trace (Negative); Nitrite Negative (Negative); Urobilinogen 0.2 EU/dL (Up TO 0.2)
[2021-04-12 01:45] LABS: Bacteria Rare HPF (Negative); C & S Indicated? No/Sq. Contamination; Casts Negative LPF (Negative); Crystals Negative HPF (Negative); Epithelial Cells Moderate HPF (Negative); Mucus Negative (Negative); RBC Negative HPF (0-2); WBC 0-2 HPF (0-5)
[2021-04-12 01:52] LABS: *AMPHETAMINES SCREEN URINE Negative (Negative); *BARBITURATES SCREEN URINE Negative (Negative); *BENZODIAZEPINES SCREEN URINE Negative (Negative); Cannabinoids THC Negative (Negative); Cocaine Screen,Urine Negative (Negative); METHADONE URINE SCREEN Negative (Negative); OPIATES URINE SCREEN Negative (Negative)
[2021-04-12 01:57] LABS: Tricyclic Antidepressants Negative (Negative)
[2021-04-12] MEDS: POTASSIUM CHLORIDE/0.9% NACL 1,000 ML 125 MEQ IV ×2 (02:30→10:44)
[2021-04-12] MEDS: LORazepam 1 MG TAB PO/SL ×2 (03:11→08:41)
[2021-04-12] MEDS: oxyCODONE 10 MG TAB PO ×2 (03:57→10:45)
[2021-04-12 06:05] LABS: Abs Immature Grans 0.01 10^3/uL (0.0-0.06); Absolute Basophil Count 0.03 10^3/uL (0.0-0.2); Absolute Eosinophil Count 0.05 10^3/uL (0.0-0.7); Absolute Lymphocyte Count 1.71 10^3/uL (1.2-3.4); Absolute Monocyte Count 0.37 10^3/uL (0.1-0.8); Basophils % 0.8; Eosinophils % 1.3; HCT 36.3 % (36.0-46.0); HGB 11.9 g/dL (11.2-15.7); Immature Grans % 0.3; MCH 31.7 pg (27.0-33.0); MCHC 32.8 % (32.0-36.0); MCV 96.8 fL (80-95); MPV 10.6 fL (8.0-11.0); Monocytes % 9.3; Neutrophils % 45.3; Nucleated RBC 0 %; RBC 3.75 10^6/uL (3.93-5.22); RDW 12.2 % (11.7-14.6); RDW-SD 43.5 fL; WBC 3.98 10^3/uL (4.4-10.8)
[2021-04-12 06:15] LABS: ALT 33 U/L (14-59); AST 91 U/L (15-37); Albumin 2.6 g/dL (3.4-5.0); Alkaline Phosphatase 105 U/L (46-116); Anion Gap 8.1 mmol/L (3-11); BUN 2 mg/dL (7-18); Bilirubin, Total 0.5 mg/dL (0.2-1.0); CO2 28.9 mmol/L (21.0-32.0); CREATININE 0.5 mg/dL (0.55-1.02); Calcium 7.3 mg/dL (8.5-10.1); Chloride 111 mmol/L (98-107); Glucose 86 mg/dL (74-106); Magnesium 1.8 mg/dL (1.8-2.4); Potassium 3.4 mmol/L (3.5-5.1); Sodium 148 mmol/L (136-145); Total Protein 6.4 g/dL (6.4-8.2)
[2021-04-12 06:18] LABS: ALT 34 U/L (14-59); AST 91 U/L (15-37); Albumin 2.6 g/dL (3.4-5.0); Alkaline Phosphatase 108 U/L (46-116); Bilirubin, Direct 0.2 mg/dL (0.0-0.2); Bilirubin, Total 0.5 mg/dL (0.2-1.0); Total Protein 6.2 g/dL (6.4-8.2)
[2021-04-12 06:21] LABS: Platelet Count 91 10^3/uL (130-400)
[2021-04-12 06:22] LABS: RBC Morphology Normal
[2021-04-12] MEDS: Gabapentin 400 MG CAP PO (07:48)
[2021-04-12 09:29] LABS: Lipase 812 U/L (73-393)
[2021-04-12] MEDS: Budesonide/Formoterol 160/4.5 6 GM 60 PUFF INH IH (09:46)
[2021-04-12] MEDS: Magnesium Oxide 400 MG TAB PO (10:45)
--- NOTE | 2021-04-12 10:56 | DSE_ITS ---
Date of service: 04/12/21 Time of Service: 11:05 DS: Diagnosis Discharge Diagnosis (1) Vomiting: Status: Acute (2) Acute alcohol intoxication: Status: Chronic (3) Acute hypokalemia: Status: Acute (4) Hypomagnesemia: Status: Chronic Discharge Plan Disposition Patient Disposition: HOME Condition: Stable Discharge Details Reason For Visit: ALCOHOL INTOXICATION, ELECTROLYTE ABNORMALITIES Admit Date/Time: 04/11/21 23:03 Admit Provider: Sam Meade Attending Provider: Sam Meade Primary Care Provider: Floyd Feng Hospital Course Hospital Course: This is a 50-year-old female patient who chronically drinks alcohol with history of alcohol withdrawal seizures who presents to the ED with nausea and vomiting that she states started after receiving the second dose of Covid vaccine 2 weeks ago.? She states she is unable to keep down her usual meds or food and was forcing herself to drink just before arrival to avoid alcohol withdrawal.? Contrary to the ED history she was not attempting to wean off alcohol, she was unable to continue drinking d/t the nausea and vomiting.? Patient has poor insight into her alcohol abuse.? She is chronically on oxycodone for history of chronic back pain.? She was admitted for IV hydration and stabilization and observed for alcohol withdrawal.? Long-term it appears she does not wish to quit drinking.? Overnight she remained medically stable and her diet was advanced which she tolerated. She remained hemodynamically stable and is denying any c/o. she wishes for discharge home with no services. Prescription for ondansteron sent to her pharmacy. discharge discussed with DR Ruiz. Home Meds and New Rx's Prescriptions: New ondansetron 4 mg tablet,disintegrating 4 mg PO Q6H PRNQty: 10 RF: 0 Continued cyanocobalamin (vitamin B-12) [Vitamin B-12] 1,000 MCG tablet 1,000 mcg PO DAILY Qty: 1 RF: 0 atenolol 25 MG tablet 25 mg PO DAILY RF: 0 guaifenesin [Mucinex] 600 mg tablet extended release 12hr 600 mg PO Q12H PRNQty: 10 RF: 0 thiamine HCl (vitamin B1) 100 mg tablet 100 mg PO DAILY Qty: 60 RF: 0 multivitamin [Multiple Vitamins] 1 TAB tablet 1 tab PO DAILY Qty: 30 RF: 3 magnesium 250 mg Tablet 250 mg PO DAILY RF: 0 mirtazapine 15 mg Tablet 15 mg PO QHS RF: 0 cholecalciferol (vitamin D3) [Vitamin D3] 25 mcg (1,000 unit) Capsule 50 mcg PO DAILY RF: 0 budesonide-formoterol [Symbicort] 160-4.5 mcg/actuation Hfa Aerosol Inhaler 2 puff INHALATION BID RF: 0 magnesium oxide 400 mg (241.3 mg magnesium) Tablet 400 mg PO BID@1000,2200 Qty: 60 RF: 0 gabapentin [Neurontin] 400 mg Capsule 400 mg PO TID Qty: 90 RF: 0 Discharge Instructions Instructions: Alcohol Intoxication (DC), Acute Nausea and Vomiting (GEN) Additional Instructions: advance diet slowly as tolerated. drink 6-8 glasses of water daily to stay well hydrated. Stand Alone Forms: Nursing Discharge Form Referrals: Floyd Feng [Primary Care Provider] - (call your pcp wednesday at [phone] for an appt in one to two weeks) Activity:: Activity as Tolerated Equipment/Supplies:: No Equipment Needed Diet:: As Tolerated Discharge Orders Discharge Orders: Discharge Order (Routine); Ordered 04/12/21 Ordered By: Oma Silvestre DS: Summary Time Spent with Patient providing and/or coordinating discharge services: Less than 30 minutes Status at Discharge Functional status at discharge: independent ambulation Overall status at discharge: patient is progressing back to baseline Mental Status: mental status grossly normal Speech and Movement: speech and movement normal Mood: congruent mood Affect: normal affect Exam Const General: cooperative, no acute distress, frail appearing and ill appearing chronically (older than stated age) Nutritional Appearance: underweight Orientation: alert, awake and oriented x3 HENAR Head: normal to inspection, normocephalic and atraumatic Mouth: moist mucous membranes abnormal (slightly dry) Resp Effort & Inspection: normal respiratory effort Auscultation: clear to auscultation bilaterally Cardio Rate: regular rate Rhythm: regular rhythm GI Auscultation: normal bowel sounds Skin Lesions: no lesions Rashes: no rashes Neuro General: patient alert, patient awake and patient oriented x3 Cognition: normal cognition Speech: speech normal Extrem General: normal to inspection and full ROM Psych Mental Status: mental status grossly normal Speech and Movement: speech and movement normal Mood: congruent mood Affect: normal affect DS: Data Vitals/I&O Vitals and I&O: Vital Signs Temperature 37.2 C 04/12/21 07:57 Temperature Source Tympanic 04/12/21 07:57 Pulse 79 04/12/21 08:38 Pulse Rhythm Regular 04/12/21 07:58 Pulse 79 04/12/21 00:50 Respiratory Rate 18 04/12/21 07:57 Respiratory Effort Non-Labored 04/12/21 07:58 Respiratory Depth Normal 04/12/21 07:58 Respiratory Pattern Normal 04/12/21 07:58 Blood Pressure 132/77 04/12/21 07:57 Blood Pressure Mean 62 04/12/21 00:45 Pulse Oximetry 96 04/12/21 07:57 Oxygen Delivery Method Room Air 04/12/21 07:57 Oxygen Flow Rate 0 04/12/21 07:57 Pain Level 5 04/12/21 07:57 Intake & Output 04/11/21 04/11/21 04/12/21 11:59 23:59 11:59 Intake Total 317.373 / 181.264 1972.827 / 2345.827 Output Total 1100 / 1100 Balance 317.373 / 665.787 7728.827 / 1245.827 Weight 53.9 kg 55.2 kg Intake: IV 317.373 / 909.123 9072.827 / 2345.827 Output: Urine 1100 / 1100 Other: Urine Color Straw Urine Appearance Clear Comment pt filled hat to brim Emesis Description Bile Mucous Voiding Methods Bedside Commode Data Completed and Pending Labs on day of discharge: Labs from last 24 hours 04/12/21 04/12/21 04/12/21 05:50 05:50 05:50 WBC 3.98 L RBC 3.75 L Hgb 11.9 D Hct 36.3 MCV 96.8 H MCH 31.7 MCHC 32.8 RDW 12.2 Plt Count 91 L MPV 10.6 Immature Gran % 0.3 Neutrophils % 45.3 Lymphocytes % 43.0 Monocytes % 9.3 Eosinophils % 1.3 Basophils % 0.8 Nucleated RBC % 0 Absolute Neutrophils 1.80 Absolute Lymphocytes 1.71 Absolute Monocytes 0.37 Absolute Eosinophils 0.05 Absolute Basophils 0.03 RBC Morphology Normal PT INR Sodium Potassium Chloride Carbon Dioxide Anion Gap BUN Creatinine Estimated GFR/1.73 m2 Glucose Calcium Phosphorus 3.0 Magnesium Total Bilirubin 0.5 Conjugated Bilirubin 0.2 AST 91 H ALT 34 Alkaline Phosphatase 108 Total Protein 6.2 L Albumin 2.6 L Lipase 812 H Urine Color Urine Clarity Urine pH Ur Specific [place] Urine Protein Urine Ketones Urine Blood Urine Nitrite Urine Bilirubin Urine Urobilinogen Ur Leukocyte Esterase Urine RBC Urine WBC Ur Epithelial Cells Urine Crystals Urine Bacteria Urine Casts Urine Mucus Ur Culture Indicated? Urine Glucose Urine Opiates Screen Urine Methadone Screen Ur Barbiturates Screen Ur Tricyclics Screen Ur Amphetamines Screen U Benzodiazepines Scrn Urine Cocaine Screen Ur THC Screen Ethyl Alcohol COVID-19 Source SARS-CoV-2 (PCR) 04/12/21 04/12/21 04/12/21 05:50 01:20 01:20 WBC RBC Hgb Hct MCV MCH MCHC RDW Plt Count MPV Immature Gran % Neutrophils % Lymphocytes % Monocytes % Eosinophils % Basophils % Nucleated RBC % Absolute Neutrophils Absolute Lymphocytes Absolute Monocytes Absolute Eosinophils Absolute Basophils RBC Morphology PT INR Sodium 148 H Potassium 3.4 L Chloride 111 H Carbon Dioxide 28.9 Anion Gap 8.1 BUN 2 L Creatinine 0.5 L Estimated GFR/1.73 m2 >= 60.00 Glucose 86 Calcium 7.3 L Phosphorus Magnesium 1.8 Total Bilirubin 0.5 Conjugated Bilirubin AST 91 H ALT 33 Alkaline Phosphatase 105 Total Protein 6.4 Albumin 2.6 L Lipase Urine Color Yellow Urine Clarity Sl cloudy Urine pH 7.0 Ur Specific [place] 1.010 Urine Protein Negative Urine Ketones Negative Urine Blood Negative Urine Nitrite Negative Urine Bilirubin Negative Urine Urobilinogen 0.2 Ur Leukocyte Esterase Trace H Urine RBC Negative Urine WBC 0-2 Ur Epithelial Cells Moderate Urine Crystals Negative Urine Bacteria Rare Urine Casts Negative Urine Mucus Negative Ur Culture Indicated? No/sq. contamination Urine Glucose Negative Urine Opiates Screen Negative Urine Methadone Screen Negative Ur Barbiturates Screen Negative Ur Tricyclics Screen Negative Ur Amphetamines Screen Negative U Benzodiazepines Scrn Negative Urine Cocaine Screen Negative Ur THC Screen Negative Ethyl Alcohol COVID-19 Source SARS-CoV-2 (PCR) 04/11/21 04/11/21 04/11/21 22:55 21:30 21:04 WBC 5.11 RBC 4.53 Hgb 14.7 Hct 42.7 MCV 94.3 MCH 32.5 MCHC 34.4 RDW 12.0 Plt Count 116 L MPV 11.1 H Immature Gran % 0.0 Neutrophils % 47.9 Lymphocytes % 39.5 Monocytes % 10.8 Eosinophils % 0.6 Basophils % 1.2 Nucleated RBC % 0 Absolute Neutrophils 2.45 Absolute Lymphocytes 2.02 Absolute Monocytes 0.55 Absolute Eosinophils 0.03 Absolute Basophils 0.06 RBC Morphology PT INR Sodium 141 Potassium 2.9 L Chloride 100 Carbon Dioxide 32.1 H Anion Gap 8.9 BUN 3 L Creatinine 0.5 L Estimated GFR/1.73 m2 >= 60.00 Glucose 98 Calcium 8.6 Phosphorus Magnesium Total Bilirubin 0.5 Conjugated Bilirubin AST 119 H ALT 42 Alkaline Phosphatase 133 H Total Protein 8.1 Albumin 3.2 L Lipase Urine Color Urine Clarity Urine pH Ur Specific [place] Urine Protein Urine Ketones Urine Blood Urine Nitrite Urine Bilirubin Urine Urobilinogen Ur Leukocyte Esterase Urine RBC Urine WBC Ur Epithelial Cells Urine Crystals Urine Bacteria Urine Casts Urine Mucus Ur Culture Indicated? Urine Glucose Urine Opiates Screen Urine Methadone Screen Ur Barbiturates Screen Ur Tricyclics Screen Ur Amphetamines Screen U Benzodiazepines Scrn Urine Cocaine Screen Ur THC Screen Ethyl Alcohol COVID-19 Source Nasal/nares SARS-CoV-2 (PCR) Pending 04/11/21 04/11/21 04/11/21 21:04 21:04 21:04 WBC RBC Hgb Hct MCV MCH MCHC RDW Plt Count MPV Immature Gran % Neutrophils % Lymphocytes % Monocytes % Eosinophils % Basophils % Nucleated RBC % Absolute Neutrophils Absolute Lymphocytes Absolute Monocytes Absolute Eosinophils Absolute Basophils RBC Morphology PT 11.4 H INR 1.1 Sodium Cancelled Potassium Cancelled Chloride Cancelled Carbon Dioxide Cancelled Anion Gap Cancelled BUN Cancelled Creatinine Cancelled Estimated GFR/1.73 m2 Cancelled Glucose Cancelled Calcium Cancelled Phosphorus Magnesium 1.7 L Total Bilirubin Cancelled Conjugated Bilirubin AST Cancelled ALT Cancelled Alkaline Phosphatase Cancelled Total Protein Cancelled Albumin Cancelled Lipase Urine Color Urine Clarity Urine pH Ur Specific [place] Urine Protein Urine Ketones Urine Blood Urine Nitrite Urine Bilirubin Urine Urobilinogen Ur Leukocyte Esterase Urine RBC Urine WBC Ur Epithelial Cells Urine Crystals Urine Bacteria Urine Casts Urine Mucus Ur Culture Indicated? Urine Glucose Urine Opiates Screen Urine Methadone Screen Ur Barbiturates Screen Ur Tricyclics Screen Ur Amphetamines Screen U Benzodiazepines Scrn Urine Cocaine Screen Ur THC Screen Ethyl Alcohol 355.5 COVID-19 Source SARS-CoV-2 (PCR) 04/12/21 01:20 Urine - Clean Catch Urine Culture - Pending Preliminary micro results at discharge 04/12/21 01:20 Urine Culture - Pending Urine - Clean Catch [facility] Medical History (Updated 04/12/21 @ 05:52 by Sam Meade) Alcohol abuse (11/06/14) a. 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 Decreased intake from usual on 04/11/20. Strong hx of ETOH withdrawal seizures. Do you feel safe at home: Yes Do you feel safe in your relationship?: Yes
[2021-04-12] MEDS: LORazepam 1 MG TAB PO (11:57)
--- NOTE | 2021-04-12 15:26 | NUR.NOTE ---
12:30 pm: Despite tremors and scoring 8 on CIWA scale, patient was adamant that she is going home. Nurse practitioner was informed of CIWA score and 1 mg of ativan was ordered and was given. Discharge package was discussed with patient and if symptoms get worse or other issues arise- she should return to the ER. Patient was discharge accompanied by spouse.
[2021-04-12 15:29] LABS: COVID-19 PCR Negative (Negative)
== END 2021-04-12 13:01 | disposition home or self-care (01) | DRG 392 ==
LOC: ER 23:15 → MS 04-12 00:58
PROVIDERS: Admitting Provider Family Medicine; Emergency Provider Registered Nurse Emergency; PCP Physician Assistant; Visit Provider Family Medicine
DX: R11.2 Nausea with vomiting, unspecified (principal); E51.2 Wernicke's encephalopathy; F10.229 Alcohol dependence with intoxication, unspecified; Y90.8 Blood alcohol level of 240 mg/100 ml or more; I10 Essential (primary) hypertension; J44.9 Chronic obstructive pulmonary disease, unspecified; F17.210 Nicotine dependence, cigarettes, uncomplicated; Z20.822 Contact with and (suspected) exposure to COVID-19; E87.6 Hypokalemia; E83.42 Hypomagnesemia; R19.7 Diarrhea, unspecified; G89.29 Other chronic pain; M54.9 Dorsalgia, unspecified; Z79.891 Long term (current) use of opiate analgesic
CPT/HCPCS: 36415; 80053; 80076; 80307; 83690; 87077; 87635; 94640; 96361; 96365; 96366; 96368; 96375; 99285; 80320; 81003; 81015; 83735; 84100; 85025; 85610; 87086; 87186; 99223; 99238; 99284; J2060; J2405; J3480

== ENCOUNTER 2021-08-28 12:01 | Emergency (ER) | payer OTHER, SELFPAY ==
[2021-08-28 12:21] VITALS: BP 109/72; PULSE 108; TEMP 37.3; O2SAT 91
--- NOTE | 2021-08-28 13:18 | W.ED.GENAD ---
Discharge Plan Disposition Patient Disposition: HOME Condition: Stable Discharge Details Clinical Impression: Foot sprain Primary Care Provider: Floyd Feng ED Provider: Jeyson Benítez Home Meds and New Rx's Prescriptions: Continued cyanocobalamin (vitamin B-12) [Vitamin B-12] 1,000 MCG tablet 1,000 mcg PO DAILY Qty: 1 RF: 0 atenolol 25 MG tablet 25 mg PO DAILY RF: 0 thiamine HCl (vitamin B1) 100 mg tablet 100 mg PO DAILY Qty: 60 RF: 0 ondansetron 4 mg tablet,disintegrating 4 mg PO Q6H PRNQty: 10 RF: 0 multivitamin [Multiple Vitamins] 1 TAB tablet 1 tab PO DAILY Qty: 30 RF: 3 cholecalciferol (vitamin D3) [Vitamin D3] 25 mcg (1,000 unit) Capsule 50 mcg PO DAILY RF: 0 budesonide-formoterol [Symbicort] 160-4.5 mcg/actuation Hfa Aerosol Inhaler 2 puff INHALATION BID RF: 0 Discharge Instructions Instructions: Foot Sprain (ED) Additional Instructions: X-ray does not reveal any obvious bony abnormality. Wear splint and use crutches as needed, advance activity as tolerated. Rest, elevate, cool compresses every 2 hours for 20 minutes. [id number] Tylenol and/or Motrin as directed for discomfort. Please watch for new or worsening symptoms and return to the ER for any concerns. If you are not improving with conservative measures over the next 7 days, I recommend following up with orthopedics as an outpatient for further evaluation of your injury Referrals: Paul Roque MD [ [facility] STAFF PHYSICIAN] - Medical Decision Making 50-year-old female presents complaining of right foot pain status post mechanical slip and fall 2 days ago. Denies any other injury. Denies numbness, tingling, weakness. Has not taken any [id number] medication for her symptoms. Will obtain x-ray to rule out any bony involvement. X-ray unremarkable Discussed benign x-ray with patient and family. Then discussed disposition. Short walking boot and crutches provided with teaching. Discussed the importance of outpatient follow-up with orthopedics in a week or so if symptoms not improving with conservative measures. Standard discharge and return precautions provided This documentation was generated using GIVTEDation system, please disregard any oddities of phrase or misspellings. Medical Records Medical records reviewed: Yes I reviewed the patient's medical records. Imaging Data Radiologic Study: Attestation: I personally reviewed and interpreted this imaging study as follows: Imaging: X-Ray Radiologist's impression: EXAM XR FOOT RT COMPLETE CLINICAL HISTORY [ twist injury. ] [] TECHNIQUE 2D digital imaging was performed of the right foot. [Three] images were obtained. [AP, oblique and lateral][] views were obtained. COMPARISON [CR,XR XR FOOT RT COMPLETE from 04/13/2020] [] FINDINGS BONES: [No acute fracture is present.] [No bony destructive lesion is seen.] [] JOINTS: [No dislocation present.] [] SOFT TISSUE: [Normal.] [] IMPRESSION [No acute fracture or dislocation. HPI General Mode of arrival: wheelchair. Date/Time Provider Initiated Documentation: 08/28/21 12:29. Limitations to Documentation: no limitations. Information obtained by: patient and family. HPI Narrative: This is a 50-year-old female, past medical history of alcohol abuse, COPD, hypertension, presenting to the ER for right foot injury that she sustained 2 days ago with a mechanical trip and fall while watching her grandkids. Denies any other injury. Reports the pain is moderate at rest worse with movement or bearing weight. Denies numbness, tingling, weakness. Has not taken any [id number] medications for her symptoms Related Data Home Medications Medication Instructions Recorded Confirmed atenolol 25 mg PO DAILY 03/28/13 08/28/21 cyanocobalamin (vitamin B-12) 1,000 mcg PO DAILY #1 04/10/14 08/28/21 [Vitamin B-12] multivitamin [Multiple Vitamins] 1 tab PO DAILY #30 tab 07/11/17 08/28/21 thiamine HCl (vitamin B1) 100 mg PO DAILY #60 tab 07/22/19 08/28/21 budesonide-formoterol [Symbicort] 2 puff INHALATION BID 04/12/20 08/28/21 cholecalciferol (vitamin D3) 50 mcg PO DAILY 04/12/20 08/28/21 [Vitamin D3] ondansetron 4 mg PO Q6H PRN #10 tab 04/12/21 08/28/21 Previous Rx's Medication Instructions Recorded multivitamin [Multiple Vitamins] 1 tab PO DAILY #30 tab 07/11/17 thiamine HCl (vitamin B1) 100 mg PO DAILY #60 tab 07/22/19 ondansetron 4 mg PO Q6H PRN #10 tab 04/12/21 Allergies Allergy/AdvReac Type Severity Reaction Status Date / Time acetaminophen [From Tylenol] AdvReac Unverified 08/28/21 12:35 General Stated Complaint: Orthopedic SHEA: 4 Review of Systems Musculoskeletal Musculoskeletal: Denies deformity, Denies arthralgias, Denies numbness, Reports stiffness and Denies tingling Integumentary/Breasts Skin/Breast: Denies erythema Neurologic Neurologic: Denies numbness and Denies tingling [facility] Medical History Alcohol abuse (11/06/14) a. 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 Decreased intake from usual on 04/11/20. Strong hx of ETOH withdrawal seizures. Do you feel safe at home: Yes Do you feel safe in your relationship?: Yes Exam Const General: cooperative, healthy appearing, comfortable and no acute distress Orientation: alert and awake [facility] Head: normal to inspection, normocephalic and atraumatic Eyes Conjunctivae: conjunctivae normal Neck Neck: normal visual inspection, trachea midline and supple Resp Effort & Inspection: normal respiratory effort and able to speak in complete sentences Cardio Rate: regular rate Rhythm: regular rhythm Skin General skin exam: no rashes or lesions noted Neuro General: patient alert, patient awake, moves all extremities and no focal motor deficits Cognition: normal cognition Speech: speech normal Gait: antalgic Motor: muscle tone normal throughout Sensory Exam: no sensory deficits noted Extrem General: full ROM and capillary refill normal Ankle/foot/toe images: 1. Diffuse discomfort, worse over the second, third, fourth metatarsals. There is no deformity. Minimal swelling and ecchymosis present. Full range of motion. Neuro, vascular, tendon intact. Normal dorsalis pedal pulse and capillary refill Psych Appearance: grossly normal Mental Status: mental status grossly normal Course Vital Signs Vital signs: Vital Signs Temperature 37.3 C 08/28/21 12:21 Pulse 108 H 08/28/21 12:21 Blood Pressure 109/72 08/28/21 12:21 Pulse Oximetry 91 L 08/28/21 12:21 Temperature 37.3 C 08/28/21 12:21 Temperature Source Temporal Artery Scan 08/28/21 12:21 Pulse 108 H 08/28/21 12:21 Respiratory Effort Non-Labored 08/28/21 12:23 Blood Pressure 109/72 08/28/21 12:21 Blood Pressure Position Sitting 08/28/21 12:21 Pulse Oximetry 91 L 08/28/21 12:21 Oxygen Delivery Method Room Air 08/28/21 12:21 Oxygen Flow Rate 0 08/28/21 12:21 Pain Level 8 08/28/21 12:25 Comment 08/28/21 12:21 PAWSS Have you Been Recently Intoxicated or Drunk Within the Last 30 days?: No Have you Ever Experienced Previous Episodes of Alcohol Withdrawal?: Yes Have you ever Experienced Withdrawal Seizures?: Yes Have you ever Experienced Delirium Tremens(DT)s?: Yes Have you ever undergone Alcohol Rehabilitation Treatment (i.e, inpt ot outpatient treatment programs)?: No Have you ever Experienced Blackouts?: No Have you ever Combined Alcohol with other Downers within the last 90 days?: No Have you ever Combined Alcohol with any other Substance of Abuse during the last 90 days?: No Positive Blood Alcohol level on Presentation? [PCS.BAL]: No Evidence of Increased Autonomic Activity (i.e. HR>120, tremor, sweating, agitation, nausea)?: No Result: 3
--- NOTE | 2021-08-28 13:40 | DI.RAD_ITS ---
Exam(s) XR FOOT RT COMPLETE EXAM: XR FOOT RT COMPLETE CLINICAL HISTORY: twist injury. TECHNIQUE: 2D digital imaging was performed of the right foot. Three images were obtained. AP, obl ique and lateral views were obtained. COMPARISON: CR,XR XR FOOT RT COMPLETE from 04/13/2020 FINDINGS: BONES: No acute fracture is present. No bony destructive lesion is seen. JOINTS: No dislocation present. SOFT TISSUE: Normal. IMPRESSION: No acute fracture or dislocation. DATA REPOSITORY: RADIATION DOSE DELIVERED:
== END 2021-08-28 14:45 | disposition home or self-care (01) ==
PROVIDERS: Emergency Provider Physician Assistant; PCP Physician Assistant
DX: S93.691A Other sprain of right foot, initial encounter (principal); W01.0XXA Fall on same level from slipping, tripping and stumbling without subsequent striking against object, initial encounter
CPT/HCPCS: 29515; 99283; 73630

== ENCOUNTER 2022-01-08 18:49 | Outpatient (REF) | payer MEDICARE, SELFPAY ==
[2022-01-08 15:58] LABS: HCT 50.1 % (36.0-46.0); HGB 16.3 g/dL (11.2-15.7); MCH 31.3 pg (27.0-33.0); MCHC 32.5 % (32.0-36.0); MCV 96.3 fL (80-95); MPV 12.8 fL (8.0-11.0); Platelet Count 181 10^3/uL (130-400); RDW 11.8 % (11.7-14.6); RDW-SD 42.3 fL; WBC 10.68 10^3/uL (4.4-10.8)
[2022-01-08 16:43] LABS: ALT 25 U/L (14-59); AST 48 U/L (15-37); Albumin 2.8 g/dL (3.4-5.0); Alkaline Phosphatase 165 U/L (46-116); Anion Gap 12.7 mmol/L (3-11); BUN 3 mg/dL (7-18); Bilirubin, Total 0.7 mg/dL (0.2-1.0); CO2 26.3 mmol/L (21.0-32.0); CREATININE 0.5 mg/dL (0.55-1.02); Calcium 8.9 mg/dL (8.5-10.1); Chloride 104 mmol/L (98-107); Folate 16.7 ng/mL (8.6-20.0); Glucose 75 mg/dL (74-106); Potassium 3.2 mmol/L (3.5-5.1); Sodium 143 mmol/L (136-145); TSH 1.69 uIU/mL (0.36-3.74); Total Protein 7.2 g/dL (6.4-8.2); Vitamin B12 752 pg/mL (193-986)
[2022-01-08 17:00] LABS: Bilirubin, Direct 0.3 mg/dL (0.0-0.2); Creatine Kinase 79 U/L (26-192); Lipase 64 U/L (73-393)
[2022-01-11 10:00] LABS: Aldolase 7.2 U/L (<7.7)
== END 2022-01-08 18:50 | disposition home or self-care (01) ==
LOC: LBN 18:49
PROVIDERS: Psychiatry & Neurology Neurology; PCP Physician Assistant; Visit Provider Physician Assistant
DX: M62.50 Muscle wasting and atrophy, not elsewhere classified, unspecified site (principal); F10.10 Alcohol abuse, uncomplicated; I10 Essential (primary) hypertension; Z79.891 Long term (current) use of opiate analgesic
CPT/HCPCS: 80053; 80076; 82550; 83690; 85027; 82085; 82607; 82746; 84443; 85610

== ENCOUNTER 2022-03-05 12:08 | Emergency (ER) | payer MEDICARE, SELFPAY ==
[2022-03-05] VITALS (42 sets, daily range): BP systolic 100–115; BP diastolic 65–81; PULSE 70–92; RESP 9–21; TEMP 36.6–36.8; O2SAT 84–99
--- NOTE | 2022-03-05 12:00 | RT.EKG_ITS ---
APPROVED REPORT Exam: Resting ECG Reason for Exam: SVT Patient Location: E HR:87 bpm ECG Measurements Heart Rate 87 AXIS AZ 161 P 75 QRSd 95 QRS 46 QT 422 T 87 QTc 507 Conclusion Sinus rhythm...normal P axis, V-rate 60- 99 Low voltage, extremity leads...all extremity leads <0.5mV Nonspecific T abnormalities, lateral leads...T <-0.10mV, I aVL V5 V6. Sinus. Normal axis. No STEMI. I have reviewed and interpreted ECG and agree with software generated interpretation.
--- NOTE | 2022-03-05 12:15 | DI.RAD_ITS ---
Exam(s) XR HAND LT COMPLETE EXAM: XR HAND LT COMPLETE CLINICAL HISTORY: Fall 1 weeks ago, R/O Fracture TECHNIQUE: COMPARISON: No exams were available for comparison FINDINGS: Three views were obtained. There is a fracture of the base of the 4th metacarpal with mild displacem ent. No additional fracture identified. IMPRESSION: RADIATION DOSE DELIVERED: Total DLP
--- NOTE | 2022-03-05 12:15 | DI.CT_ITS ---
Exam(s) CT HEAD WO EXAM: CT HEAD WO CLINICAL HISTORY: Fall 1 week ago, headache, R/O SDH. TECHNIQUE: Imaging Protocol: Axial computed tomography images with coronal and sagittal reformatted images were created and reviewed COMPARISON: CT CT HEAD WO from 09/05/2020 FINDINGS: There is moderate generalized cerebral atrophy much more severe than expected for this age group.. No evidence of acute intracranial hemorrhage, mass effect, or midline shift. The orbital structures are unremarkable. The temporal bone structures appear intact. Calvarium: Normal. Visualized Paranasal sinuses/Mastoids: Mastoid air cells are clear. There is mucoperiosteal thickeni ng and possible air-fluid level of left maxillary antrum, consider chronic sinusitis. Mild ethmoid s inus disease noted bilaterally as well.. IMPRESSION: No evidence of acute intracranial hemorrhage. Probable chronic maxillary and ethmoid sinusitis.. RADIATION DOSE DELIVERED: 703.76mGy.cm Total DLP 703.76mGy.cm Total DLP !Error CTDIvol DATA REPOSITORY: All CT scans at this facility are submitted to the National Radiology Data Registry (NRDR) Dose Index Registry (DIR) with the [employer] ([employer]). RADIATION OPTIMIZATION: All CT scans at this facility use at least one of these dose optimization te chniques: automated exposure control; mA and/or kV adjustment per patient size (includes targeted exa ms where dose is matched to clinical indication); or iterative reconstruction.
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
[2022-03-05] MEDS: Pantoprazole 40 MG VIAL IVP (12:44)
[2022-03-05] MEDS: Normal Saline Flush 10 ML SYR IVP ×2 (12:45→14:59)
--- NOTE | 2022-03-05 13:00 | DI.RAD_ITS ---
Exam(s) XR RIBS RT W PA LAT CHEST EXAM: XR RIBS RT W PA LAT CHEST CLINICAL HISTORY: Fall, Right Rib pain TECHNIQUE: COMPARISON: CR,XR XR PORTABLE CHEST AP from 04/12/2020 FINDINGS: PA and lateral chest and 4 additional views of the ribs were obtained. There is deformity of the rig ht 2nd rib anteriorly which probably represents an old fracture with appearance unchanged from prior radiographs of March 2020. Otherwise the ribs appear intact. Lungs are clear and well expanded and cardiac size is within normal limits. Mild right apical scarri ng noted. No pleural effusion or pneumothorax IMPRESSION: . no evidence of acute process. RADIATION DOSE DELIVERED: Total DLP
[2022-03-05 13:07] LABS: Abs Immature Grans 0.03 10^3/uL (0.0-0.06); Absolute Basophil Count 0.03 10^3/uL (0.0-0.2); Absolute Eosinophil Count 0.01 10^3/uL (0.0-0.7); Absolute Lymphocyte Count 0.99 10^3/uL (1.2-3.4); Absolute Monocyte Count 0.37 10^3/uL (0.1-0.8); Basophils % 0.4; Eosinophils % 0.1; HCT 38.8 % (36.0-46.0); HGB 13.1 g/dL (11.2-15.7); Immature Grans % 0.4; Lymphocytes % 13.7; MCH 32.3 pg (27.0-33.0); MCHC 33.8 % (32.0-36.0); MCV 95.6 fL (80-95); MPV 11.1 fL (8.0-11.0); Monocytes % 5.1; Neutrophils % 80.3; Nucleated RBC 0 %; Platelet Count 191 10^3/uL (130-400); RBC 4.06 10^6/uL (3.93-5.22); RDW 13.9 % (11.7-14.6); WBC 7.23 10^3/uL (4.4-10.8)
[2022-03-05 13:28] LABS: ALT 27 U/L (14-59); AST 90 U/L (15-37); Albumin 2.1 g/dL (3.4-5.0); Alkaline Phosphatase 215 U/L (46-116); Anion Gap 10.2 mmol/L (3-11); BUN 4 mg/dL (7-18); Bilirubin, Total 1.5 mg/dL (0.2-1.0); CO2 27.8 mmol/L (21.0-32.0); CREATININE 0.7 mg/dL (0.55-1.02); Calcium 7.2 mg/dL (8.5-10.1); Chloride 99 mmol/L (98-107); Glucose 93 mg/dL (74-106); Lipase 95 U/L (73-393); Magnesium 1.1 mg/dL (1.8-2.4); Sodium 137 mmol/L (136-145); Total Protein 6.6 g/dL (6.4-8.2); Troponin I < 50 ng/L (<or=60)
[2022-03-05 13:49] LABS: ETHANOL BLOOD < 3.0 mg/dL (<10)
[2022-03-05 13:51] LABS: Potassium 2.5 mmol/L (3.5-5.1)
[2022-03-05] MEDS: Normal Saline 1,000 ML 250 ML IV (14:59)
[2022-03-05] MEDS: MAGNESIUM SULFATE 2 GM/50 ML BAG IVPB (14:59)
[2022-03-05] MEDS: POTASSIUM CHLORIDE 10 MEQ/100 ML BAG 100 MEQ IVPB ×2 (14:59→16:36)
[2022-03-05 15:58] LABS: Troponin I < 50 ng/L (<or=60)
--- NOTE | 2022-03-05 16:00 | RT.EKG_ITS ---
APPROVED REPORT Exam: Resting ECG Reason for Exam: electrolyte abnl Patient Location: E HR:73 bpm ECG Measurements Heart Rate 73 AXIS IL 158 P 30 QRSd 84 QRS 39 QT [id number] T [id number] QTc 0 Conclusion Sinus rhythm...normal P axis, V-rate 60- 99 Atrial premature complex...SV complex w/ short R-R interval Low voltage, extremity and precordial leads...extremity<0.5mV, precordial<1.0mV Nonspecific T abnormalities, lateral leads...T <-0.10mV, I aVL V5 V6. Sinus. Normal axis. PACs. No STEMI.
[2022-03-05 18:46] LABS: Magnesium 1.9 mg/dL (1.8-2.4); Potassium 3.3 mmol/L (3.5-5.1)
[2022-03-05 18:47] LABS: *AMPHETAMINES SCREEN URINE Negative (Negative); *BARBITURATES SCREEN URINE Negative (Negative); *BENZODIAZEPINES SCREEN URINE Positive (Negative); Cannabinoids THC Negative (Negative); Cocaine Screen,Urine Negative (Negative); METHADONE URINE SCREEN Negative (Negative); OPIATES URINE SCREEN Positive (Negative)
[2022-03-05 18:49] LABS: Tricyclic Antidepressants Negative (Negative)
[2022-03-05 18:53] LABS: Bilirubin Negative (Negative); Blood Negative (Negative); Clarity Clear (Clear); Glucose Negative (Negative); Ketones Negative (Negative); Leukocyte Esterase Negative (Negative); Nitrite Negative (Negative)
[2022-03-05] MEDS: LORazepam 1 MG TAB PO (20:14)
== END 2022-03-05 19:10 | disposition home or self-care (01) ==
PROVIDERS: Registered Nurse Emergency; Emergency Provider Physician Assistant; PCP Physician Assistant
DX: S62.315A Displaced fracture of base of fourth metacarpal bone, left hand, initial encounter for closed fracture (principal); R11.10 Vomiting, unspecified; E87.8 Other disorders of electrolyte and fluid balance, not elsewhere classified; W19.XXXA Unspecified fall, initial encounter; R51.9 Headache, unspecified; R07.81 Pleurodynia; T50.906A Underdosing of unspecified drugs, medicaments and biological substances, initial encounter; F17.210 Nicotine dependence, cigarettes, uncomplicated; F10.10 Alcohol abuse, uncomplicated
CPT/HCPCS: 36415; 80053; 80307; 83690; 93005; 96361; 96365; 96366; 96368; 96375; 99291; 70450; 71046; 71100; 73130; 80320; 81003; 83735; 84132; 84484; 85025; 93010; J3480

== ENCOUNTER 2022-03-19 11:24 | Outpatient (REF) | payer MEDICARE, SELFPAY ==
[2022-03-19 15:03] LABS: HCT 44.1 % (36.0-46.0); HGB 14.2 g/dL (11.2-15.7); MCH 32.3 pg (27.0-33.0); MCHC 32.2 % (32.0-36.0); MCV 100 fL (80-95); Platelet Count 285 10^3/uL (130-400); RDW 13.4 % (11.7-14.6); RDW-SD 49.9 fL; WBC 9.09 10^3/uL (4.4-10.8)
[2022-03-19 15:26] LABS: ALT 25 U/L (14-59); AST 37 U/L (15-37); Albumin 2.9 g/dL (3.4-5.0); Alkaline Phosphatase 153 U/L (46-116); Anion Gap 6.3 mmol/L (3-11); BUN 2 mg/dL (7-18); Bilirubin, Total 0.5 mg/dL (0.2-1.0); CO2 27.7 mmol/L (21.0-32.0); CREATININE 0.5 mg/dL (0.55-1.02); Calcium 8.6 mg/dL (8.5-10.1); Chloride 105 mmol/L (98-107); Glucose 99 mg/dL (74-106); Potassium 4.5 mmol/L (3.5-5.1); Sodium 139 mmol/L (136-145); Total Protein 7.2 g/dL (6.4-8.2)
== END 2022-03-19 11:25 | disposition home or self-care (01) ==
LOC: NCHCN 11:24
PROVIDERS: PCP Physician Assistant; Visit Provider Physician Assistant
DX: F10.20 Alcohol dependence, uncomplicated (principal)
CPT/HCPCS: 80053; 85027

== ENCOUNTER → 2022-05-19 01:26 | Outpatient (CLI) | payer MEDICARE, SELFPAY ==
--- NOTE | 2022-05-19 12:23 | DI.MAMMO_ITS ---
Exam(s) MAMMO SCREENING EXAM: MAMMO SCREENING CLINICAL HISTORY: SCREENING FOR BREAST CANCER Z12.39 TECHNIQUE: Bilateral full field digital CC and MLO mammographic images were obtained with 3D tomosyn thesis and utilizing computer aided detection (CAD). COMPARISON: Available for comparison. FINDINGS: Masses/Architectural Distortion: There is a partially obscured nodule at the 6 o'clock position of th e right breast. Microcalcifications: No suspicious pleomorphic-type are seen. Skin Thickening/Nipple Retraction: None. IMPRESSION: 1. Partially obscured nodular density at the 6 o'clock position of the right breast. 2. This area should be further evaluated with a spot compression view. Ultrasound is recommended at that time. BI-RADS Category 0 - Assessment Incomplete: Need additional imaging evaluation Breast Density - Category C - Heterogeneously dense Breast density category C or D implies that the patient has dense breast tissue. Dense breast tissue is very common and is not abnormal but dense breast tissue can make it harder to find cancer on a ma mmogram. Also, dense breast tissue may increase their breast cancer risk. This information about the result of the mammogram report was provided to the patient to raise their awareness. Use this report when you speak with the patient about their risks for breast cancer, which includes their family hist ory. At that time, you may recommend for more screening tests (Ultrasound or MRI) as they might be us eful based on their risk. A negative radiographic report should not delay biopsy if a dominant or clinically suspicious mass is present. Up to ten percent of cancers are not identified on mammography. A negative report may reinforce clinical impression. Adenosis and dense breasts may obscure an underlying neoplasm. False positive reports average 6 to 10%. Patient will receive a letter notifying them of these results.
== END ==
PROVIDERS: PCP Physician Assistant; Visit Provider Physician Assistant
DX: Z12.31 Encounter for screening mammogram for malignant neoplasm of breast (principal); R92.8 Other abnormal and inconclusive findings on diagnostic imaging of breast
CPT/HCPCS: 77063; 77067

== ENCOUNTER → 2022-05-27 01:23 | Outpatient (CLI) | payer MEDICARE, SELFPAY ==
--- NOTE | 2022-05-27 | DI.US_ITS ---
Exam(s) MG MAMMO SCREEN CALL BACK UNI US BREAST RT LIMITED EXAM: MG MAMMO SCREEN CALL BACK UNI CLINICAL HISTORY: F/U MMAMMO, NODULAR DENSITY RT BREAST, R92.8. TECHNIQUE: Craniocaudal and mediolateral oblique spot compression digital Mammography views of the l eft breast with Computer Aided Diagnosis followed by Tomosynthesis and left breast ultrasound. COMPARISON: 2009 and 19 May 2022 FINDINGS: Mammography/Tomosynthesis: Masses/Architectural Distortion: Persistent small ovoid nodule in the inferior, central right breast. Microcalcifictions: No suspicious pleomorphic-type are seen. Skin Thickening/Nipple Retraction: None. Left breast US: Echotexture: Normal appearance of the glandular tissue. Shadowing: No suspicious foci. Cyst: 8 x 3 x 10 millimeter cyst 6 o'clock position 2 cm from the nipple corresponding to the mammogr aphic finding. Solid lesions: None seen. Ductal dilation: None. IMPRESSION: 1. No evidence of malignancy is noted. Mammographic abnormality corresponds to a simple cyst. 2. Unless there is more urgent need, follow-up screening mammography is recommended, as per [place] [employer] guidelines. 3. The findings were discussed with the patient on the date of the examination. BI-RADS Category 2 - Benign Findings Breast Density - Category C - Heterogeneously dense A mammogram that demonstrates density of C or D indicates the patient's breast tissue is dense. Dense breast tissue is very common and is not abnormal, but dense breast tissue can make it harder to find cancer on a mammogram. Also, dense breast tissue may increase their breast cancer risk. This informa tion about the result of the mammogram report was provided to the patient to raise their awareness. U se this report when you speak with the patient about their risks for breast cancer, which includes th eir family history. At that time, you may recommend for more screening tests (Ultrasound or MRI) as t hey might be useful based on their risk. A negative radiographic report should not delay biopsy if a dominant or clinically suspicious mass is present. Up to ten percent of cancers are not identified on mammography. A negative report may reinforce clinical impression. Adenosis and dense breasts may obscure an underlying neoplasm. False positive reports average 6 to 10%. Patient will receive a letter notifying them of these results.
--- NOTE | 2022-05-27 | DI.CTLCSR_ITS ---
Exam(s) CT CHEST LUNG CANCER SCREEN EXAM: CT CHEST LUNG CANCER SCREEN CLINICAL HISTORY: SCREENING FOR LUNG CA, CURRENT SMOKER, F17.210 TECHNIQUE: Imaging Protocol: Axial computed tomography images with coronal and sagittal reformatted images were created and reviewed. Low dose screening protocol. COMPARISON: CR XR RIBS RT W PA LAT CHEST from 03/05/2022 FINDINGS: Tracheobronchial tree: No bronchiectasis or mucus plugging.. Mediastinum and [place]: No dominant adenopathy or fluid collection. Pulmonary parenchyma: No consolidation or dominant measurable mass. Mild to moderate emphysematous ch anges with scarring and blebs in the upper lobes, right greater than left. Scarring bilateral bases. Lung Nodules: None. Pleura: No effusion. No pneumothorax. Heart: The heart is not dilated. No coronary artery calcifications are seen. Aorta: Thoracic aorta non-dilated.Minimal calcification. Upper abdomen: Calcifications in the head of the pancreas, otherwise unremarkable. Bones: Unremarkable for age. Soft Tissues: Unremarkable. IMPRESSION: No suspicious pulmonary nodules. Emphysematous changes. Lung RADS Cat 1 - Negative: No nodules and definitely benign nodules Lung-RADS 1.0 CATEGORIES: Category 0 - Prior chest CT exam(s) being located for comparison. Category 1 - Annual screening in 12 months. No nodules or definitely benign nodules. Category 2 - Annual screening in 12 months. Benign appearance. Nodules with low likelihood of becomin g active cancer. Category 3 - 6-month follow-up. Probably benign. Short-term follow-up suggested. Nodules with low lik elihood of becoming active cancer. Category 4A - 3-month follow-up and CT/PET if >8 mm in size. Suspicious finding. Findings which requi re additional testing. Category 4B - Findings which require additional testing and tissue sampling. Category 4X - Category 3 or 4 nodules with additional features or imaging findings that increases the suspicion of malignancy. Modifier S- Potentially clinically significant findings (non lung cancer) RADIATION DOSE DELIVERED: 85.29mGy.cm Total DLP 1.84mGy CTDIvol DATA REPOSITORY: All CT scans at this facility are submitted to the National Radiology Data Registry (NRDR) Dose Index Registry (DIR) with the [employer] (ACR). RADIATION OPTIMIZATION: All CT scans at this facility use at least one of these dose optimization te chniques: automated exposure control; mA and/or kV adjustment per patient size (includes targeted exa ms where dose is matched to clinical indication); or iterative reconstruction.
== END ==
PROVIDERS: PCP Physician Assistant; Visit Provider Physician Assistant
DX: Z12.31 Encounter for screening mammogram for malignant neoplasm of breast (principal); Z12.2 Encounter for screening for malignant neoplasm of respiratory organs; R92.8 Other abnormal and inconclusive findings on diagnostic imaging of breast; N60.01 Solitary cyst of right breast; J43.9 Emphysema, unspecified; F17.210 Nicotine dependence, cigarettes, uncomplicated
CPT/HCPCS: 71271; 76642; 77063; 77067

== ENCOUNTER 2023-02-08 11:14 | Outpatient (REF) | payer OTHER, SELFPAY ==
[2023-02-08 15:29] LABS: HCT 47.9 % (36.0-46.0); MCH 31.9 pg (27.0-33.0); MCHC 33.4 % (32.0-36.0); MCV 95 fL (80-95); MPV 12.1 fL (8.0-11.0); Platelet Count 207 10^3/uL (130-400); RBC 5.02 10^6/uL (3.93-5.22); RDW 11.2 % (11.7-14.6); RDW-SD 39.8 fL
[2023-02-08 15:53] LABS: ALT 17 U/L (14-59); AST 22 U/L (15-37); Albumin 3.4 g/dL (3.4-5.0); Alkaline Phosphatase 129 U/L (46-116); Anion Gap 10.9 mmol/L (3-11); BUN 5 mg/dL (7-18); CO2 28.1 mmol/L (21.0-32.0); CREATININE 0.7 mg/dL (0.55-1.02); Calcium 9.3 mg/dL (8.5-10.1); Calculated LDL 90 mg/dL (<100); Chloride 103 mmol/L (98-107); Cholesterol 163 mg/dL (<200); Estimated GFR 103.35 (mL/min/1.73m2); Glucose 113 mg/dL (74-106); HDL Cholesterol 60 mg/dL (40-60); Potassium 3.4 mmol/L (3.5-5.1); Sodium 142 mmol/L (136-145); Total Protein 7.6 g/dL (6.4-8.2); Triglyceride 67 mg/dL (<150)
[2023-02-08 17:25] LABS: GGT 156 U/L (5-55)
== END 2023-02-08 11:15 | disposition home or self-care (01) ==
LOC: NCHCN 11:14
PROVIDERS: PCP Physician Assistant; Visit Provider Physician Assistant
DX: F10.20 Alcohol dependence, uncomplicated (principal); I10 Essential (primary) hypertension
CPT/HCPCS: 80053; 80061; 85027; 82977

== ENCOUNTER 2023-03-22 01:21 | Outpatient (CLI) | payer OTHER, SELFPAY ==
--- NOTE | 2023-03-22 | DI.US_ITS ---
Exam(s) US ABDOMEN EXAM: US ABDOMEN CLINICAL HISTORY: ALCOHOL DEPENDENCE,F10.20,SCREEN FOR CIRRHOSIS TECHNIQUE: Ultrasound abdomen performed using standard protocol. COMPARISON: US ABDOMEN ULTRASOUND (P) from 08/09/2017 US US ABDOMEN from 04/16/[address] CHEST LUNG CANCER SCREEN from 05/27/2022 FINDINGS: ABDOMINAL AORTA AND IVC: Visualized portions normal caliber. PANCREAS: There is again seen a cystic structure in the head of the pancreas. It measures 1.5 x 0.8 x 1.0 cm. It has shown interval increase in size compared to the prior examination. There is also an 8 mm echogenic focus within the cystic lesion. This is also shown interval increase in size. LIVER: There is fatty infiltration of the liver. Liver measures 18.6 cm long. There is a nodular co ntour of the liver. Hepatopedal flow in the Portal Vein. GALLBLADDER:No evidence of cholelithiasis. No evidence of wall thickening. No pericholecystic fluid i dentified. BILIARY SYSTEM: Common bile duct measures up to 1.1. No intrahepatic biliary ductal dilation. SHER'S SIGN: Negative. KIDNEYS: Kidneys are symmetric in size. No evidence of renal calculi. No evidence of hydronephrosis. No renal mass or cyst identified. SPLEEN: Echogenic foci are seen in the spleen which may represent calcific granuloma. ASCITES: None seen. IMPRESSION: 1. Extrahepatic biliary ductal dilatation up to 1.1 cm. No choledocholithiasis. 2. Cystic 1.5 cm lesion in the head of the pancreas which has shown interval increase in size. There is an echogenic focus within the cyst. A follow-up MRI or CT scan is recommended for further evaluati on. CT scan of the chest from 05/27/2022 does show calcifications in the head of the pancreas. 3. Hepatomegaly and fatty infiltration of the liver. The liver does have a slightly nodular contour s uspicious for hepatic cirrhosis. DATA REPOSITORY:
== END 2023-03-22 01:41 ==
LOC: DI 01:26
PROVIDERS: PCP Physician Assistant; Visit Provider Physician Assistant
DX: F10.20 Alcohol dependence, uncomplicated (principal)
CPT/HCPCS: 76700

== ENCOUNTER 2023-04-27 01:41 | Outpatient (CLI) | payer OTHER, SELFPAY ==
[2023-04-27] MEDS: Normal Saline - Diluent 50 ML VIAL IJ (08:37)
[2023-04-27] MEDS: Gadoterate meglumine 20 ML VIAL 11 ML IVP (08:38)
--- NOTE | 2023-04-27 09:30 | DI.MRI_ITS ---
Exam(s) MR ABDOMEN WO/W EXAM: MR ABDOMEN WO/W CLINICAL HISTORY: F/U ABNL CT SHOWING PANCREATIC LESION,K86.9 TECHNIQUE: Multiplanar multisequence MRI of the Abdomen was performed. CONTRAST MATERIAL: IV Contrast: 11 mL of Dotarem contrast administered. COMPARISON: US US ABDOMEN from 04/16/[address] CHEST LUNG CANCER SCREEN from 05/27/2022 US US ABDOMEN from 03/22/2023 FINDINGS: Examination limited by patient motion artifact. Liver: Unremarkable. No evidence of a hepatic mass. Pancreas: There is a 1.3 cm cystic structure in the head of the pancreas which does not appear to com municate with the pancreatic duct. No solid pancreatic mass is seen. Gallbladder and Bile Ducts: No evidence of cholelithiasis. The common duct measures 1.3 cm. Adrenals: There is a 1.4 cm left adrenal nodule. There is loss of signal on the in and opposed phase images consistent with an adrenal adenoma. No follow-up is recommended. The right adrenal gland is unremarkable. Kidneys: Unremarkable. Incidental note is made of a retroaortic left renal vein. Spleen: Unremarkable. Bowel: Unremarkable. Aorta: Unremarkable. Soft Tissues: Unremarkable. Bone: Unremarkable. Lymph Nodes: Unremarkable. IMPRESSION: 1. 1.3 cm cyst in the head of the pancreas. It does not appear to communicate with the either the pa ncreatic or bile duct. No solid enhancing component or pancreatic lesion is seen. Follow-up should consist of repeat imaging yearly for 5 years to document stability. If the lesion is stable, reimage every 2 years x2. If there has been interval growth, follow-up with either continued yearly imaging or endoscopic ultrasound/fine-needle aspiration. (Darin et al., 2017. 2. Findings consistent with a left adrenal adenoma. No follow-up is recommended. DATA REPOSITORY:
== END 2023-04-27 02:01 ==
PROVIDERS: PCP Physician Assistant; Visit Provider Physician Assistant
DX: K86.2 Cyst of pancreas (principal); D35.02 Benign neoplasm of left adrenal gland
CPT/HCPCS: 74183

== ENCOUNTER 2023-08-06 13:50 | Outpatient (REF) | payer OTHER, SELFPAY ==
[2023-08-06 15:16] LABS: ALT 50 U/L (14-59); AST 114 U/L (15-37); Albumin 3.2 g/dL (3.4-5.0); Alkaline Phosphatase 207 U/L (46-116); Anion Gap 9.3 mmol/L (3-11); BUN 4 mg/dL (7-18); Bilirubin, Total 0.7 mg/dL (0.2-1.0); CO2 29.7 mmol/L (21.0-32.0); CREATININE 0.6 mg/dL (0.55-1.02); Chloride 102 mmol/L (98-107); Estimated GFR 107.26 (mL/min/1.73m2); Glucose 104 mg/dL (74-106); Potassium 3.4 mmol/L (3.5-5.1); Sodium 141 mmol/L (136-145); Total Protein 7.8 g/dL (6.4-8.2); Uric Acid 5.1 mg/dL (2.6-6.0)
== END 2023-08-06 13:51 | disposition home or self-care (01) ==
LOC: NCHCN 13:50
PROVIDERS: PCP Physician Assistant; Visit Provider Physician Assistant
DX: K70.30 Alcoholic cirrhosis of liver without ascites (principal); M13.88 Other specified arthritis, other site; R79.89 Other specified abnormal findings of blood chemistry
CPT/HCPCS: 80053; 84550

== ENCOUNTER → 2023-10-21 00:37 | Outpatient (CLI) | payer OTHER, SELFPAY ==
--- NOTE | 2023-10-21 | DI.MAMMO_ITS ---
Exam(s) MAMMO SCREENING EXAM: MAMMO SCREENING CLINICAL HISTORY: SCREENING, Z12.39. TECHNIQUE: Bilateral full field digital CC and MLO mammographic images were obtained with 3D tomosyn thesis and utilizing computer aided detection (CAD). COMPARISON: Prior mammograms were reviewed. Ultrasound examination of May 2022 also reviewed. FINDINGS: There has been no significant change in the appearance and distribution of the fibroglandular tissue. There are no new left breast findings. Previously described nodule at 6 o'clock position of the right breast is unchanged and has been shown to be a benign cyst on prior ultrasound of May 2022. There are no new spiculated masses nor malignant-appearing microcalcification groups in either breast . There is no significant architectural distortion nor skin thickening-retraction. IMPRESSION: No radiographic evidence of malignancy. Benign findings. BI-RADS Category 2 - Benign Findings Breast Density - Category C - Heterogeneously dense Breast density Category C or D implies that the patient has dense breast tissue. Dense breast tissue can make it harder to find cancer on a mammogram. Dense breast tissue is also associated with an incr eased risk of breast cancer. This information about the result of the mammogram report was provided to the patient to raise their awareness. Use this report when you speak with the patient about their risks for breast cancer, which includes their family history. At that time, you may recommend additional screening tests (Ultrasoun d or MRI) as these tests may add significant information. A negative radiographic report should not delay biopsy if a dominant or clinically suspicious mass is present. Up to ten percent of cancers are not identified on mammography. A negative report may reinforce clinical impression. Adenosis and dense breasts may obscure an underlying neoplasm. False positive reports average 6 to 10%. Patient will receive a letter notifying them of these results.
--- NOTE | 2023-10-21 09:10 | DI.CTLCSR_ITS ---
Exam(s) CT CHEST LUNG CANCER SCREEN EXAM: CT CHEST LUNG CANCER SCREEN CLINICAL HISTORY: CURRENT SMOKER, F17.210, SCREENING FOR LUNG CANCER. TECHNIQUE: Imaging Protocol: Low Dose Technique CONTRAST MATERIAL: None COMPARISON: CT CT CHEST LUNG CANCER SCREEN from 05/27/2022 FINDINGS: CHEST: LUNGS: Subpleural scarring in the sub apical right upper lobe is again noted, unchanged. No other ri ght lung findings. In the left lung there is an area of infiltrate in the lower lobe just above the hemidiaphragm, incre ased in size from previous and require close follow-up. There is some platelike atelectasis in the p osterior basal segment of the left lower lobe just medial to this. There is no associated pleural fl uid.. MEDIASTINUM: There is no obvious hilar nor mediastinal adenopathy. CARDIAC: Heart size is normal. There is no pericardial effusion.Caliber of the thoracic aorta is wit hin normal limits. OTHER: Lowermost images reveal hepatic steatosis. No splenomegaly. There is a nodule in the left ad renal gland which measures 1.5 x 1.1 cm, similar to previous CT scan of May 2022. Probable adenoma. OSSEOUS: No significant osseous lesions.. IMPRESSION: 1. Area of increasing size infiltrate in the left lower lobe requiring appropriate follow-up. Short- term follow-up recommended no associated pleural effusion nor intrathoracic adenopathy. 2. Left adrenal gland nodule measuring 15 x 11 mm. Appears stable from prior CT scan of May 2022. Probable adenoma. If clinically indicated further study with noninfused chemical shift imaging MRI s equences can be performed for added specificity. 3. Lung RADS Cat 4A - Suspicious: Findings for which additional diagnostic testing and/or tissue samp ling recommended. Recommend repeat CT scan in 3 months Lung-RADS 1.0 CATEGORIES: Category 0 - Prior chest CT exam(s) being located for comparison. Category 1 - Annual screening in 12 months. No nodules or definitely benign nodules. Category 2 - Annual screening in 12 months. Benign appearance. Nodules with low likelihood of becomin g active cancer. Category 3 - 6-month follow-up. Probably benign. Short-term follow-up suggested. Nodules with low lik elihood of becoming active cancer. Category 4A - 3-month follow-up and CT/PET if >8 mm in size. Suspicious finding. Findings which requi re additional testing. Category 4B - Findings which require additional testing and tissue sampling. Category 4X - Category 3 or 4 nodules with additional features or imaging findings that increases the suspicion of malignancy. Modifier S- Potentially clinically significant findings (non lung cancer) RADIATION DOSE DELIVERED: Total DLP DATA REPOSITORY: All CT scans at this facility are submitted to the National Radiology Data Registry (NRDR) Dose Index Registry (DIR) with the [employer] ([employer]). RADIATION OPTIMIZATION: All CT scans at this facility use at least one of these dose optimization te chniques: automated exposure control; mA and/or kV adjustment per patient size (includes targeted exa ms where dose is matched to clinical indication); or iterative reconstruction.
== END ==
PROVIDERS: PCP Physician Assistant; Visit Provider Physician Assistant
DX: F17.210 Nicotine dependence, cigarettes, uncomplicated (principal); Z12.2 Encounter for screening for malignant neoplasm of respiratory organs; R91.8 Other nonspecific abnormal finding of lung field
CPT/HCPCS: 71271; 77063; 77067

== ENCOUNTER → 2024-01-17 02:07 | Outpatient (CLI) | payer OTHER, SELFPAY ==
--- NOTE | 2024-01-17 | DI.CT_ITS ---
Exam(s) CT CHEST WO EXAM: CT CHEST WO CLINICAL HISTORY: F/U ABNL LOW DOSE CT,R93.89,3 MO F/U,LLL INFILTRATE. TECHNIQUE: Imaging protocol: Axial computed tomography images were obtained and coronal and sagittal reformatted images were created and reviewed. CONTRAST MATERIAL: Noncontrast COMPARISON: CT CT CHEST LUNG CANCER SCREEN from 10/21/2023 FINDINGS: Pulmonary parenchyma: Linear scarring left lung base. No suspicious mass or infiltrate. No consolid ation. No suspicious nodules. Emphysema: Some scarring and bulla at the lung apices. Mild emphysema upper lobes. Tracheobronchial tree: No mucous plugging. No bronchiectasis . Interstitial changes: None. Pleura: No effusion or pneumothorax. Heart: The heart is mildly dilated. The coronary arteries show mildcalcifications. Aorta: Thoracic aorta non-dilated. Mildatherosclerotic changes. Lymph nodes: No enlarged lymph nodes. Bones: Degenerative changes are seen. No evidence of compression fracture. Upper abdomen: Severe hepatic steatosis. Stable small left adrenal adenoma. No follow-up is recomm ended. Soft tissues: Unremarkable. IMPRESSION: Residual linear scarring in the left lung base. No evidence of mass. Severe hepatic steatosis. RADIATION DOSE DELIVERED: 408.82mGy.cm Total DLP 408.82mGy.cm Total DLP DATA REPOSITORY: All CT scans at this facility are submitted to the National Radiology Data Registry (NRDR) Dose Index Registry (DIR) with the [employer] ([employer]). RADIATION OPTIMIZATION: All CT scans at this facility use at least one of these dose optimization te chniques: automated exposure control; mA and/or kV adjustment per patient size (includes targeted exa ms where dose is matched to clinical indication); or iterative reconstruction.
== END ==
PROVIDERS: PCP Physician Assistant; Visit Provider Physician Assistant
DX: J98.4 Other disorders of lung (principal); J43.8 Other emphysema; R93.89 Abnormal findings on diagnostic imaging of other specified body structures; K76.0 Fatty (change of) liver, not elsewhere classified
CPT/HCPCS: 71250

== ENCOUNTER 2024-08-03 16:38 | Outpatient (REF) | payer MEDICARE, SELFPAY ==
[2024-08-03 17:02] LABS: HCT 34.7 % (36.0-46.0); HGB 11.9 g/dL (11.2-15.7); MCH 33.4 pg (27.0-33.0); MCHC 34.3 % (32.0-36.0); MCV 98 fL (80-95); Platelet Count 150 10^3/uL (130-400); RBC 3.56 10^6/uL (3.93-5.22); RDW 16.3 % (11.7-14.6); RDW-SD 57.8 fL; WBC 7.35 10^3/uL (4.4-10.8)
[2024-08-03 17:27] LABS: ALT 30 U/L (14-59); AST 90 U/L (15-37); Albumin 1.3 g/dL (3.4-5.0); Alkaline Phosphatase 176 U/L (46-116); Anion Gap 7.4 mmol/L (3-11); BUN 1 mg/dL (7-18); Bilirubin, Total 3.53 mg/dL (0.2-1.0); CO2 25.6 mmol/L (21.0-32.0); CREATININE 0.7 mg/dL (0.55-1.02); Chloride 105 mmol/L (98-107); Estimated GFR 102.71 (mL/min/1.73m2); Ferritin 643 ng/mL (8-252); Glucose 126 mg/dL (74-106); Potassium 4.4 mmol/L (3.5-5.1); Sodium 138 mmol/L (136-145); Total Protein 7.8 g/dL (6.4-8.2)
[2024-08-03 17:44] LABS: Iron 97 ug/dL (50-170); Total Iron Binding Capacity 96 ug/dL (250-450); Transferrin Sat 101 % (15-50)
[2024-08-04 19:31] LABS: AFP Tumor Marker <2.5 ng/mL (<8.1)
== END 2024-08-03 16:39 | disposition home or self-care (01) ==
LOC: NCHCN 16:38
PROVIDERS: PCP Physician Assistant; Visit Provider Physician Assistant
DX: F10.20 Alcohol dependence, uncomplicated (principal)
CPT/HCPCS: 80053; 85027; 82105; 82728; 83540; 83550; 85610

== ENCOUNTER 2024-08-08 00:58 | Outpatient (CLI) | payer MEDICARE, SELFPAY ==
--- NOTE | 2024-08-08 | DI.US_ITS ---
Exam(s) US ABDOMEN EXAM: US ABDOMEN CLINICAL HISTORY: ASCITES, R18.8 in setting of alcoholic cirrhosis TECHNIQUE: Ultrasound of complete upper abdomen performed using standard protocol. COMPARISON: US US ABDOMEN from 03/22/2023 Prior MRI scan 04/27/2023 FINDINGS: Is a mild-moderate amount of ascites LIVER: Liver is hyperechoic indicating steatosis appears somewhat nodular/probable element of cirrhos is. No discrete focal hepatic lesions. GALLBLADDER/BILIARY: There are no gallstones. There is some fluid around the gallbladder but this ap pears to be probably be related to the generalized ascites. The common hepatic duct isdilated, measuring 11-13mm. Cannot see the mid-lower CBD because of overly ing bowel gas. PANCREAS: Not able to be visualized due to overlying bowel gas SPLEEN: The spleen is not enlarged and there are no intrasplenic lesions evident. KIDNEYS:Kidneys exhibit normal size with no evidence of solid mass, calculus, nor hydronephrosis. No cortical cysts evident. ABDOMINAL AORTA: Not able to be seen due to overlying bowel gas. IVC: Not able to be seen due to overlying bowel gas IMPRESSION: 1. Study limited due to overlying bowel gas which prevented visualization the pancreas and mid-lower CBD. Please note that this patient has significant findings in the pancreas on prior MRI scan of which required follow-up. Please refer to that prior report. 2. Liver appears cirrhotic and there is moderate amount of ascites evident. There are no discrete f ocal hepatic lesions. 3. Spleen is not enlarged. 4. No obvious gallstones. DATA REPOSITORY:
== END 2024-08-08 01:18 ==
PROVIDERS: PCP Physician Assistant; Visit Provider Physician Assistant
DX: R18.8 Other ascites (principal); K74.69 Other cirrhosis of liver
CPT/HCPCS: 76700

== ENCOUNTER 2024-09-13 13:27 | Outpatient (REF) | payer MEDICARE, SELFPAY ==
[2024-09-13 15:14] LABS: ALT 47 U/L (14-59); AST 76 U/L (15-37); Albumin 2.1 g/dL (3.4-5.0); Alkaline Phosphatase 153 U/L (46-116); Anion Gap 7.3 mmol/L (3-11); BUN 4 mg/dL (7-18); Bilirubin, Total 1.91 mg/dL (0.2-1.0); CO2 25.7 mmol/L (21.0-32.0); CREATININE 0.7 mg/dL (0.55-1.02); Calcium 8.8 mg/dL (8.5-10.1); Chloride 101 mmol/L (98-107); Estimated GFR 102.71 (mL/min/1.73m2); Glucose 115 mg/dL (74-106); Potassium 4.3 mmol/L (3.5-5.1); Sodium 134 mmol/L (136-145); Total Protein 9.5 g/dL (6.4-8.2)
[2024-09-13 15:17] LABS: HCT 38.5 % (36.0-46.0); HGB 12.8 g/dL (11.2-15.7); MCH 31.5 pg (27.0-33.0); MCHC 33.2 % (32.0-36.0); MCV 95 fL (80-95); MPV 11.7 fL (8.0-11.0); Platelet Count 219 10^3/uL (130-400); RBC 4.06 10^6/uL (3.93-5.22); RDW 12.7 % (11.7-14.6); WBC 8.59 10^3/uL (4.4-10.8)
[2024-09-13 23:40] LABS: Hepatitis A Antibody IgM Negative (Negative); Hepatitis B Core Antibody Negative (Negative); Hepatitis B surface Ag Negative (Negative); Hepatitis C Ab w Rflx HCV PCR Negative (Negative)
== END 2024-09-13 13:28 | disposition home or self-care (01) ==
LOC: NCHCN 13:27
PROVIDERS: PCP Physician Assistant; Visit Provider Physician Assistant
DX: K70.31 Alcoholic cirrhosis of liver with ascites (principal)
CPT/HCPCS: 80053; 85027; 86704; 86709; 86803; 87340

== ENCOUNTER 2025-08-29 12:02 | Outpatient (REF) | payer MEDICARE, SELFPAY ==
[2025-08-29 16:22] LABS: HCT 38.0 % (36.0-46.0); HGB 12.5 g/dL (11.2-15.7); MCH 31.9 pg (27.0-33.0); MCHC 32.9 % (32.0-36.0); MCV 97 fL (80-95); MPV 12.8 fL (8.0-11.0); RBC 3.92 10^6/uL (3.93-5.22); RDW 15.6 % (11.7-14.6); RDW-SD 55.8 fL; WBC 7.79 10^3/uL (4.4-10.8)
[2025-08-29 16:35] LABS: INR 1.9 (0.9-1.1); Prothrombin Time 18.0 sec (9.1-11.1)
[2025-08-29 16:38] LABS: ALT 26 U/L (14-59); AST 56 U/L (15-37); Albumin 2.2 g/dL (3.4-5.0); Alkaline Phosphatase 212 U/L (46-116); Anion Gap 5.7 mmol/L (3-11); BUN 4 mg/dL (7-18); Bilirubin, Total 3.1 mg/dL (0.2-1.0); CO2 27.3 mmol/L (21.0-32.0); Calcium 8.1 mg/dL (8.5-10.1); Chloride 105 mmol/L (98-107); Estimated GFR 105.94 (mL/min/1.73m2); Glucose 86 mg/dL (74-106); Potassium 3.6 mmol/L (3.5-5.1); Sodium 138 mmol/L (136-145); Total Protein 7.3 g/dL (6.4-8.2)
[2025-08-29 16:51] LABS: Platelet Count 98 10^3/uL (130-400)
== END 2025-08-29 12:03 | disposition home or self-care (01) ==
LOC: NCHCN 12:02
PROVIDERS: PCP Physician Assistant; Visit Provider Physician Assistant
DX: K70.31 Alcoholic cirrhosis of liver with ascites (principal)
CPT/HCPCS: 80053; 85027; 82105; 85610